=== PATIENT | female | born 1950 | race Caucasian/White ===

== ENCOUNTER → 2022-08-17 | Outpatient (CLI) | payer MEDICARE, SELFPAY ==
[2022-08-17 10:53] LABS: Erythrocyte Sedimentation Rate 8 mm/hr (0-30)
[2022-08-17 10:55] LABS: Absolute Lymphocyte Count 1.71 X10^3/uL (0.83-4.51); Absolute Neutrophil Count 4.6 X10^3/uL (2.0-7.7); Basophil# 0.02 X10^3/uL; Basophil% 0.3 % (0-1); Eosinophil# 0.12 X10^3/uL; Eosinophils% 1.7 % (0-5); Hematocrit 43.6 % (37-47); Hemoglobin 14.4 g/dL (12.0-15.0); Lymphocyte # 1.71 X10^3/ul (0.83-4.51); Lymphocyte % 24.3 % (19-41); Mean Corpuscular Volume 87.9 fL (81-99); Mean Platelet Vol. 10.3 fl (6.2-12.0); Monocyte# 0.63 X10^3/uL; Monocyte% 8.9 % (0-10); NRBC Flagged by Analyzer 0 % (0-5); Neutrophil # 4.56 X10^3/uL (2.7-7.7); Neutrophil % 64.7 % (47-70); Platelet Count 263 K/mm3 (150-450); RBC Distribution Width SD 41.8 fl (35.1-43.9); Red Blood Count 4.96 M/mm3 (4.2-5.4); White Blood Count 7.1 K/mm3 (4.4-11.0)
[2022-08-17 10:57] LABS: Prothrombin Time (Protime)PT. 13.3 SECONDS (11.7-14.9)
[2022-08-17 11:08] LABS: ALB/GLOB Ratio 1.1 RATIO (0.9-2.4); AST(SGOT) 17 U/L (15-37); Alanine Aminotransfer ALT/SGPT 25 U/L (13-56); Albumin, Serum 3.8 g/dL (3.2-5.0); Alkaline Phosphatase 70 U/L (45-117); Anion Gap 6 (5-15); BUN 18 mg/dL (7-18); BUN/Creat Ratio 20.7 RATIO (10-20); CRP < 2.90 mg/L (0.0-3.0); Calcium,Total 9.1 mg/dL (8.5-10.1); Chloride 106 mmol/L (98-107); Creatinine, Serum 0.87 mg/dL (0.55-1.02); EST Glomerular Filtration Rate 68 mL/min (>60); Est Glom Filt Rate - Afr Amer 82 mL/min (>60); Ferritin 18 ng/mL (8-252); Globulin 3.4 g/dL (2.2-4.2); Glucose 92 mg/dL (74-106); LDH 170 U/L (84-246); Potassium 3.8 mmol/L (3.5-5.1); Protein, Total 7.2 g/dL (6.4-8.2); Sodium Level 140 mmol/L (136-145)
[2022-08-17 11:27] LABS: HIV - WCH Non-Reactive (Nonreactive)
[2022-08-17 11:37] LABS: Hemoglobin A1c 5.6 % (3.8-5.6)
[2022-08-19 06:08] LABS: Angiotensin Convert Enzyme 41 U/L (14-82); Ceruloplasmin 27.4 mg/dL (19.0-39.0); Cytoplasmic Ab (C-ANCA) <1:20 titer (Neg:<1:20); HEPATITIS B SURFACE AG Negative (Negative); Hep C Antibodies <0.1 s/co ratio (0.0-0.9); Hepatitis A IgM Antibody Negative (Negative); Hepatitis B Core AB IgM Negative (Negative)
[2022-08-20 10:25] LABS: AFP, Tumor Marker 2.7 ng/mL (0.0-9.2); Anti-Smooth Muscle ABS 10 Units (0-19); Copper, Serum or Plasma 120 ug/dL (80-158); Haptoglobin 121 mg/dL (42-346); Perinuclear Ab (P-ANCA) <1:20 titer (Neg:<1:20)
[2022-08-24 17:07] LABS: Alternaria alternata <0.10 kU/L (Class 0); Anti-Centromere B Ab <0.2 AI (0.0-0.9); Anti-Chromatin 0.3 AI (0.0-0.9); Anti-Jo <0.2 AI (0.0-0.9); Anti-Scleroderma-70 AB <0.2 AI (0.0-0.9); Aspergillus fumigatus <0.10 kU/L (Class 0); Bahia Grass 0.11 kU/L (Class 0/I); Beef <0.10 kU/L (Class 0); Bermuda Grass <0.10 kU/L (Class 0); Bluegrass, Kentucky <0.10 kU/L (Class 0); Cat Hair/Dander, Standard <0.10 kU/L (Class 0); Cedar, Mountain 0.13 kU/L (Class 0/I); Cladosporium herbarum <0.10 kU/L (Class 0); Cockroach, American <0.10 kU/L (Class 0); D farinae Mite <0.10 kU/L (Class 0); D pteronyssinus <0.10 kU/L (Class 0); Dog Epithelia <0.10 kU/L (Class 0); Egg, Whole <0.10 kU/L (Class 0); Hazelnut Tree <0.10 kU/L (Class 0); Hickory, White <0.10 kU/L (Class 0); Johnson Grass <0.10 kU/L (Class 0); Maple/Box Elder <0.10 kU/L (Class 0); Milk (Cow) <0.10 kU/L (Class 0); Mucor racemosus <0.10 kU/L (Class 0); Mugwort <0.10 kU/L (Class 0); Mulberry, White <0.10 kU/L (Class 0); Nettle 0.11 kU/L (Class 0/I); Oak, White 0.11 kU/L (Class 0/I); Peanut <0.10 kU/L (Class 0); Penicillium chrysogen <0.10 kU/L (Class 0); Pigweed, Rough <0.10 kU/L (Class 0); Plantain, English <0.10 kU/L (Class 0); Pork <0.10 kU/L (Class 0); RNP Ab 0.3 AI (0.0-0.9); SJOGREN'S Anti-SS-A test < 0.2 AI (0.0-0.9); SJOGREN'S Anti-SS-B test < 0.2 AI (0.0-0.9); Sheep Sorrel(Dock) <0.10 kU/L (Class 0); Smith Ab <0.2 AI (0.0-0.9); Soybean <0.10 kU/L (Class 0); Stemphylium herbarum <0.10 kU/L (Class 0); Sweet Gum <0.10 kU/L (Class 0); Wheat <0.10 kU/L (Class 0)
[2022-08-24 21:01] LABS: Anti-Mitochondrial AB <20.0 Units (0.0-20.0); Anti-dsDNA Ab 11 IU/mL (0-9); Chocolate <0.10 kU/L (Class 0)
[2022-08-30 05:07] LABS: Alternaria tenuis <0.10 kU/L (Class 0); Ash, White 0.11 kU/L (Class 0/I); Aspergillus fumigatus <0.10 kU/L (Class 0); Bermuda Grass 0.11 kU/L (Class 0/I); Birch <0.10 kU/L (Class 0); Black Walnut 0.12 kU/L (Class 0/I); Cat Hair / Dander,Stand <0.10 kU/L (Class 0); Cedar, Mountain 0.15 kU/L (Class 0/I); Cladosporium herbarum <0.10 kU/L (Class 0); Cockroach, American 0.11 kU/L (Class 0/I); Cottonwood 0.12 kU/L (Class 0/I); D farinae Mite <0.10 kU/L (Class 0); D pteronyssinus <0.10 kU/L (Class 0); Dog Epithelia <0.10 kU/L (Class 0); Elm, American White 0.11 kU/L (Class 0/I); Immunoglobulin E 24 IU/mL (6-495); Maple/Box Elder 0.12 kU/L (Class 0/I); Mulberry, White <0.10 kU/L (Class 0); Oak, White 0.14 kU/L (Class 0/I); Pecan 0.11 kU/L (Class 0/I); Penicillium Notatum <0.10 kU/L (Class 0); Pigweed, Rough <0.10 kU/L (Class 0); Ragweed, Short/Common 0.13 kU/L (Class 0/I); Sheep Sorrel <0.10 kU/L (Class 0); Sycamore, American 0.14 kU/L (Class 0/I); Timothy Grass 0.13 kU/L (Class 0/I)
[2022-08-30 15:03] LABS: Mouse Urine <0.10 kU/L (Class 0)
== END | disposition home or self-care (01) ==
LOC: LAB 10:01
PROVIDERS: PCP Family Medicine; Referring Provider Internal Medicine Gastroenterology; Visit Provider Internal Medicine Gastroenterology
DX: K76.0 Fatty (change of) liver, not elsewhere classified (principal); K52.831 Collagenous colitis
CPT/HCPCS: 36415; 80053; 80074; 82105; 82140; 82164; 82390; 82525; 82728; 82785; 83010; 83036; 83516; 83615; 85025; 85610; 85652; 86003; 86005; 86140; 86225; 86235; 86256; 86703

== ENCOUNTER → 2022-09-06 | Outpatient (CLI) | payer MEDICARE, SELFPAY ==
--- NOTE | 2022-09-06 10:00 | US_ITS ---
STUDY: ABDOMINAL ULTRASOUND - ELASTOGRAPHY REASON FOR VISIT: Female, 72 years old. Fatty infiltration of the liver. TECHNIQUE: Liver stiffness measurements were obtained on a Apttus RS 85 ultrasound machine using a CA 1-7 probe following the SRU guidelines. 3 measurements were obtained using a 2-D-SWE method. The IQR/M was 15% suggesting a quality data set. TECHNICAL QUALITY: Adequate. COMPARISON: Comparison is made with prior study done earlier in the day. FINDINGS: Liver: Mild degree of fatty replacement of the liver. Median liver stiffness measured 6.1 kPa. US/Elastography Parenchyma/Organ IMPRESSION: Liver stiffness measures 6.1 kPa compatible with F0-F1 (Normal to mild liver fibrosis) Metavir score. Electronically Signed: Hubert Alcala MD at 9:45 EST ,
--- NOTE | 2022-09-06 10:00 | US_ITS ---
STUDY: ABDOMINAL ULTRASOUND - RIGHT UPPER QUADRANT REASON FOR VISIT: Female, 72 years old liver -FATTY TECHNIQUE: Ultrasound evaluation of the right upper quadrant was performed with real-time and static condon-scale imaging. TECHNICAL QUALITY: Adequate. COMPARISON: None. FINDINGS: Liver: The liver measures 14.2 cm. There is increased echogenicity consistent with fatty infiltration. The bile ducts are within normal limits. There is hepatic color flow. The direction of portal flow is hepatopetal. There is no demonstrated mass lesion. Gallbladder: Normal distended gallbladder. The gallbladder wall measures 2 mm. There is a negative sonographic Guo''s sign. There is no pericholecystic fluid. There are no gallstones. Questionable 8 mm x 6 mm x 5 mm gallbladder polyp. Common Bile Duct (C.B.D.): The common bile duct measures 3 mm. Pancreas: Normal size of the head, body and tail of the pancreas. There is normal echogenicity of the pancreas. There is no demonstrated pancreatic mass or cyst. Right Kidney: Normal size of the right kidney. The right kidney measures 10.2 cm x 3.8 cm x 4 cm. Normal renal cortex. The right cortex measures 1.4 cm. There is no demonstrated renal mass or cyst. There is no right hydronephrosis. US/Abdomen Limited IMPRESSION: Mild degree of fatty infiltration of the liver. Findings suggestive of an 8 mm x 6 mm x 5 mm gallbladder polyp. Electronically Signed: Hubert Alcala MD at 15:39 EST ,
== END | disposition home or self-care (01) ==
LOC: US 09:59
PROVIDERS: PCP Family Medicine; Referring Provider Internal Medicine Gastroenterology; Visit Provider Internal Medicine Gastroenterology
DX: K76.0 Fatty (change of) liver, not elsewhere classified (principal); K52.831 Collagenous colitis
CPT/HCPCS: 76705; 76981

== ENCOUNTER → 2025-06-02 | Outpatient (CLI) | payer MEDICARE, SELFPAY ==
--- OUTSIDE RECORDS SUMMARY | 2025-06-02 07:00 | XMS RPT_ITS | CCD ---
Author Organization [facility] Care Team Providers Care Programmer Operator Numerical Control Name Role Phone KIRSTEN HECTOR Unavailable Unavailable KIRSTEN HECTOR Unavailable Unavailable YUDI NOBLE (VESSEL WELDER) Unavailable Unavailable Charles Smith MD Primary Care Provider CALVIN VICKERS MD Attending Unavailable CALVIN VICKERS MD Primary Care Unavailable CALVIN VICKERS MD Admitting Unavailable Charles Smith MD Primary Care Provider Charles Smith MD Primary Care Provider Dr. Moi Uribe Attending Provider Charles Smith MD Primary Care Provider Charles Smith Primary Care Unavailable Charles Smith Referring Unavailable Moi Uribe Attending Unavailable Charles Smith Referring Unavailable Moi Uribe Attending Unavailable Charles Smith Primary Care Unavailable Charles Smith MD Primary Care Provider Charles Smith MD Primary Care Provider CHARLES SMITH Referring Unavailable CHARLES SMITH Primary Care Unavailable Chapo PERLA.VESSEL WELDER, Paula Unavailable Roxie Galloway PA-C Unavailable Charles Smith MD Primary Care Provider Charles Smith MD Primary Care Provider Chapo PERLA.EMELIA, Paula Unavailable Roxie Galloway PA-C Unavailable CHARLES SMITH Referring Unavailable RIGO BYRNE Attending Unavailable LUIS, CHARLES A Primary Care Unavailable RIGO BYRNE Attending Unavailable LUIS, CHARLES A Primary Care Unavailable LUIS, CHARLES A Referring Unavailable LUIS, CHARLES A Primary Care Unavailable LUIS, CHARLES A Referring Unavailable RIGO BYRNE Attending Unavailable LUIS, CHARLES A Referring Unavailable LUIS, CHARLES A Primary Care Unavailable LUIS, CHARLES A Referring Unavailable RIGO BYRNE Attending Unavailable LUIS, CHARLES A Primary Care Unavailable LUIS, CHARLES A Primary Care Unavailable DEVIKA FONTANEZ Attending Unavailable LUIS, CHARLES A Primary Care Unavailable LUIS, CHARLES A Primary Care Unavailable LUIS, CHARLES A Primary Care Unavailable LUIS, CHARLES A Referring Unavailable LUIS, CHARLES A Primary Care Unavailable KIRSTEN HECTOR Referring Unavailable KIRSTEN HECTOR Attending Unavailable LUIS, CHARLES A Primary Care Unavailable LUIS, CHARLES A Attending Unavailable SELF Referring Unavailable LUIS, CHARLES A Primary Care Unavailable LUIS, CHARLES A Referring Unavailable LUIS, CHARLES A Primary Care Unavailable KIRSTEN HECTOR Referring Unavailable LUIS, CHARLES A Primary Care Unavailable LUIS, CHARLES A Attending Unavailable ULIS, CHARLES A Primary Care Unavailable LUIS, CHARLES A Referring Unavailable LUIS, CHARLES A Primary Care Unavailable LUIS, CHARLES A Referring Unavailable LUIS, CHARLES A Referring Unavailable LUIS, CHARLES A Primary Care Unavailable LUIS, CHARLES A Primary Care Unavailable LUIS, CHARLES A Attending Unavailable Allergies Allergy Classification Reported Allergen(s) Allergy Type Date of Onset Reaction(s) Facility (20 sources) Sulfonamides (Antibiotic); Translations: [SULFA (SULFONAMIDE ANTIBIOTICS)] Propensity to adverse reactions to drug (disorder) 2 Swelling [facility] Other [place] [facility] (20 sources) Amoxicillin; Translations: [AMOXICILLIN] Drug Allergy 5 Other: See Comments [facility] (1 source) Amoxicillin Drug Allergy [facility] Repository (1 source) Sulfonamides (Antibiotic) Drug allergy (disorder) [facility] Repository (3 sources) Cetirizine; Translations: [CETIRIZINE] Drug Allergy 5 Diarrhea [facility] Medications Current Medications Medication Drug Class(es) Dates Sig (Normalized) Sig (Original) azithromycin 250 mg oral tablet (2 sources) Macrolide Antimicrobial Start: 03-18-2022 End: 03-23-2022 azithromycin (ZITHROMAX Z-LUZ) 250 mg tablet Indications: Lower resp. tract infection Take 2 tablets day one, then, 1 tablet daily until gone. 6 tablet 0 03/18/2022 03/23/2022 Active Comment on above: Take 2 tablets day o ne, then, 1 tablet daily until gone. benoxinate hydrochloride 4 mg/ml / fluorescein sodium 2.5 mg/ml ophthalmic solution (2 sources) Diagnostic Dye Start: 12-29-2022 End: 12-30-2022 fluorescein-benoxi gabriela 0.25-0.4 % 1 Drop (FLURESS) Start: 12-23-2021 End: 12-24-2021 fluorescein-benoxinate 0.25- 0.4 % 1 Drop (FLURESS) cefdinir 300 mg oral capsule (4 sources) Cephalosporin Antibacterial Start: 03-18-2022 End: 03-28-2022 take 1 capsule by mouth twice daily cefdinir (OMNICEF) 300 mg capsule Indications: Lower resp. tract infection Take 1 capsule by mouth twice daily for 10 days. 20 capsule 0 03/18/2022 03/28/2022 Active Comment on above: Take 1 capsule by [facility] twice daily for 10 days. cholecalciferol 0.125 mg oral tablet (20 sources) Vitamin D take 1 tablet by mouth once daily cholecalciferol (VITAMIN D3) 5,000 unit tab Take 5,000 Units by mouth once daily. Active Comment on above: Take 5,000 Units by mouth once daily. [id number] 0.3 ml EPINEPHrine 1 mg/ml auto-injector (20 sources) alpha-Adrenergic Agonist, beta-Adrenergic Agonist, Catecholamine Start: 05-26-2024 EPINEPHrine (EPIPEN) 0.3 mg/0.3 mL auto-injector Take as directed on instructions with allergic reaction. 2 Each 1 05/26/2024 Active glucosamine/chondr william A sod (OSTEO BI-FLEX ORAL) (20 sources) glucosamine/brian dr william Coelho sod (OSTEO BI-FLEX ORAL) Take by mouth once daily. Active glucosamine/brian dr william Coelho sod (OSTEO BI-FLEX ORAL) Take by mouth once daily. 0 Active glucosamine/brian dr bradley A sod (OSTEO BI-FLEX ORAL) Take by mouth. 0 Active Comment on above: Take by mouth. Take by mouth once d aily. methylPREDNISolone (8 sources) Corticosteroid Start: 06-06-2024 End: 06-12-2024 methylPREDNISolone (MEDROL, LUZ,) 4 mg Dose-Pack Indications: Localized swelling on right hand Follow dosing instructions, take with food. 21 tablet 06/06/2024 06/12/2024 Active Start: 05-10-2023 End: 05-16-2023 methylPREDNISolone (MEDROL, LUZ,) 4 mg Dose-Pack Indications: Pain of right thumb , Numbness and tingling in right hand Follow dosing instructions, take with food. 21 tablet 05/10/2023 05/16/2023 Start: 05-10-2023 End: 05-16-2023 methylPREDNISolone (MEDROL, LUZ,) 4 mg Dose-Pack Indications: Pain of right thumb , Numbness and tingling in right hand Follow dosing instructions, take with food. 21 tablet 0 05/10/2023 05/16/2023 Active Comment on above: Follow dosing instru ctions, take with food. phenylephrine hydrochloride 25 mg/ml ophthalmic solution (4 sources) alpha-1 Adrenergic Agonist Start: 03-30-2025 End: 03-30-2025 PHENYLephrine 2.5 % 1 drop (AK-DILATE, VINNIE-SYNEPHRINE) Start: 03-30-2025 End: 03-30-2025 1 drop, BOTH EYES, DIRECT ED, Starting on Sun03/30/25 at 0930, Until Sun03/30/25 at 2129, Administer for dilation PROTECT FROM LIGHT Start: 12-29-2022 End: 12-30-2022 PHENYLephrine 2.5 % 1 Drop ( AK-DILATE, VINNIE-SYNEPHRINE) Start: 12-23-2021 End: 12-24-2021 PHENYLephrine 2.5 % 1 Drop ( AK-DILATE, VINNIE-SYNEPHRINE) proparacaine hydrochloride 5 mg/ml ophthalmic solution (4 sources) Local Anesthetic Start: 03-30-2025 End: 03-30-2025 proparacaine 0.5 % 1 drop (ALCAINE) Start: 03-30-2025 End: 03-30-2025 1 drop, BOTH EYES, DIRECT ED, Starting on Sun03/30/25 at 0930, Until Sun03/30/25 at 2128, Administer for pneumo tonometry, tonopen tonometry, or pachymetry. In the event of a proparacaine shortage, administer tetracaine 0.5% ophthalmic drops 1 drop in the left eye as directed for pneumo tonometry, tonopen tonometry, or pachymetry Start: 02-05-2024 End: 02-05-2024 proparacaine 0.5 % 1 Drop (A LCAINE) Pseudoephedrine (20 sources) alpha-Adrenergic Agonist PSEUDOE PHEDRINE HCL (SUDAFED ORAL) Take by mouth once daily. Active PSEUDOEPHEDRINE HCL (SUDAFED ORAL) Take by mouth once daily. 0 Active PSEUDOEPHEDRINE HCL (SUDAFED ORAL) Take by mouth. 0 Active Comment on above: Take by mouth. Take by mouth once d aily. tropicamide 10 mg/ml ophthalmic solution (6 sources) Anticholinergic Start: 03-30-2025 End: 03-30-2025 tropicamide 1 % 1 drop (MYDRIACYL) Start: 03-30-2025 End: 03-30-2025 1 drop, BOTH EYES, DIRECT ED, Starting on Sun03/30/25 at 0930, Until Sun03/30/25 at 2128, Administer for dilation Start: 02-05-2024 End: 02-05-2024 tropicamide 1 % 1 Drop (MYDR IACYL) Start: 12-29-2022 End: 12-30-2022 tropicamide 1 % 1 Drop (MYDR IACYL) Start: 12-23-2021 End: 12-24-2021 tropicamide 1 % 1 Drop (MYDR IACYL) Completed/Discontinued Medications Medication Drug Class(es) Dates Sig (Normalized) Sig (Original) cetirizine hydrochloride 10 mg oral tablet (5 sources) Histamine-1 Receptor Antagonist Start: 04-14-2025 End: 05-27-2025 take 1 tablet by mouth once daily cetirizine (ZYRTEC) 10 mg tablet Take 1 tablet by mouth once daily. 04/14/2025 05/27/2025 Discontinued (Discontinued by Patient) enteric contrast (will be provided with radiology test) (2 sources) Start: 04-03-2022 End: 04-04-2022 enteric contrast (will be provided with radiology test) Indications: Abdominal pain, lower , Elevated LFTs For CT ABD/PEL W IVCON Routine order Administer, As Directed One Time Only, via Oral, Rectal, both Oral and Rectal, Enteric Tube, Stoma or Indwelling Catheter, Enteric Contrast as designated per enteric contrast guidelines 1 Each 0 04/03/2022 04/04/2022 Start: 03-31-2022 End: 04-01-2022 enteric contrast (will be pr ovided with radiology test) Indications: Abdominal pain, lower , Elevated LFTs , Elevated alkaline phosphatase level For CT ABD/PEL W IVCON Routine order Administer, As Directed One Time Only, via Oral, Rectal, both Oral and Rectal, Enteric Tube, Stoma or Indwelling Catheter, Enteric Contrast as designated per enteric contrast guidelines 1 Each 0 03/31/2022 04/01/2022 Comment on above: For CT ABD/PEL W IVC ON Routine order Administer, As Directed One Time Only, via Oral, Rectal, both Oral and Rectal, Enteric Tube, Stoma or Indwelling Catheter, Enteric Contrast as designated per enteric contrast guidelines iv contrast (will be provided with radiology test) (3 sources) Start: 04-25-2022 End: 04-26-2022 iv contrast (will be provided with radiology test) Indications: Lesion of right lobe of liver MRI Liver Inject, intravenously, once for 1 dose. No IV access, insert saline lock prior to the beginning of sedation, infusion, injection of imaging exam. Discontinue saline lock post exam. If Pt. has a central line or IVAD, may access for administration according to line specific nursing protocol. Once exam is complete flush line and de-access according to line specific nursing protocol in the MR contrast administration guidelines link. 1 Each 0 04/25/2022 04/26/2022 Start: 04-03-2022 End: 04-04-2022 iv contrast (will be provide d with radiology test) Indications: Abdominal pain, lower , Elevated LFTs CT ABD/PEL -Inject, intravenously, once for 1 dose.No IV access, insert saline lock prior to the beginning of sedation, infusion, injection of imaging exam. Discontinue saline lock post exam. If Pt. has a central line or IVAD, may access for administration according to line specific nursing protocol. Once exam is complete flush line and de-access according to line specific nursing protocol in the CT contrast administration guidelines link. 1 Each 0 04/03/2022 04/04/2022 Start: 03-31-2022 End: 04-01-2022 iv contrast (will be provide d with radiology test) Indications: Abdominal pain, lower , Elevated LFTs , Elevated alkaline phosphatase level CT ABD/PEL -Inject, intravenously, once for 1 dose.No IV access, insert saline lock prior to the beginning of sedation, infusion, injection of imaging exam. Discontinue saline lock post exam. If Pt. has a central line or IVAD, may access for administration according to line specific nursing protocol. Once exam is complete flush line and de-access according to line specific nursing protocol in the CT contrast administration guidelines link. 1 Each 0 03/31/2022 04/01/2022 Comment on above: CT ABD/PEL -Inject, intravenously, once for 1 dose.No IV access, insert saline lock prior to the beginning of sedation, infusion, injection of imaging exam. Discontinue saline lock post exam. If Pt. has a central line or IVAD, may access for administration according to line specific nursing protocol. Once exam is complete flush line and de-access according to line specific nursing protocol in the CT contrast administration guidelines link. MRI Liver Inject, in travenously, once for 1 dose. No IV access, insert saline lock prior to the beginning of sedation, infusion, injection of imaging exam. Discontinue saline lock post exam. If Pt. has a central line or IVAD, may access for administration according to line specific nursing protocol. Once exam is complete flush line and de-access according to line specific nursing protocol in the MR contrast administration guidelines link. melatonin 10 mg oral capsule (20 sources) Start: 12-07-19 21 End: 05-10-20 23 melatonin 10 mg cap 0 12/06/2020 05/10/2023 Discontinued omeprazole 40 mg delayed release oral capsule (19 sources) Proton Pump Inhibitor Start: 05-29-20 22 End: 05-10-20 23 take 1 capsule by mouth once daily omeprazole (PRILOSEC) 40 mg capsule Take 1 capsule by mouth once daily. 90 capsule 1 05/29/2022 05/10/2023 Discontinued Start: 05-09-2022 End: 05-29-2022 take 2 capsules by mouth once daily omeprazole (PRILOSEC) 20 mg capsule Take 2 capsules by mouth once daily. 60 capsule 0 05/09/2022 05/29/2022 Discontinued Comment on above: Take 2 capsules by m outh once daily. Take 1 capsule by mo [facility] once daily. OTC NUTRITIONAL SUPPLEMENT (20 sources) End: 05-10-2023 OTC NUTRITIONAL SUPPLEMENT Ambereen for menopause 0 05/10/2023 Discontinued OTC NUTRITIONAL SUPPLEMENT Ambereen for menopause 0 Active Comment on above: Ambereen for menopau se polyethylene glycol 3350 221566 mg / potassium chloride 2970 mg / sodium bicarbonate 6740 mg / sodium chloride 5860 mg / sodium sulfate 08958 mg powder for oral solution (2 sources) Osmotic Laxative Start: 2 End: 2 peg 3350-Electrolytes (GOLYTELY) 236-22.74-6.74 -5.86 gram suspension Take 4,000 mL by mouth one time only for 1 dose. 1 Each 0 04/25/2022 04/25/2022 Comment on above: Take 4,000 mL by nancy th one time only for 1 dose. predniSONE 20 mg oral tablet (11 sources) Start: 5 End: 5 predniSONE (DELTASONE) 20 mg tablet Take 3 tabs by mouth for 3 days, then 2 tabs by mouth for 3 days, then 1 tab by mouth for 3 days and then 1/2 a tab by mouth for 4 days. 20 tablet 12/19/2024 04/14/2025 Discontinued (Course of therapy completed) Zinc (20 sources) Start: 0 End: 3 take 1 tablet by mouth every other day Zinc 50 mg tab Take 50 mg by mouth every other day. 0 12/07/2019 05/10/2023 Discontinued Start: 12-07-2019 take 1 tablet by nancy th every other day Zinc 50 mg tab Take 50 mg by mouth every other day. 0 12/07/2019 Active Start: 12-07-2019 Zinc 50 mg tab Comment on above: Take 50 mg by mouth every other day. Problems Active Problems Problem Classification Problem Date Documented Da te Episodic/Chronic Abdominal pain (18 sources) Female genital organ symptoms; Translations: [Pelvic and perineal pain] Onset: 03-31-2022 Episodic Blindness and vision defects (16 sources) Disorder of refraction; Translations: [Unspecified disorder of refraction] Onset: 03-30-2025 Episodic Cataract (20 sources) Nuclear sclerosis; Translations: [Age-related nuclear cataract, bilateral] Onset: 12-19-2019 Chronic Fluid and electrolyte disorders (3 sources) Dehydration; Translations: [Dehydration] Onset: 03-19-2022 Episodic Inflammation; infection of eye (except that caused by tuberculosis or sexually transmitteddisease) (1 source) Punctate keratitis of right eye; 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 keratitis, right eye] Chronic Joint disorders and dislocations; trauma-related (2 sources) Tear of medial meniscus of knee; Translations: [Other tear of medial meniscus, current injury, right knee, initial encounter] Onset: 05-20-2025 05-20-2025 Episodic Malaise and fatigue (20 sources) Lack of stamina; Translations: [Other fatigue] Onset: 02-02-2020 02-02-2020 Episodic Noninfectious gastroenteritis (20 sources) Collagenous colitis; Translations: [Collagenous colitis] Onset: 05-29-2022 Chronic Nonmalignant breast conditions (2 sources) Breast finding ; Translations: [Dense breast tissue] 06-02-2024 Episodic Osteoarthritis (1 source) Osteoarthritis of right knee joint; Translations: [Unilateral primary osteoarthritis, right knee] 06-01-2025 Chronic Other and unspecified benign neoplasm (20 sources) History of polyp of colon; Translations: [Personal history of colonic polyps] 01-30-2020 Episodic Other and unspecified benign neoplasm (2 sources) Personal history of colonic polyps; Translations: [Personal history of colonic polyps] Episodic Other and unspecified benign neoplasm (1 source) Multiple benign melanocytic nevi ; Translations: [Melanocytic nevi, unspecified] 04-19-2023 Episodic Other and unspecified benign neoplasm (1 source) Skin lesion; Translations: [Hemangioma of skin and subcutaneous tissue] 04-19-2023 Episodic Other connective tissue disease (2 sources) Pain in right thumb; Translations: [Pain in right finger(s)] 05-10-2023 Episodic Other ear and sense organ disorders (1 source) Hearing loss; Translations: [Other specified hearing loss, unspecified ear] 05-10-2023 Chronic Other ear and sense organ disorders (1 source) Impacted cerumen in left ear; Translations: [Impacted cerumen, left ear] 01-15-2025 Episodic Other eye disorders (3 sources) Bilateral vitreous floaters; Translations: [Other vitreous opacities, bilateral] Chronic Other eye disorders (1 source) Other vitreous opacities, bilateral; Translations: [Vitreous floaters of both eyes] Onset: 03-30-2025 Chronic Other eye disorders (1 source) Disorder of lacrimal gland; Translations: [Dry eye syndrome of bilateral lacrimal glands] Episodic Other gastrointestinal disorders (2 sources) Alteration in bowel elimination; Translations: [Change in bowel habit] Episodic Other inflammatory condition of skin (1 source) Pruritus, unspecified; Translations: [Unspecified pruritic disorder] 04-19-2023 Episodic Other liver diseases (5 sources) Lesion of liver; Translations: [Liver disease, unspecified] Onset: 04-25-2022 Chronic Other liver diseases (20 sources) Steatosis of liver; Translations: [Fatty (change of) liver, not elsewhere classified] Onset: 05-29-2022 Chronic Other liver diseases (3 sources) Fatty (change of) liver, not elsewhere classified; Translations: [Other chronic nonalcoholic liver disease] Onset: 05-27-2025 Chronic Other liver diseases (12 sources) Alkaline phosphatase raised; Translations: [Abnormal levels of other serum enzymes] Onset: 03-31-2022 03-31-2022 Episodic Other liver diseases (2 sources) Elevated liver enzymes level; Translations: [Abnormal levels of other serum enzymes] Episodic Other lower respiratory disease (2 sources) Dyspnea on exertion; Translations: [Other forms of dyspnea] 05-26-2024 Episodic Other lower respiratory disease (2 sources) Dyspnea; Translations: [Shortness of breath] 05-26-2024 Episodic Other nervous system disorders (1 source) Skin sensation disturbance; Translations: [Unspecified disturbances of skin sensation] 04-19-2023 Episodic Other nervous system disorders (1 source) Paresthesia of hand ; Translations: [Anesthesia of skin] 05-10-2023 Episodic Other nervous system disorders (1 source) Paresthesia of upper limb; Translations: [Anesthesia of skin] 04-14-2025 Episodic Other nervous system disorders (1 source) Paresthesia of lower extremity; Translations: [Anesthesia of skin] 04-14-2025 Episodic Other nervous system disorders (2 sources) Anesthesia of skin; Translations: [Numbness and tingling of both upper extremities] Onset: 04-14-2025 Episodic Other nervous system disorders (2 sources) Paresthesia of skin; Translations: [Numbness and tingling of both upper extremities] Onset: 04-14-2025 Episodic Other skin disorders (1 source) Disorder of skin; Translations: [Disorder of the skin and subcutaneous tissue, unspecified] 04-16-2023 Episodic Other skin disorders (1 source) Lentiginosis; Translations: [Other melanin hyperpigmentation] 04-19-2023 Episodic Other skin disorders (1 source) Seborrheic keratosis; Translations: [Other seborrheic keratosis] 04-19-2023 Episodic Other skin disorders (1 source) Inflamed seborrheic keratosis; Translations: [Inflamed seborrheic keratosis] 04-19-2023 Episodic Other skin disorders (1 source) Epidermoid cyst; Translations: [Epidermal cyst] 04-19-2023 Episodic Other skin disorders (1 source) Localized swelling of right hand; Translations: [Localized swelling, mass and lump, right upper limb] 06-06-2024 Episodic Other upper respiratory infections (20 sources) Chronic sinusitis; Translations: [Chronic sinusitis, unspecified] Onset: 05-10-2023 05-10-2023 Chronic Otitis media and related conditions (2 sources) Recurrent acute serous otitis media of left middle ear; Translations: [Acute serous otitis media, recurrent, left ear] 01-15-2025 Episodic Poisoning by nonmedicinal substances (1 source) Bee sting; Translations: [Toxic effect of venom of bees, undetermined, initial encounter] 06-06-2024 Episodic Screening and history of mental health and substance abuse codes (6 sources) Patient encounter status; Translations: [Encounter for screening for depression] Onset: 05-27-2025 05-26-2024 Episodic Unclassified (20 sources) Other abnormal and inconclusive findings on diagnostic imaging of breast; Translations: [Patient encounter status] Onset: 10-04-2017 01-07-2018 Episodic Unclassified (1 source) Unspecified lump in the right breast, unspecified quadrant; Translations: [Unspecified lump in the right breast, unspecified quadrant] Onset: 10-04-2017 Unclassified (3 sources) Acute pain of right knee 12-19-2024 Unclassified (1 source) History of colonic polyps; Translations: [History of colonic polyps] Onset: 05-27-2025 Unclassified (1 source) Dense breast tissue; Translations: [Dense breast tissue] Onset: 11-13-2024 Past or Other Problems Problem Classification Problem Date Documented Da te Episodic/Chronic Administrative/social admission (20 sources) Advance directive discussed with patient; Translations: [Other specified counseling] Onset: 04-24-2022 Episodic Biliary tract disease (20 sources) Polyp of gallbladder; Translations: [Cholesterolosis of gallbladder] Onset: 03-31-2022 03-31-2022 Episodic Esophageal disorders (20 sources) Esophagitis; Translations: [Esophagitis] Onset: 05-29-2022 Episodic Nonspecific chest pain (19 sources) Chest pain; Translations: [Chest pain, unspecified] Onset: 02-02-2020 02-02-2020 Episodic Other and unspecified benign neoplasm (20 sources) Leiomyoma; Translations: [Benign neoplasm of connective and other soft tissue, unspecified] Onset: 03-25-2022 03-25-2022 Episodic Other and unspecified benign neoplasm (20 sources) Hemangioma of liver; Translations: [Hemangioma of intra-abdominal structures] Onset: 05-18-2022 05-18-2022 Episodic Other bone disease and musculoskeletal deformities (20 sources) Senile osteopenia; Translations: [Other specified disorders of bone density and structure, unspecified site] Onset: 01-14-2018 01-14-2018 Episodic Other bone disease and musculoskeletal deformities (1 source) Other specified disorders of bone density and structure, unspecified site; Translations: [Osteopenia, senile] Onset: 06-06-2023 Episodic Other ear and sense organ disorders (20 sources) Bilateral tinnitus; Translations: [Tinnitus, bilateral] Onset: 05-10-2023 05-10-2023 Episodic Other lower respiratory disease (2 sources) Other forms of dyspnea; Translations: [CHAVEZ (dyspnea on exertion)] Onset: 06-03-2024 Episodic Other lower respiratory disease (2 sources) Shortness of breath; Translations: [SOB (shortness of breath)] Onset: 06-03-2024 Episodic Other non-traumatic joint disorders (20 sources) Pain in right knee; Translations: [Pain in joint, lower leg] Onset: 12-30-2024 12-19-2024 Episodic Other skin disorders (20 sources) Localized swelling, mass and lump, left upper limb; Translations: [Localized superficial swelling, mass, or lump] Onset: 05-27-2015 01-07-2018 Episodic Other skin disorders (19 sources) Night sweats; Translations: [Generalized hyperhidrosis] Onset: 02-02-2020 02-02-2020 Episodic Residual codes; unclassified (20 sources) Family history of cancer of colon; Translations: [Family history of malignant neoplasm of digestive organs] Onset: 10-12-2011 01-07-2018 Episodic Residual codes; unclassified (20 sources) Family history of coronary arteriosclerosis; Translations: [Family history of ischemic heart disease and other diseases of the circulatory system] Onset: 05-26-2024 05-26-2024 Episodic Residual codes; unclassified (2 sources) Family history of ischemic heart disease and other diseases of the circulatory system; Translations: [Family history of coronary artery disease] Onset: 05-26-2024 Episodic Residual codes; unclassified (1 source) Family history of malignant neoplasm of digestive organs; Translations: [Family history of colon cancer] Onset: 01-07-2018 Episodic Results Test Name Value Interpretation Reference Range Facility [facility] 05-27-2025 CNOV Office Visit (FAMPWS ) -- JEFF ROBBINS ([id number]) 1950 F Date Time Provider Department 05/27/25 10:20 AM CHARLES SMITH During your visit today, we recorded the following information about you: Pulse Respiration Blood pressure Weight 64/minute 16/minute 128/82 64.2 kg Height 1.657 m Charles Smith MD 05/27/2025 11:54 AM Signed Jeff Harrisycjaycee Robbins is a 74 year old female here for a Medicare wellness visit. Medicare Health Risk Assessment General Health Very good Exercise: Minutes/Day 120 min Exercise: Days/Week 5 days Alcohol: Daily Use 4 or more times a week Alcohol: Drinks/Day 1 or 2 Alcohol: 6 or more drinks Never Feel off balance No Concerns: Teeth/Dentures No Concerns: Sexual function No Troubled by feelings None of the above Frequency: Eating healthy diet Nearly every day ADLs requiring help None of the above Safety precautions in home/vehicle No Smoke, vape, chews tobacco No Difficulty hearing No Difficulty seeing No Current Providers Specialists: I have reviewed specialist-related care of the patient in the medical record. Medical/Family history review Reviewed and updated problem list, medical/surgical/family/so cial history, medications, and allergies. Opioid use review Opioid Medications (last 90 days) No data to display Anxiety/Depression screening PHQ-9 Score: 0. TRAVIS-7 Score: 0. Recommendation: no further intervention at this time Cognitive screening Mini Cog Score: 5 Cognitive screening reviewed and No further action needed (score 3-5). Mini-Cog Patient asked to remember the following three words: Banana, [place] and Chair Visuospatial/Executive Functioning: Clock drawin/2 (Normal clock with all number in correct sequence and position, hands are correct = 2 points, inability or refusal to draw a clock = 0) Three word recall: 3/3 Total score: 5/5 (Total score = word recall score + clock draw score) Functional Observation Was the patient's Timed Up AND Go test unsteady or >= 12 seconds? No Advance Care Planning Surrogate decision maker and/or advance care plan documented Measurements BP 128/82 (BP Site: Left Arm, BP Position: Sitting, BP Cuff Size: Regular Adult) Pulse 64 Resp 16 Ht 165.7 cm (5' 5.25) Wt 64.2 kg (141 lb 8.6 oz) BMI 23.37 kg/m? Vision Screening: Follows with optometry/ophthalmology follows with annually. Assessment/Plan Medicare annual wellness visit, subsequent (Z00.00) - Counseled on healthy diet and regular exercise - Fall avoidance information provided - Personalized prevention plan provided See below Chief Complaint Patient presents with: Medicare Wellness Exam HPI Jeff Robbins is a 74 year old female who presents here today for a medicare wellness and a routine follow up. Patient with a Hx of esophagitis, fatty liver, gal bladder polyps colon polyps and had colonoscopy 2016 and due for repeat in 5 years. Patient has been doing well. Anna reports improvement in knee pain, which she describes as arthritic in nature. Initially, the pain was localized to a specific area, Medialy, but now it has dissipated. She is scheduled to see Dr. Lakhani next week and will undergo nerve studies starting Sunday. She has not had any surgeries in the last 2-3 years, with her last procedures being scopes. Anna also expresses concern about her colonoscopy schedule. She was previously uncomfortable with waiting 5 years for a colonoscopy and had a note sent to Dr. Bland regarding this. Since then, she has not heard back and her scheduled colonoscopy for next year is no longer listed. She has a history of colon polyps, cholangitis, and esophagitis. Additionally, her sister and niece have had difficult recoveries from pre-cancer surgeries. She denies recent fevers, frequent headaches, sudden changes in hearing or vision, issues with her nose or throat, lumps or swelling in her neck, wheezing, dyspnea, hemoptysis, chest pain, palpitations, leg swelling, hematochezia, hematuria, dysuria, skin lesions, rashes, sores, easy bruising or bleeding, changes in heat or cold tolerance, increased thirst, syncope, seizures, or tremors. She does report a recent episode of diarrhea lasting about a month, which resolved after discontinuing Zyrtec. She also notes feeling really tired during this period. She mentions that she is healing lots more slowly and attributes this to her age. Recent lab results show normal WBC count, no anemia, normal platelet count, normal electrolyte panel, normal liver function tests, and normal kidney function tests. Cholesterol levels are within normal limits, with triglycerides at 58, HDL at 69, and LDL at 96. Thyroid, B12, and folate levels were normal in April. Past medical history, appointments, medications, allergies reviewed. Previous Medical (more content not included)... Normal [facility] Comprehensive metabolic 2000 panelon 05-18-2025 Albumin [Mass/Vol] 4.1 g/dL Normal 3.9-4.9 [facility] Comment on above: Order Comment: Speci men Type: BLOOD SPECIMEN Ordering Facility: [facility] Address: [address] [place] [address] Performed By: #### 2 284-8, 3016-3, 75990-1, 9 #### [facility] CLIA [id number] [address] [place] [address] [place] ALP [Catalytic activity/Vol] 66 U/L Normal 34-123 [facility] Comment on above: Order Comment: Speci men Type: BLOOD SPECIMEN Ordering Facility: [facility] Address: [address] [place] [address] Performed By: #### 2 284-8, 3016-3, 41996-0, 9 #### [facility] CLIA [id number] [address] [place] [address] [place] ALT [Catalytic activity/Vol] 12 U/L Normal 7-38 [facility] Comment on above: Order Comment: Speci men Type: BLOOD SPECIMEN Ordering Facility: [facility] Address: [address] [place] [address] Performed By: #### 2 284-8, 3016-3, 70228-7, 2132-06 #### [facility] CLIA [id number] [address] [place] [address] [place] Anion gap [Moles/Vol] 11 mmol/L Normal 8-15 [facility] Comment on above: Order Comment: Speci men Type: BLOOD SPECIMEN Ordering Facility: [facility] Address: [address] [place] [address] Performed By: #### 2 284-8, 3016-3, 77071-4, 9 #### [facility] CLIA [id number] [address] [place] [address] [place] AST [Catalytic activity/Vol] 17 U/L Normal 13-35 [facility] Comment on above: Order Comment: Speci men Type: BLOOD SPECIMEN Ordering Facility: [facility] Address: [address] [place] [address] Performed By: #### 2 284-8, 3016-3, 42271-3, 2132-06 #### [facility] CLIA [id number] [address] [place] [address] [place] Bilirubin [Mass/Vol] 0.3 mg/dL Normal 0.2-1.3 [facility] Comment on above: Order Comment: Speci men Type: BLOOD SPECIMEN Ordering Facility: [facility] Address: [address] [place] [address] Performed By: #### 2 284-8, 3016-3, 15708-5, 2132-06 #### [facility] CLIA [id number] [address] [place] [address] [place] Calcium [Mass/Vol] 9.3 mg/dL Normal 8.5-10.2 [facility] Comment on above: Order Comment: Speci men Type: BLOOD SPECIMEN Ordering Facility: [facility] Address: [address] [place] [address] Performed By: #### 2 284-8, 3016-3, 25654-1, 2132-06 #### [facility] CLIA [id number] [address] [place] [address] [place] Chloride [Moles/Vol] 104 mmol/L Normal 98-107 [facility] Comment on above: Order Comment: Speci men Type: BLOOD SPECIMEN Ordering Facility: [facility] Address: [address] [place] [address] Performed By: #### 2 284-8, 3016-3, 47634-6, 2132-06 #### [facility] CLIA [id number] [address] [place] [address] [place] CO2 [Moles/Vol] 24 mmol/L Normal 22-30 [facility] Comment on above: Order Comment: Speci men Type: BLOOD SPECIMEN Ordering Facility: [facility] Address: [address] [place] [address] Performed By: #### 2 284-8, 3016-3, 76137-5, 2132-06 #### [facility] CLIA [id number] [address] [place] [address] [place] Creatinine [Mass/Vol] 0.78 mg/dL Normal 0.58-0.96 [facility] Comment on above: Order Comment: Speci men Type: BLOOD SPECIMEN Ordering Facility: [facility] Address: [address] [place] [address] Performed By: #### 2 284-8, 3016-3, 92666-1, 2132-06 #### [facility] CLIA [id number] [address] [place] [address] [place] eGFRcr SerPlBld CKD-EPI 2020 79 mL/min/1.73m??? Normal >=60 [facility] Comment on above: Order Comment: Juanpablo mar Type: BLOOD SPECIMEN Ordering Facility: [facility] Address: [address] [place] [address] Result Comment: Dori mated Glomerular Filtration Rate (eGFR) is calculated using the 2020 CKD-EPI creatinine equation. This equation utilizes serum creatinine, sex, and age as parameters. The creatinine assay has traceable calibration to isotope dilution-mass spectrometry. Refer to KDIGO guidelines for clinical interpretation. In patients with unstable renal function, e.g. those with acute kidney injury, the eGFR may not accurately reflect actual GFR. Performed By: #### 2 284-8, 3016-3, 97539-4, 2132-06 #### [facility] CLIA [id number] [address] [place] [address] [place] Glucose [Mass/Vol] 87 mg/dL Normal 74-99 [facility] Comment on above: Order Comment: Speci men Type: BLOOD SPECIMEN Ordering Facility: [facility] Address: [address] [place] [address] Result Comment: The [place] Diabetes Association (ADA) provides guidance for cutoff values for fasting glucose and random glucose. The ADA defines fasting as no caloric intake for at least 8 hours. Fasting plasma glucose results between 100 to 125 mg/dL indicate increased risk for diabetes (prediabetes). Fasting plasma glucose results greater than or equal to 126 mg/dL meet the criteria for diagnosis of diabetes. In the absence of unequivocal hyperglycemia, results should be confirmed by repeat testing. In a patient with classic symptoms of hyperglycemia or hyperglycemic crisis, random plasma glucose results greater than or equal to 200 mg/dL meet the criteria for diagnosis of diabetes. Reference: Standards of Medical Care in Diabetes 2016, [place] Diabetes Association. Diabetes Care. 2016.39(Suppl 1). Performed By: #### 2 284-8, 3016-3, 24309-9, 2132-06 #### [facility] CLIA [id number] [address] [place] [address] [place] Potassium [Moles/Vol] 4.4 mmol/L Normal 3.7-5.1 [facility] Comment on above: Order Comment: Speci men Type: BLOOD SPECIMEN Ordering Facility: [facility] Address: [address] [place] [address] Performed By: #### 2 284-8, 3016-3, 50554-5, 2132-06 #### [facility] CLIA [id number] [address] [place] [address] [place] Protein [Mass/Vol] 6.3 g/dL Normal 6.3-8.0 [facility] Comment on above: Order Comment: Juanpablo mar Type: BLOOD SPECIMEN Ordering Facility: [facility] Address: [address] [place] [address] Performed By: #### 2 284-8, 3016-3, 64004-8, 2132-06 #### [facility] CLIA [id number] [address] [place] [address] [place] Sodium [Moles/Vol] 139 mmol/L Normal 136-144 [facility] Comment on above: Order Comment: Anai men Type: BLOOD SPECIMEN Ordering Facility: [facility] Address: [address] [place] [address] Performed By: #### 2 284-8, 3016-3, 97190-8, 2132-06 #### [facility] CLIA [id number] [address] [place] [address] [place] Urea nitrogen [Mass/Vol] 18 mg/dL Normal 7-21 [facility] Comment on above: Order Comment: Speci men Type: BLOOD SPECIMEN Ordering Facility: [facility] Address: [address] [place] [address] Performed By: #### 2 284-8, 3016-3, 77008-3, 2132-06 #### [facility] CLIA [id number] [address] [place] [address] [place] LIPID PANEL, NONFASTINGon Cholesterol [Mass/Vol] 176 mg/dL Normal <200 [facility] Comment on above: Order Comment: Speci men Type: BLOOD SPECIMEN Ordering Facility: [facility] Address: [address] [place] [address] Result Comment: <200 mg/dL, Desirable 200-239 mg/dL, Borderline high >239 mg/dL, High Performed By: #### 2 284-8, 3016-3, , 2132-06 #### [facility] CLIA [id number] [address] [place] [address] [place] HDL CHOLESTEROL, NF 69 mg/dL Normal >39 [facility] Comment on above: Order Comment: Speci men Type: BLOOD SPECIMEN Ordering Facility: [facility] Address: [address] [place] [address] Result Comment: 40-5 9 mg/dL, Acceptable >59 mg/dL, High: Negative risk factor for coronary heart disease <40 mg/dL, Low: Positive risk factor for coronary heart disease Performed By: #### 2 284-8, 3016-3, 78249-9, 2132-06 #### [facility] CLIA [id number] [address] [place], [place] [address] [place] LDL CHOLESTEROL CALCULATED, NF 96 mg/dL Normal <100 [facility] Comment on above: Order Comment: Juanpablo mar Type: BLOOD SPECIMEN Ordering Facility: [facility] Address: [address] [place] [address] Result Comment: <100 mg/dL, Optimal 100-129 mg/dL, Near optimal/above optimal 130-159 mg/dL, Borderline high 160-189 mg/dL, High >189 mg/dL, Very high Secondary prevention optimal LDL Cholesterol levels are recommended to be <70 mg/dL LDL cholesterol is calculated using the Santos-NIH equation. Performed By: #### 2 284-8, 3016-3, 29236-1, 2132-06 #### [facility] CLIA [id number] [address] [place] [address] [place] LDL/HDL RATIO, NF 1.39 mg/dL Normal <2.54 [facility] Comment on above: Order Comment: Juanpablo mar Type: BLOOD SPECIMEN Ordering Facility: [facility] Address: [address] [place] [address] Result Comment: Refe rence: 1. National Cholesterol Education Program ATP III Guideline At-A-Glance Quick Desk Reference: National Heart, Lung, and Blood [employer] National Institutes of Health. 2001: NIH Publication No. 01-3305. 2. An International Atherosclerosis Society position paper: global recommendations for the management of dyslipidemia: executive summary, Atherosclerosis. 2014: 232(2):410-413. Performed By: #### 2 284-8, 3016-3, 38194-0, 2132-06 #### [facility] CLIA [id number] [address] [place] [address] [place] NON HDL CHOL, NF 107 mg/dL Normal <130 [facility] Comment on above: Order Comment: Juanpablo mar Type: BLOOD SPECIMEN Ordering Facility: [facility] Address: [address] [place] [address] Result Comment: <130 mg/dL, Optimal 130-159 mg/dL, Near optimal/above optimal 160-189 mg/dL, Borderline high 190-219 mg/dL, High >219 mg/dL, Very high Secondary prevention optimal non HDL Cholesterol levels are recommended to be <100 mg/dL Performed By: #### 2 284-8, 3016-3, 09241-7, 2132-06 #### [facility] CLIA [id number] [address] [place], [place] [address] [place] T CHOL/HDL RATIO NF 2.55 mg/dL Normal <5.10 [facility] Comment on above: Order Comment: Speci men Type: BLOOD SPECIMEN Ordering Facility: [facility] Address: [address] [place], [place] [address] Performed By: #### 2 284-8, 3016-3, 27928-5, 2132-06 #### [facility] CLIA [id number] [address] [place], [place] [address] [place] TRIGLYCERIDES, NF 58 mg/dL Normal <150 [facility] Comment on above: Order Comment: Speci men Type: BLOOD SPECIMEN Ordering Facility: [facility] Address: [address] [place], [place] [address] Result Comment: <150 mg/dL, Normal 150-199 mg/dL, Borderline high 200-499 mg/dL, High >499 mg/dL, Very high Performed By: #### 2 284-8, 3016-3, 75919-4, 2132-06 #### [facility] CLIA [id number] [address] [place], [place] [address] [place] VLDL CHOLESTEROL, NF 9 mg/dL Normal <30 [facility] Comment on above: Order Comment: Speci men Type: BLOOD SPECIMEN Ordering Facility: [facility] Address: [address] [place] [address] Performed By: #### 2 284-8, 3016-3, 25752-2, 2132-06 #### [facility] CLIA [id number] [address] [place] [address] [place] Carina 04-23-2025 [facility] -- JEFF ROBBINS ([id number]) 1950 F Date Time Provider Department 04/23/25 CHARLES SMITH During your visit today, we recorded the following information about you: Anna Wahl 04/23/2025 12:05 PM Signed Patient called requesting to refax the order for a nerve test to [facility] (Patient called [facility] they said they have not received it yet) Please advise Charles Smith MD 04/23/2025 2:13 PM Signed Original order faxed 04/14/2025. Will have re-faxed. Aram Dewey LPN 04/23/2025 2:21 PM S[address] Refaxed to [facility] as requested. Aram Dewey LPN Allergies As of Date: 04/23/2025 Noted Allergy Reaction AMOXICILLIN 07/25/2005 14 - Other: See Comments SULFA (SULFONAMIDE ANTIBIOTICS) 10/11/2011 7 - Swelling Date Reviewed: 04/14/2025 Reviewed by: Charles Smith MD - Fully Assessed Reason for Visit: Orders [681] Cmt: refax the order for a nerve test to [facility] Prescriptions as of 04/23/2025 - cetirizine (ZYRTEC) 10 mg tablet Take 1 tablet by mouth once daily. - EPINEPHrine (EPIPEN) 0.3 mg/0.3 mL auto-injector Take as directed on instructions with allergic reaction. - cholecalciferol (VITAMIN D3) 5,000 unit tab Take 5,000 Units by mouth once daily. - glucosamine/chondr bradley A sod (OSTEO BI-FLEX ORAL) Take by mouth once daily. - PSEUDOEPHEDRINE HCL (SUDAFED ORAL) Take by mouth once daily. 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] 12/19/2019 Fibroids [D21.9] 03/25/2022 Gallbladder polyp [K82.4] 03/31/2022 Advance directive discussed with patient [Z71.8*04/24/2022 Liver hemangioma [D18.03] 05/18/2022 Esophagitis [K20.90] 05/29/2022 Fatty liver [K76.0] 05/29/2022 Collagenous colitis [K52.831] 05/29/2022 Chronic sinusitis [J32.9] 05/10/2023 Tinnitus of both ears [H93.13] 05/10/2023 Encounter for screening for diabetes mellitus [*05/26/2024 Family history of coronary artery disease [Z82.*05/26/2024 Acute pain of right knee [M25.561] 12/30/2024 Encounter for lipid screening for cardiovascula*04/14/2025 Encounter Status:Closed by ARAM DEWEY on 04/23/25 [facility] MRI KNEE WO IVCON RTon 04-22 MRI KNEE WO IVCON RT * * *Final Report* * * DATE OF EXAM: Apr 22 2025 12:07PM [facility] 0213 - MRI KNEE WO IVCON RT / PROCEDURE REASON: Acute pain of right knee * * * * Physician Interpretation * * * * EXAMINATION: MRI RIGHT KNEE WITHOUT CONTRAST CLINICAL HISTORY: Persistent right knee pain and swelling despite physical therapy, fall one month ago TECHNIQUE: Routine non-contrast MRI of the knee MQ: [id number] COMPARISON: Knee x-ray 12/19/2024 RESULT: MENISCI: Medial Meniscus: Tear significant degeneration and degenerative tearing. Lateral Meniscus: Intact. LIGAMENTS: ACL: Intact PCL: Intact MCL: Intact LCL Complex: Intact CARTILAGE: Medial Femoral Condyle: Large area(s) of full thickness cartilage loss/fissuring Medial Tibial Plateau: Large area(s) of full thickness cartilage loss/fissuring Lateral Femoral Condyle: Normal Lateral Tibial Plateau: Small areas(s) of cartilage signal abnormality with smaller area(s) of low grade (less than 50% thickness) cartilage loss and or fissuring Patella: Moderate sized area(s) of low grade (less than 50% thickness) partial thickness cartilage loss and or fissuring Trochlea: Normal TENDONS: The distal quadriceps and patellar tendons are intact. The popliteus tendon is intact. BONES AND MARROW: Medial tibiofemoral subchondral edema-like lesions and osteophytes, likely due to underlying cartilage degeneration MUSCLES: Muscle bulk and signal intensity are normal. JOINT FLUID AND SYNOVIUM: Moderate joint effusion. Mild synovitis. Moderate Platt's cyst. OTHER: No other significant abnormality identified. Localizer images: Unremarkable. IMPRESSION: Degenerative chondral changes, severe in the medial compartment. Nylon Hot Wire Cutter: GUNJAN Transcribe Date/Time: Apr 23 2025 8:01A Dictated by : BECKY HOPPER MD This examination was interpreted and the report reviewed and electronically signed by: CIARRA SMALLWOOD MD on Apr 23 2025 10:42AM EST [id number] Normal [facility] Basic metabolic 2000 panelon 04-14-2025 Anion gap [Moles/Vol] 10 mmol/L 8 - 15 mmol/L [facility] Calcium [Mass/Vol] 9.5 mg/dL 8.5 - 10. 2 mg/dL [facility] Chloride [Moles/Vol] 107 mmol/L 98 - 10 7 mmol/L [facility] CO2 [Moles/Vol] 25 mmol/L 22 - 30 mmol/L [facility] Creatinine [Mass/Vol] 0.82 mg/dL 0.58 - 0.96 mg/dL [facility] GFR/1.73 sq M.predicted among non-blacks MDRD (S/P/Bld) [Vol rate/Area] 74 mL/min/{1.73_m2} - PINF [facility] Comment on above: Estimated Glomerular Filtration Rate (eGFR) is calculated using the 2020 CKD-EPI creatinine equation. This equation utilizes serum creatinine, sex, and age as parameters. The creatinine assay has traceable calibration to isotope dilution-mass spectrometry. Refer to KDIGO guidelines for clinical interpretation. In patients with unstable renal function, e.g. those with acute kidney injury, the eGFR may not accurately reflect actual GFR. Glucose [Mass/Vol] 75 mg/dL 74 - 99 mg/dL [facility] Comment on above: The [place] Diabete s Association (ADA) provides guidance for cutoff values for fasting glucose and random glucose. The ADA defines fasting as no caloric intake for at least 8 hours. Fasting plasma glucose results between 100 to 125 mg/dL indicate increased risk for diabetes (prediabetes). Fasting plasma glucose results greater than or equal to 126 mg/dL meet the criteria for diagnosis of diabetes. In the absence of unequivocal hyperglycemia, results should be confirmed by repeat testing. In a patient with classic symptoms of hyperglycemia or hyperglycemic crisis, random plasma glucose results greater than or equal to 200 mg/dL meet the criteria for diagnosis of diabetes. Reference: Standards of Medical Care in Diabetes 2016, [place] [employer]. Diabetes Care. 2016.39(Suppl 1). Interpretation and review of laboratory results Abnormal [facility] Potassium [Moles/Vol] 4.7 mmol/L 3.7 - 5.1 mmol/L [facility] Sodium [Moles/Vol] 142 mmol/L 136 - 144 mmol/L [facility] Urea nitrogen [Mass/Vol] 24 mg/dL High 7 - 21 mg/dL [facility] Anion gap [Moles/Vol] 10 mmol/L Normal 8-15 [facility] Comment on above: Order Comment: Speci men Type: BLOOD SPECIMEN Ordering Facility: [facility] Address: [address] [place] [address] Performed By: #### 2 284-8, 3016-3, 48490-1, 2132-06 #### [facility] CLIA [id number] [address] [place] [address] [place] Calcium [Mass/Vol] 9.5 mg/dL Normal 8.5-10.2 [facility] Comment on above: Order Comment: Speci men Type: BLOOD SPECIMEN Ordering Facility: [facility] Address: [address] [place] [address] Performed By: #### 2 284-8, 3016-3, 01985-8, 2132-06 #### [facility] CLIA [id number] [address] [place] [address] [place] Chloride [Moles/Vol] 107 mmol/L Normal 98-107 [facility] Comment on above: Order Comment: Speci men Type: BLOOD SPECIMEN Ordering Facility: [facility] Address: [address] [place] [address] Performed By: #### 2 284-8, 3016-3, 07253-6, 2132-06 #### [facility] CLIA [id number] [address] [place] [address] [place] CO2 [Moles/Vol] 25 mmol/L Normal 22-30 [facility] Comment on above: Order Comment: Speci men Type: BLOOD SPECIMEN Ordering Facility: [facility] Address: [address] [place] [address] Performed By: #### 2 284-8, 3016-3, 76772-3, 2132-06 #### [facility] CLIA [id number] [address] [place] [address] [place] Creatinine [Mass/Vol] 0.82 mg/dL Normal 0.58-0.96 [facility] Comment on above: Order Comment: Speci men Type: BLOOD SPECIMEN Ordering Facility: [facility] Address: [address] [place] [address] Performed By: #### 2 284-8, 3016-3, 62308-3, 2132-06 #### [facility] CLIA [id number] [address] [place], [place] [id number] [place] Creatinine and Glomerular filtration rate.predicted panel (S/P/Bld) 74 mL/min/1.73m??? Normal >=60 [facility] Comment on above: Order Comment: Speci men Type: BLOOD SPECIMEN Ordering Facility: [facility] Address: [address] [place] [address] Result Comment: Dori mated Glomerular Filtration Rate (eGFR) is calculated using the 2020 CKD-EPI creatinine equation. This equation utilizes serum creatinine, sex, and age as parameters. The creatinine assay has traceable calibration to isotope dilution-mass spectrometry. Refer to KDIGO guidelines for clinical interpretation. In patients with unstable renal function, e.g. those with acute kidney injury, the eGFR may not accurately reflect actual GFR. Performed By: #### 2 284-8, 3016-3, 92232-6, 2132-06 #### [facility] CLIA [id number] [address] [place] [address] [place] Glucose [Mass/Vol] 75 mg/dL Normal 74-99 [facility] Comment on above: Order Comment: Juanpablo mar Type: BLOOD SPECIMEN Ordering Facility: [facility] Address: [address] [place] [address] Result Comment: The [place] Diabetes Association (ADA) provides guidance for cutoff values for fasting glucose and random glucose. The ADA defines fasting as no caloric intake for at least 8 hours. Fasting plasma glucose results between 100 to 125 mg/dL indicate increased risk for diabetes (prediabetes). Fasting plasma glucose results greater than or equal to 126 mg/dL meet the criteria for diagnosis of diabetes. In the absence of unequivocal hyperglycemia, results should be confirmed by repeat testing. In a patient with classic symptoms of hyperglycemia or hyperglycemic crisis, random plasma glucose results greater than or equal to 200 mg/dL meet the criteria for diagnosis of diabetes. Reference: Standards of Medical Care in Diabetes 2016, [place] [employer]. Diabetes Care. 2016.39(Suppl 1). Performed By: #### 2 284-8, 3016-3, 54660-1, 2132-06 #### [facility] CLIA [id number] [address] [place], [place] [address] [place] Potassium [Moles/Vol] 4.7 mmol/L Normal 3.7-5.1 [facility] Comment on above: Order Comment: Juanpablo mar Type: BLOOD SPECIMEN Ordering Facility: [facility] Address: [address] [place] [address] Performed By: #### 2 284-8, 3016-3, 18652-2, 2132-06 #### [facility] CLIA [id number] [address] [place] [address] [place] Sodium [Moles/Vol] 142 mmol/L Normal 136-144 [facility] Comment on above: Order Comment: Speci men Type: BLOOD SPECIMEN Ordering Facility: [facility] Address: [address] [place] [address] Performed By: #### 2 284-8, 3016-3, 83269-3, 2131-9 #### [facility] CLIA [id number] [address] [place] [address] [place] Urea nitrogen [Mass/Vol] 24 mg/dL High 7-21 [facility] Comment on above: Order Comment: Speci men Type: BLOOD SPECIMEN Ordering Facility: [facility] Address: [address] [place] [address] Performed By: #### 2 284-8, 3016-3, 62047-2, 9 #### [facility] CLIA [id number] [address] [place] [address] [place] CBC W Auto Differential pane l (Bld)on 04-14-2025 Basophils (Bld) [#/Vol] [facility] Basophils/100 WBC (Bld) 0.2 % [facility] Differential cell count method Nom (Bld) Auto [facility] Eosinophils (Bld) [#/Vol] 0.15 10*3/uL [facility] Eosinophils/100 WBC (Bld) 1.9 % [facility] Erythrocyte distribution width (RBC) [Ratio] 13.4 % 11.5 - 15.0 % [facility] Hematocrit (Bld) [Volume fraction] 42 % 36.0 - 46.0 % [facility] Hemoglobin (Bld) [Mass/Vol] 13.7 g/dL 11.5 - 15.5 g/dL [facility] Immature granulocytes (Bld) [#/Vol] 0.03 10*3/uL [facility] Immature granulocytes/100 WBC (Bld) 0.4 % [facility] Lymphocytes (Bld) [#/Vol] 2.54 10*3/uL [facility] Lymphocytes/100 WBC (Bld) 31.6 % [facility] MCH (RBC) [Entitic mass] 29.1 pg 26.0 - 34.0 pg [facility] MCHC (RBC) [Mass/Vol] 32.6 g/dL 30.5 - 36.0 g/dL [facility] MCV (RBC) [Entitic vol] 89.4 fL 80.0 - 100.0 fL [facility] Monocytes (Bld) [#/Vol] 0.82 10*3/uL [facility]ANNER[facility] Monocytes/100 WBC (Bld) 10.2 % [facility] Neutrophils (Bld) [#/Vol] 4.49 10*3/uL [facility] Neutrophils/100 WBC (Bld) 55.7 % [facility] Nucleated RBC (Bld) [#/Vol] NINF [facility] Nucleated RBC/100 WBC (Bld) [Ratio] 0 % /100 WBC [facility] Platelet mean volume (Bld) [Entitic vol] 11.1 fL 9.0 - 12.7 fL [facility] Platelets (Bld) [#/Vol] 243 10*3/uL [facility] RBC (Bld) [#/Vol] 4.7 10*6/uL 3.90 - 5.2 0 m/uL [facility] WBC (Bld) [#/Vol] 8.05 10*3/uL [facility] Basophils (Bld) [#/Vol] 10*3/uL Normal <0.11 [facility] Comment on above: Order Comment: Speci men Type: BLOOD SPECIMEN Ordering Facility: [facility] Address: [address] [place] [address] Performed By: #### 5 7021-8 #### [facility] CLIA [id number] [address] [place] [address] [place] [facility] Basophils/100 WBC (Bld) 0.2 % Normal [facility] Comment on above: Order Comment: Speci men Type: BLOOD SPECIMEN Ordering Facility: [facility] Address: [address] [place] [address] Performed By: #### 5 7021-8 #### [facility] CLIA [id number] [address] [place] [address] [place] Differential cell count method Nom (Bld) Auto Normal [facility] Comment on above: Order Comment: Speci men Type: BLOOD SPECIMEN Ordering Facility: [facility] Address: [address] [place] [address] Performed By: #### 5 7021-8 #### [facility] CLIA [id number] [address] [place] [address] [place] Eosinophils (Bld) [#/Vol] 0.15 10*3/uL Normal <0.46 [facility] Comment on above: Order Comment: Speci men Type: BLOOD SPECIMEN Ordering Facility: [facility] Address: [address] [place] [address] Performed By: #### 5 7021-8 #### [facility] CLIA [id number] [address] [place] [address] [place] Eosinophils/100 WBC (Bld) 1.9 % Normal [facility] Comment on above: Order Comment: Speci men Type: BLOOD SPECIMEN Ordering Facility: [facility] Address: [address] [place] [address] Performed By: #### 5 7021-8 #### [facility] CLIA [id number] [address] [place] [address] [place] Erythrocyte distribution width (RBC) [Ratio] 13.4 % Normal 11.5-15.0 [facility] Comment on above: Order Comment: Speci men Type: BLOOD SPECIMEN Ordering Facility: [facility] Address: [address] [place] [address] Performed By: #### 5 7021-8 #### [facility] CLIA [id number] [address] [place] [address] [place] Hematocrit (Bld) [Volume fraction] 42.0 % Normal 36.0-46.0 [facility] Comment on above: Order Comment: Speci men Type: BLOOD SPECIMEN Ordering Facility: [facility] Address: [address] [place] [address] Performed By: #### 5 7021-8 #### [facility] CLIA [id number] [address] [place] [address] [place] Hemoglobin (Bld) [Mass/Vol] 13.7 g/dL Normal 11.5-15.5 [facility] Comment on above: Order Comment: Speci men Type: BLOOD SPECIMEN Ordering Facility: [facility] Address: [address] [place] [address] Performed By: #### 5 7021-8 #### [facility] CLIA [id number] [address] [place] [address] [place] Immature granulocytes (Bld) [#/Vol] 0.03 10*3/uL Normal <0.10 [facility] Comment on above: Order Comment: Speci men Type: BLOOD SPECIMEN Ordering Facility: [facility] Address: [address] [place] [address] Performed By: #### 5 7021-8 #### [facility] CLIA [id number] [address] [place] [address] [place] Immature granulocytes/100 WBC (Bld) 0.4 % Normal [facility] Comment on above: Order Comment: Speci men Type: BLOOD SPECIMEN Ordering Facility: [facility] Address: [address] [place] [address] Performed By: #### 5 7021-8 #### [facility] CLIA [id number] [address] [place] [address] [place] Lymphocytes (Bld) [#/Vol] 2.54 10*3/uL Normal 1.00-4.00 [facility] Comment on above: Order Comment: Speci men Type: BLOOD SPECIMEN Ordering Facility: [facility] Address: [address] [place] [address] Performed By: #### 5 7021-8 #### [facility] CLIA [id number] [address] [place] [address] [place] Lymphocytes/100 WBC (Bld) 31.6 % Normal [facility] Comment on above: Order Comment: Speci men Type: BLOOD SPECIMEN Ordering Facility: [facility] Address: [address] [place] [address] Performed By: #### 5 7021-8 #### [facility] CLIA [id number] [address] [place] [address] [place] MCH (RBC) [Entitic mass] 29.1 pg Normal 26.0-34.0 [facility] Comment on above: Order Comment: Speci men Type: BLOOD SPECIMEN Ordering Facility: [facility] Address: [address] [place] [address] Performed By: #### 5 7021-8 #### [facility] CLIA [id number] [address] [place] [address] [place] MCHC (RBC) [Mass/Vol] 32.6 g/dL Normal 30.5-36.0 [facility] Comment on above: Order Comment: Speci men Type: BLOOD SPECIMEN Ordering Facility: [facility] Address: [address] [place] [address] Performed By: #### 5 7021-8 #### [facility] CLIA [id number] [address] [place] [address] [place] MCV (RBC) [Entitic vol] 89.4 fL Normal 80.0-100.0 [facility] Comment on above: Order Comment: Speci men Type: BLOOD SPECIMEN Ordering Facility: [facility] Address: [address] [place] [address] Performed By: #### 5 7021-8 #### [facility] CLIA [id number] [address] [place] [address] [place] Monocytes (Bld) [#/Vol] 0.82 10*3/uL Normal <0.87 [facility] Comment on above: Order Comment: Speci men Type: BLOOD SPECIMEN Ordering Facility: [facility] Address: [address] [place] [address] Performed By: #### 5 7021-8 #### [facility] CLIA [id number] [address] [place] [address] [place] Monocytes/100 WBC (Bld) 10.2 % Normal [facility] Comment on above: Order Comment: Speci men Type: BLOOD SPECIMEN Ordering Facility: [facility] Address: [address] [place] [address] Performed By: #### 5 7021-8 #### [facility] CLIA [id number] [address] [place] [address] [place] Neutrophils (Bld) [#/Vol] 4.49 10*3/uL Normal 1.45-7.50 [facility] Comment on above: Order Comment: Speci men Type: BLOOD SPECIMEN Ordering Facility: [facility] Address: [address] [place] [address] Performed By: #### 5 7021-8 #### [facility] CLIA [id number] [address] [place] [address] [place] Neutrophils/100 WBC (Bld) 55.7 % Normal [facility] Comment on above: Order Comment: Speci men Type: BLOOD SPECIMEN Ordering Facility: [facility] Address: [address] [place] [address] Performed By: #### 5 7021-8 #### [facility] CLIA [id number] [address] [place] [address] [place] Nucleated RBC (Bld) [#/Vol] 10*3/uL Normal <0.01 [facility] Comment on above: Order Comment: Speci men Type: BLOOD SPECIMEN Ordering Facility: [facility] Address: [address] [place] [address] Performed By: #### 5 7021-8 #### [facility] CLIA [id number] [address] [place] [address] [place] Nucleated RBC/100 WBC (Bld) [Ratio] 0.0 /100 WBC Normal [facility] Comment on above: Order Comment: Speci men Type: BLOOD SPECIMEN Ordering Facility: [facility] Address: [address] [place] [address] Performed By: #### 5 7021-8 #### [facility] CLIA [id number] [address] [place] [address] [place] Platelet mean volume (Bld) [Entitic vol] 11.1 fL Normal 9.0-12.7 [facility] Comment on above: Order Comment: Speci men Type: BLOOD SPECIMEN Ordering Facility: [facility] Address: [address] [place] [address] Performed By: #### 5 7021-8 #### [facility] CLIA [id number] [address] [place] [address] [place] Platelets (Bld) [#/Vol] 243 10*3/uL Normal 150-400 [facility] Comment on above: Order Comment: Speci men Type: BLOOD SPECIMEN Ordering Facility: [facility] Address: [address] [place] [address] Performed By: #### 5 7021-8 #### [facility] CLIA [id number] [address] [place] [address] [place] RBC (Bld) [#/Vol] 4.70 10*6/uL Normal 3.90-5.20 [facility] Comment on above: Order Comment: Speci men Type: BLOOD SPECIMEN Ordering Facility: [facility] Address: [address] [place] [address] Performed By: #### 5 7021-8 #### [facility] CLIA [id number] [address] [place] [address] [place] WBC (Bld) [#/Vol] 8.05 10*3/uL Normal 3.70-11.00 [facility] Comment on above: Order Comment: Speci men Type: BLOOD SPECIMEN Ordering Facility: [facility] Address: [address] [place] [address] Performed By: #### 5 7021-8 #### [facility] CLIA [id number] [address] [place] [address] OF [facility] CNOVon 04-14-2025 CNOV Office Visit (FAMPWS ) -- ROLLYJEFF CASTILLO ([id number]) 1950 F Date Time Provider Department 04/14/25 8:40 AM [facility] During your visit today, we recorded the following information about you: Pulse Respiration Blood pressure Weight 66/minute 16/minute 148/84 64.8 kg Charles Smith MD 04/14/2025 10:00 PM Signed Chief Complaint Patient presents with: Follow Up HPI Jeff Robbins is a 74 year old female who presents here today for a follow up. Pt seen on 12/19/24 for acute pain of right knee with XR completed showing b/l osteoarthrosis right greater than left. Pt treated with a Prednisone taper course and referred to PT. Patient has completed 5 session of PT with no real improvement in her knee pain. Pain currently a 3/10, described as aching, swollen, radiating, sharp, shooting, and tightness. Is unable to recall if she had any improvement with use of Prednisone. Anna Robbins is a 74-year-old female presenting for evaluation of persistent right knee pain and swelling, as well as new onset of numbness and tingling in the right arm and leg. Anna reports worsening right knee pain and swelling despite undergoing physical therapy, which focused primarily on strengthening her legs. She notes that the swelling has not subsided and now involves her entire right leg and arm, which she first noticed a couple of weeks ago. She also reports numbness in her right arm and leg, which has been present for an unspecified duration but not as long as 6 months to a year. She denies any previous nerve studies on her arms or legs, only having had an x-ray. Approximately one month ago, Anna experienced a fall while working on erosion in a [place], which resulted in extreme but brief pain in her right knee. She denies falling on her shoulder during this incident. Since the fall, she has experienced intermittent pain radiating to her ankles and hips, as well as pain in the back of her hip. She is currently taking ibuprofen for pain management but expresses concern about potential side effects and inquires about alternative medications. She drinks one glass of wine daily and has an allergy to caffeine. Anna also reports tingling in her index and middle fingers bilaterally, which sometimes occurs while driving. She denies numbness in her hands at night. She inquires about the possibility of her symptoms being related to a previous diagnosis of cervical narrowing on the right side, which was diagnosed approximately 5 years ago. Past medical history, appointments, medications, allergies reviewed. Previous Medical History PAST MEDICAL HISTORY Diagnosis Date Advance directive discussed with patient 04/24/2022 Discussed 04/2022 Chronic sinusitis 05/10/2023 Collagenous colitis 05/29/2022 Encounter for lipid screening for cardiovascular disease 05/26/2024 Esophagitis 05/29/2022 Family history of colon cancer 10/12/2011 Family history of coronary artery disease 05/26/2024 Fatty liver 05/29/2022 Fibroids 03/25/2022 Gallbladder polyp 03/31/2022 Liver hemangioma 05/18/2022 Right lob Mass of left axilla 05/27/2015 Eval 2015 was benign Medicare annual wellness visit, subsequent 01/07/2018 Medicare part B: 07/08/2013 last done: 01/17/2019 Nuclear sclerosis of both eyes 12/19/2019 Osteopenia, senile 01/14/2018 Dexa: improved lumbar and right hip slightly worse in left hip. Personal history of colonic polyps Tinnitus of both ears 05/10/2023 Previous Surgical History PAST SURGICAL HISTORY Procedure Laterality Date COLONOSCOPY 05/09/2022 COLONOSCOPY FLX DX W/COLLJ SPEC WHEN PFRMD 2012 History of polyps COLONOSCOPY FLX DX W/COLLJ SPEC WHEN PFRMD 08/10/2017 Colonoscopy EGD 05/09/2022 HYSTEROSCOPY 01/02/2017 H/s DANOK for PMB OTHER 1998 Sinus surgery TONSILLECTOMY HX Family History FAMILY HISTORY Problem Relation Age of Onset Heart Mother CHF Cancer Father Colon Heart Father Coronary Artery Disease Father 60's Diabetes Sister Asthma Sister Macular Degen Sister other (covid) Sister from this Colon Polyps Sister possible cancer at age 70 (05/2024) Osteoporosis Sister Cancer Brother 62 Colon Diabetes Brother Macular Degen Maternal Grandmother Patient Allergies ALLERGIES Allergen Reactions Amoxicillin Other: See Comments Sulfa (Sulfonamide * Swelling Current Medications Current Outpatient Medications on File Prior to Visit Medication Sig predniSONE (DELTASONE) 20 mg tablet Take 3 tabs by mouth for 3 days, then 2 tabs by mouth for 3 days, then 1 tab by mouth for 3 days and then 1/2 a tab by mouth for 4 days. (Patient not taking: Reported on 01/15/2025) EPINEPHrine (EPIPEN) 0.3 mg/0.3 mL auto-injector Take as directed on instructions with allergic reaction. cholecalciferol (VITAMIN D3) 5,000 unit tab Take 5,000 (more content not included)... Normal [facility] FOLATE, SERUMon 04-14-2025 Folate [Mass/Vol] 6.4 ng/mL 4.7 - PINF ng/mL [facility] Folate SerPl-mCncon 04-14-20 25 Folate [Mass/Vol] 6.4 ng/mL Normal >4.7 [facility] Comment on above: Order Comment: Speci men Type: BLOOD SPECIMEN Ordering Facility: [facility] Address: [address] [place] [address] Performed By: #### 2 284-8, 3016-3, 98559-1, 2132-9 #### [facility] CLIA [id number] [address] [place] [address] [place] No Panel Informationon 04-14 Interpretation and review of laboratory results Normal [facility] THYROID STIMULATING HORMONEo n 04-14-2025 TSH Qn 1.26 m[IU]/L [facility] TSH SerPl-aCncon 04-14-2025 TSH Qn 1.260 m[IU]/L Normal 0.270-4.200 [facility] Comment on above: Order Comment: Juanpablo mar Type: BLOOD SPECIMEN Ordering Facility: [facility] Address: [address] [place] [address] Performed By: #### 2 284-8, 3016-3, 37999-0, 2131-9 #### [facility] CLIA [id number] [address] [place] [address] [place] VITAMIN B12on 04-14-2025 Cobalamin (Vitamin B12) [Mass/Vol] 400 pg/mL 232 - 1245 pg/mL [facility] Vit B12 SerPl-mCncon 025 Cobalamin (Vitamin B12) [Mass/Vol] 400 pg/mL Normal 232-1245 [facility] Comment on above: Order Comment: Juanpablo mar Type: BLOOD SPECIMEN Ordering Facility: [facility] Address: [address] [place] [address] Performed By: #### 2 284-8, 3016-3, 75767-0, 9 #### [facility] CLIA [id number] [address] [place] [address] [place] CNTHERAPYon 02-09-2025 CNTHERAPY OT/PT/Speech Visit ( PTWS) -- JEFF ROBBINS ([id number]) 1950 F Date Time Provider Department 02/09/25 10:45 AM [facility] Date Time Provider [facility] 02/09/2025 10:45 AM [id number], RIGOAshley Baker Reason for Visit: PT Progress Note [1596] PT Discharge [752] Primary Visit Diagnosis:Acute pain of right knee [M25.561] Allergies As of Date: 02/09/2025 Noted Allergy Reaction AMOXICILLIN 07/25/2005 14 - Other: See Comments SULFA (SULFONAMIDE ANTIBIOTICS) 10/11/2011 7 - Swelling Date Reviewed: 01/15/2025 Reviewed by: Breana Ventura LPN - Fully Assessed Prescriptions as of 02/09/2025 - predniSONE (DELTASONE) 20 mg tablet Take 3 tabs by mouth for 3 days, then 2 tabs by mouth for 3 days, then 1 tab by mouth for 3 days and then 1/2 a tab by mouth for 4 days. - EPINEPHrine (EPIPEN) 0.3 mg/0.3 mL auto-injector Take as directed on instructions with allergic reaction. - cholecalciferol (VITAMIN D3) 5,000 unit tab Take 5,000 Units by mouth once daily. - glucosamine/chondr bradley A sod (OSTEO BI-FLEX ORAL) Take by mouth once daily. - PSEUDOEPHEDRINE HCL (SUDAFED ORAL) Take by mouth once daily. Normal [facility] CNTHERAPYon 01-26-2025 CNTHERAPY OT/PT/Speech Visit ( PTWS) -- JEFF ROBBINS ([id number]) 1950 F Date Time Provider Department 01/26/25 10:15 AM BESSY CASTANO PTWS Date Time Provider Department [place] 01/26/2025 10:15 AM [id number] CASTANO Reason for Visit: Physical Therapy [503] Primary Visit Diagnosis:Acute pain of right knee [M25.561] Allergies As of Date: 01/26/2025 Noted Allergy Reaction AMOXICILLIN 07/25/2005 14 - Other: See Comments SULFA (SULFONAMIDE ANTIBIOTICS) 10/11/2011 7 - Swelling Date Reviewed: 01/15/2025 Reviewed by: Breana Ventura LPN - Fully Assessed Prescriptions as of 01/26/2025 - predniSONE (DELTASONE) 20 mg tablet Take 3 tabs by mouth for 3 days, then 2 tabs by mouth for 3 days, then 1 tab by mouth for 3 days and then 1/2 a tab by mouth for 4 days. - EPINEPHrine (EPIPEN) 0.3 mg/0.3 mL auto-injector Take as directed on instructions with allergic reaction. - cholecalciferol (VITAMIN D3) 5,000 unit tab Take 5,000 Units by mouth once daily. - glucosamine/chondr bradley A sod (OSTEO BI-FLEX ORAL) Take by mouth once daily. - PSEUDOEPHEDRINE HCL (SUDAFED ORAL) Take by mouth once daily. Technical Services Specialist: Addendum Therapy (PT/OT/Speech/Resp) ID: [id number] 01/26/2025 10:51 AM Author: BESSY CASTAON Signed by BESSY CASTANO CLOTH SPREADER on 01/26/2025 at 10:51 AM * * * This document replaces document [id number] * * * Document text: Program_ID:[id number] Access Code: [email or web address] URL: [email or web address]/ Date: 01-26-2025 Prepared By: Rigo Byrne Program Notes Exercises - Sidelying Hip Abduction - 2 x daily - 7 x weekly - 2-3 sets - 8-10 reps - Active Straight Leg Raise with Quad Set - 2 x daily - 7 x weekly - 2-3 sets - 10 reps - Standing Hamstring Stretch with Step - 2 x daily - 7 x weekly - sets - 3-4 reps - Supine Heel Slide with Strap - 2 x daily - 7 x weekly - 2 sets - 10-15 reps - Long Sitting 4 Way Patellar Huggins - 1-2 x daily - 7 x weekly - 2 sets - 10 reps - Standing Knee Flexion AROM with Chair Support - 2 x daily - 7 x weekly - 3 sets - 10 reps - Seated Long Arc Quad - 1 x daily - 7 x weekly - 2-3 sets - 10 reps - Standing Hip Abduction with Counter Support - 1 x daily - 7 x weekly - 2-3 sets - 10 reps - Standing Hip Extension with Counter Support - 1 x daily - 7 x weekly - 2-3 sets - 10 reps - Sit to Stand Without Arm Support - 1 x daily - 7 x weekly - 2-3 sets - 10 reps Normal [facility] THERAPY NTon 01-26-2025 THERAPY NT HNO ID: [id number] Author: BESSY CASTANO PTA Service: ? Author Type: Produce Wrapper Type: Therapy (PT/OT/Speech/Resp) Filed: 01/26/2025 10:51 Note Text: Program_ID:[id number] Access Code: [email or web address] URL: [email or web address]/ Date: 01-26-2025 Prepared By: Rigo Byrne Program Notes Exercises - Sidelying Hip Abduction - 2 x daily - 7 x weekly - 2-3 sets - 8-10 reps - Active Straight Leg Raise with Quad Set - 2 x daily - 7 x weekly - 2-3 sets - 10 reps - Standing Hamstring Stretch with Step - 2 x daily - 7 x weekly - sets - 3-4 reps - Supine Heel Slide with Strap - 2 x daily - 7 x weekly - 2 sets - 10-15 reps - Long Sitting 4 Way Patellar Huggins - 1-2 x daily - 7 x weekly - 2 sets - 10 reps - Standing Knee Flexion AROM with Chair Support - 2 x daily - 7 x weekly - 3 sets - 10 reps - Seated Long Arc Quad - 1 x daily - 7 x weekly - 2-3 sets - 10 reps - Standing Hip Abduction with Counter Support - 1 x daily - 7 x weekly - 2-3 sets - 10 reps - Standing Hip Extension with Counter Support - 1 x daily - 7 x weekly - 2-3 sets - 10 reps - Sit to Stand Without Arm Support - 1 x daily - 7 x weekly - 2-3 sets - 10 reps Normal [facility] CNTHERAPYon 01-19-2025 CNTHERAPY OT/PT/Speech Visit ( PTWS) -- ROLLYJEFF HARRISYCE ([id number]) 1950 F Date Time Provider Department 01/19/25 10:45 AM RIGO BYRNE PTWS Date Time Provider Department Center 01/19/2025 10:45 AM [id number], COLIN PTWS Andrés Baker Reason for Visit: Physical Therapy [503] Primary Visit Diagnosis:Acute pain of right knee [M25.561] Allergies As of Date: 01/19/2025 Noted Allergy Reaction AMOXICILLIN 07/25/2005 14 - Other: See Comments SULFA (SULFONAMIDE ANTIBIOTICS) 10/11/2011 7 - Swelling Date Reviewed: 01/15/2025 Reviewed by: Breana Ventura LPN - Fully Assessed Prescriptions as of 01/19/2025 - predniSONE (DELTASONE) 20 mg tablet Take 3 tabs by mouth for 3 days, then 2 tabs by mouth for 3 days, then 1 tab by mouth for 3 days and then 1/2 a tab by mouth for 4 days. - EPINEPHrine (EPIPEN) 0.3 mg/0.3 mL auto-injector Take as directed on instructions with allergic reaction. - cholecalciferol (VITAMIN D3) 5,000 unit tab Take 5,000 Units by mouth once daily. - glucosamine/chondr bradley A sod (OSTEO BI-FLEX ORAL) Take by mouth once daily. - PSEUDOEPHEDRINE HCL (SUDAFED ORAL) Take by mouth once daily. Technical Services Specialist: Addendum Therapy (PT/OT/Speech/Resp) ID: [id number] 01/19/2025 11:21 AM Author: RIGO BYRNE Signed by RIGO BYRNE PT on 01/19/2025 at 11:21 AM * * * This document replaces document [id number] * * * Document text: Program_ID:[id number] Access Code: [email or web address] URL: [email or web address]/ Date: 01-19-2025 Prepared By: Rigo Byrne Program Notes Exercises - Sidelying Hip Abduction - 2 x daily - 7 x weekly - 2-3 sets - 8-10 reps - Active Straight Leg Raise with Quad Set - 2 x daily - 7 x weekly - 2-3 sets - 10 reps - Standing Hamstring Stretch with Step - 2 x daily - 7 x weekly - sets - 3-4 reps - Supine Heel Slide with Strap - 2 x daily - 7 x weekly - 2 sets - 10-15 reps - Long Sitting 4 Way Patellar Huggins - 1-2 x daily - 7 x weekly - 2 sets - 10 reps - Standing Knee Flexion AROM with Chair Support - 2 x daily - 7 x weekly - 3 sets - 10 reps Normal [facility] THERAPY NTon 01-19-2025 THERAPY NT HNO ID: [id number] Author: RIGO BYRNE, PT Service: ? Author Type: Physical Therapist Type: Therapy (PT/OT/Speech/Resp)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 05/18/2022: Liver hemangioma Comment: Right lob 05/27/2015: Mass of left axilla Comment: Eval 2015 was benign 01/07/2018: Medicare annual wellness visit, subsequent Comment: Medicare part B: 07/08/2013 last done: 01/17/2019 12/19/2019: Nuclear sclerosis of both eyes 01/14/2018: Osteopenia, senile Comment: Dexa: improved lumbar and right hip slightly worse in left hip. No date: Personal history of colonic polyps 05/10/2023: Tinnitus of both ears PAST SURGICAL HISTORY 05/09/2022: COLONOSCOPY 2012: COLONOSCOPY FLX DX W/COLLJ SPEC WHEN PFRMD Comment: History of polyps 08/10/2017: COLONOSCOPY FLX DX W/COLLJ SPEC WHEN PFRMD Comment: Colonoscopy 05/09/2022: EGD 01/02/2017: HYSTEROSCOPY Comment: H/s DANDC for PMB 1998: OTHER Comment: Sinus surgery No date: TONSILLECTOMY HX ALLERGIES Amoxicillin and Sulfa (Sulfonamide Antibiotics) MEDICATIONS methylPREDNISolone (MEDROL, LUZ,) 4 mg Dose-Pack Follow dosing instructions, take with food. EPINEPHrine (EPIPEN) 0.3 mg/0.3 mL auto-injector Take as directed on instructions with allergic reaction. cholecalciferol (VITAMIN D3) 5,000 unit tab Take 5,000 Units by mouth once daily. glucosamine/chondr bradley A sod (OSTEO BI-FLEX ORAL) Take by mouth once daily. PSEUDOEPHEDRINE HCL (SUDAFED ORAL) Take by mouth once daily. FAMILY HISTORY Problem Relation Age of Onset Heart Mother CHF Cancer Father Colon Heart Father Coronary Artery Disease Father 60's Diabetes Sister Asthma Sister Macular Degen Sister other (covid) Sister from this Colon Polyps Sister possible cancer at age 70 (05/2024) Osteoporosis Sister Cancer Brother 62 Colon Diabetes Brother Macular Degen Maternal Grandmother Social History Tobacco Use Smoking status: Never Smokeless tobacco: Never Vaping Use Vaping status: Never Used Substance Use Topics Alcohol use: Yes Comment: One beer at night, helps clear sinuses Drug use: No Objective Physical Exam Vitals and nursing note reviewed. Constitutional: General: She is not in acute distress. Appearance: Normal appearance. She is not ill-appearing. Cardiovascular: Rate and Rhythm: Normal rate. Pulmonary: Effort: Pulmonary effort is normal. Musculoskeletal: General: Swelling present. No tenderness, deformity or signs of injury. Arms: Comments: Right hand and distal forearm with soft tissue swelling and erythema Skin: General: Skin is warm and dry. Findings: Erythema present. No rash. Neurological: Mental Status: She is alert. ASSESSMENT/PLAN: 1. Localized swelling on right hand - ICD9: 782.2, ICD10: R22.31 (primary diagnosis) - METHYLPREDNISOLONE 4 MG TABLETS IN A DOSE PACK - cool compresses 2-3 times daily. 2. Bee sting, undetermined intent, initial encounter - ICD9: 989.5, E980.9, ICD10: T63.444A - Follow-up with your PCP in 3-5 days if symptoms have not improved or sooner if symptoms worsen - Discussed red flags and need for immediate medical evaluation if any occur. - Discussed supportive care treatment with fluids, rest and analgesia. - Discussed expected course of illness WILFREDO Christie Kathy, APRN.CNP 06/06/2024 8:19 AM Signed ASSESSMENT/PLAN: 1. Localized swelling on right hand - ICD9: 782.2, ICD10: R22.31 (primary diagnosis) - METHYLPREDNISOLONE 4 MG TABLETS IN A DOSE PACK - cool compresses 2-3 times daily. 2. Bee sting, undetermined intent, in (more content not included)... Normal [facility] EXERCISE STRESS ECG (WITHOUT IMAGING)on 06-04-2024 Stress Pipeline Inspector Report: Exercise Stress ECG (without Imaging) [facility] Date of service: 06/04/2024 12:52:22 PM Supervising physician: Harjinder Silva DO PATIENT: Name: MRS. Ashley ROBBINS Age: 73 years Gender: F The supervising physician was in the department and immediately available. Final Stress ECG Report: Exercise Stress ECG (without Imaging) [facility] Date of service: 06/04/2024 12:52:22 PM Ordering physician: CHARLES SMITH personal security specialist: Annie Arteaga Children Counselor: Traci Hudson Interpreting physician: Charles Abbott MD Patient name: MRS. Ashley ROBBINS Age: 73 years Gender: F Indication: Dyspnea on exertion Stress ECG Conclusion: Conclusion: Normal Stress ECG Summary: The patient's resting heart rate was 69 bpm and blood pressure was 130/78 mmHg. The patient exercised according to the Paras protocol. The estimated end-exercise MET level achieved using the FRIEND equation was 8.3, which is in the top 10th percentile for age and sex. The estimated end-exercise MET level achieved using the previous ACSM equation was 10.2. The test was terminated due to end of protocol and the total exercise time was 9 minutes and 0 seconds. Other symptoms during the test included SOB. The maximum heart rate was 151 bpm, which is 105% of the predicted heart rate for age. Peak blood pressure was 176/86 mmHg. The double product achieved was [address]. Medications: Last Used NONE Resting ECG: Normal Sinus Rhythm Symptoms at rest: Chest Discomfort Exercise Protocol: Paras Stress Exercise Table: +-----+ +------- -+ +---+---+---+- ---+----+ Stage Speed (MPH) Grade(%) Time (min) HR SYS SYED RPE METS +-----+ +------- -+ +---+---+---+- ---+----+ 1 1.7 10.0 3.0 118 146 84 12.0 4.2 +-----+ +------- -+ +---+---+---+- ---+----+ 2 2.5 12.0 6.0 127 170 80 13.0 6.1 +-----+ +------- -+ +---+---+---+- ---+----+ +-----+ +------- --+ +---+---+---+ ----+----+ Speed (MPH) Grade (%) Time (min) HR SYS SYED RPE METS +-----+ +------- --+ +---+---+---+ ----+----+ Final 3.4 14.0 9.00 151 176 86 14.0 8.3 +-----+ +------- --+ +---+---+---+ ----+----+ Recovery Table: +------+ +---+--- +---+ Stage Time (min) HR SYS SYED +------+ +---+--- +---+ 1 1.0 139 180 86 +------+ +---+--- +---+ 2 2.0 111 174 80 +------+ +---+--- +---+ 3 3.0 103 158 82 +------+ +---+--- +---+ 4 5.0 93 132 80 +------+ +---+--- +---+ Stress Observations: Resting HR: 69 bpm Peak HR: 151 bpm (105% MPHR) Resting BP: 130 / 78 mmHg Peak BP: 176 / 86 mmHg Total Exercise Time: 9 minutes 0 seconds METS achieved: 10.10 Chronotropic response index (CRI): 1.09 Heart rate recovery (HRR): 12 bpm Rate Pressure Product (RPP): 34279 Richardson Treadmill Score: 9.0 Stress Exercise Observations: Reason for test termination: end of protocol, Symptoms during test: Other symptoms during the test included SOB, Heart rate response: Normal CRI (>0.8 Not on B Phyllis) and Normal HRR (>12 or >[address]/EC), Blood pressure response: Normal BP response, ST segment and T wave changes: No ST changes, Richardson Treadmill Score: Normal Richardson Treadmill Score (>=5) and Arrhythmias: PACs Comments: Patient had one isolated PAC during exercise. IMPORTANT NOTE REGARDING ESTIMATED MET VALUES: Effective 07/25/2020, the reference equation for determining estimated MET values for [facility] stress tests changed. Comparison of test results before and after that date may show a change in estimated MET values for peak/max exercise despite a test duration that is similar in length. The validity of the new FRIEND equation for exercise METS is endorsed by the [place] [employer]. Karissa P, Bill LA, Gely R, Scooter J, Derik J. New Generalized Equation for Predicting Maximal Oxygen Uptake (from the Fitness Registry and the Importance of Exercise National Database). The [place] Journal of Cardiology. 2017;120(4):688-692). Final See Link below for Image [facility] EXERCISE STRESS ECG (WITHOUT IMAGING) Stress Pipeline Inspector Report: Exercise Stress ECG (without Imaging) [facility] Date of service: 06/04/2024 12:52:22 PM Supervising physician: Harjinder Silva DO PATIENT: Name: MRS. Ashley ROBBINS Age: 73 years Gender: F The supervising physician was in the department and immediately available. Final Stress ECG Report: Exercise Stress ECG (without Imaging) [facility] Date of service: 06/04/2024 12:52:22 PM Ordering physician: CHARLES SMITH personal security specialist: Annie Arteaga Children Counselor: Traci Hudson Interpreting physician: Charles Abbott MD Patient name: MRS. Ashley ROBBINS Age: 73 years Gender: F Indication: Dyspnea on exertion Stress ECG Conclusion: Conclusion: Normal Stress ECG Summary: The patient's resting heart rate was 69 bpm and blood pressure was 130/78 mmHg. The patient exercised according to the Paras protocol. The estimated end-exercise MET level achieved using the FRIEND equation was 8.3, which is in the top 10th percentile for age and sex. The estimated end-exercise MET level achieved using the previous ACSM equation was 10.2. The test was terminated due to end of protocol and the total exercise time was 9 minutes and 0 seconds. Other symptoms during the test included SOB. The maximum heart rate was 151 bpm, which is 105% of the predicted heart rate for age. Peak blood pressure was 176/86 mmHg. The double product achieved was 61491. Medications: Last Used NONE Resting ECG: Normal Sinus Rhythm Symptoms at rest: Chest Discomfort Exercise Protocol: Paras Stress Exercise Table: +-----+ +------- -+ +---+---+---+- ---+----+ Stage Speed (MPH) Grade(%) Time (min) HR SYS SYED RPE METS +-----+ +------- -+ +---+---+---+- ---+----+ 1 1.7 10.0 3.0 118 146 84 12.0 4.2 +-----+ +------- -+ +---+---+---+- ---+----+ 2 2.5 12.0 6.0 127 170 80 13.0 6.1 +-----+ +------- -+ +---+---+---+- ---+----+ +-----+ +------- --+ +---+---+---+ ----+----+ Speed (MPH) Grade (%) Time (min) HR SYS SYED RPE METS +-----+ +------- --+ +---+---+---+ ----+----+ Final 3.4 14.0 9.00 151 176 86 14.0 8.3 +-----+ +------- --+ +---+---+---+ ----+----+ Recovery Table: +------+ +---+--- +---+ Stage Time (min) HR SYS SYED +------+ +---+--- +---+ 1 1.0 139 180 86 +------+ +---+--- +---+ 2 2.0 111 174 80 +------+ +---+--- +---+ 3 3.0 103 158 82 +------+ +---+--- +---+ 4 5.0 93 132 80 +------+ +---+--- +---+ Stress Observations: Resting HR: 69 bpm Peak HR: 151 bpm (105% MPHR) Resting BP: 130 / 78 mmHg Peak BP: 176 / 86 mmHg Total Exercise Time: 9 minutes 0 seconds METS achieved: 10.10 Chronotropic response index (CRI): 1.09 Heart rate recovery (HRR): 12 bpm Rate Pressure Product (RPP): 30954 Richardson Treadmill Score: 9.0 Stress Exercise Observations: Reason for test termination: end of protocol, Symptoms during test: Other symptoms during the test included SOB, Heart rate response: Normal CRI (>0.8 Not on B Phyllis) and Normal HRR (>12 or >[address]/EC), Blood pressure response: Normal BP response, ST segment and T wave changes: No ST changes, Richardson Treadmill Score: Normal Richardson Treadmill Score (>=5) and Arrhythmias: PACs Comments: Patient had one isolated PAC during exercise. IMPORTANT NOTE REGARDING ESTIMATED MET VALUES: Effective 07/25/2020, the reference equation for determining estimated MET values for [facility] stress tests changed. Comparison of test results before and after that date may show a change in estimated MET values for peak/max exercise despite a test duration that is similar in length. The validity of the new FRIEND equation for exercise METS is endorsed by the [place] [employer]. Karissa P, Bill LA, Gely R, Scooter J, Derik Graff. New Generalized Equation for Predicting Maximal Oxygen Uptake (from the Fitness Registry and the Importance of Exercise National Database). The [place] Journal of Cardiology. 2017;120(4):688-692). Final CC [employer] 3D Medical Image : [id number] See Link below for Image Normal [facility] 06-03-2024 [facility] Telephone ([facility]) -- Ashley ROBBINS ([id number]) 1950 F Date Time Provider Department 06/03/24 TRACI HUDSON [facility] During your visit today, we recorded the following information about you: Traci Hudson RN 06/03/2024 2:32 PM Signed Left message regarding reminder for stress test tomorrow and given instructions. Allergies As of Date: 06/03/2024 Noted Allergy Reaction AMOXICILLIN 07/25/2005 14 - Other: See Comments SULFA (SULFONAMIDE ANTIBIOTICS) 10/11/2011 7 - Swelling Date Reviewed: 06/02/2024 Reviewed by: Kirsten Hector MD - Fully Assessed Reason for Visit: Reminder Call [[id number]] Prescriptions as of 06/03/2024 - EPINEPHrine (EPIPEN) 0.3 mg/0.3 mL auto-injector Take as directed on instructions with allergic reaction. - cholecalciferol (VITAMIN D3) 5,000 unit tab Take 5,000 Units by mouth once daily. - glucosamine/chondr bradley A sod (OSTEO BI-FLEX ORAL) Take by mouth once daily. - PSEUDOEPHEDRINE HCL (SUDAFED ORAL) Take by mouth once daily. Meds Comments as of 12/19/2019: 12/19/19 The medications are managed by this patient by: PATIENT IVA Fletcher Problem List As Of Date 06/03/2024 Noted Resolved Family history of colon cancer [Z80.0] 10/12/2011 Mass of left axilla [R22.32] 05/27/2015 Encounter for gynecological examination [Z01.41*01/07/2018 Medicare annual wellness visit, subsequent [Z00*01/07/2018 Osteopenia, senile [M85.80] 01/14/2018 Personal history of colonic polyps [Z86.010] Nuclear sclerosis of both eyes [H25.13] 12/19/2019 Fibroids [D21.9] 03/25/2022 Gallbladder polyp [K82.4] 03/31/2022 Advance directive discussed with patient [Z71.8*04/24/2022 Liver hemangioma [D18.03] 05/18/2022 Esophagitis [K20.90] 05/29/2022 Fatty liver [K76.0] 05/29/2022 Collagenous colitis [K52.831] 05/29/2022 Chronic sinusitis [J32.9] 05/10/2023 Tinnitus of both ears [H93.13] 05/10/2023 Encounter for screening for diabetes mellitus [*05/26/2024 Encounter for lipid screening for cardiovascula*05/26/2024 Family history of coronary artery disease [Z82.*05/26/2024 Encounter Status:Closed by TRACI HUDSON on 06/03/24 [facility] ECHOon 06-03-2024 Echocardiography Echocardiography Rep ort: Transthoracic Echo [facility] Date of service: 06/03/2024 8:51:09 AM CHIEF Ordering physician: CHARLES SMITH Indication: Shortness of Breath Technologist: Elen Jacobs [facility] Interpreting physician: Charles Abbott MD PATIENT: Name: MRS. Ashley ROBBINS : 1950 Age: 73 years Gender: F Primary rhythm: sinus. Height: 167.64 cm BSA: 1.73 m Weight: 63.96 kg BMI: 22.8 kg/m Heart rate 73 bpm Blood pressure 133/77 mmHg Color Doppler was utilized to interrogate the cardiac valves assessed and spectral Doppler was utilized to determine the flow velocities and pressure gradients reported in this exam. Myocardial strain analysis was performed in this exam to aid in the assessment of cardiac function. MEASUREMENTS: Value Indexed Normal Max aortic dimension 2.9 cm Ao < 3.8 Left atrial volume 32 ml (biplane A-L) 18 ml/m Shikha <= 34 LV ID (diastole) 3.5 cm (2D) 2.04 cm/m LV ID (systole) 2.2 cm (2D) 1.26 cm/m IVS, leaflet tips 0.9 cm (2D) Posterior wall thickness 1.0 cm (2D) Left ventricular mass 93 g (2D) 54 g/m Global peak long strain -20.2 % LV stroke volume 37 ml (2D biplane) LV end diastolic volume 54 ml (2D biplane) 31.1 ml/m 29<=EDVi<62 LV end systolic volume 17 ml (2D biplane) 9.6 ml/m Ejection Fraction 69 % (2D biplane) EF > 54 FINDINGS: LEFT VENTRICLE The left ventricle is normal in size. Left ventricular systolic function is normal. Global LV myocardial strain is normal. Grade I left ventricular diastolic dysfunction. Mitral annular lateral E/e': 10.9. Mitral annular septal E/e': 12.7. Wall Motion: All scored segments are normal. RIGHT VENTRICLE The right ventricle is normal in size. Right ventricular systolic function is normal. RV systolic tissue Doppler velocity is 13.0 cm/s. Tricuspid annular displacement is 2.3 cm. Estimated right ventricular systolic pressure is 23 mmHg consistent with normal pulmonary artery pressures. Estimated right atrial pressure is 3 mmHg (although IVC not seen). LEFT ATRIUM The left atrial cavity is normal in size. Pulmonary Veins: The pulmonary venous pattern showed normal systolic flow. RIGHT ATRIUM The right atrial cavity is normal in size. Inferior Vena Cava: The inferior vena cava appears normal measuring 1.6 cm. MITRAL VALVE The mitral valve leaflets are structurally normal. There is no mitral valve regurgitation. The pressure half time is 66 msec. The peak mitral E/A ratio is 0.72. The average mitral E/e' ratio is 11.8. The mitral flow deceleration time is 227 msec. TRICUSPID VALVE The tricuspid valve leaflets are structurally normal. There is trace (trace - 1+) tricuspid valve regurgitation. AORTIC VALVE The aortic valve cusps are structurally normal. There is no aortic valve regurgitation. Tricuspid aortic valve. The peak gradient is 11 mmHg (peak velocity = 166.7 cm/s). PULMONIC VALVE The pulmonic valve cusps are structurally normal. There is trace pulmonic valve regurgitation. AORTA The visualized aorta is normal in size. Measurements - Mid ascending aorta 2.9 cm. PERICARDIUM There is no pericardial effusion. There is an epicardial fat pad. CONCLUSIONS: - Exam indication: Shortness of Breath - The left ventricle is normal in size. Left ventricular systolic function is normal. EF = 69 5% (2D biplane) Grade I left ventricular diastolic dysfunction. - The right ventricle is normal in size. Right ventricular systolic function is normal. - There are no significant valvular abnormalities. - Exam was compared with the prior echocardiographic exam performed on 02/03/2019, no significant change. * * * Final * * * [employer] 3D Medical Image : [id number] Normal [facility] CNOVon 06-02-2024 CNOV Office Visit (OBGYWM ) -- LINNABARY,N ANNA ([id number]) 1950 F Date Time Provider Department 06/02/24 4:00 PM KIRSTEN HECTOR OBGYWM During your visit today, we recorded the following information about you: Blood pressure Weight Height 118/76 64.4 kg 1.676 m Kirsten Hector MD 06/02/2024 4:44 PM Signed Ashley Robbins is a 73 year old female who presents for problem visit for some breast pain more on right. HPI: Some pain on right side in breast that happens randomly and is enough to wake her up but if repositions can go back to sleep. No nipple discharge, no trauma. No vaginal bleeding or concerns. 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: Sexual Activity: Not Currently; No partner data on record Contraception: No contraception data on record PAST MEDICAL HISTORY 04/24/2022: Advance directive discussed with patient Comment: Discussed 04/202205/10/2023: Chronic sinusitis 05/29/2022: Collagenous colitis 05/26/2024: Encounter for lipid screening for cardiovascular disease 05/29/2022: Esophagitis 10/12/2011: Family history of colon cancer 05/26/2024: Family history of coronary artery disease 05/29/2022: Fatty liver 03/25/2022: Fibroids 03/31/2022: Gallbladder polyp 05/18/2022: Liver hemangioma Comment: Right lob 05/27/2015: Mass of left axilla Comment: Eval 2014 was benign 01/07/2018: Medicare annual wellness visit, subsequent Comment: Medicare part B: 07/08/2013 last done: 01/17/2019 12/19/2019: Nuclear sclerosis of both eyes 01/14/2018: Osteopenia, senile Comment: Dexa: improved lumbar and right hip slightly worse in left hip. No date: Personal history of colonic polyps 05/10/2023: Tinnitus of both ears PAST SURGICAL HISTORY 05/09/2022: COLONOSCOPY 2012: COLONOSCOPY FLX DX W/COLLJ SPEC WHEN PFRMD Comment: History of polyps 08/10/2017: COLONOSCOPY FLX DX W/COLLJ SPEC WHEN PFRMD Comment: Colonoscopy 05/09/2022: EGD 01/02/2017: HYSTEROSCOPY Comment: H/s [facility] for PMB 1998: OTHER Comment: Sinus surgery No date: TONSILLECTOMY HX FAMILY HISTORY Problem Relation Age of Onset Heart Mother CHF Cancer Father Colon Heart Father Coronary Artery Disease Father 60's Diabetes Sister Asthma Sister Macular Degen Sister other (covid) Sister from this Colon Polyps Sister possible cancer at age 70 (05/2024) Osteoporosis Sister Cancer Brother 62 Colon Diabetes Brother Macular Degen Maternal Grandmother Social History Tobacco Use Smoking status: Never Smokeless tobacco: Never Vaping Use Vaping status: Never Used Substance Use Topics Alcohol use: Yes Comment: One beer at night, helps clear sinuses Drug use: No Current Outpatient Medications Medication Sig EPINEPHrine (EPIPEN) 0.3 mg/0.3 mL auto-injector Take as directed on instructions with allergic reaction. cholecalciferol (VITAMIN D3) 5,000 unit tab Take 5,000 Units by mouth once daily. glucosamine/chondr bradley A sod (OSTEO BI-FLEX ORAL) Take by mouth once daily. PSEUDOEPHEDRINE HCL (SUDAFED ORAL) Take by mouth once daily. No current facility-administered medications for this visit. Allergies As of Date: 06/02/2024 Allergen Noted Reaction AMOXICILLIN 07/25/2005 Other: See Comments SULFA (SULFONAMIDE ANTIBIOTICS) 10/11/2011 Swelling Fully Assessed 06/02/2024 REVIEW OF SYSTEMS Abdomen: occas constipation, no other issues Bladder: No dysuria, gross hematuria, urinary frequency, urinary urgency, or incontinence. Allergies and current medication updated:Yes EXAM: BP 118/76 Ht 5' 6 (1.68m) Wt 142 lb (64.4kg) BMI 22.93 kg/(m2). GENERAL: pleasant, female in no apparent distress BREAST: soft, non-tender, symmetric, no dominant mass, normal nipple-areolar complex, no lymphadenopathy, and no nipple discharge CHEST: Normal inspiratory effort ABDOMEN: soft, non-tender, and no masses PELVIC: external genitalia normal, normal Bartholin's glands, urethra, Playas's glands, no vulvar lesions, no cervical lesions, physiologic discharge present, normal appearing perineal body and perianal region, cystocele 1st degree, rectocele 1st degree BIMANUAL: uterus normal size, shape and consistency, no adnexal masses, and non-tender NEURO: alert and oriented x3,exam grossly non-focal EXTREMITIES: normal ASSESSMENT AND PLAN: cysts on breasts reassured, cont. self exams and routine imaging, otc nsaids prn pap not inducated Kirsten Hector MD Referring Provider: KIRSTEN HECTOR [[id number]] Allergies As of Date: 06/02/2024 Noted Allergy Reaction AMOXICILLIN 07/25/2005 14 - Other: See Comments SULFA (SULFONAMIDE ANTIBIOTICS) 10/11/2011 7 - Swelling Date Reviewed: 06/02/2024 Reviewed by: Kirsten Hector (more content not included)... Normal [facility] CBC W Auto Differential pane l (Bld)on 05-26-2024 Basophils (Bld) [#/Vol] [facility] Basophils/100 WBC (Bld) 0.2 % [facility] Differential cell count method Nom (Bld) Auto [facility] Eosinophils (Bld) [#/Vol] 0.18 10*3/uL [facility] Eosinophils/100 WBC (Bld) 2.0 % [facility] Erythrocyte distribution width (RBC) [Ratio] 13.3 % 11.5 - 15.0 % [facility] Hematocrit (Bld) [Volume fraction] 42.4 % 36.0 - 46.0 % [facility] Hemoglobin (Bld) [Mass/Vol] 13.4 g/dL 11.5 - 15.5 g/dL [facility] Immature granulocytes (Bld) [#/Vol] [facility] Immature granulocytes/100 WBC (Bld) 0.2 % [facility] Lymphocytes (Bld) [#/Vol] 2.19 10*3/uL [facility] Lymphocytes/100 WBC (Bld) 24.2 % [facility] MCH (RBC) [Entitic mass] 28.9 pg 26.0 - 34.0 pg [facility] MCHC (RBC) [Mass/Vol] 31.6 g/dL 30.5 - 36.0 g/dL [facility] MCV (RBC) [Entitic vol] 91.4 fL 80.0 - 100.0 fL [facility] Monocytes (Bld) [#/Vol] 0.80 10*3/uL [facility] Monocytes/100 WBC (Bld) 8.8 % [facility] Neutrophils (Bld) [#/Vol] 5.85 10*3/uL [facility] Neutrophils/100 WBC (Bld) 64.6 % [facility] Nucleated RBC (Bld) [#/Vol] NINF [facility] Nucleated RBC/100 WBC (Bld) [Ratio] 0.0 % /100 WBC [facility] Platelet mean volume (Bld) [Entitic vol] 11.3 fL 9.0 - 12.7 fL [facility] Platelets (Bld) [#/Vol] 230 10*3/uL [facility] RBC (Bld) [#/Vol] 4.64 10*6/uL 3.90 - 5.2 0 m/uL [facility] WBC (Bld) [#/Vol] 9.06 10*3/uL [facility] XR Finger - right AP and Lat eral and obliqueon 05-15-2023 IMPRESSION: Degenera tive changes 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 Hot Wire Cutter: GUNJAN Transcribe Date/Time: May 15 2023 6:19A Dictated by : SALMA ERVIN MD This examination was interpreted and the report reviewed and electronically signed by: SALMA ERVIN MD on May 15 2023 6:20AM [facility] DIVISION OF RADIOLOGY * * *Final Report* * * DATE OF EXAM: May 10 2023 11:19AM WOX [id number] - XR DIGIT 3V FRONTAL/LAT/OBL RT / PROCEDURE REASON: Pain of right thumb * * * * Physician Interpretation * * * * PROCEDURE: Right common INDICATION: Pain of right thumb .3 weeks ago 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 No erosions or focal soft tissue swelling. No fracture or dislocation. 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 No erosions or focal soft tissue swelling. No fracture or dislocation. 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 Transcribe Date/Time: May 15 2023 6:19A Dictated by : SALMA ERVIN MD This examination was interpreted and the report reviewed and electronically signed by: SALMA ERVIN MD on May 15 2023 6:20AM EST [facility] XR Finger - right AP and Lat eral and obliqueOrdered By: [facility] Provider on 05-15-2023 [facility] Comprehensive metabolic 2000 panelon 05-11-2023 Albumin [Mass/Vol] 4.4 g/dL 3.9 - 4.9 g/dL [facility] ALP [Catalytic activity/Vol] 68 U/L 34 - 123 U/L [facility] ALT [Catalytic activity/Vol] 14 U/L 7 - 38 U/L [facility] Anion gap [Moles/Vol] 10 mmol/L 9 - 18 mmol/L [facility] AST [Catalytic activity/Vol] 16 U/L 13 - 35 U/L [facility] Bilirubin [Mass/Vol] 0.3 mg/dL 0.2 - 1 .3 mg/dL [facility] Calcium [Mass/Vol] 10.0 mg/dL 8.5 - 10. 2 mg/dL [facility] Chloride [Moles/Vol] 105 mmol/L 97 - 10 5 mmol/L [facility] CO2 [Moles/Vol] 26 mmol/L 22 - 30 mmol/L [facility] Creatinine [Mass/Vol] 0.87 mg/dL 0.58 - 0.96 mg/dL [facility] Estimated Glomerular Filtration Rate 70 mL/min/1.73m >=60 mL/min/1.73m [facility] Glucose [Mass/Vol] 98 mg/dL 74 - 99 mg/dL [facility] Potassium [Moles/Vol] 5.1 mmol/L 3.7 - 5.1 mmol/L [facility] Protein [Mass/Vol] 6.7 g/dL 6.3 - 8.0 g/dL [facility] Sodium [Moles/Vol] 141 mmol/L 136 - 144 mmol/L [facility] Urea nitrogen [Mass/Vol] 23 mg/dL High 7 - 21 mg/dL [facility] LIPID PANEL, NONFASTINGon Cholesterol [Mass/Vol] 188 mg/dL <200 mg/dL [facility] HDL Cholesterol, Nonfasting 73 mg/dL >39 mg/dL [facility] LDL Cholesterol, Nonfasting 100 mg/dL High <100 mg/dL [facility] LDL/HDL Ratio, Nonfasting 1.37 mg/dL <2.54 mg/dL [facility] Non HDL Cholesterol, Nonfasting 115 mg/dL <130 mg/dL [facility] Total Chol/HDL Ratio, Nonfasting 2.58 mg/dL <5.10 mg/dL [facility] Triglycerides, Nonfasting 76 mg/dL <150 mg/dL [facility] VLDL Cholesterol, Nonfasting 15 mg/dL <30 mg/dL [facility] XR Finger - right AP and Lat eral and obliqueon 05-10-2023 Radiology Study observation (narrative) [facility] Gastroenterology Visit Repor ton 11-10-2022 Gastroenterology Visit Report [facility]enter[facility] [address] [place] [address] OFFICE VISIT Date of Service: 11/10/22 MR#: [id number] Acct: [id number] Name: JEFF ROBBINS Rep #: [id number] : 1950 Provider: Moi Uribe DO Age/Sex: 72/F Location: [facility] Status: Signed Intake Intake Visit Reasons: 3 MO FU [facility] Medical History (Updated 08/17/22 @ 10:[address] Moi Uribe DO) Esophagitis HPI HPI Details: JEFF ROBBINS, is a 72 F who presents to the office today for Follow up. Anna established with this clinic 08.17.22 with referral from PCP. Collagenous colitis diagnosed by during colonoscopy. Symptom onset two years prior when she had issues with diarrhea with abdominal pain for three months; spontaneously resolved and returned in October of this years. Diarrhea frequency varies when episodes occur. LFT .2021 AST H65/ ALT H211/ Alk phos H238. US RUQ 6.23.22 with increased hepatic echogenicity. LFT 7.[address] abd/pel 04.20.22 noting hepatic steatosis with 5mm indeterminate right hepatic lesion; myomatous uterus. EGD and Colonoscopy 05.09.22 with [facility]. EGD pathology of jejunum, stomach, distal and mid esophagus without changes. Colonoscopy with one tubular adenoma polyp removed from sigmoid colon; random biopsy revealed collagenous colitis. Omeprazole started which she feels caused burning and bloodshot eyes and increased spots in her eyes, this was stopped and symptoms improved. 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 She stopped her omeprazole. MRI liver 05.18.22 for lesion of right hepatic lobe with T2 hyperintense lesion in right dome likely a hemangioma; repeat in 3-6 months if history of malignancy. Biochemical workup HIV, CMP, CRP, ferritin, LDH, a1c, coagulation, CBC, ESR, AMA, hepatitis, JAS, AFP, ANCA, ASM ab, ceruloplasmin, copper, haptoglobin, ammonia. Double strand DNA H11 RAST: corn equivocal/low 0.10 Allergen: mountain cedar, sycamore tree, white elm, white oak tree, [place] grass, ragweed, nettle all equivocal/low results. US RUQ and elastography 09.06.22 hepatic measurement 14.2cm with fatty infiltration stiffness measures 6.1kPa F1. Suspected gallbladder polyp [id number]. Plan LV 08.17.22: Collagenous colitis ??? overall doing well. Prefers to not be on medication as it minimally affects her life. Fatty liver ??? biochemical workup and imaging Colonic polyp Hx ??? colonoscopy No loose stools at this time. She has been having some mild constipation but feels that with an increase of oral fluids this has stabilized. ROS Const Constitutional: No fatigue, malaise, night sweats, weight change, sleep problems, abnormal sleep pattern or change in appetite ENT ENT: No difficulty swallowing, hoarseness or sore throat Cardio Cardiology: No chest pain at rest Gastro GI: No abdominal pain, belching, bloating, change in bowel habits, change in stool character, coffee ground emesis, constipation, cramping, diarrhea, heartburn, difficulty swallowing, feeling full early, excessive flatus, incontinent of stools, Vomiting blood/hematemesis, Blood in stool, loose stools, Black,tarry stools, nausea/dyspepsia, pain with swallowing, vomiting or other Musc Musculoskeletal: No joint pain Skin Skin: No yellowing of the eye or itchy eyes Neuro Neurology: No behavioral changes Psych Psychiatric: No abnormal sleep pattern, No anxiety, No behavioral changes, No change in appetite and No depression Endo Endocrine: No fatigue or weight change Aller/Imm Allergy/Immunologic: No itchy eyes Fadi/Lymp Hematologic/Lymphatic: No easy bleeding or easy bruising Exam Const General: cooperative and comfortable Nutritional Appearance: average body habitus and well nourished [facility] Head: normal to inspection Ears: hearing grossly normal bilaterally Nose: external nose normal Face and sinus: normal facial exam Mouth: oral mucosae normal Throat: posterior oropharynx normal Eyes General: appearance normal, both eyes and all related structures Neck Neck: normal visual inspection Chest Chest palpation inspection: normal inspection of the chest and normal palpation of entire chest wall Resp Effort Inspection: normal respiratory effort Auscultation: Bilateral: Clear to Auscultation Cardio Palpation: normal PMI Rate: regular rate Rhythm: regular rhythm GI Inspection: normal to inspection Auscultation: normal bowel sounds Percussion: normal to percussion Palpation: no hepatosplenomegaly Skin General: no rashes or lesions noted Neuro General: patient alert Extrem General: normal to inspection Psych Affect: normal affect Assessment and Plan Assessment and Plan (1) Collagenous colitis: Status: Chronic Plan: Problems regar (more content not included)... Normal [facility] ALVAREZ SCREENING [facility] 11-10 [facility] Absolute lymphocyte counton 08-17-2022 Lymphocytes Auto (Unsp spec) [#/Vol] 1.71 10*3/uL 0.83-4.51 [facility] Work Phone: Alternaria alternata IgE ser umon 08-17-2022 A. alternata IgE Qn (S) <0.10 kU/L Class 0 [facility] Work Phone: Atypical perinuclear antineu trophil cytoplasmic antibodies measurementon 08-17-2022 Neutrophil cytoplasmic Ab.perinuclear.atypica l IF (S) [Titer] <1:20 titer Neg:<1:20 [facility] Work Phone: [phone] Comment on above: The atypical pANCA p attern has been observed in asignificant percentage of patients with ulcerative colitis,primary sclerosing cholangitis and autoimmune hepatitis. Basophil percentageon 2021 Ammonia (P) [Moles/Vol] 13.0 umol/L 11-32 [facility] Work Phone: Basophil percentage < 0.2 AI 0.0-0.9 [facility] Work Phone: Basophils/100 WBC (Bld) 0.3 % 0-1 [facility] Work Phone: Bilirubin [Mass/Vol] 0.40 mg/dL 0.20-1.00 [facility] Work Phone: [phone] Comment on above: For patients on eltr ombopag therapy, use of Dimension [place] TBIL is not recommended. Chloride [Moles/Vol] 106 mmol/L 98-107 [facility] Work Phone: Eosinophils/100 WBC (Bld) 1.7 % 0-5 [facility] Work Phone: Glucose [Mass/Vol] 92 mg/dL 74-106 [facility] Work Phone: Neutrophils (Bld) [#/Vol] 4.6 10*3/uL 2.0-7.7 [facility] Work Phone: Neutrophils/100 WBC (Bld) 64.7 % 47-70 [facility] Work Phone: Potassium [Moles/Vol] 3.8 mmol/L 3.5-5.1 [facility] Work Phone: Protein [Mass/Vol] 7.2 g/dL 6.4-8.2 [facility] Work Phone: Sodium [Moles/Vol] 140 mmol/L 136-145 [facility] Work Phone: WBC (Bld) [#/Vol] 7.1 10*3/uL 4.4-11.0 [facility] Work Phone: Blood erythrocytes count (nu mber/volume)on 08-17-2022 RBC (Bld) [#/Vol] 4.96 10*6/uL 4.2-5.4 [facility] Work Phone: Blood hemoglobin measurement (mass/volume)on 08-17-2022 Hemoglobin (Bld) [Mass/Vol] 14.4 g/dL 12.0-15.0 [facility] Work Phone: Blood lymphocytes/100 leukoc yteson 08-17-2022 Lymphocytes/100 WBC (Bld) 24.3 % 19-41 [facility] Work Phone: [phone] Blood monocytes/100 leukocyt eson 08-17-2022 Monocytes/100 WBC (Bld) 8.9 % 0-10 [facility] Work Phone: Blood platelet mean volumeon 08-17-2022 Platelet mean volume (Bld) [Entitic vol] 10.3 fL 6.2-12.0 [facility] Work Phone: Chocolate RASTon 08-17-2022 Chocolate IgE Qn (S) <0.10 kU/L Class 0 [facility] Work Phone: Comment on above: Performed at: [address] [id number] Director: Miah Reyes PhD, Phone: [phone] at: [facility] [address] [id number] Director: Flo Veloz MD, Phone: [phone] Determination of erythrocyte mean corpuscular volume (MCV)on 08-17-2022 MCV (RBC) [Entitic vol] 87.9 fL 81-99 [facility] Work Phone: Erythrocyte sedimentation ra lora 08-17-2022 ESR (Bld) [Velocity] 8 mm/h 0-30 [facility] Work Phone: HIV 1 and HIV-2 antibody ass ay with HIV-1 p24 antigen detectionon 08-17-2022 HIV 1+2 Ab+HIV1 p24 Ag IA Ql Non-Reactive Nonreactive [facility] Work Phone: [phone] Hematocrit Auto (Bld) [Volum e fraction]on 08-17-2022 Hematocrit (Bld) [Volume fraction] 43.6 % 37-47 [facility] Work Phone: INR in Blood by Coagulation assayon 08-17-2022 INR Coag (Bld) [Relative time] 1.0 {INR} [facility] Work Phone: Laboratory - Chemistry and C hemistry - challengeon 08-17-2022 ALP [Catalytic activity/Vol] 70 U/L 45-117 [facility] Work Phone: ALT [Catalytic activity/Vol] 25 U/L 13-56 [facility] Work Phone: CO2 [Moles/Vol] 28.0 mmol/L 21.0-32.0 [facility] Work Phone: Globulin (S) [Mass/Vol] 3.4 g/dL 2.2-4.2 [facility] Work Phone: Urea nitrogen/Creatinine [Mass ratio] 20.7 mg/mg 10-20 [facility] Work Phone: Laboratory - Coagulationon 1 10-17-2021 PT Coag (PPP) [Time] 13.3 s 11.7-14.9 [facility] Work Phone: Laboratory - Hematology and Cell countson 08-17-2022 Erythrocyte distribution width (RBC) [Entitic vol] 41.8 fL 35.1-43.9 [facility] Work Phone: Erythrocyte distribution width (RBC) [Ratio] 13.0 % 11.6-14.6 [facility] Work Phone: Immature granulocytes/100 WBC (Bld) 0.100 % 0.0-0.9 [facility] Work Phone: [phone] Comment on above: IG% - Immature Granu locytes (promyelocytes, myelocytes and metamyelocytes) > 1% indicates that a LEFT SHIFT is Present. MCH (RBC) [Entitic mass] 29.0 pg 27.0-32.0 [facility] Work Phone: Nucleated RBC/100 WBC (Bld) [Ratio] 0 % 0-5 [facility] Work Phone: MCHC Auto (RBC) [Mass/Vol]on 08-17-2022 MCHC (RBC) [Mass/Vol] 33.0 g/dL 32-36 [facility] Work Phone: No Panel Informationon 08-17 Aspergillus fumigatus Allergen <0.10 kU/L Class 0 [facility] Work Phone: Cat Hair Allergen <0.10 kU/L Class 0 [facility] Work Phone: Centromere B Antibody <0.2 AI 0.0-0.9 [facility] Work Phone: Ceruloplasmin 27.4 mg/dL 19.0-39.0 [facility] Work Phone: Common Ragweed (Short) Allergen 0.13 kU/L Class 0/I [facility] Work Phone: Armenian Plantain Allergen (RAST) <0.10 kU/L Class 0 [facility] Work Phone: Estimated GFR (MDRD) Amer 82 mL/min >60 [facility] Work Phone: Comment on above: GFR Calc Estimated GFR (MDRD) Non-Af Amer 68 mL/min >60 [facility] Work Phone: Comment on above: Non- GFR Calc Haptoglobin 121 mg/dL 42-346 [facility] Work Phone: Comment on above: Performed at: [facility] [address] [id number] Director: Miah Reyes PhD, Phone: [phone] at: [address] [id number] Director: Flo Veloz MD, Phone: [phone] Hepatitis A IgM Antibody Negative Negative [facility] Work Phone: Hepatitis B Core IgM Antibody Negative Negative [facility] Work Phone: Hepatitis C Antibody (EIA) <0.1 s/co ratio 0.0-0.9 [facility] Work Phone: Hepatitis C Antibody Comment Comment . [facility] Work Phone: Comment on above: NegativeNot infected with HCV, unless recent infection issuspected or other evidence exists to indicate HCVinfection. Immunoglobulin E 24 IU/mL 6-495 [facility] Work Phone: Maple ([place]) Allergen IgE Ab 0.12 kU/L Class 0/I [facility] Work Phone: Mouse Urine Allergen IgE Antibody <0.10 kU/L Class 0 [facility] Work Phone: Comment on above: Performed at: [address] [id number] Director: Flo Veloz MD, Phone: [phone] RAST Comment Comment . [facility] Work Phone: Comment on above: Levels of Specific I gE Class Description of Class ----- < 0.10 0 Negative 0.10 - 0.31 0/I Equivocal/Low 0.32 - 0.55 I Low 0.56 - 1.40 II Moderate 1.41 - 3.90 III High 3.91 - 19.00 IV Very High 19.01 - 100.00 V Very High >100.00 Very High PLANT ASSIGNER Antibody 0.3 AI 0.0-0.9 [facility] Work Phone: Seafood Group Allergens (RAST) Negative . [facility] Work Phone: Comment on above: Allergens in this mi x are: Blue mussel Fish [place] Shrimp Tuna [place] Tree Allergen 0.14 kU/L Class 0/I [facility] Work Phone: Platelets bldon 08-17-2022 Platelets (Bld) [#/Vol] 263 10*3/uL 150-450 [facility] Work Phone: Rough pigweed specific IgE a ntibody assayon 08-17-2022 Rough Pigweed IgE Qn (S) <0.10 kU/L Class 0 [facility] Work Phone: Serum Taiwanese sycamore IgE antibody assay (units/volume)on 08-17-2022 Taiwanese Toxey IgE Qn (S) 0.14 kU/L Class 0/I [facility] Work Phone: Serum Aspergillus fumigatus IgE antibody assay (units/volume)on 08-17-2022 A. fumigatus IgE Qn (S) <0.10 kU/L Class 0 [facility] Work Phone: Serum Bermuda grass IgE anti body assay (units/volume)on 08-17-2022 Bermuda grass IgE Qn (S) <0.10 kU/L Class 0 [facility] Work Phone: Bermuda grass IgE Qn (S) 0.11 kU/L Class 0/I [facility] Work Phone: Serum Cladosporium herbarum IgE antibody assay (units/volume)on 08-17-2022 C. herbarum IgE Qn (S) <0.10 kU/L Class 0 [facility] Work Phone: Serum DNA double strand anti body assay (units/volume)on 08-17-2022 DNA double strand Ab Qn (S) 11 [IU]/mL 0-9 [facility] Work Phone: Comment on above: Negative <5 Equivoca l 5 - 9 Positive >9 Serum Dermatophagoides farin ae specific IgE antibody assay (units/volume)on 08-17-2022 Taiwanese house dust mite IgE Qn (S) <0.10 kU/L Class 0 [facility] Work Phone: Serum house dust mi te IgE antibody assay (units/volume)on 08-17-2022 house dust mite IgE Qn (S) <0.10 kU/L Class 0 [facility] Work Phone: Serum Kimberly-1 antibody assay (u nits/volume)on 08-17-2022 Kimberly-1 extractable nuclear Ab Qn (S) <0.2 AI 0.0-0.9 [facility] Work Phone: Serum Luigi grass IgE anti body assay (units/volume)on 08-17-2022 Luigi grass IgE Qn (S) <0.10 kU/L Class 0 [facility] Work Phone: Serum Kentucky blue grass Ig E antibody assay (units/volume)on 08-17-2022 Kentucky blue grass IgE Qn (S) <0.10 kU/L Class 0 [facility] Work Phone: Serum Mucor racemosus IgE an tibody assay (units/volume)on 08-17-2022 Mucor racemosus IgE Qn (S) <0.10 kU/L Class 0 [facility] Work Phone: Serum Penicillium notatum Ig E antibody assay (units/volume)on 08-17-2022 P. notatum IgE Qn (S) <0.10 kU/L Class 0 [facility] Work Phone: Serum Periplaneta americana IgE antibody assay (units/volume)on 08-17-2022 Taiwanese Cockroach IgE Qn (S) 0.11 kU/L Class 0/I [facility] Work Phone: Serum Greek thistle specif ic IgE antibody assayon 08-17-2022 Saltwort IgE Qn (S) 0.10 kU/L Class 0/I [facility] Work Phone: Serum Scl-70 extractable nuc lear antibody assay (units/volume)on 08-17-2022 SCL-70 extractable nuclear Ab Qn (S) <0.2 AI 0.0-0.9 [facility] Work Phone: Serum Estes extractable nucl ear antibody detectionon 08-17-2022 Estes extractable nuclear Ab Ql (S) <0.2 AI 0.0-0.9 [facility] Work Phone: [phone] Serum bahia grass IgE antibo dy assay (units/volume)on 08-17-2022 Bahia grass IgE Qn (S) 0.11 kU/L Class 0/I [facility] Work Phone: [phone] Serum beef IgE antibody assa y (units/volume)on 08-17-2022 Beef IgE Qn (S) <0.10 kU/L Class 0 [facility] Work Phone: [phone] Serum birch specific IgE ant ibody assayon 08-17-2022 Silver Birch IgE Qn (S) <0.10 kU/L Class 0 [facility] Work Phone: [phone] Serum black walnut IgE antib dior assay (units/volume)on 08-17-2022 Black Lafitte IgE Qn (S) 0.12 kU/L Class 0/I [facility] Work Phone: [phone] Serum cat dander IgE antibod y assay (units/volume)on 08-17-2022 Cat dander IgE Qn (S) <0.10 kU/L Class 0 [facility] Work Phone: [phone] Serum classic neutrophil cyt oplasmic antibody assay (units/volume)on 08-17-2022 Neutrophil cytoplasmic Ab.classic Qn (S) <1:20 titer Neg:<1:20 [facility] Work Phone: [phone] Serum corn IgE antibody assa y (units/volume)on 08-17-2022 [place] IgE Qn (S) 0.10 kU/L Class 0/I [facility] Work Phone: [phone] Serum cottonwood IgE antibod y assay (units/volume)on 08-17-2022 Excello IgE Qn (S) 0.12 kU/L Class 0/I [facility] Work Phone: [phone] Serum cow milk IgE antibody assay (units/volume)on 08-17-2022 Cow milk IgE Qn (S) <0.10 kU/L Class 0 [facility] Work Phone: Serum dog epithelium IgE ant ibody assay (units/volume)on 08-17-2022 Dog epithelium IgE Qn (S) <0.10 kU/L Class 0 [facility] Work Phone: Serum hazelnut pollen IgE an tibody assay (units/volume)on 08-17-2022 Hazelnut Pollen IgE Qn (S) <0.10 kU/L Class 0 [facility] Work Phone: Serum mitochondria antibody detectionon 08-17-2022 Mitochondria Ab Ql (S) <20.0 Units 0.0-20.0 [facility] Work Phone: Comment on above: Negative 0.0 - 20.0 Equivocal 20.1 - 24.9 Positive >24.9Mitochondrial (M2) Antibodies are found in 90-96% ofpatients with primary biliary cirrhosis. Serum mountain cedar specifi c IgE antibody assayon 08-17-2022 Mountain Juniper IgE Qn (S) 0.15 kU/L Class 0/I [facility] Work Phone: Serum mugwort IgE antibody a ssay (units/volume)on 08-17-2022 Mugwort IgE Qn (S) <0.10 kU/L Class 0 [facility] Work Phone: Serum nettle IgE antibody as say (units/volume)on 08-17-2022 Nettle IgE Qn (S) 0.11 kU/L Class 0/I [facility] Work Phone: Serum or plasma C reactive p rotein measurement (mass/volume)on 08-17-2022 CRP [Mass/Vol] mg/L 0.0-3.0 [facility] Work Phone: Comment on above: C-Reactive Protein ( CRP) provides useful information for thediagnosis, therapy and monitoring of inflammatory processesand associated diseases. For the evaluation of Relative Riskfor Cardiovascular Disease, a High Sensitivity CRP (HSCRP)should be ordered. Serum or plasma actin IgG an tibody assay (units/volume)on 08-17-2022 Actin IgG Qn 10 Units 0-19 [facility] Work Phone: Comment on above: Negative 0 - 19 Weak positive 20 - 30 Moderate to strong positive >30 Actin Antibodies are found in 52-85% of patients with autoimmune hepatitis or chronic active hepatitis and in 22% of patients with primary biliary cirrhosis. Serum or plasma albumin yonatan urement (mass/volume)on 08-17-2022 Albumin [Mass/Vol] 3.8 g/dL 3.2-5.0 [facility] Work Phone: Serum or plasma albumin/glob ulin mass ratioon 08-17-2022 Albumin/Globulin [Mass ratio] 1.1 {ratio} 0.9-2.4 [facility] Work Phone: Serum or plasma [id number] protein tumor marker measurement (units/volume)on 08-17-2022 AFP.tumor marker Qn 2.7 ng/mL 0.0-9.2 [facility] Work Phone: Comment on above: [employer] El ectrochemiluminescence Immunoassay(ECLIA)Values obtained with different assay methods or kits cannotbe used interchangeably. Results cannot be interpreted asabsolute evidence of the presence or absence of malignantdisease.This test is not interpretable in females. Serum or plasma angiotensin converting enzyme measurement (enzymatic activity/volume)on 08-17-2022 Angiotensin converting enzyme [Catalytic activity/Vol] 41 U/L 14-82 [facility] Work Phone: Serum or plasma calcium yonatan urement (mass/volume)on 08-17-2022 Calcium [Mass/Vol] 9.1 mg/dL 8.5-10.1 [facility] Work Phone: Serum or plasma creatinine m easurement (mass/volume)on 08-17-2022 Creatinine [Mass/Vol] 0.87 mg/dL 0.55-1.02 [facility] Work Phone: Comment on above: The validity of the calculated GFR & GFRAA in patients over 70 years has not been determined. Clinical correlation is essential. Serum or plasma ferritin zak surement (mass/volume)on 08-17-2022 Ferritin [Mass/Vol] 18 ng/mL 8-252 [facility] Work Phone: Serum or plasma hepatitis B virus surface antigen detection by immunoassayon 08-17-2022 HBV surface Ag IA Ql Negative Negative [facility] Work Phone: Serum or plasma urea nitroge n measurement (mass/volume)on 08-17-2022 Urea nitrogen [Mass/Vol] 18 mg/dL 7-18 [facility] Work Phone: Serum peanut IgE antibody as say (units/volume)on 08-17-2022 Peanut IgE Qn (S) <0.10 kU/L Class 0 [facility] Work Phone: Serum pecan or hickory nut I gE antibody assay (units/volume)on 08-17-2022 Pecan or Concord Nut IgE Qn (S) 0.11 kU/L Class 0/I [facility] Work Phone: Serum perinuclear neutrophil cytoplasmic antibody titer by immunofluorescenceon 08-17-2022 Neutrophil cytoplasmic Ab.perinuclear IF (S) [Titer] <1:20 titer Neg:<1:20 [facility] Work Phone: Comment on above: The presence of posi tive fluorescence exhibiting P-ANCA orC-ANCA patterns alone is not specific for the diagnosis ofWegener's Granulomatosis (WG) or microscopic polyangiitis.Decisions about treatment should not be based solely onANCA IFA results. The International ANCA [employer] Consensusrecommends follow up testing of positive sera with both SC-3 and MPO-ANCA enzyme immunoassays. As many as 5% serumsamples are positive only by EIA. Ref. AM J Clin Gsryph3997;111:507-513. Serum pork IgE antibody assa y (units/volume)on 08-17-2022 Pork IgE Qn (S) <0.10 kU/L Class 0 [facility] Work Phone: Serum sheep sorrel IgE antib dior assay (units/volume)on 08-17-2022 Sheep Markesan IgE Qn (S) <0.10 kU/L Class 0 [facility] Work Phone: Serum soybean IgE antibody a ssay (units/volume)on 08-17-2022 Soybean IgE Qn (S) <0.10 kU/L Class 0 [facility] Work Phone: Serum sweet gum IgE radioall ergosorbent test (RAST) class determinationon 08-17-2022 Sweet gum IgE RAST class (S) <0.10 kU/L Class 0 [facility] Work Phone: Serum richa IgE antibody a ssay (units/volume)on 08-17-2022 Richa IgE Qn (S) 0.13 kU/L Class 0/I [facility] Work Phone: Serum wheat IgE antibody ass ay (units/volume)on 08-17-2022 Wheat IgE Qn (S) <0.10 kU/L Class 0 [facility] Work Phone: Serum white laura IgE antibody assay (units/volume)on 08-17-2022 White Laura IgE Qn (S) 0.11 kU/L Class 0/I [facility] Work Phone: Serum white elm IgE antibody assay (units/volume)on 08-17-2022 White Elm IgE Qn (S) 0.10 kU/L Class 0/I [facility] Work Phone: White Elm IgE Qn (S) 0.11 kU/L Class 0/I [facility] Work Phone: [phone] Serum white hickory IgE anti body assay (units/volume)on 08-17-2022 White Concord IgE Qn (S) <0.10 kU/L Class 0 [facility] Work Phone: [phone] Serum white mulberry IgE ant ibody assay (units/volume)on 08-17-2022 White mulberry IgE Qn (S) <0.10 kU/L Class 0 [facility] Work Phone: Serum whole egg IgE antibody assay (units/volume)on 08-17-2022 Whole Egg IgE Qn (S) <0.10 kU/L Class 0 [facility] Work Phone: Stemphylium herbarum IgE ser umon 08-17-2022 Stemphylium botryosum IgE Qn (S) <0.10 kU/L Class 0 [facility] Work Phone: Thin prep Papanicolaou smear with manual screeningon 08-17-2022 Thin prep Papanicolaou smear with manual screening 17 U/L 15-37 [facility] Work Phone: [phone] Thin prep Papanicolaou smear with manual screening 6 5-15 [facility] Work Phone: Thin prep Papanicolaou smear with manual screening 170 U/L 84-246 [facility] Work Phone: Thin prep Papanicolaou smear with manual screening 120 ug/dL 80-158 [facility] Work Phone: Comment on above: Detection Limit = 5 Whole blood hemoglobin A1c/t otal hemoglobin ratio (mass fraction)on 08-17-2022 HbA1c (d) [Mass fraction] 5.6 % 3.8-5.6 [facility] Comment on above: Normal < 5.7 % Predi abetic 5.7 - 6.4 % Diabetic >or= 6.5 % Please note range changes. MRI LIVER WO/W IVCONon 05-18 [facility] COLONOSCOPY DIAGNOSTICon [facility] EGD DIAGNOSTICon 05-09-2022 [facility] CREATININE BLDon 04-20-2022 Creatinine [Mass/Vol] 0.82 mg/dL 0.58 - 0.96 mg/dL [facility] Estimated Glomerular Filtration Rate 76 mL/min/1.73m >=60 mL/min/1.73m [facility] US ABD RT UPPER QUADRANTon 0 03-30-2022 [facility] EMERGENCY REPORTon 2 EMERGENCY REPORT [facility] EMERGENCY ROOM REPORT NAME ACCOUNT SEX AGE ADMIT DISCHARGE PT MED. RECORD# NUMBER DATE DATE TYPE ROLLY [id number] F 71 03/19/22 2 JEFF CASTILLO [id number] ROOM: 301MO DATE OF : 1950 DICTATING PHYSICIAN: Jensen Nolasco HISTORY OF PRESENT ILLNESS: The patient came in and states she has not felt well since Sunday. Sunday, she started having symptoms of the flu she states. She had a headache, body aches, fevers and chills, and then the symptoms kept increasing with sweatiness. She went to the urgent care, and she had a fever of 103 and just continues to complain of pain, nausea, vomiting, weakness and tiredness and cannot tolerate it. She called her doctor, and they told her to come to the Emergency Department. PAST MEDICAL HISTORY: Unremarkable other than she had vaginal bleeding which required surgery she states. SOCIAL HISTORY: She does not smoke. She does drink a glass of wine a day. REVIEW OF SYSTEMS: Ten systems were reviewed and were negative except as mentioned above. PHYSICAL EXAMINATION: VITAL SIGNS: She had a fever of 102 here. Pulse is 88, respirations 18, blood pressure 120/72, and pulse oximetry 97% on room air. HEENT: Head is normocephalic, atraumatic. Eyes: Pupils are equal, round and reactive to light. Extraocular muscles are intact. Nares are patent. Throat has adequate oral moisture. Uvula is midline. NECK: Neck is supple without petechiae or rash. HEART: Heart rate is regular without murmur. S1 is equal to S2. No S3 or S4 appreciated. LUNGS: Lungs are clear to auscultation bilaterally. No rales, rhonchi or retractions. ABDOMEN: Abdomen is soft, nontender and nondistended. SKIN: Skin is warm and dry. DIAGNOSTIC DATA: The patient had an EKG that showed a rate of 93, normal axis, and no obvious ST elevation or depression. I did do a PCR COVID test. We have 2 COVID tests, one yesterday which was negative and we did do a PCR. Her white count is normal. Hemoglobin and hematocrit are 14 and 42. Platelet count is 172,000. Sodium is 133, bicarbonate 27, BUN 22, and creatinine 1.75. Her liver enzymes were slightly elevated. AST is 205, alkaline phosphatase 385, total bilirubin 1.6, and ALT 382. Lactate was normal. Troponin was normal at 5.7. Influenza A and B are negative. Urinalysis is nitrite negative, leukocyte esterase 100, and 1-5 WBCs. Her chest x-ray showed no signs of infiltrate. EMERGENCY DEPARTMENT COURSE AND TREATMENT: I did give her Rocephin. Page 1 of 2 JEFF ROBBINS Emergency Room Report JEFF MILLER : 1950 Her COVID test is still pending. I still suspect she has a viral syndrome. She was given fluids here for dehydration. DIAGNOSES: 1. Headache, body aches, fevers and chills - suspect viral syndrome. 2. Dehydration. 3. Elevated liver enzymes. 4. Renal insufficiency. PLAN/DISPOSITION: She will be admitted to the hospital under the care of Dr. Vickers. Dictated By: Jensen Nolasco DO 03/19/22 19:57 JOB #: [id number] Transcribed By: wen 03/20/22 06:58 Electronically signed by: BINH Nolasco DO 03/21/22 09:53 Page 2 of 2 JEFF ROBBINS Emergency Room Report ANNA Normal [facility] CBC + DIFFon 03-20-2022 Baso # 0.00 x10EE3/UL Normal 0.00 - 0.10 [facility] Comment on above: Performed By: #### 2 [id number] #### [place] [address] Basophils/100 WBC (Bld) 0.1 % Normal 0.0 - 2.0 [facility] Comment on above: Performed By: #### 2 77638 #### [facility],[address] [place] [address] CBC + DIFF Normal [facility] Comment on above: Result Comment: CBC- COMPLETE BLOOD COUNT Performed By: #### 2 91294 #### [facility],[address] [place] [address] EO # 0.00 x10EE3/UL Normal 0.00 - 0.50 [facility] Comment on above: Performed By: #### 2 32127 #### [facility],[address] [place] [address] Eosinophils/100 WBC (Bld) 0.3 % Normal 0.0 - 7.0 [facility] Comment on above: Performed By: #### 2 74167 #### [facility],[address] [place] [address] Erythrocyte distribution width (RBC) [Ratio] 14.6 % Normal 12.0 - 15.6 [facility] Comment on above: Performed By: #### 2 50558 #### [facility],[address] [place] [address] Hematocrit (Bld) [Volume fraction] 34.4 % Normal 34.0 - 46.0 [facility] Comment on above: Performed By: #### 2 39164 #### [facility],[address] [place] [address] Hemoglobin (Bld) [Mass/Vol] 11.4 g/dL Low 12.0 - 16.0 [facility] Comment on above: Performed By: #### 2 87309 #### [facility],[address] [place] [address] Lymph # 0.90 x10EE3/UL Normal 0.80 - 2.80 [facility] Comment on above: Performed By: #### 2 86216 #### [facility],[address] [place], [place] [id number] Lymphocytes/100 WBC (Bld) 13.6 % Low 20.0 - 45.0 [facility] Comment on above: Performed By: #### 2 92422 #### [facility],[address] [place] [address] 599[address] MANUAL DIFF N/A Normal [facility] Comment on above: Performed By: #### 2 07751 #### [facility],[address] [place] [address] 12136 MCH (RBC) [Entitic mass] 29 pg Normal 27 - 33 [facility] Comment on above: Performed By: #### 2 80096 #### [facility],[address] [place] [address] MCHC 33 X10 3 Normal 32 - 36 [facility] Comment on above: Performed By: #### 2 53933 #### [facility],[address] [place], [place] [id number] MCV (RBC) [Entitic vol] 87 fL Normal 80 - 99 [facility] Comment on above: Performed By: #### 2 28398 #### [facility],[address] [place] [address] Garden # 0.50 x10EE3/UL Normal 0.20 - 1.00 [facility] Comment on above: Performed By: #### 2 21086 #### [facility],[address] [place] [address] MONOS % 8.1 % Normal 0.0 - 10.0 [facility] Comment on above: Performed By: #### 2 58390 #### [facility],[address] [place] [address] Morphology Iván (Bld) [Interp] N/A Normal [facility] Comment on above: Result Comment: {CD] Performed By: #### 2 26017 #### [facility],[address] [place] [address] Neut # 5.00 x10EE3/UL Normal 1.50 - 7.10 [facility] Comment on above: Performed By: #### 2 47724 #### [facility],[address] [place] [address] Neutrophils/100 WBC (Bld) 77.9 % High 46.0 - 76.0 [facility] Comment on above: Performed By: #### 2 57262 #### [facility],[address] [place] [address] PLATELET 161 x10EE3/UL Normal 150 - 450 [facility] Comment on above: Performed By: #### 2 39780 #### [facility],[address] [place] [address] 697[address] Platelet mean volume (Bld) [Entitic vol] 9.1 fL Normal 6.6 - 10.5 [facility] Comment on above: Result Comment: AUTO MATED DIFFERENTIAL Performed By: #### 2 64607 #### [facility],[address] [place] [address] 34900 RBC 3.94 x 10EE6/UL Low 4.10 - 5.30 [facility] Comment on above: Performed By: #### 2 68152 #### [facility],[address] [place] [address] WBC 6.4 x 10EE3/UL Normal 4.5 - 10.8 [facility] Comment on above: Performed By: #### 2 03597 #### [facility],[address] [place] [address] 87273 CMP with eGFRon 03-20-2022 AGE 71 years Normal [facility] Comment on above: Performed By: #### 2 69669 #### [facility],[address] [place] [address]74 Albumin [Mass/Vol] 2.3 g/dL Low 3.4 - 5.0 [facility] Comment on above: Performed By: #### 2 18622 #### [facility],[address] [place] [address] 78580 Albumin/Globulin [Mass ratio] 0.7 {ratio} Low 0.9 - 1.6 [facility] Comment on above: Performed By: #### 2 41273 #### [facility],[address] [place] [address] 33696 ALK PHOS 318 U/L High 46 - 116 [facility] Comment on above: Performed By: #### 2 45630 #### [facility],[address] [place] [address] 91582 ALT [Catalytic activity/Vol] 308 U/L High 14 - 59 [facility] Comment on above: Performed By: #### 2 64826 #### [facility],[address] [place] [address] 45058 Anion gap [Moles/Vol] 13 mmol/L Normal 10 - 20 [facility] Comment on above: Performed By: #### 2 94024 #### [facility],[address] [place] [address] 85512 AST [Catalytic activity/Vol] 185 U/L High 13 - 39 [facility] Comment on above: Performed By: #### 2 40258 #### [facility],[address] [place] [address] 29841 B/C RATIO 15 ratio Normal 0 - 30 [facility] Comment on above: Performed By: #### 2 59472 #### [facility],[address] [place] [address] 44881 Bilirubin [Mass/Vol] 1.2 mg/dL High 0.2 - 1.0 [facility] Comment on above: Performed By: #### 2 73970 #### [facility],[address] [place] [address] 98790 Calcium [Mass/Vol] 8.0 mg/dL Low 8.5 - 10.1 [facility] Comment on above: Performed By: #### 2 34944 #### [facility],[address] [place] [address] 74102 Chloride [Moles/Vol] 103 mmol/L Normal 98 - 107 [facility] Comment on above: Performed By: #### 2 93695 #### [facility],[address] [place] [address] 49267 CMP with eGFR Normal [facility] Comment on above: Result Comment: COMP REHENSIVE METABOLIC PANEL Performed By: #### 2 75776 #### [facility],[address] [place] [address] 98119 CO2 [Moles/Vol] 21.0 mmol/L Normal 21.0 - 32.0 [facility] Comment on above: Performed By: #### 2 71313 #### [facility],[address] [place] [address] 07480 Creatinine [Mass/Vol] 1.63 mg/dL High 0.55 - 1.02 [facility] Comment on above: Performed By: #### 2 15162 #### [facility],[address] [place], [place] [address] eGFR 31 ML/MINUTE Low 60 - 999 [facility] Comment on above: Performed By: #### 2 49078 #### [facility],[address] [place] [address] eGFR(AA) 37 ML/MINUTE Low 60 - 999 [facility] Comment on above: Result Comment: ACCO RDING TO THE NATIONAL KIDNEY DISEASE EDUCATION PROGRAM(NKDE), A NORMAL eGFR IS A VALUE GREATER THAN OR EQUAL TO 60 ML/MIN/1.73 SQ METERS. CHRONIC KIDNEY DISEASE: <60mL/MIN/1.73 SQ METERS KIDNEY FAILURE: <15mL/MIN/1.73 SQ METERS THIS TEST SHOULD ONLY BE USED FOR PATIENTS 18 YEARS OF AGE AND OLDER. Performed By: #### 2 38130 #### [place] [id number] Globulin (S) [Mass/Vol] 3.1 g/dL Normal 1.5 - 3.8 [facility] Comment on above: Performed By: #### 2 18937 #### [facility],[address] [place], [place] [address] Glucose [Mass/Vol] 109 mg/dL High 74 - 106 [facility] Comment on above: Performed By: #### 2 87393 #### [place] [id number] Potassium [Moles/Vol] 3.8 mmol/L Normal 3.5 - 5.1 [facility] Comment on above: Performed By: #### 2 67985 #### [place] [id number] Protein [Mass/Vol] 5.4 g/dL Low 6.4 - 8.2 [facility] Comment on above: Performed By: #### 2 02229 #### [facility],[address] [place], [place] [address] Sodium [Moles/Vol] 133 mmol/L Low 136 - 145 [facility] Comment on above: Performed By: #### 2 05495 #### [facility],[address] [place], [place] [id number] Urea nitrogen [Mass/Vol] 24 mg/dL High 7 - 18 [facility] Comment on above: Performed By: #### 2 12741 #### [facility],[address] [place], [place] [address] NM CARDI[facility] NM CARDIAC STRESS (SPECT) W/[place] [address] Patient: JEFF ROBBINS Phone#: : 1950 Age: 71 Gender: F Pt. Type: ER Account: [id number] Location: [facility] Ordering: DR. CALVIN VICKERS Exam Date: 03/20/2022/7:49 Family Phys: CHARLES SMITH Charge Code: [id number] Physician: Nicholas Order #: [id number] DLP Dose#: PROCEDURE: CARDIAC STRESS SPECT WITH LEXISCAN HISTORY: Patient is 71-year-old female with chest pain COMPARISON: None. INDICATIONS: Chest pain TECHNIQUE: Resting and post Lexiscan stress SPECT images acquired in the horizontal long, vertical long and short axis views. Protocol: Lexiscan Duration: 0.4mg over 10 seconds Peak Heart Rate: 115 bpm, which is 78% of maximum predicted heart rate. Workload: not applicable REST DOSE: 11.7 mCi Sestamibi. STRESS DOSE: 32.0 mCi Sestamibi. INTERPRETATION: Resting Images: Nuclear stress test showed homogeneous radiotracer uptake of the left ventricle Post Lexiscan stress Images: Post Lexiscan images showed homogeneous radiotracer uptake of the left ventricle. Gated SPECT/wall motion: Gated SPECT showed calculated ejection fraction of 80%. There are no regional wall motion abnormality seen. TID ratio is 1.01 CONCLUSION: 1. Nuclear stress test showed no conclusive evidence of reversible ischemia or infarct. 2. Calculated ejection fraction is 80% with normal wall motion. 3. TID ratio is normal. Dictated by: RIYA ALICIA MD on 03/20/2022 at 10:05 Continued Report - Page 2 of 2 Patient: JEFF ROBBINS Phone#: : 1950 Age: 71 Gender: F Pt. Type: ER Account: [id number] Location: 010 Ordering: DR. CALVIN VICKERS Exam Date: 03/20/2022/7:49 Family Phys: CHARLES SMITH Charge Code: 775988 Physician: Nicholas Order #: [id number] DLP Dose#: Approved by: RIYA ALICIA MD on 03/20/2022 at 10:54 Normal [facility] NM EXERCISE STRESS TEST (W/C ARDIAC STUDYon 03-20-2022 NM EXERCISE STRESS TEST (W/CARDIAC STUDY [address] [address] Patient: JEFF ROBBINS Phone#: : 1950 Age: 71 Gender: F Pt. Type: ER Account: [id number] Location: 010 Ordering: DR. CALVIN VICKERS Exam Date: 03/20/2022/7:50 Family Phys: Charge Code: [id number] Physician: Nicholas Order #: [id number] DLP Dose#: PROCEDURE: ELECTROCARDIOGRAM STRESS TEST HISTORY: Patient is 71-year-old female with pleuritic chest pain COMPARISON: None. INDICATIONS: Chest pain TECHNIQUE: Electrocardiogram stress test was performed using the protocol listed below. STRESS RESULTS: Protocol: Lexiscan Duration: 0.4mg over 10 seconds Reason for termination: INFUSION COMPLETE Resting Heart Rate: 66 bpm. Resting Blood Pressure: 127/68 mmHg Peak Heart Rate: 115 which is 78% of maximum predicted heart rate Blood pressure with Lexiscan With Lexiscan infusion blood pressure decreased to119/51 Workload: 1.70 METs. Symptoms with stress: Patient complained of chest pressure with regadenoson which improved during recovery. EKG Data EKG at Baseline: EKG at baseline showed sinus rhythm at 67 BPM. Normal EKG. EKG with Stress: EKG with stress showed sinus tachycardia at 114 BPM. There is is 0.5 to [address] depression in leads V4, V5, V6, II, III, avf CONCLUSION: 1. Patient complain of chest pressure with stress which improved during recovery 2. Patient had appropriate heart rate and blood pressure response to stress. 3. Stress EKG is negative for inducible ischemia 4. Nuclear images will be read and reported separately [place] [address] Patient: JEFF ROBBINS Phone#: : 1950 Age: 71 Gender: F Pt. Type: ER Account: [id number] Location: [facility] Ordering: DR. CALVIN VICKERS Exam Date: 03/20/2022/7:50 Family Phys: Charge Code: [id number] Physician: Nicholas Order #: [id number] DLP Dose#: Dictated by: RIYA ALICIA MD on 03/20/2022 at 9:15 Approved by: RIYA ALICIA MD on 03/20/2022 at 9:20 Normal [facility] TROPONIN I, HIGH SENSITIVITY on 03-20-2022 HS TROPONIN 5.6 pg/mL Normal 0.0 - 51.4 [facility] Comment on above: Performed By: #### 2 00238 #### [facility],[address] [place] [address] CBC + DIFFon 03-19-2022 Baso # 0.00 x10EE3/UL Normal 0.00 - 0.10 [facility] Comment on above: Performed By: #### 2 64334 #### [facility],[address] [place] [address]58 Basophils/100 WBC (Bld) 0.1 % Normal 0.0 - 2.0 [facility] Comment on above: Performed By: #### 2 54400 #### [facility],[address] [place] [address] CBC + DIFF Normal [facility] Comment on above: Result Comment: CBC- COMPLETE BLOOD COUNT Performed By: #### 2 06627 #### [facility],[address] [place] [address] EO # 0.00 x10EE3/UL Normal 0.00 - 0.50 [facility] Comment on above: Performed By: #### 2 58072 #### [place] [address] Eosinophils/100 WBC (Bld) 0.1 % Normal 0.0 - 7.0 [facility] Comment on above: Performed By: #### 2 28406 #### [facility],[address] [place] [address] Erythrocyte distribution width (RBC) [Ratio] 14.5 % Normal 12.0 - 15.6 [facility] Comment on above: Performed By: #### 2 33662 #### [facility],[address] [place] [address] Hematocrit (Bld) [Volume fraction] 42.4 % Normal 34.0 - 46.0 [facility] Comment on above: Performed By: #### 2 71157 #### [facility],[address] [place] [address] Hemoglobin (Bld) [Mass/Vol] 14.1 g/dL Normal 12.0 - 16.0 [facility] Comment on above: Performed By: #### 2 11984 #### [facility],[address] [place] [address] Lymph # 0.50 x10EE3/UL Low 0.80 - 2.80 [facility] Comment on above: Performed By: #### 2 96322 #### [place] [id number] Lymphocytes/100 WBC (Bld) 7.9 % Low 20.0 - 45.0 [facility] Comment on above: Performed By: #### 2 64952 #### [facility],[address] [place] [address] MANUAL DIFF N/A Normal [facility] Comment on above: Performed By: #### 2 05110 #### [facility],[address] [place] [address] MCH (RBC) [Entitic mass] 29 pg Normal 27 - 33 [facility] Comment on above: Performed By: #### 2 36884 #### [place] [address] MCHC 33 X10 3 Normal 32 - 36 [facility] Comment on above: Performed By: #### 2 62182 #### [place] [id number] MCV (RBC) [Entitic vol] 87 fL Normal 80 - 99 [facility] Comment on above: Performed By: #### 2 01048 #### [facility],[address] [place], [place] [address] Garden # 0.50 x10EE3/UL Normal 0.20 - 1.00 [facility] Comment on above: Performed By: #### 2 64681 #### [place] [id number] MONOS % 7.5 % Normal 0.0 - 10.0 [facility] Comment on above: Performed By: #### 2 81450 #### [facility],[address] [place], [place] [address] Morphology Iván (Bld) [Interp] N/A Normal [facility] Comment on above: Result Comment: {CD] Performed By: #### 2 11607 #### [facility],[address] [place] [address]23 Neut # 5.70 x10EE3/UL Normal 1.50 - 7.10 [facility] Comment on above: Performed By: #### 2 32045 #### [address] [address] Neutrophils/100 WBC (Bld) 84.4 % High 46.0 - 76.0 [facility] Comment on above: Performed By: #### 2 75849 #### [address] [address] PLATELET 172 x10EE3/UL Normal 150 - 450 [facility] Comment on above: Performed By: #### 2 15905 #### [address] [address] Platelet mean volume (Bld) [Entitic vol] 9.1 fL Normal 6.6 - 10.5 [facility] Comment on above: Result Comment: AUTO MATED DIFFERENTIAL Performed By: #### 2 81876 #### [address] [address] RBC 4.85 x 10EE6/UL Normal 4.10 - 5.30 [facility] Comment on above: Performed By: #### 2 69404 #### [address] [address] WBC 6.8 x 10EE3/UL Normal 4.5 - 10.8 [facility] Comment on above: Performed By: #### 2 67413 #### [address] [address] CHEST 2 VIEWSon 03-19-2022 CHEST 2 VIEWS [place] [address] Patient: LINNABARYJEFF Phone#: : 1950 Age: 71 Gender: F Pt. Type: ER Account: [id number] Location: 052 Ordering: JENSEN BRITT Exam Date: 03/19/2022/14:06 Family Phys: Charge Code: [id number] Physician: Nicholas Order #: [id number] DLP Dose#: PROCEDURE: X-RAY CHEST 2 VIEWS COMPARISON: None. INDICATIONS: Dyspnea. FINDINGS: LUNGS: Normal. No significant pulmonary parenchymal abnormalities. VASCULATURE: Normal. Unremarkable pulmonary vasculature. CARDIAC: Normal. No cardiac silhouette abnormality or cardiomegaly. MEDIASTINUM: The aorta is ectatic. PLEURA: Normal. No effusion or pleural thickening. BONES: Normal. No fracture or visible bony lesion. OTHER: Negative. CONCLUSION: No acute disease. Dictated by: Maty Mathews MD on 03/19/2022 at 19:22 Approved by: Maty Mathews MD on 03/19/2022 at 19:24 Normal [facility] CMP with eGFRon 03-19-2022 AGE 71 years Normal [facility] Comment on above: Performed By: #### 2 31079 #### [facility],[address] [place] [address] Albumin [Mass/Vol] 3.0 g/dL Low 3.4 - 5.0 [facility] Comment on above: Performed By: #### 2 51204 #### [facility],[address] [place] [address] Albumin/Globulin [Mass ratio] 0.8 {ratio} Low 0.9 - 1.6 [facility] Comment on above: Performed By: #### 2 94362 #### [facility],[address] [place] [address] ALK PHOS 385 U/L High 46 - 116 [facility] Comment on above: Performed By: #### 2 93137 #### [facility],[address] [place] [address] 65173 ALT [Catalytic activity/Vol] 382 U/L High 14 - 59 [facility] Comment on above: Performed By: #### 2 42760 #### [facility],[address] [place] [address]67 Anion gap [Moles/Vol] 12 mmol/L Normal 10 - 20 [facility] Comment on above: Performed By: #### 2 65508 #### [facility],[address] [place] [address]223 AST [Catalytic activity/Vol] 205 U/L High 13 - 39 [facility] Comment on above: Performed By: #### 2 88049 #### [facility],[address] [place] [address] B/C RATIO 13 ratio Normal 0 - 30 [facility] Comment on above: Performed By: #### 2 54266 #### [facility],[address] [place] [address] Bilirubin [Mass/Vol] 1.6 mg/dL High 0.2 - 1.0 [facility] Comment on above: Performed By: #### 2 06107 #### [facility],[address] [place] [address]85 Calcium [Mass/Vol] 9.0 mg/dL Normal 8.5 - 10.1 [facility] Comment on above: Performed By: #### 2 08032 #### [facility],[address] [place] [address]29 Chloride [Moles/Vol] 97 mmol/L Low 98 - 107 [facility] Comment on above: Performed By: #### 2 81402 #### [facility],[address] [place] [address] CMP with eGFR Normal [facility] Comment on above: Result Comment: COMP REHENSIVE METABOLIC PANEL Performed By: #### 2 28206 #### [facility],[address] [place] [address]382 CO2 [Moles/Vol] 27.4 mmol/L Normal 21.0 - 32.0 [facility] Comment on above: Performed By: #### 2 96221 #### [facility],[address] [place] [address]282 Creatinine [Mass/Vol] 1.75 mg/dL High 0.55 - 1.02 [facility] Comment on above: Performed By: #### 2 05927 #### [facility],[address] [place] [address] eGFR 28 ML/MINUTE Low 60 - 999 [facility] Comment on above: Performed By: #### 2 76270 #### [facility],[address] [place] [address] 11056 eGFR(AA) 35 ML/MINUTE Low 60 - 999 [facility] Comment on above: Result Comment: ACCO RDING TO THE NATIONAL KIDNEY DISEASE EDUCATION PROGRAM(NKDE), A NORMAL eGFR IS A VALUE GREATER THAN OR EQUAL TO 60 ML/MIN/1.73 SQ METERS. CHRONIC KIDNEY DISEASE: <60mL/MIN/1.73 SQ METERS KIDNEY FAILURE: <15mL/MIN/1.73 SQ METERS THIS TEST SHOULD ONLY BE USED FOR PATIENTS 18 YEARS OF AGE AND OLDER. Performed By: #### 2 12095 #### [facility],[address] [place] [address]383 Globulin (S) [Mass/Vol] 3.9 g/dL High 1.5 - 3.8 [facility] Comment on above: Performed By: #### 2 74419 #### [facility],[address] [place] [address] Glucose [Mass/Vol] 114 mg/dL High 74 - 106 [facility] Comment on above: Performed By: #### 2 94575 #### [facility],[address] [place] [address] Potassium [Moles/Vol] 3.5 mmol/L Normal 3.5 - 5.1 [facility] Comment on above: Performed By: #### 2 02005 #### [facility],[address] [place] [address]649 Protein [Mass/Vol] 6.9 g/dL Normal 6.4 - 8.2 [facility] Comment on above: Performed By: #### 2 97147 #### [facility],[address] [place] [address]609 Sodium [Moles/Vol] 133 mmol/L Low 136 - 145 [facility] Comment on above: Performed By: #### 2 89594 #### [facility],[address] [place] [address]15 Urea nitrogen [Mass/Vol] 22 mg/dL High 7 - 18 [facility] Comment on above: Performed By: #### 2 75312 #### [facility],[address] [place], [place] [id number] CORONAVIRUS PCR - [facility] 03-19-2022 SARS-CoV-2 (COVID-19) RNA SUZY+probe Ql (Unsp spec) Negative Normal NORMAL: NEGATIVE [facility] Comment on above: Performed By: #### 2 19629 #### [facility],[address] [place], [place] [address] SEND TO IC? YES Normal [facility] Comment on above: Result Comment: RESU LTS FAXED TO INFECTION CONTROL. SARS-CoV-2 THIS TEST IS BEING USED UNDER THE FDA EUA PROCEDURE. THIS ASSAY HAS BEEN VALIDATED IN THE [facility] FOR USE WITH NASOPHARYNGEAL SPECIMENS IN [facility] INTERPRETIVE DATA LABORATORY TEST RESULTS SHOULD ALWAYS BE CONSIDERED IN THE CONTEXT OF CLINICAL OBSERVATIONS AND EPIDEMIOLOGICAL DATA IN MAKING FINAL DIAGNOSIS AND PATIENT MANAGEMENT DECISIONS. PATIENT MANAGEMENT SHOULD FOLLOW CURRENT CDC GUIDELINES. A POSITIVE TEST RESULT FOR COVID-19 INDICATES THAT RNA FROM SARS-CoV-2 WAS DETECTED, AND THE PATIENT IS INFECTED WITH THE VIRUS AND PRESUMED TO BE CONTAGIOUS. A NEGATIVE TEST RESULT FOR THIS TEST MEANS THAT SARS-CoV-2 RNA WAS NOT PRESENT IN THE SPECIMEN ABOVE THE LIMIT OF DETECTION. HOWEVER, A NEGATVIE RESULT DOES NOT RULE OUT COVID-19 AND SHOULD NOT BE USED THE SOLE BASIS FOR TREATMENT OR PATIENT MANAGEMENT DECISIONS. A NEGATIVE RESULT DOES NOT EXCLUDE THE POSSIBILITY OF COVID-19. WHEN DIAGNOSTIC TESTING IS NEGATIVE, THE POSSIBLILTY OF A FALSE NEGATIVE RESULT SHOULD BE CONSIDERED IN THE CONTEXT OF A PATIENT'S RECENT EXPOSURES AND THE PRESENCE OF CLINICAL SIGNS AND SYMPTOMS CONSISTENT WITH COVID-19. THE POSSIBILITY OF A FALSE NEGATIVE RESULT SHOULD ESPECIALLY BE CONSIDERED IF THE PATIENT'S RECENT EXPOSURES OR CLINICAL PRESENTATION INDICATE THAT COVID-19 IS LIKELY, AND DIAGNOSTIC TESTS FOR OTHER CAUSES OF ILLNESS (e.g., OTHER RESPIRATORY ILLNESS) ARE NEGATIVE. IF COVID-19 IS STILL SUSPECTED BASED ON EXPOSURE HISTORY TOGETHER WITH OTHER CLINICAL FINDINGS, RE-TESTED SHOULD BE CONSIDERED BY HEALTHCARE PROVIDERS IN CONSULTATION WITH PUBLIC HEALTH AUTHORITIES. Performed By: #### 2 14321 #### [facility],[address] [place] [address] CULTURE BLOODon 03-19-2022 Microscopic examination of blood, culture CULTURE BLOOD CULTURE BLOOD SET: 1 of 2 24HOUR REPORT NEGATIVE 48HOUR REPORT NEGATIVE 72HOUR REPORT NEGATIVE M I C R O B I O L O G Y R E P O R T FINAL ------- Antimicrobial Susceptibility and Organism Identification Report -------- Specimen Number : [id number] Requested : 03/19/22 Specimen Source : BLOOD Collected : 03/19/22 12:05 [facility] : EMERGENCY ROOM Received : 03/19/22 12:05 Requesting Physician : BRITT -- Patient/Specimen Tests and Comments Specimen Comments -------- -------- FINAL REPORT: NO GROWTH AT 5 DAYS -- Tech : Source : BLOOD ID # : [id number] FINAL Report Date : / / : Collected : 03/19/22 12:05 03/24/22.1509.KLS. 03/24/22.1510.KLS.COMPLETE 1 of 2 NEGATIVE NEGATIVE NEGATIVE Normal [facility] Comment on above: Performed By: #### 2 53455 #### [facility],[address] [place] [address] Microscopic examination of blood, culture CULTURE BLOOD CULTURE BLOOD SET: 2 of 2 24HOUR REPORT NEGATIVE 48HOUR REPORT NEGATIVE 72HOUR REPORT NEGATIVE M I C R O B I O L O G Y R E P O R T FINAL ------- Antimicrobial Susceptibility and Organism Identification Report -------- Specimen Number : [id number] Requested : 03/19/22 Specimen Source : BLOOD Collected : 03/19/22 12:00 [facility] : EMERGENCY ROOM Received : 03/19/22 12:00 Requesting Physician : BRITT -- Patient/Specimen Tests and Comments Specimen Comments -------- -------- FINAL REPORT: NO GROWTH AT 5 DAYS -- Tech : Source : BLOOD ID # : [id number] FINAL Report Date : / / : Collected : 03/19/22 12:00 03/24/22.1509.EFFIES. 03/24/22.1509.KIN.COMPLETE 2 of 2 NEGATIVE NEGATIVE NEGATIVE Normal [facility] Comment on above: Performed By: #### 2 79843 #### [facility],[address] [place] [address] INFLUENZA VIRUS RAPID A/Bon 03-19-2022 INFLUENZA VIRUS RAPID A/B INFLUENZA A NEGATIVE INFLUENZA B NEGATIVE INTERNAL NEG QC PASS INTERNAL POS QC PASS EXTERNAL QC DONE? YES SEND TO ? YES A NEGATIVE TEST RESULT DOES NOT EXCLUDE INFECTION WITH INFLUENZA A OR B. THEREFORE, THE RESULTS OBTAINED FROM THIS FLU TEST SHOULD BE USED IN CONJUCTION WITH CLINICAL FINDINGS TO MAKE AN ACCURATE DIAGNOSIS. A POSITIVE RESULT DOES NOT RULE OUT CO-INFECTIONS WITH OTHER PATHOGENS OR IDENTIFY ANY SPECIFIC INFLUENZA A VIRUS SUBTYPE.CO-INFECTION WITH INFLUENZA A AND B IS RARE. IT IS RECOMMENDED THAT DUAL POSITIVE RESULTS BE CONFIRMED BY VIRAL CULTURE OR AN FDA-CLEARED INFLUENZA A AND B MOLECULAR ASSAY. INDIVIDUALS WHO HAVE RECEIVED NASALLY ADMINISTERED INFLUENZA A VACCINE MAY TEST POSITIVE IN COMMERCIALLY AVAILABLE INFLUENZA RAPID DIAGNOSTIC TESTS FOR UP TO THREE DAYS. Normal [facility] Comment on above: Performed By: #### 2 19272 #### [place] [address] LACTATEon 03-19-2022 Lactate [Moles/Vol] 1.0 mmol/L Normal 0.4 - 2.0 [facility] Comment on above: Performed By: #### 2 93674 #### [place] [address] TROPONIN I, HIGH SENSITIVITY on 03-19-2022 HS TROPONIN 6.8 pg/mL Normal 0.0 - 51.4 [facility] Comment on above: Performed By: #### 2 59327 #### [facility],[address] [place] [address] HS TROPONIN 5.7 pg/mL Normal 0.0 - 51.4 [facility] Comment on above: Performed By: #### 2 78050 #### [place] [address] URINALYSISon 03-19-2022 Amorphous 1+ Normal [facility] Comment on above: Performed By: #### 2 74465 #### [place] [address] Bacteria TRACE Normal [facility] Comment on above: Performed By: #### 2 37499 #### [facility],[address] [place] [address]174 Bilirubin Ql (U) 1 Abnormal NORMAL: NEGATIVE [facility] Comment on above: Performed By: #### 2 97064 #### [facility],[address] [place] [address] 79745 Casts SEE BELOW Normal [facility] Comment on above: Performed By: #### 2 76804 #### [facility],[address] [place] [address] 83358 Clarity (U) sl.cloudy Normal NORMAL: CLEAR [facility] Comment on above: Performed By: #### 2 96465 #### [facility],[address] [place] [address] 30779 Coarse Gran 1-5 Normal NORMAL: NONE [facility] Comment on above: Performed By: #### 2 44602 #### [facility],[address] [place] [address] 09006 Color (U) GAIL Normal NORMAL: YELLOW [facility] Comment on above: Performed By: #### 2 05944 #### [facility],[address] [place] [address] 08324 Crystals LM Nom (Urine sed) NONE Normal [facility] Comment on above: Performed By: #### 2 82867 #### [facility],[address] [place] [address] 76496 Epi Cells OCC Normal [facility] Comment on above: Performed By: #### 2 98798 #### [facility],[address] [place] [address] 40314 Glucose Ql (U) NORM Normal NORMAL: NORMAL [facility] Comment on above: Performed By: #### 2 41384 #### [facility],[address] [place] [address] 98460 Hemoglobin Ql (U) 150 Abnormal NORMAL: NEGATIVE [facility] Comment on above: Performed By: #### 2 98805 #### [facility],[address] [place] [address] 66877 Ketone 5 Abnormal NORMAL: NEGATIVE [facility] Comment on above: Performed By: #### 2 35857 #### [facility],[address] [place] [address] 64990 Leukocytes 100 Abnormal NORMAL: NEGATIVE [facility] Comment on above: Performed By: #### 2 22614 #### [facility],[address] [place] [address] 76686 Mucous TRACE Normal [facility] Comment on above: Performed By: #### 2 80481 #### [facility],[address] [place] [address] 27054 Nitrite Ql (U) Negative Normal NORMAL: NEGATIVE [facility] Comment on above: Performed By: #### 2 83296 #### [facility],[address] [place] [address] pH (U) 6 [pH] Normal NORMAL: 5.0-8.0 [facility] Comment on above: Performed By: #### 2 31767 #### [facility],[address] [place] [address] 64089 Protein Ql (U) 100 Abnormal NORMAL: NEGATIVE [facility] Comment on above: Performed By: #### 2 47502 #### [facility],[address] [place] [address] 75130 Rbc 0-5 Normal 0-3/hpf [facility] Comment on above: Performed By: #### 2 26852 #### [facility],[address] [place] [address] 84638 Sp [place] 1.010 Normal NORMAL: 1.010-1.030 [facility] Comment on above: Performed By: #### 2 39038 #### [facility],[address] [place], [place] [address] Specimen Type Void Normal [facility] Comment on above: Performed By: #### 2 60285 #### [facility],[address] [place] [address] 71546 Urinalysis dipstick W Reflex Microscopic panel (U) SEE BELOW Normal [facility] Comment on above: Result Comment: MICR OSCOPIC Performed By: #### 2 81588 #### [facility],[address] [place] [address] 03247 Urobilinog 8 Abnormal NORMAL: NORMAL [facility] [facility] Comment on above: Performed By: [id number] #### [facility],[address] [place] [id number] Wbc 1-5 Normal 0-5/hpf [facility] Comment on above: Performed By: #### [id number] #### [facility],[address] [place] [address] Yeast NONE Normal [facility] Comment on above: Performed By: #### [id number] #### [facility],[address] [place], [place] [id number] BD DXA - AXIAL SKELETONon BD DXA - AXIAL SKELETON Final Report DATE OF EXAM: Jul 22 2020 10:39AM LDX 0804 - BD DXA - AXIAL SKELETON / PROCEDURE REASON: multiple diagnoses Physician Interpretation EXAM TITLE: BONE MINERAL DENSITOMETRY DATE:07/22/2020. COMPARISON: None. CLINICAL INDICATION/HISTORY: Postmenopausal. TECHNIQUE: DXA [employer] [facility] 4 examination is performed on the lumbar spine and hip. FINDINGS: 1. L1-L4 BMD, excluding L1 and L2, is 1.823 g/cm2 which is 152% of peak bone mass compared to young normals which is +5.2 standard deviations relative to the mean of young normals (T-score). According to the World Health Organization criteria, this would be classified as normal. Bone mineral density likely spuriously elevated on the basis of endplate sclerosis. 2. Left hip BMD is 0.944 g/cm2 which is 94% of peak bone mass compared to young normals which is -0.5 standard deviations relative to the mean of young normals (T-score). According to the World Health Organization criteria, this would be classified as normal. 3. Left femoral neck BMD is 0.799 g/cm2 which is 77% of peak bone mass compared to young normals which is -1.7 standard deviations relative to the mean of young normals (T-score). According to the World Health Organization criteria, this would be classified as osteopenia. IMPRESSION: Osteopenia left femoral neck. FRAX 10 YEAR PROBABILITY OF FRACTURE: Major Osteoporotic 10.7 % Hip 2.0 % Based on Femur Neck BMD FRAX is a trademark of the [employer] Disease, a WHO Collaborating [place]. This applies to men over 50 and to post menopausal women over 50 years of age. The 10 year probability of fracture may be lower than reported above if the patient has received treatment for osteopenia/osteoporosis. It is also less accurate the more severe the osteoporosis. Major Osteoporotic Fracture: clinical spine, forearm, hip or shoulder. RELATIVE FRACTURE RISK TABLE NOTE: This table applies to post-menopausal females. T-score Fracture risk 0 average risk for normal 40 year old -1 2 times the normal -2 4 times the normal -3 8 times the normal etc. GENERAL RECOMMENDATIONS FOR PREVENTION OF BONE LOSS: 1. 1200 mg - 1500 mg calcium per day if no history of renal calculi for adults 50 years and over. 2. 800 - 1000 International Units of vitamin D3 per day if no history of renal calculi for adults 50 years and over. 3. Weight bearing exercise 4. Advise against smoking. If currently smoking, recommend cessation. 5. Avoid excessive use of caffeine, soft drinks, and alcoholic beverages. The National Osteoporosis Foundation recommends that treatment be considered for patients with T-scores of -2 or lower (-1 or lower if patient at high risk for accelerated bone loss). Nylon Hot Wire Cutter: GUNJAN Transcribe Date/Time: 2020 7:59A Dictated by : CHARLES GARCIA MD This examination was interpreted and the report reviewed and electronically signed by: CHARLES GARCIA MD on 2020 8:03AM EST Normal [facility] Vital Signs Date Time Vital Sign Value Performing Clinician Christal rachel 06-01-2025 10:040400 Body height 165.1 cm Raleigh Lakhani MD Work Phone: [facility] 06-01-2025 10:04-0400 Body mass index (BMI) [Ratio] 23.46 kg/m2 Raleigh Lakhani MD Work Phone: [facility] 06-01-2025 10:04-0400 Body weight 63.96 kg Raleigh Lakhani MD Work Phone: [facility] 06-01-2025 10:04-0400 Respiratory rate 18 /min Raleigh Lakhani MD Work Phone: [facility] 05-27-2025 10:40-0400 Body height 165.7 cm Charles Smith MD Work Phone: [facility] 05-27-2025 10:40-0400 Body mass index (BMI) [Ratio] 23.37 kg/m2 Charles Smith MD Work Phone: [facility] 05-27-2025 10:40-0400 Body weight 64.2 kg Charles Smith MD Work Phone: [facility] 05-27-2025 10:40-0400 Diastolic blood pressure 82 mm[Hg] Charles Smith MD Work Phone: [facility] 05-27-2025 10:40-0400 Heart rate 64 /min Charles Smith MD Work Phone: [facility] 05-27-2025 10:40-0400 Respiratory rate 16 /min Charles Smith MD Work Phone: [facility] 05-27-2025 10:40-0400 Systolic blood pressure 128 mm[Hg] Charles Smith MD Work Phone: [facility] 04-14-2025 08:39-0400 Body mass index (BMI) [Ratio] 23.05 kg/m2 Charles Smith MD Work Phone: [facility] 04-14-2025 08:39-0400 Body weight 64.77 kg Charles Smith MD Work Phone: [facility] 04-14-2025 08:39-0400 Diastolic blood pressure 84 mm[Hg] Charles Smith MD Work Phone: [facility] 04-14-2025 08:39-0400 Heart rate 66 /min Charles Smith MD Work Phone: [facility] 04-14-2025 08:39-0400 Respiratory rate 16 /min Charles Smith MD Work Phone: [facility] 04-14-2025 08:39-0400 Systolic blood pressure 148 mm[Hg] Charles Smith MD Work Phone: [facility] 01-15-2025 15:55-0400 Body mass index (BMI) [Ratio] 22.77 kg/m2 Raquel Clutter PA-C Work Phone: [facility] 01-15-2025 15:55-0400 Body temperature 97.59 [degF] Raquel Clutter PA-C Work Phone: [facility] 01-15-2025 15:55-0400 Body weight 64 kg Raquel Clutter PA-C Work Phone: [facility] 01-15-2025 15:55-0400 Diastolic blood pressure 87 mm[Hg] Raquel Clutter PA-C Work Phone: [facility] 01-15-2025 15:55-0400 Heart rate 65 /min Raquel Clutter PA-C Work Phone: [facility] 01-15-2025 15:55-0400 Respiratory rate 18 /min Raquel Clutter PA-C Work Phone: [facility] 01-15-2025 15:55-0400 SaO2% (BldA) [Mass fraction] 100 % Raquel Clutter PA-C Work Phone: [facility] 01-15-2025 15:55-0400 Systolic blood pressure 124 mm[Hg] Raquel Clutter PA-C Work Phone: [facility] 12-19-2024 11:37-0400 Body mass index (BMI) [Ratio] 22.76 kg/m2 Charles Smith MD Work Phone: [facility] 12-19-2024 11:37-0400 Body weight 63.96 kg Charles Smith MD Work Phone: [facility] 12-19-2024 11:37-0400 Diastolic blood pressure 80 mm[Hg] Charles Smith MD Work Phone: [facility] 12-19-2024 11:37-0400 Heart rate 76 /min Charles Smith MD Work Phone: [facility] 12-19-2024 11:37-0400 Respiratory rate 16 /min Charles Smith MD Work Phone: [facility] 12-19-2024 11:37-0400 Systolic blood pressure 124 mm[Hg] Charles Smith MD Work Phone: [facility] 06-06-2024 08:08-0400 Body mass index (BMI) [Ratio] 23.02 kg/m2 Denise Praisler-Wood OCCUPATIONAL THER.VESSEL WELDER Work Phone: [facility] 06-06-2024 08:08-0400 Body temperature 97.7 [degF] Denise Praisler-Wood OCCUPATIONAL THER.VESSEL WELDER Work Phone: [facility] 06-06-2024 08:08-0400 Body weight 64.7 kg Denise Praisler-Wood OCCUPATIONAL THER.VESSEL WELDER Work Phone: [facility] 06-06-2024 08:08-0400 Diastolic blood pressure 71 mm[Hg] Denise Praisler-Wood OCCUPATIONAL THER.VESSEL WELDER Work Phone: [facility] 06-06-2024 08:08-0400 Heart rate 94 /min Denise Praisler-Wood OCCUPATIONAL THER.VESSEL WELDER Work Phone: [facility] 06-06-2024 08:08-0400 Respiratory rate 18 /min Denise Praisler-Wood OCCUPATIONAL THER.VESSEL WELDER Work Phone: [facility] 06-06-2024 08:08-0400 SaO2% (BldA) [Mass fraction] 100 % Denise Praisler-Wood OCCUPATIONAL THER.VESSEL WELDER Work Phone: [facility] 06-06-2024 08:08-0400 Systolic blood pressure 138 mm[Hg] Denise Segovia APRN.CNP Work Phone: [facility] 06-02-2024 16:15-0400 Body height 167.6 cm Kirsten Hector MD Work Phone: [facility] 06-02-2024 16:15-0400 Body mass index (BMI) [Ratio] 22.92 kg/m2 Kirsten Hector MD Work Phone: [facility] 06-02-2024 16:15-0400 Body weight 64.41 kg Kirsten Hector MD Work Phone: [facility] 06-02-2024 16:15-0400 Diastolic blood pressure 76 mm[Hg] Kirsten Hector MD Work Phone: [facility] 06-02-2024 16:15-0400 Systolic blood pressure 118 mm[Hg] Kirsten Hector MD Work Phone: [facility] 05-26-2024 14:51-0400 Diastolic blood pressure 78 mm[Hg] Charles Smith MD Work Phone: [facility] 05-26-2024 14:51-0400 Systolic blood pressure 122 mm[Hg] Charles Smith MD Work Phone: [facility] 05-26-2024 14:04-0400 Body height 167.6 cm Charles Smith MD Work Phone: [facility] 05-26-2024 14:04-0400 Body mass index (BMI) [Ratio] 22.76 kg/m2 Charles Smith MD Work Phone: [facility] 05-26-2024 14:04-0400 Body weight 63.96 kg Charles Smith MD Work Phone: [facility] 05-26-2024 14:04-0400 Heart rate 70 /min Charles Smith MD Work Phone: [facility] 05-26-2024 14:04-0400 Respiratory rate 16 /min Charles Smith MD Work Phone: [facility] 05-30-2023 11:28-0400 Body height 167.6 cm Kirsten Hector MD Work Phone: [facility] 05-30-2023 11:28-0400 Body weight 64.86 kg Kirsten Hector MD Work Phone: [facility] 05-30-2023 11:28-0400 Diastolic blood pressure 86 mm[Hg] Kirsten Hector MD Work Phone: [facility] 05-30-2023 11:28-0400 Systolic blood pressure 132 mm[Hg] Kirsten Hector MD Work Phone: [facility] 05-10-2023 10:32-0400 Diastolic blood pressure 72 mm[Hg] Charles Smith MD Work Phone: [facility] 05-10-2023 10:32-0400 Systolic blood pressure 112 mm[Hg] Charles Smith MD Work Phone: [facility] 05-10-2023 09:49-0400 Body height 167.6 cm Charles Smith MD Work Phone: [facility] 05-10-2023 09:49-0400 Body weight 63.5 kg Charles Smith MD Work Phone: [facility] 05-10-2023 09:49-0400 Heart rate 76 /min Charles Smith MD Work Phone: [facility] 05-10-2023 09:49-0400 Respiratory rate 16 /min Charles Smith MD Work Phone: [facility] 04-16-2023 14:35-0400 Body weight 64.86 kg Paula Cowan APRN.VESSEL WELDER Work Phone: [facility] 04-16-2023 14:35-0400 Diastolic blood pressure 84 mm[Hg] Paula Cowan APRN.VESSEL WELDER Work Phone: [facility] 04-16-2023 14:35-0400 Heart rate 78 /min Paula Cowan APRN.VESSEL WELDER Work Phone: [facility] 04-16-2023 14:35-0400 Respiratory rate 14 /min Paula Cowan OCCUPATIONAL THER.VESSEL WELDER Work Phone: [facility] 04-16-2023 14:35-0400 Systolic blood pressure 132 mm[Hg] Paula Cowan APRN.VESSEL WELDER Work Phone: [facility] 05-29-2022 12:05-0400 Diastolic blood pressure 86 mm[Hg] Charles Smith MD Work Phone: [facility] 05-29-2022 12:05-0400 Systolic blood pressure 128 mm[Hg] Charles Smith MD Work Phone: [facility] 05-29-2022 11:26-0400 Body weight 63.96 kg Charles Smith MD Work Phone: [facility] 05-29-2022 11:26-0400 Heart rate 80 /min Charles Smith MD Work Phone: [facility] 05-29-2022 11:26-0400 Respiratory rate 14 /min Charles Smith MD Work Phone: [facility] 05-09-2022 18:10-0400 Diastolic blood pressure 70 mm[Hg] Abby Toth MD Work Phone: [facility] 05-09-2022 18:10-0400 Heart rate 65 /min Abby Toth MD Work Phone: [facility] 05-09-2022 18:10-0400 Respiratory rate 16 /min Abby Toth MD Work Phone: [facility] 05-09-2022 18:10-0400 SaO2% (BldA) [Mass fraction] 100 % Abby Toth MD Work Phone: [facility] 05-09-2022 18:10-0400 Systolic blood pressure 135 mm[Hg] Abby Toth MD Work Phone: [facility] 05-09-2022 15:42-0400 Body temperature 98.29 [degF] Abby Toth MD Work Phone: [facility] 04-25-2022 08:11-0400 Body height 165.1 cm Diane Weedsport PA-C Work Phone: [facility] 04-25-2022 08:11-0400 Body temperature 97.5 [degF] Diane Weedsport PA-C Work Phone: [facility] 04-25-2022 08:11-0400 Body weight 62.6 kg Diane Weedsport PA-C Work Phone: [facility] 04-25-2022 08:11-0400 Diastolic blood pressure 78 mm[Hg] Diane Weedsport PA-C Work Phone: [facility] 04-25-2022 08:11-0400 Heart rate 112 /min Diane Shun PA-C Work Phone: [facility] 04-25-2022 08:11-0400 SaO2% (BldA) [Mass fraction] 98 % Diane Shun PA-C Work Phone: [facility] 04-25-2022 08:11-0400 Systolic blood pressure 110 mm[Hg] Diane Shun PA-C Work Phone: [facility] 04-24-2022 10:05-0400 Body height 166.4 cm Charles Smith MD Work Phone: [facility] 04-24-2022 10:05-0400 Body weight 62.6 kg Charles Smith MD Work Phone: [facility] 04-24-2022 10:05-0400 Diastolic blood pressure 80 mm[Hg] Charles Smith MD Work Phone: [facility] 04-24-2022 10:05-0400 Heart rate 76 /min Charles Smith MD Work Phone: [facility] 04-24-2022 10:05-0400 Respiratory rate 14 /min Charles Smith MD Work Phone: [facility] 04-24-2022 10:05-0400 Systolic blood pressure 130 mm[Hg] Charles Smith MD Work Phone: [facility] 01-26-2022 10:20-0400 Body weight 63.96 kg Kirsten Hector MD Work Phone: [facility] 01-26-2022 10:20-0400 Diastolic blood pressure 72 mm[Hg] Kirsten Hector MD Work Phone: [facility] 01-26-2022 10:20-0400 Systolic blood pressure 108 mm[Hg] Kirsten Hector MD Work Phone: [facility] Encounters Encounter Date Encounter Type Care Provider Facility Start: 06-01-2025 End: 06-01-2025 Patient encounter procedure Raleigh Lakhani MD Work Phone: [facility] Comment on above: Primary osteoarthrit is of right knee (Primary Dx) Start: 05-27-2025 End: 05-27-2025 Patient encounter procedure Charles Smith MD Work Phone: [facility] Comment on above: Medicare [facility], subsequent (Primary Dx); Esophagitis; Fatty liver; Gallbladder polyp; Osteopenia, senile; Encounter for screening examination for other mental health and behavioral disorders; Screening for depression; History of colonic polyps; Family history of colon cancer; Collagenous colitis; Encounter for screening for diabetes mellitus; Encounter for lipid screening for cardiovascular disease Start: 05-27-2025 End: 05-27-2025 ambulatory CHARLES SMITH Facility:[facility] Start: 05-18-2025 End: 05-18-2025 ambulatory CHARLES SMITH Facility:[facility] Start: 04-23-2025 End: 04-23-2025 Telephone encounter Charles Smith MD Work Phone: [facility] Comment on above: Orders (refax the or bruno for a nerve test to [facility] /) Start: 04-22-2025 ambulatory CHARLES SMITH Facili ty:[facility] Start: 04-22-2025 End: 04-22-2025 Subsequent hospital visit by physician M[facility] (I-Stat/1.5t) Work Phone: Radiology Comment on above: Acute pain of right knee [M25.561] Start: 04-15-2025 End: 04-15-2025 Follow-up encounter Roxie Galloway PA-C Work Phone: [facility] Comment on above: Results Start: 04-14-2025 End: 04-14-2025 ambulatory CHARLES SMITH Facility:[facility] Start: 04-14-2025 End: 04-14-2025 Patient encounter procedure Charles Smith MD Work Phone: [facility] Comment on above: Acute pain of right knee (Primary Dx); Numbness and tingling of both upper extremities; Numbness and tingling of right lower extremity; Fatty liver; Encounter for screening for diabetes mellitus; Encounter for lipid screening for cardiovascular disease Start: 04-14-2025 End: 04-14-2025 ambulatory CHARLES SMITH Facility:[facility] Start: 03-30-2025 End: 03-30-2025 Patient encounter procedure Devika Fontanez OD Work Phone: Ophthalmology Comment on above: Combined 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 (Primary Dx); Myopia, bilateral; Regular astigmatism of both eyes; Presbyopia; Vitreous floaters of both eyes Start: 03-30-2025 End: 03-30-2025 ambulatory CHRALES SMITH Facility:[facility] Start: 02-09-2025 End: 02-09-2025 ambulatory Rigo Byrne PT Work Phone: [facility] Comment on above: Acute pain of right knee (Primary Dx) Start: 01-26-2025 End: 01-26-2025 ambulatory Bessy Castano CLOTH SPREADER Work Phone: [facility] Comment on above: Acute pain of right knee (Primary Dx) Start: 01-19-2025 End: 01-19-2025 ambulatory Rigo Byrne PT Work Phone: [facility] Comment on above: Acute pain of right knee (Primary Dx) Start: 01-15-2025 End: 01-15-2025 ambulatory CHARLES SMITH Facility:[facility] Start: 01-15-2025 End: 01-15-2025 Office outpatient visit 25 minutes Raquel Jorge PA-C Work Phone: [facility] Comment on above: Recurrent acute sero us otitis media of left ear (Primary Dx); Impacted cerumen of left ear Start: 01-12-2025 End: 01-12-2025 ambulatory Rigo Byrne PT Work Phone: [facility] Comment on above: Acute pain of right knee (Primary Dx) Start: 12-30-2024 End: 12-30-2024 ambulatory Rigo Byrne PT Work Phone: [facility] Comment on above: Acute pain of right knee (Primary Dx) Start: 12-24-2024 End: 12-25-2024 Follow-up encounter Roxie Galloway PA-C Work Phone: [facility] Start: 12-19-2024 End: 12-19-2024 Subsequent hospital visit by physician Xr [facility] Work Phone: Radiology Comment on above: Acute pain of right knee [M25.561] Start: 12-19-2024 End: 12-19-2024 ambulatory CHARLES SMITH Facility:[facility] Start: 12-19-2024 End: 12-19-2024 Patient encounter procedure Charles Smith MD Work Phone: [facility] Comment on above: Acute pain of right knee (Primary Dx) Start: 11-17-2024 End: 01-17-2025 Follow-up encounter Loren Templeton APRN.VESSEL WELDER Work Phone: OB/Gynecology Start: 11-13-2024 End: 11-13-2024 ambulatory CHARLES SMITH Facility:[facility] Start: 11-13-2024 End: 11-13-2024 Subsequent hospital visit by physician Screen Mammo [facility] Comment on above: Encounter for screen ing mammogram for malignant neoplasm of breast [Z12.31] Start: 06-09-2024 End: 06-10-2024 Telephone encounter Charles Smith MD Work Phone: [facility] Comment on above: Results Start: 06-06-2024 End: 06-06-2024 ambulatory CHARLES SMITH Facility:[facility] Start: 06-06-2024 End: 06-06-2024 Patient encounter procedure Denise Segovia APRN.CNP Work Phone: [facility] Comment on above: Localized swelling o n right hand (Primary Dx); Bee sting, undetermined intent, initial encounter Start: 06-04-2024 ambulatory CHARLES LUIS Facili ty:[facility] Start: 06-04-2024 End: 06-04-2024 Subsequent hospital visit by physician Stress Lab 2 [facility] Work Phone: Cardiology Lab Comment on above: CAHVEZ (dyspnea on exer tion) [R06.09] Start: 06-03-2024 End: 06-03-2024 Telephone encounter Traci Hudson RN Cardiology Lab Comment on above: Reminder Call Start: 06-03-2024 End: 06-03-2024 ambulatory CHARLES SMITH Facility:[facility] Start: 06-02-2024 End: 06-02-2024 ambulatory CHARLES LUIS Facility:[facility] Start: 06-02-2024 End: 06-02-2024 Patient encounter procedure Kirsten Hector MD Work Phone: OB/Gynecology Comment on above: Encounter for screen ing mammogram for malignant neoplasm of breast (Primary Dx); Dense breast tissue Start: 05-27-2024 End: 05-27-2024 Telephone encounter Roxie Galloway PA-C Work Phone: [facility] Comment on above: Results Start: 05-26-2024 End: 05-26-2024 Patient encounter procedure Devika Fontanez OD Work Phone: Ophthalmology Comment on above: Combined 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 (Primary Dx); Myopia, bilateral; Regular astigmatism of both eyes; Presbyopia Medicare annual well ness visit, subsequent (Primary Dx); Esophagitis; Liver hemangioma; Fatty liver; Osteopenia, senile; Advance directive discussed with patient; Screening for depression; Encounter for screening examination for other mental health and behavioral disorders; CHAVEZ (dyspnea on exertion); SOB (shortness of breath); Fatigue, unspecified type; Encounter for screening for diabetes mellitus; Encounter for lipid screening for cardiovascular disease; Family history of coronary artery disease Start: 05-08-2024 ambulatory Paula Ames MA [facility] Start: 05-08-2024 Patient encounter procedure Paula Ames MA [facility] Comment on above: Population Health [facility] Out[facility] (P[facility] Bas[facility]) Start: 03-27-2024 End: 03-27-2024 Patient encounter procedure Henry T Pierre OD Work Phone: Ophthalmology Comment on above: Combined 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 (Primary Dx); Myopia, bilateral; Regular astigmatism of both eyes; Presbyopia Start: 02-05-2024 End: 02-05-2024 Patient encounter procedure Henry Jay OD Work Phone: Ophthalmology Comment on above: Combined 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 (Primary Dx); Vitreous floaters of both eyes Start: 11-12-2023 Documentation procedure Mammog gorge Coordinator [facility] Start: 11-12-2023 Letter encounter Mammography Coordinator [facility] Department Start: 09-11-2023 ambulatory Charles Smith Facility :[facility] Start: 06-06-2023 Telephone encounter Charles Smith MD Work Phone: [facility] Comment on above: Results Start: 05-30-2023 End: 05-30-2023 Patient encounter procedure Kirsten Hector MD Work Phone: OB/Gynecology Comment on above: Encounter for gyneco logical examination (general) (routine) without abnormal findings (Primary Dx); Encounter for screening mammogram for breast cancer Start: 05-30-2023 End: 05-30-2023 Patient encounter status Kirsten Hector MD Work Phone: [facility] Start: 05-15-2023 Telephone encounter Charles Smith MD Work Phone: [facility] Comment on above: Results Start: 05-11-2023 Telephone encounter Charles Smith MD Work Phone: [facility] Comment on above: Results Start: 05-10-2023 ambulatory Charles tobar MD Work Phone: [facility] Start: 05-10-2023 End: 05-10-2023 Patient encounter procedure Charels Smith MD Work Phone: [facility] Comment on above: Referral to Dr. Daniel Ojeda Other specified hear ing loss, unspecified ear (Primary Dx) Medicare annual [facility], subsequent (Primary Dx); Esophagitis; Osteopenia, senile; Fatty liver; Chronic sinusitis, unspecified location; Tinnitus of both ears; Pain of right thumb; Numbness and tingling in right hand; Encounter for lipid screening for cardiovascular disease; Advance directive discussed with patient Start: 05-10-2023 End: 05-10-2023 Subsequent hospital visit by physician Marilin [facility] [place] Work Phone: Radiology Comment on above: Pain of right thumb [M79.644] Start: 04-19-2023 End: 04-19-2023 Patient encounter procedure Sally Dominguez PA-C Work Phone: Dermatology [facility] Comment on above: Multiple benign mariela nocytic nevi (Primary Dx); Lentigines; Angioma of skin; Seborrheic keratoses; Skin exam, screening for cancer; Inflamed seborrheic keratosis; Disturbance of skin sensation; Pruritus; EIC (epidermal inclusion cyst) Start: 04-16-2023 End: 04-16-2023 Patient encounter procedure Paula Cowan APRN.CNP Work Phone: [facility] [place] Comment on above: Skin abnormalities ( Primary Dx) Start: 12-29-2022 End: 12-29-2022 Patient encounter procedure Abby Medley MD Work Phone: [place] [facility] Comment on above: Nuclear sclerosis of both eyes (Primary Dx); Refractive error Start: 11-12-2022 Documentation procedure Mammog gorge Coordinator [facility] Start: 11-12-2022 Letter encounter Mammography Coordinator [facility] Department Start: 11-12-2022 Telephone encounter Charles Smith MD Work Phone: [facility] Comment on above: Results Start: 11-10-2022 End: 11-10-2022 Subsequent hospital visit by physician Screen Mammo [facility] Comment on above: Encounter for screen ing mammogram for breast cancer [Z12.31] Start: 11-10-2022 End: 11-10-2022 ambulatory Charles Smith Facility:[facility] Start: 09-06-2022 End: 09-06-[address] Moi Uribe Work Phone: [facility] Work Phone: Start: 09-06-2022 End: 09-06-[address] Moi Urbie Work Phone: [facility] Start: 08-17-2022 Chart abstracting Charles oneal MD Work Phone: [facility] Start: 08-17-2022 End: 08-17-[address] Moi Uribe Work Phone: [facility] Work Phone: Start: 08-17-2022 End: 08-17-[address] Moi Uribe Work Phone: [facility] Start: 08-17-2022 End: 08-17-[address] Moi Uribe Work Phone: [facility] Start: 08-04-2022 End: 08-04-2022 Patient encounter procedure Devika Fontanez OD Work Phone: Ophthalmology Comment on above: Punctate keratitis o f right eye (Primary Dx); Dry eye syndrome of bilateral lacrimal glands; Vitreous floaters of both eyes; Regular astigmatism of both eyes; Presbyopia; Combined forms of age-related cataract of both eyes Start: 06-26-2022 Telephone encounter Abby Toth MD Work Phone: General Surgery Comment on above: Procedure Follow Up (EGD and colonoscopy follow up) Start: 05-29-2022 End: 05-29-2022 Patient encounter procedure Charles Smith MD Work Phone: [facility] [place] Comment on above: Fatty liver (Primary Dx); Esophagitis; Collagenous colitis Start: 05-18-2022 Telephone encounter Charles Smith MD Work Phone: [facility] [place] Comment on above: Results Start: 05-18-2022 End: 05-18-2022 Subsequent hospital visit by physician Mri [facility] (I-Stat/1.5t) Work Phone: Radiology Comment on above: Lesion of right lobe of liver [K76.9] Start: 05-09-2022 End: 05-09-2022 Subsequent hospital visit by physician Abby Toth MD Work Phone: Ambulatory Surgery Comment on above: Lower abdominal pain [R10.30] Start: 04-25-2022 Telephone encounter Charles Smith MD Work Phone: [facility] [place] Comment on above: Results; Scheduling Start: 04-25-2022 End: 04-25-2022 Patient encounter procedure Diane Hoffmann PA-C Work Phone: General Surgery Comment on above: Change in bowel habi ts (Primary Dx); Lower abdominal pain; Family history of colon cancer; Elevated liver enzymes Start: 04-24-2022 End: 04-24-2022 Patient encounter procedure Charles Smith MD Work Phone: [facility] [place] Comment on above: Medicare annual well ness visit, subsequent (Primary Dx); Elevated LFTs; Osteopenia, senile; Advance directive discussed with patient; Encounter for screening for diabetes mellitus; Encounter for lipid screening for cardiovascular disease Start: 04-20-2022 End: 04-20-2022 Subsequent hospital visit by physician Ct Prep [facility] Cat Scan Comment on above: Abdominal pain, lowe r [R10.30] Start: 04-05-2022 ambulatory Charles tobar MD Work Phone: [facility] [place] Comment on above: CAT Scan Start: 03-31-2022 Telephone encounter Charles Smith MD Work Phone: [facility] [place] Comment on above: Results Start: 03-30-2022 End: 03-30-2022 Subsequent hospital visit by physician [facility] Work Phone: Radiology Comment on above: Elevated LFTs [R79.8 9] Start: 03-27-2022 End: 03-27-2022 Subsequent hospital visit by physician [facility] Work Phone: Radiology Start: 03-24-2022 Telephone encounter Tj whatley APRN.VESSEL WELDER Work Phone: [facility] Comment on above: Patient Update Start: 03-19-2022 End: 03-20-2022 ambulatory Elen Cristobal RN NURSE CARROTER Comment on above: Medication Problem Start: 03-19-2022 Telephone encounter Tj whatley OCCUPATIONAL THER.VESSEL WELDER Work Phone: [facility] Comment on above: Patient Question Start: 01-30-2022 ambulatory Charles tobar MD Work Phone: [facility] [place] Comment on above: wasp sting Start: 01-26-2022 End: 01-26-2022 Patient encounter procedure Kirsten Hector MD Work Phone: OB/Gynecology Comment on above: Pelvic pressure in f emale (Primary Dx) Pelvic pain in femal e (Primary Dx) Start: 12-23-2021 End: 12-23-2021 Patient encounter procedure Abby Medley MD Work Phone: [place] [facility] Comment on above: Nuclear sclerosis of both eyes (Primary Dx); Refractive error Start: 01-17-2019 Patient encounter procedure Abby Medley MD Work Phone: [facility] Work Phone: Start: 01-07-2018 Patient encounter status Abby Medley MD Work Phone: [facility] Work Phone: Start: 10-04-2017 Ambulatory YUDI (EMELIA) [facility] Start: 04-03-2017 End: 04-04-2017 Ambulatory KIRSTEN HECOTR [facility] Procedures Date Procedure Procedure Detail Performing Clinician Start: 05-27-2025 Adult depression screening assessment Charles Smith MD Work Phone: Start: 06-04-2024 Cv strs tst xers&/or rx cont ecg trcg only Charles Smith MD Work Phone: Start: 05-26-2024 Adult depression screening assessment Charles Smith MD Work Phone: Start: 05-26-2024 Lipid 1996 panel - Serum or Plasma Qing Galloway PA-C Work Phone: Start: 05-10-2023 Radex fingr minimum 2 views Charles oneal MD Work Phone: Start: 05-10-2023 Lipid 1996 panel - Serum or Plasma [facility] Start: 11-10-2022 ALVAREZ SCREENING W DON Bulk Order Provider Start: 11-10-2022 Mammography Charles Smith MD Work Phone: Start: 09-06-[address] Moi perez Work Phone: Start: 09-06-[address] Moi Chopra nd Work Phone: Start: 08-17-2022 Hemoglobin A1c/Hemoglobin.total in Blood [facility] Provider Start: 05-18-2022 Mri abdomen w/o & w/contrast material Charles Smith MD Work Phone: Start: 05-09-2022 Esophagogastroduodenoscopy transoral diagnostic Abby Toth MD Work Phone: Start: 05-09-2022 Colonoscopy flx dx w/collj spec when pfrmd Diane Hoffmann PA-C Work Phone: Start: 05-09-2022 Colonoscopy Abby Toth MD Work Phone: Start: 04-23-2022 Adult depression screening assessment Charles Smith MD Work Phone: Start: 04-20-2022 Ct abdomen & pelvis w/contrast material Raquel Alston MD Work Phone: Start: 03-30-2022 Us abdominal real time w/image limited Charles Smith MD Work Phone: Start: 03-27-2022 Us abdominal real time w/image limited Charles Smith MD Work Phone: Start: 03-19-2022 Urinalysis [facility] Comment on above: Result Comment: URINALYSIS Performed By: #### 2 [id number] #### [facility],[address] [place] [address] Start: 11-02-2020 Mammography Abby Medley MD Work Phone: Start: 01-17-2019 Adult depression screening assessment Abby Medley MD Work Phone: Start: 08-10-2017 Colonoscopy Abby Medley MD Work Phone: Plan of Treatment Date Care Activity Detail Author Start: 05-28-2029 Urine microalbumin profile [facility] Start: 05-26-2029 Lipid panel Lipid Screening [facility] Start: 05-18-2028 Diabetes Screening Diabetes Screening [facility] Start: 05-10-2028 Lipid 1996 panel - Serum or Plasma Lipid Screening [facility] Start: 05-10-2028 Lipid panel Lipid Screening [facility] Start: 05-10-2028 LIPID SCREEN LIPID SCREEN [facility] Start: 04-14-2028 Diabetes Screening Diabetes Screening [facility] Start: 05-26-2027 Diabetes Screening Diabetes Screening [facility] Start: 05-09-2027 Colonoscopy COLONOSCOPY [facility] Start: 05-09-2027 COLORECTAL CANCER SCREENING COLORECTAL CANCER SCREENING [facility] Start: 05-09-2027 Screening for malignant neoplasm of colon [facility] Start: 04-24-2027 LIPID SCREEN LIPID SCREEN [facility] Start: 05-27-2026 Anxiety Screening Anxiety Screening [facility] Start: 05-27-2026 Depression Screening Depression Screening [facility] Start: 05-27-2026 RSV Vaccine (1 - 1-dose 75+ series) RSV Vaccine (1 - 1-dose 75+ series) [facility] Comment on above: Postponed from 2023 (Insurance Cov erage) Start: 05-26-2026 End: 05-26-2026 Patient encounter procedure 05/26/2026 10:00 AM EDT Office Visit [facility] [place] [address] [facility] [place] [address] Charles Smith MD [address] [place] [address] [facility] [place] Comment on above: Medicare Wellness Start: 05-10-2026 DIABETES SCREEN DIABETES SCREEN [facility] Start: 05-10-2026 Diabetes Screening Diabetes Screening [facility] Start: 05-07-2026 End: 08-06-2026 CBC W Auto Differential panel - Blood COMPLETE BLOOD COUNT AND DIFFERENTIAL Lab Routine Fatty liver Expected: 05/07/2026, Expires: 08/06/2026 [facility] Comment on above: Expected: 05/07/2026, Expires: Start: 05-07-2026 End: 08-06-2026 Comprehensive metabolic 2000 panel - Serum or Plasma COMPREHENSIVE METABOLIC PANEL Lab Routine Fatty liver Expected: 05/07/2026, Expires: 08/06/2026 [facility] Comment on above: Expected: 05/07/2026, Expires: Start: 05-07-2026 End: 08-06-2026 Hemoglobin A1c in Blood HEMOGLOBIN A1C Lab Routine Encounter for screening for diabetes mellitus Expected: 05/07/2026, Expires: 08/06/2026 [facility] Comment on above: Expected: 05/07/2026, Expires: Start: 05-07-2026 End: 08-06-2026 LIPID PANEL, NONFASTING LIPID PANEL, NONFASTING Lab Routine Fatty liver Encounter for lipid screening for cardiovascular disease Expected: 05/07/2026, Expires: 08/06/2026 [facility] Comment on above: Expected: 05/07/2026, Expires: Start: 03-30-2026 End: 03-30-2026 Patient encounter procedure 03/30/2026 1:30 PM EDT Office Visit [facility] [address] [place] [address] Devika Fontanez, OD [address] [place] [address] Diagnostics[facility] [address] [address] 1 yr-complete eye exam Ophthalmology Comment on above: 1 yr-complete eye exam Start: 08-24-2025 End: 08-24-2025 Patient encounter procedure 08/24/2025 8:20 AM EST Appointment Radiology [address] [place] [id number] Osteopenia, senile [M85.80] Radiology Comment on above: Osteopenia, senile [M85.80] Start: 08-17-2025 DIABETES SCREEN DIABETES SCREEN [facility] Start: 06-09-2025 End: 06-09-2025 Patient encounter procedure 06/09/2025 11:30 AM EDT Office Visit General Surgery [address] [place] [address] Uzma Saavedra APRN.VESSEL WELDER [address] [place] [address] History of colonic polyps [Z86.0100]; Family history of colon cancer [Z80.0]; Collagenous colitis [K52.831] General Surgery Comment on above: History of colonic polyps [Z86.0100]; Fa nicole history of colon cancer [Z80.0]; Collagenous colitis [K52.831] Start: 06-01-2025 End: 06-01-2025 Patient encounter procedure 06/01/2025 10:00 AM EDT Office Visit [facility] Clemencia [address] [place] [address] Raleigh Lakhani MD [address] [address] Tear of medial meniscus of right knee [facility] Comment on above: Tear of medial meniscus of right knee Start: 05-27-2025 End: 05-27-2025 Patient encounter procedure [facility] [place] Comment on above: Medicare wellness Start: 05-26-2025 Anxiety Screening Anxiety Screening [facility] Start: 05-26-2025 Depression Screening Depression Screening [facility] Start: 05-26-2025 RSV Vaccine (1 - 1-dose 60+ series) RSV Vaccine (1 - 1-dose 60+ series) [facility] Comment on above: Postponed from 2008 (Insurance Cov erage) Start: 05-26-2025 RSV Vaccine (1 - 1-dose 75+ series) RSV Vaccine (1 - 1-dose 75+ series) [facility] Comment on above: Postponed from 2023 (Insurance Cov erage) Start: 05-26-2025 End: 05-26-2025 Patient encounter procedure 05/26/2025 10:20 AM EDT Office Visit Family [facility]ie [place] [address] [place] [address] Charles Smith MD [address] [place] [address] Medicare wellness [facility] [place] Comment on above: Medicare wellness Start: 05-18-2025 End: 08-17-2025 Comprehensive metabolic 2000 panel - Serum or Plasma COMPREHENSIVE METABOLIC PANEL Lab Routine Fatty liver Encounter for screening for diabetes mellitus Expected: 05/18/2025, Expires: 08/17/2025 [facility] Comment on above: Expected: 05/18/2025, Expires: Start: 05-18-2025 End: 08-17-2025 LIPID PANEL, NONFASTING LIPID PANEL, NONFASTING Lab Routine Fatty liver Encounter for lipid screening for cardiovascular disease Expected: 05/18/2025, Expires: 08/17/2025 [facility] Comment on above: Expected: 05/18/2025, Expires: Start: 04-24-2025 DIABETES SCREEN DIABETES SCREEN [facility] Start: 04-22-2025 End: 04-22-2025 Patient encounter procedure 04/22/2025 11:00 AM EDT Appointment Radiology [address] [place] [address] Dx: Acute pain of right knee [M25.561] Radiology Comment on above: Dx: Acute pain of right knee [M25.561] Start: 03-30-2025 End: 03-30-2025 Patient encounter procedure 03/30/2025 9:00 AM EDT Office Visit [facility] [address] [place] [address] Devika Fontanez, OD [address] [place] [address] Annual eye exam Ophthalmology Comment on above: Annual eye exam Start: 02-24-2025 End: 02-24-2025 Patient encounter procedure 02/24/2025 11:00 AM EDT Office Visit [facility] [address] [place] [address] Charles Smith MD [address] [facility] [place] [address] 8 week follow up on right knee pain [facility] Comment on above: 8 week follow up on right knee pain Start: 02-16-2025 End: 02-16-2025 ambulatory 02/16/2025 10:45 AM EDT OT/PT/Speech Visit [facility] [address] [place] [address] Rigo Byrne, PT [address] [facility] [place] [address] M25.561 (ICD-10-CM) - Acute pain of right knee [facility] Comment on above: M25.561 (ICD-10-CM) - Acute pain of righ t knee Start: 02-09-2025 End: 02-09-2025 ambulatory 02/09/2025 10:45 AM EDT OT/PT/Speech Visit [facility] [address] [place] [address] [place] [address] Rigo Byrne, PT [address] [facility] [place] [address] M25.561 (ICD-10-CM) - Acute pain of right knee [place] [facility] Comment on above: M25.561 (ICD-10-CM) - Acute pain of righ t knee Start: 02-02-2025 LIPID SCREEN LIPID SCREEN [facility] Start: 01-26-2025 End: 01-26-2025 ambulatory 01/26/2025 10:15 AM EDT OT/PT/Speech Visit [facility] [address] [place] [place] [address] Jeremiahariana Bessy, CLOTH SPREADER [address] [place] [place] [address] M25.561 (ICD-10-CM) - Acute pain of right knee [facility] Comment on above: M25.561 (ICD-10-CM) - Acute pain of righ t knee Start: 01-19-2025 End: 01-19-2025 ambulatory 01/19/2025 10:45 AM EDT OT/PT/Speech Visit [facility] [address] [place] [place] [address] Rigo Byrne, PT [address] [facility] [place] [address] M25.561 (ICD-10-CM) - Acute pain of right knee [place] Comment on above: M25.561 (ICD-10-CM) - Acute pain of righ t knee Start: 01-12-2025 End: 01-12-2025 ambulatory 01/12/2025 10:45 AM EDT OT/PT/Speech Visit [facility] [address] [place] [place] [address] Rigo Byrne, PT [address] [place] [address] M25.561 (ICD-10-CM) - Acute pain of right knee [place] [facility] Comment on above: M25.561 (ICD-10-CM) - Acute pain of righ t knee Start: 12-30-2024 End: 12-30-2024 ambulatory 12/30/2024 8:30 AM EDT OT/PT/Speech Visit [facility] [address] [place], [place] [address] Rigo Byrne, PT [address] [place], [place] [id number] Acute pain of right knee [M25.561] [facility] Comment on above: Acute pain of right knee [M25.561] Start: 11-13-2024 End: 11-13-2024 Patient encounter procedure 11/13/2024 9:30 AM EST Appointment Mammogram [address] [place], [place] [id number] Mammogram Mammogram Comment on above: Mammogram Start: 10-08-2024 Advance Directive Discussion Advance Directive Discussion [facility] Start: 10-08-2024 Medicare Advantage Annual Wellness Visit Medicare Advantage Annual Wellness Visit [facility] Start: 06-04-2024 End: 06-04-2024 Patient encounter procedure Cardiology Lab Comment on above: CHAVEZ (dyspnea on exertion) [R06.09]; SOB (shortness of breath) [R06.02]; Family history of coronary artery disease [Z82.49] STRESS TEST Start: 06-04-2024 Subsequent hospital visit by physician 06/04/2024 12:00 PM EDT Hospital Encounter Cardiology Lab [address] [place] [address] CHAVEZ (dyspnea on exertion) [R06.09] Cardiology Lab Comment on above: CHAVEZ (dyspnea on exertion) [R06.09] Start: 06-03-2024 End: 06-03-2024 Patient encounter procedure 06/03/2024 8:50 AM EDT Office Visit Cardiology [address] [place], [place] [id number] CHAVEZ (dyspnea on exertion) [R06.09]; SOB (shortness of breath) [R06.02]; Family history of coronary artery disease [Z82.49] Cardiology Comment on above: CHAVEZ (dyspnea on exertion) [R06.09]; SOB (shortness of breath) [R06.02]; Family history of coronary artery disease [Z82.49] Start: 06-02-2024 End: 06-02-2024 Patient encounter procedure 06/02/2024 4:00 PM EDT Office Visit OB/Gynecology [address] [place] [place] [address] Kirsten Hector MD [address] [place] [place] [address] ANNUAL OB/Gynecology Comment on above: ANNUAL Start: 05-26-2024 End: 08-25-2024 Comprehensive metabolic 2000 panel - Serum or Plasma [facility] Comment on above: Expected: 05/26/2024, Expires: Start: 05-26-2024 End: 08-25-2024 LIPID PANEL, NONFASTING [facility] Comment on above: Expected: 05/26/2024, Expires: Start: 05-26-2024 End: 05-26-2024 Patient encounter procedure 05/26/2024 2:00 PM EDT Office Visit [facility] [place] [address] [place] [address] Charles Smith MD [address] [place] [address] medicare wellness (HM due: mammogram) [facility] [place] Comment on above: medicare wellness (HM due: mammogram) Start: 05-26-2024 End: 08-25-2024 Thyrotropin [Units/volume] in Serum or Plasma [facility] Comment on above: Expected: 05/26/2024, Expires: Start: 05-26-2024 End: 08-25-2024 Thyroxine (T4) free [Mass/volume] in Serum or Plasma [facility] Comment on above: Expected: 05/26/2024, Expires: Start: 05-21-2024 End: 05-21-2024 Patient encounter procedure 05/21/2024 10:00 AM EDT Office Visit Family [facility] [place] [address] [place] [address] Charles Smith MD [address] [place] [address] medicare wellness (HM due: mammogram) [facility] [place] Comment on above: medicare wellness (HM due: mammogram) Start: 05-10-2024 COVID-19 VACCINE (3 - Pfizer series) COVID-19 VACCINE (3 - Pfizer series) [facility] Comment on above: Postponed from 02/22/2021 (Declined at t his time) Start: 04-18-2024 DIABETES SCREEN DIABETES SCREEN [facility] Start: 03-27-2024 End: 03-27-2024 Patient encounter procedure 03/27/2024 9:00 AM EDT Office Visit [facility] [address] [place] [address] Henry Jay, OD [address] [place] [address] refraction to check cataract development Ophthalmology Comment on above: refraction to check cataract development Start: 11-10-2023 Mammography [facility] Start: 10-08-2023 Advance Directive Discussion Advance Directive Discussion [facility] Start: 10-08-2023 Behavioral Health Screening Behavioral Health Screening [facility] Start: 10-08-2023 Depression Assessment Depression Assessment [facility] Start: 06-08-2023 Covid-19 Vaccine () Covid-19 Vaccine () [facility] Start: 04-23-2023 Adult depression screening assessment DEPRESSION SCREENING [facility] Start: 10-08-2022 ADVANCE DIRECTIVE DISCUSSION ADVANCE DIRECTIVE DISCUSSION [facility] Start: 10-08-2022 DEPRESSION ASSESSMENT DEPRESSION ASSESSMENT [facility] Start: 08-17-2022 Acute hepatitis 2000 panel - Serum [facility] Work Phone: Start: 08-17-2022 Kjnhi-1-amexudohrfw.tumor marker [Units/volume] in Serum or Plasma [facility] Work Phone: Start: 08-17-2022 Angiotensin converting enzyme [Enzymatic activity/volume] in Serum or Plasma [facility] Work Phone: Start: 08-17-2022 Ceruloplasmin [Mass/volume] in Serum or Plasma [facility] Work Phone: Start: 08-17-2022 Copper [Moles/volume] in Serum or Plasma [facility] Work Phone: Start: 08-17-2022 General foods mix RAST test [facility] Work Phone: Start: 08-17-2022 Haptoglobin [Mass/volume] in Serum or Plasma [facility] Work Phone: Start: 08-17-2022 Mitochondria Ab [Presence] in Serum [facility] Work Phone: Start: 08-17-2022 Smooth muscle Ab [Presence] in Serum [facility] Work Phone: Start: 08-17-2022 [facility] Work Phone: Start: 08-10-2022 Colonoscopy COLONOSCOPY [facility] Start: 08-10-2022 COLORECTAL CANCER SCREENING COLORECTAL CANCER SCREENING [facility] Start: 04-24-2022 End: 06-24-2022 Comprehensive metabolic 2000 panel - Serum or Plasma [facility] Work Phone: Comment on above: Expected: 04/24/2022, Expires: 2 Start: 04-24-2022 End: 06-24-2022 LIPID PANEL, NONFASTING [facility] Work Phone: Comment on above: Expected: 04/24/2022, Expires: 2 Start: 03-31-2022 End: 05-31-2022 CREATININE BLD CREATININE BLD Lab Routine Abdominal pain, lower Elevated LFTs Elevated alkaline phosphatase level Expected: 03/31/2022, Expires: 05/31/2022 [facility] Work Phone: Comment on above: Expected: 03/31/2022, Expires: 2 Start: 11-02-2021 Mammography MAMMOGRAM [facility] Start: 10-08-2021 ADVANCE DIRECTIVE DISCUSSION ADVANCE DIRECTIVE DISCUSSION [facility] Start: 10-08-2021 DEPRESSION ASSESSMENT DEPRESSION ASSESSMENT [facility] Start: 05-30-2021 COVID-19 VACCINE (3 - Booster for Pfizer series) COVID-19 VACCINE (3 - Booster for Pfizer series) [facility] Start: 02-22-2021 COVID-19 VACCINE (3 - Booster for Pfizer series) COVID-19 VACCINE (3 - Booster for Pfizer series) [facility] Start: 02-22-2021 COVID-19 VACCINE (3 - Pfizer series) COVID-19 VACCINE (3 - Pfizer series) [facility] Start: 01-18-2020 Adult depression screening assessment DEPRESSION SCREENING [facility] Start: 11-04-2014 FECAL OCCULT BLOOD FECAL OCCULT BLOOD [facility] Start: 11-04-2014 Screening for malignant neoplasm of colon Fecal Occult Blood [facility] Start: 2008 RSV Vaccine (1 - 1-dose 60+ series) RSV Vaccine (1 - 1-dose 60+ series) [facility] Start: 1993 COLOGUARD (FIT-DNA) COLOGUARD (FIT-DNA) [facility] Start: [address] COLONOGRAPHY [facility] Start: 1993 Screening for malignant neoplasm of colon [facility] Start: 1993 SIGMOIDOSCOPY SIGMOIDOSCOPY [facility] Start: 1966 Anxiety Screening Anxiety Screening [facility] Start: 1966 Depression Screening Depression Screening [facility] Start: 1966 HEPATITIS C SCREENING [facility] Aldolase [Enzymatic activity/volume] in [facility] Work Phone: [id number]. tumor marker [Units/volume] in [facility] Work Phone: Alternaria alternata IgE Ab [Units/volume] in [facility] Work Phone: Taiwanese Cockroach I gE Ab [Units/volume] in [facility] Work Phone: Taiwanese house dust mite IgE Ab [Units/volume] in [facility] Work Phone: Angiotensin converti ng enzyme [Enzymatic activity/volume] in [facility] Work Phone: Antibody to lupus La protein measurement [facility] Work Phone: Antibody to SS-A measurement [facility] Work Phone: Aspergillus fumigatu s [facility] Work Phone: Bahia grass IgE Ab [Units/volume] in [facility] Work Phone: End: 06-26-2026 BD DXA TRABECULAR BONE SCORE (TBS) BD DXA TRABECULAR BONE SCORE (TBS) Radiology Routine Osteopenia, senile 1 Occurrences starting 05/27/2025 until 06/26/2026 [facility] Comment on above: 1 Occurrences starting 05/27/2025 until 06/26/2026 Beef IgE Ab [Units/volume] in [facility] Work Phone: Bermuda grass IgE Ab [Units/volume] in [facility] Work Phone: Box elder [facility] Work Phone: Cat dander IgE Ab [Units/volume] in [facility] Work Phone: Cat dander [facility] Work Phone: Centromere protein B Ab [Units/volume] in [facility] Work Phone: Ceruloplasmin [Mass/volume] in [facility] Work Phone: Chocolate IgE Ab [Units/volume] in [facility] Work Phone: Chromatin Ab [Units/volume] in [facility] Work Phone: Cladosporium herbaru m IgE Ab [Units/volume] in [facility] Work Phone: Common Ragweed IgE A b [Units/volume] in [facility] Work Phone: Copper [Moles/volume ] in [facility] Work Phone: [place] IgE Ab [Units/volume] in [facility] Work Phone: Excello [facility] Work Phone: Cow milk IgE Ab [Units/volume] in [facility] Work Phone: Creatine kinase [Enzymatic activity/volume] in [facility] Work Phone: Ct abdomen & pelvis w/contrast material CT ABD/PEL W IVCON Radiology Routine Abdominal pain, lower Elevated LFTs Elevated alkaline phosphatase level Left lower quadrant abdominal pain 04/20/2022 10:41 AM EDT [facility] Work Phone: End: 07-02-2025 DBT Breast - bilateral screening ALVAREZ SCREENING W DON Radiology Routine Encounter for screening mammogram for malignant neoplasm of breast Dense breast tissue 1 Occurrences starting 06/02/2024 until 07/02/2025 [facility] Work Phone: Comment on above: 1 Occurrences starting 06/02/2024 until 07/02/2025 DBT Breast - bilater al screening ALVAREZ SCREENING W DON Radiology Routine Encounter for screening mammogram for malignant neoplasm of breast Dense breast tissue 11/13/2024 9:28 AM EST [facility] Work Phone: DNA double strand Ab [Units/volume] in [facility] Work Phone: Dog epithelium IgE A b [Units/volume] in [facility] Work Phone: End: 06-26-2026 DXA Skeletal system.axial Views for bone density DXA-AXIAL SKELETON Radiology Routine Osteopenia, senile 1 Occurrences starting 05/27/2025 until 06/26/2026 [facility] Work Phone: Comment on above: 1 Occurrences starting 05/27/2025 until 06/26/2026 End: 06-08-2024 DXA-AXIAL SKELETON DXA-AXIAL SKELETON Radiology Routine Osteopenia, senile 1 Occurrences starting 05/10/2023 until 06/08/2024 [facility] Work Phone: Comment on above: 1 Occurrences starting 05/10/2023 until 06/08/2024 End: 05-26-2025 Echocardiography ECHO Cardiology Routine CHAVEZ (dyspnea on exertion) SOB (shortness of breath) Family history of coronary artery disease 1 Occurrences starting 05/26/2024 until 05/26/2025 [facility] Work Phone: Comment on above: 1 Occurrences starting 05/26/2024 until 05/26/2025 End: 05-02-2023 EGD DIAGNOSTIC EGD DIAGNOSTIC Endoscopy Routine Lower abdominal pain Family history of colon cancer Change in bowel habits Elevated liver enzymes 1 Occurrences starting 05/02/2022 until 05/02/2023 [facility] Work Phone: Comment on above: 1 Occurrences starting 05/02/2022 until 05/02/2023 house dust mite IgE Ab [Units/volume] in [facility] Work Phone: End: 05-26-2025 EXERCISE STRESS ECG (WITHOUT IMAGING) EXERCISE STRESS ECG (WITHOUT IMAGING) Cardiology Routine CHAVEZ (dyspnea on exertion) SOB (shortness of breath) Family history of coronary artery disease 1 Occurrences starting 05/26/2024 until 05/26/2025 [facility] Comment on above: 1 Occurrences starting 05/26/2024 until 05/26/2025 Fish [facility] Work Phone: Haptoglobin [Mass/vo lume] in [facility] Work Phone: Hazelnut Pollen IgE Ab [Units/volume] in [facility] Work Phone: End: 05-10-2024 HEARING TEST/AUDIOGRAM HEARING TEST/AUDIOGRAM Audiology Routine Other specified hearing loss, unspecified ear 1 Occurrences starting 05/10/2023 until 05/10/2024 [facility] Work Phone: Comment on above: 1 Occurrences starting 05/10/2023 until 05/10/2024 Hepatitis A virus Ig M Ab [Presence] in [facility] Work Phone: Hepatitis B core ant ibody measurement, IgM type [facility] Work Phone: Hepatitis B surface antigen measurement [facility] Work Phone: Hepatitis C antibody measurement [facility] Work Phone: Immunoglobulin E measurement [facility] Work Phone: Kimberly-1 extractable nuc lear Ab [Units/volume] in [facility] Work Phone: Luigi grass IgE Ab [Units/volume] in [facility] Work Phone: Victor M blue grass IgE Ab [Units/volume] in [facility] Work Phone: End: 06-28-2024 ALVAREZ SCREENING W DON ALVAREZ SCREENING W DON Radiology Routine Encounter for gynecological examination (general) (routine) without abnormal findings Encounter for screening mammogram for breast cancer 1 Occurrences starting 05/30/2023 until 06/28/2024 [facility] Work Phone: Comment on above: 1 Occurrences starting 05/30/2023 until 06/28/2024 Mitochondria Ab [Presence] in [facility] Work Phone: Mountain Juniper IgE Ab [Units/volume] in [facility] Work Phone: Mouse urine proteins [facility] Work Phone: End: 05-14-2026 MR Knee - right WO contrast MRI KNEE WO IVCON RIGHT Radiology Routine Acute pain of right knee 1 Occurrences starting 04/14/2025 until 05/14/2026 [facility] Work Phone: Comment on above: 1 Occurrences starting 04/14/2025 until 05/14/2026 MR Knee - right WO contrast MRI KNEE WO IVCON RIGHT Radiology Routine Acute pain of right knee 04/22/2025 12:16 PM EDT [facility] Work Phone: End: 05-25-2023 Mri abdomen w/o & w/contrast material MRI LIVER WO/W IVCON Radiology Routine Lesion of right lobe of liver 1 Occurrences starting 04/25/2022 until 05/25/2023 [facility] Work Phone: Comment on above: 1 Occurrences starting 04/25/2022 until 05/25/2023 Mucor racemosus IgE Ab [Units/volume] in [facility] Work Phone: Mugwort IgE Ab [Units/volume] in [facility] Work Phone: Alhambra [facility] Work Phone: Nettle IgE Ab [Units/volume] in [facility] Work Phone: Neutrophil cytoplasm ic Ab.classic [Units/volume] in [facility] Work Phone: P-ANCA measurement [facility] Work Phone: Peanut IgE Ab [Units/volume] in [facility] Work Phone: Pecan or Concord Nut IgE Ab [Units/volume] in [facility] Work Phone: PELVIC US WHI PELVIC US WHI An c Imaging Routine Pelvic pressure in female Ordered: 01/26/2022 [facility] Work Phone: Comment on above: Ordered: 01/26/2022 Penicillium notatum IgE Ab [Units/volume] in [facility] Work Phone: Plantain (Armenian) [facility] Work Phone: Pork IgE Ab [Units/volume] in [facility] Work Phone: Rough Pigweed IgE Ab [Units/volume] in [facility] Work Phone: SCL-70 extractable nuclear Ab [Units/volume] in Serum by [facility] Work Phone: Sheep Markesan IgE Ab [Units/volume] in [facility] Work Phone: Silver Birch IgE Ab [Units/volume] in [facility] Work Phone: Estes extractable nu clear Ab [Presence] in [facility] Work Phone: Smooth muscle Ab [Presence] in [facility] Work Phone: Soybean IgE Ab [Units/volume] in [facility] Work Phone: Stemphylium botryosu m IgE Ab [Units/volume] in [facility] Work Phone: SURGICAL PATHOLOGY [facility] Work Phone: Comment on above: Release Upon Ordering for 1 Occurrences starting 05/09/2022, 1 completed Sweet gum [facility] Work Phone: Richa IgE Ab [Units/volume] in [facility] Work Phone: Tree pollen [facility] Work Phone: Ultrasound elastography [facility] Work Phone: Urate [Mass/volume] in [facility] Work Phone: US Abdomen limited [facility] Work Phone: Lafitte [facility] Work Phone: Wheat IgE Ab [Units/volume] in [facility] Work Phone: White Laura IgE Ab [Units/volume] in [facility] Work Phone: White Elm IgE Ab [Units/volume] in [facility] Work Phone: White Concord IgE Ab [Units/volume] in [facility] Work Phone: White mulberry IgE A b [Units/volume] in [facility] Work Phone: Shiprock IgE Ab [Units/volume] in [facility] Work Phone: Whole Egg IgE Ab [Units/volume] in [facility] Work Phone: End: 06-08-2024 XR DIGIT GENERAL 3V FRONTAL/LAT/OBL RIGHT XR DIGIT GENERAL 3V FRONTAL/LAT/OBL RIGHT Radiology Routine Pain of right thumb 1 Occurrences starting 05/10/2023 until 06/08/2024 [facility] Work Phone: Comment on above: 1 Occurrences starting 05/10/2023 until 06/08/2024 XR DIGIT GENERAL 3V FRONTAL/LAT/OBL RIGHT XR DIGIT GENERAL 3V FRONTAL/LAT/OBL RIGHT Radiology Routine Pain of right thumb 05/10/2023 11:19 AM EDT [facility] Work Phone: End: 01-18-2026 XR Knee - bilateral 4 Views XR KNEE GENERAL 4V AP BOTH/PA BOTH/LAT/MERC BILATERAL Radiology Routine Acute pain of right knee 1 Occurrences starting 12/19/2024 until 01/18/2026 [facility] Work Phone: Comment on above: 1 Occurrences starting 12/19/2024 until 01/18/2026 XR Knee - bilateral 4 Views XR KNEE GENERAL 4V AP BOTH/PA BOTH/LAT/MERC BILATERAL Radiology Routine Acute pain of right knee 12/19/2024 12:42 PM EDT [facility] Immunizations Immunization Date Immunization Notes Care Provider [facility] 12-28-2020 COVID-19 vaccine, ag e 12+ yr (PFIZER-BIONTECH - PURPLE TOP) Abby Medley MD Work Phone: [facility] 12-01-2020 COVID-19 vaccine, ag e 12+ yr (PFIZER-BIONTECH - PURPLE TOP) Abby Medley MD Work Phone: [facility] 12-29-2019 zoster vaccine recombinant Abby Medley MD Work Phone: [facility] 10-29-2019 zoster vaccine recombinant Abby Medley MD Work Phone: [facility] 05-28-2019 tetanus toxoid, redu erick diphtheria toxoid, and acellular pertussis vaccine, adsorbed Abby Medley MD Work Phone: [facility] Work Phone: 08-10-2015 pneumococcal conjuga te vaccine, 13 valent Abby Medley MD Work Phone: [facility] Work Phone: 12-26-2013 tetanus toxoid, redu erick diphtheria toxoid, and acellular pertussis vaccine, adsorbed Abby Medley MD Work Phone: [facility] 11-10-2013 pneumococcal polysaccharide vaccine, 23 valent Abby Medley MD Work Phone: [facility] 01-13-2010 tetanus toxoid, redu erick diphtheria toxoid, and acellular pertussis vaccine, adsorbed Abby Medley MD Work Phone: [facility] 10-15-2008 zoster vaccine, live Abby Medley MD Work Phone: [facility] 02-03-2004 hepatitis A vaccine, adult dosage Abby Medley MD Work Phone: [facility] 02-05-2000 tetanus and diphther ia toxoids, adsorbed, preservative free, for adult use (2 Lf of tetanus toxoid and 2 Lf of diphtheria toxoid) Abby Medley MD Work Phone: [facility] Payers Date Payer Category Payer Medicare (Managed Care) POLLO SMYTH PPO [id number] 2022 Self-pay 2022 Medicare [id number] 2019 Unknown POLLO Alvarado AND BLUE [facility] POLLO SCHULTZ ACCESS [id number] 2019-Present [phone] [address] [place] [address] PPO [id number] 2019 Unknown [id number] 1948 Unknown [id number] Unknown [id number] Unknown [id number] Social History Date Type Detail Facility Start: 09-18-2016 End: 05-29-2022 Tobacco smoking status NHIS Never smoked tobacco [facility] Start: 12-23-2021 End: 06-01-2025 Alcohol intake Current drinker of alcohol (finding) [facility] Start: 1950 Sex Assigned At Female [facility] Start: 12-13-2021 End: 05-29-2022 Exposure to SARS-CoV-2 (event) Not sure [facility] Start: 04-23-2022 History SDOH Alcohol Frequency 5 [facility] Start: 04-23-2022 History SDOH Alcohol Std Drinks 1 [facility] Start: 04-23-2022 History SDOH Social Connections Phone 4 [facility] Start: 04-23-2022 History SDOH Social Connections Get Together 2 [facility] Start: 04-23-2022 History SDOH Social Connections Buddhist 3 [facility] Start: 04-23-2022 History SDOH Physica l Activity MPS 13 [facility] Start: 09-18-2016 End: 05-29-2022 Tobacco use and exposure Smokeless tobacco non-user [facility] Start: 04-23-2022 End: 04-16-2023 History of Social function [place] [facility] Start: 04-23-2022 End: 04-16-2023 Social connection and isolation panel [facility] Do you belong to any clubs or organizations such as congregation groups, unions, fraternal or athletic groups, or school groups? Yes [facility] Are you now , , , , never or living with a partner? [facility] How often to you hav e a drink containing alcohol? 4 or more times a week [facility] How many standard dr inks containing alcohol do you have on a typical day? 1 or 2 [facility] How often do you hav e 6 or more drinks on 1 occasion? Never [facility] Start: 09-08-2012 How hard is it for y ou to pay for the very basics like food, housing, medical care, and heating Not hard at all [facility] Do you feel stress - tense, restless, nervous, or anxious, or unable to sleep at night because your mind is troubled all the time - these days [OSQ] Only a little [facility] (I/We) worried karsten byrne (my/our) food would run out before (I/we) got money to buy more. Never true [facility] In the past 12 month s, was there a time when you were not able to pay the mortgage or rent on time? No [facility] Start: 12-23-2020 Gender identity Identifies as female gender (finding) [facility] Start: 12-23-2020 Sexual orientation Heterosexual (patrick riley) [facility] Do you feel stress - tense, restless, nervous, or anxious, or unable to sleep at night because your mind is troubled all the time - these days [OSQ] Not at all [facility] Functional Status Date Assessment Result Facility 05-13-2015 Are you deaf, or do you have serious difficulty hearing No 05/13/2015 12:00 PM Marina Melendez Ma No [facility] 05-13-2015 Are you blind, or do you have serious difficulty seeing, even when wearing glasses No 05/13/2015 12:00 PM Marina Melendez Ma No [facility] 05-13-2015 Do you have serious difficulty walking or climbing stairs No 05/13/2015 12:00 PM Marina Melendez Ma No [facility] 05-13-2015 Do you have difficul ty dressing or bathing No 05/13/2015 12:00 PM Marina Melendez Ma No [facility] 05-13-2015 Because of a physica l, mental, or emotional condition, do you have difficulty doing errands alone such as visiting a physician's office or shopping No 05/13/2015 12:00 PM EDT Marina Murillo Ma No [facility] Mental Status Date Assessment Result Facility 05-13-2015 Because of a physica l, mental, or emotional condition, do you have serious difficulty concentrating, remembering, or making decisions No 05/13/2015 12:00 PM EDT Marina Murillo Ma No [facility] Clinical Notes 12-23-2021 to 06-01-2025 Raleigh Lakhani MD - 06/01/2025 10:26 AM EDTPatient Charles Dimas MD - 05/27/2025 10:20 AM EDTTelephone Encounter - Aram Dewey LPN - 04/23/2025 2:20 PM EDT Note Date & Type Note Facility 06-01-2025 History of Present illness Narrative HISTORY OF PRESENT ILLNESS: Patient is here as a consultation from Dr. Smith. Patient reports that she has had intermittent right knee pain for several months. She reports that she stepped into a hole twisting her right knee back in August. Patient reports that the pain has improved over the last few weeks. Patient reports minimal pain along the medial aspect of her knee. She also reports of some pain along along the right lower lumbar region as well. No bowel or bladder complaints. No groin pain. No fever chills night sweats weight loss or other constitutional symptoms. She takes Tylenol for pain management purposes. REVIEW OF SYSTEMS: See chart PHYSICAL EXAM: Physical examination reveals patient is alert and in no acute distress. She has varus malalignment skin is intact. Some pain palpation medial joint line. She lacks 3 to 4 degrees full extension has about 120 degrees flexion. Full range of motion both hips as well as ankles. Stable ligamentously. Good pulses good sensation distally. Standing 45 degree weight bearing, merchant and lateral radiographs of the right knee (s) were reviewed today. The radiographs show Varus malalignment and severe joint space narrowing along the medial and patellofemoral joint lines with osteophytic spurring, and sclerosis. The patellae are located in the trochlea but also show signs of sclerosis, and joint space narrowing. No signs of fracture, avulsion or dislocation. No overt signs of bony tumor. IMPRESSION: Problem List/Diagnoses: Primary osteoarthritis of right knee (primary encounter diagnosis) TREATMENT AND PAIN MANAGEMENT PLAN: Patient does have evidence of severe osteoarthritic changes along the medial compartment of her right knee. At this point in time she was offered corticosteroid injection therapy however the patient reports that she has very minimal pain at this time. She does seem to have evidence of spinal stenosis. She is scheduled for nerve conduction by Dr. Smith for tomorrow. She is taking Tylenol for pain management purposes. She understands the risk benefits elected proceed. If her pain returns or worsens she is to give me a call otherwise I will see her back in as-needed basis. All of her questions were answered here today. Raleigh Lakhani MD documented in this encounter [facility] 05-27-2025 Instructions Charles Smith MD - 05/27/2025 11:03 AM EDT Please bring in copies of your power of finance attorney for health care and living will. Consider getting the RSV vaccine from a local pharmacy. Please get labs done on or after 05/07/2026 prior to your next visit. We discussed your knee pain and arthritis: - You mentioned that your knee pain has improved overall, though you still experience some discomfort. The pain now feels more like arthritis and is similar to what you described during your first visit. - You are scheduled to see Dr. Andersen next week for further evaluation, including nerve studies. He may recommend monitoring the knee if it is not significantly limiting your mobility, as not all meniscal tears require surgery. If surgery is needed, your body will likely indicate this with worsening symptoms. - You are planning a bike ride in [facility]. With your current knee condition, you should be able to participate, especially since the bikes are battery-powered. Avoid routes with significant hills to minimize stress on your knee. We discussed your colonoscopy and history of colon polyps: - Your previous colonoscopy schedule was removed from the system due to your age (over 75). However, given your history of colon polyps, cholangitis, and esophagitis, I recommend continuing colon cancer screening. - I will place a referral for you to see Dr. Steele to discuss scheduling a colonoscopy. We discussed your recent diarrhea: - You experienced diarrhea for about a month, which resolved after discontinuing Zyrtec. This side effect is uncommon but can occur. Please avoid taking Zyrtec in the future. We reviewed your lab results: - Your blood count, kidney function, liver function, and electrolytes are all normal. - Your cholesterol levels are excellent: - Triglycerides: 58 (goal: below 150) - HDL (good cholesterol): 69 (goal: 50 or higher) - LDL (bad cholesterol): 96 (goal: below 130) - Your thyroid, B12, and folate levels from April were normal. - Your fatty liver risk score is 1.47, which is not concerning for your age. I will continue to monitor this annually. We discussed bone health: - You are due for a bone density scan to assess your bone strength. I recommend completing this test every two years. I will place the order for this scan. We discussed the RSV vaccine: - I recommend the RSV (respiratory syncytial virus) vaccine due to your age (over 75). This virus can cause severe respiratory issues in older adults. The vaccine is safe and covered by Medicare but must be administered at a pharmacy. Please consider getting this vaccine. We discussed advance directives: - I recommend bringing in copies of your living will and durable power of finance attorney for healthcare. This ensures that your wishes are documented in our system in case of an emergency. This is optional and entirely your decision. Follow-up: - Schedule a follow-up appointment with me in one year unless new concerns arise. - Complete labs 1-2 weeks before your next visit so we can review the results during your appointment. - [employer] will assist with scheduling your follow-up. documented in this encounter [facility] 05-27-2025 History of Present illness Narrative Images from the original note were not included. Jeff Robbins is a 74 year old female here for a Medicare wellness visit. Medicare Health Risk Assessment General Health Very good Exercise: Minutes/Day 120 min Exercise: Days/Week 5 days Alcohol: Daily Use 4 or more times a week Alcohol: Drinks/Day 1 or 2 Alcohol: 6 or more drinks Never Feel off balance No Concerns: Teeth/Dentures No Concerns: Sexual function No Troubled by feelings None of the above Frequency: Eating healthy diet Nearly every day ADLs requiring help None of the above Safety precautions in home/vehicle No Smoke, vape, chews tobacco No Difficulty hearing No Difficulty seeing No Current Providers Specialists: I have reviewed specialist-related care of the patient in the medical record. Medical/Family history review Reviewed and updated problem list, medical/surgical/family/social history, medications, and allergies. Opioid use review Opioid Medications (last 90 days) No data to display Anxiety/Depression screening PHQ-9 Score: 0. TRAVIS-7 Score: 0. Recommendation: no further intervention at this time Cognitive screening Mini Cog Score: 5 Cognitive screening reviewed and No further action needed (score 3-5). Mini-Cog Patient asked to remember the following three words: Banana, [place] and Chair Visuospatial/Executive Functioning: Clock drawin/2 (Normal clock with all number in correct sequence and position, hands are correct = 2 points, inability or refusal to draw a clock = 0) Three word recall: 3/3 Total score: 5/5 (Total score = word recall score + clock draw score) Functional Observation Was the patient's Timed Up & Go test unsteady or >= 12 seconds? No Advance Care Planning Surrogate decision maker and/or advance care plan documented Measurements BP 128/82 (BP Site: Left Arm, BP Position: Sitting, BP Cuff Size: Regular Adult) Pulse 64 Resp 16 Ht 165.7 cm (5' 5.25) Wt 64.2 kg (141 lb 8.6 oz) BMI 23.37 kg/m Vision Screening: Follows with optometry/ophthalmology follows with annually. Assessment/Plan Medicare annual wellness visit, subsequent (Z00.00) - Counseled on healthy diet and regular exercise - Fall avoidance information provided - Personalized prevention plan provided See below Chief Complaint Patient presents with: Medicare Wellness Exam HPI Jeff Robbins is a 74 year old female who presents here today for a medicare wellness and a routine follow up. Patient with a Hx of esophagitis, fatty liver, gal bladder polyps colon polyps and had colonoscopy 2016 and due for repeat in 5 years. Patient has been doing well. Anna reports improvement in knee pain, which she describes as arthritic in nature. Initially, the pain was localized to a specific area, Medialy, but now it has dissipated. She is scheduled to see Dr. Lakhani next week and will undergo nerve studies starting Sunday. She has not had any surgeries in the last 2-3 years, with her last procedures being scopes. Anna also expresses concern about her colonoscopy schedule. She was previously uncomfortable with waiting 5 years for a colonoscopy and had a note sent to Dr. Bland regarding this. Since then, she has not heard back and her scheduled colonoscopy for next year is no longer listed. She has a history of colon polyps, cholangitis, and esophagitis. Additionally, her sister and niece have had difficult recoveries from pre-cancer surgeries. She denies recent fevers, frequent headaches, sudden changes in hearing or vision, issues with her nose or throat, lumps or swelling in her neck, wheezing, dyspnea, hemoptysis, chest pain, palpitations, leg swelling, hematochezia, hematuria, dysuria, skin lesions, rashes, sores, easy bruising or bleeding, changes in heat or cold tolerance, increased thirst, syncope, seizures, or tremors. She does report a recent episode of diarrhea lasting about a month, which resolved after discontinuing Zyrtec. She also notes feeling really tired during this period. She mentions that she is healing lots more slowly and attributes this to her age. Recent lab results show normal WBC count, no anemia, normal platelet count, normal electrolyte panel, normal liver function tests, and normal kidney function tests. Cholesterol levels are within normal limits, with triglycerides at 58, HDL at 69, and LDL at 96. Thyroid, B12, and folate levels were normal in April. Past medical history, appointments, medications, allergies reviewed. Previous Medical History PAST MEDICAL HISTORY Diagnosis Date Advance directive discussed with patient 04/24/2022 Discussed 04/2022 Chronic sinusitis 05/10/2023 Collagenous colitis 05/29/2022 Encounter for lipid screening for cardiovascular disease 05/26/2024 Esophagitis 05/29/2022 Family history of colon cancer 10/12/2011 Family history of coronary artery disease 05/26/2024 Fatty liver 05/29/2022 Fibroids 03/25/2022 Gallbladder polyp 03/31/2022 History of colonic polyps Liver hemangioma 05/18/2022 Right lob Mass of left axilla 05/27/2015 Eval 2015 was benign Medicare annual wellness visit, subsequent 01/07/2018 Medicare part B: 07/08/2013 last done: 01/17/2019 Nuclear sclerosis of both eyes 12/19/2019 Osteopenia, senile 01/14/2018 Dexa: improved lumbar and right hip slightly worse in left hip. Personal history of colonic polyps Tear of medial meniscus of right knee, current 05/20/2025 Tinnitus of both ears 05/10/2023 Previous Surgical History PAST SURGICAL HISTORY Procedure Laterality Date COLONOSCOPY 05/09/2022 COLONOSCOPY FLX DX W/COLLJ SPEC WHEN PFRMD 2012 History of polyps COLONOSCOPY FLX DX W/COLLJ SPEC WHEN PFRMD 08/10/2017 Colonoscopy EGD 05/09/2022 HYSTEROSCOPY 01/02/2017 H/s D&C for PMB OTHER 1998 Sinus surgery TONSILLECTOMY HX Family History FAMILY HISTORY Problem Relation Age of Onset Heart Mother CHF Cancer Father Colon Heart Father Coronary Artery Disease Father 60's Diabetes Sister Asthma Sister Macular Degen Sister other (covid) Sister from this Colon Polyps Sister possible cancer at age 70 (05/2024) Osteoporosis Sister Cancer Brother 62 Colon Diabetes Brother Macular Degen Maternal Grandmother Colon Cancer Niece Patient Allergies ALLERGIES Allergen Reactions Amoxicillin Other: See Comments Sulfa (Sulfonamide * Swelling Zyrtec [Cetirizine] Diarrhea Current Medications Current Outpatient Medications on File Prior to Visit Medication Sig cetirizine (ZYRTEC) 10 mg tablet Take 1 tablet by mouth once daily. EPINEPHrine (EPIPEN) 0.3 mg/0.3 mL auto-injector Take as directed on instructions with allergic reaction. cholecalciferol (VITAMIN D3) 5,000 unit tab Take 5,000 Units by mouth once daily. glucosamine/chondr bradley A sod (OSTEO BI-FLEX ORAL) Take by mouth once daily. PSEUDOEPHEDRINE HCL (SUDAFED ORAL) Take by mouth once daily. No current facility-administered medications on file prior to visit. Social History SOCIAL HISTORY[1] Review of Symptoms REVIEW OF SYSTEMS GENERAL: No weight loss, malaise or fevers HEENT: Negative for frequent or significant headaches, No changes in hearing or vision, no nose bleeds or other nasal problems NECK: Negative for lumps, goiter, pain and significant neck swelling RESPIRATORY: Negative for cough, hemoptysis, wheezing, COPD, dyspnea or shortness of breath CARDIOVASCULAR: Negative for chest pain, leg swelling, hypertension, CHF or palpitations GI: No nausea, vomiting, or diarrhea, No heartburn or reflux symptoms, and no blood : No history of dysuria, frequency or blood MUSCULOSKELETAL: see HPI SKIN: Negative for lesions, rash, and itching PSYCH: Negative for sleep disturbance, mood disorder and recent psychosocial stressors HEMATOLOGY/LYMPHOLOGY: Negative for prolonged bleeding, bruising easily or swollen nodes ENDOCRINE: Negative for cold or heat intolerance, polyuria, polydipsia and goiter NEURO: No history of headaches, syncope, paralysis, seizures or tremors SEE HPI EXAM: BP 128/82 (BP Site: Left Arm, BP Position: Sitting, BP Cuff Size: Regular Adult) Pulse 64 Resp 16 Ht 165.7 cm (5' 5.25) Wt 64.2 kg (141 lb 8.6 oz) BMI 23.37 kg/m Last 5 Encounter Wt Readings: Date: Wt: 05/27/2025 64.2 kg (141 lb 8.6 oz) 04/14/2025 64.8 kg (142 lb 12.8 oz) 01/15/2025 64 kg (141 lb 1.5 oz) 12/19/2024 64 kg (141 lb) 06/06/2024 64.7 kg (142 lb 10.2 oz) General Appearance: Well appearing, alert, in no acute distress, well-hydrated, well nourished.. Skin: Skin color, texture, turgor normal, no suspicious rashes or lesions. Head: Normocephalic, no masses, lesions, tenderness or abnormalities. Eyes: Anicteric sclera. Pupils are equally round and reactive to light. Extraocular movements are intact. . Ears: External ears, TM's normal, canals clear. Nose/Sinuses: Nares normal, septum midline, mucosa normal, no drainage or sinus tenderness. Oropharynx: Lips, mucosa, and tongue normal, teeth and gums normal, oropharynx normal. Neck: Supple, no adenopathy; thyroid symmetric, normal size, no bruits. Lungs: Lungs clear to auscultation. No wheezing, rhonchi, rales.. Heart: RRR without murmur, gallop, or rubs. No ectopy. Abdomen: Normal abdominal exam, Abdomen soft, non-tender. Bowel sounds normal. No masses, organomegaly. Extremities: No deformities, edema, skin discoloration, Good capillary refill. . Musculoskeletal: Muscular strength intact, No joint swelling, deformity, or tenderness. Peripheral Pulses: Normal. Neurologic: Gait normal. Reflexes normal and symmetric. Sensation grossly intact.. Health Maintenance List Advance Directive Discussion due on 10/08/2024 Medicare Advantage Annual Wellness Visit due on 10/08/2024 Depression Screening due on 05/26/2025 Anxiety Screening due on 05/26/2025 RSV Vaccine(1 - 1-dose 75+ series) due on 05/27/2026 Diabetes Screening due on 05/18/2028 DTaP,Tdap,Td Vaccine(4 - Td or Tdap) due on 05/28/2029 Bone Density Screening Completed Shingrix Vaccine Completed Pneumococcal Vaccine: 50+ Completed Mammogram Screening Discontinued Influenza Vaccine Discontinued Colorectal Cancer Screening Discontinued Hepatitis C Screening Discontinued Data reviewed Latest Ref Rng 05/26/2024 04/14/2025 05/18/2025 WBC 3.70 - 11.00 k/uL 9.06 8.05 RBC 3.90 - 5.20 m/uL 4.64 4.70 Hemoglobin 11.5 - 15.5 g/dL 13.4 13.7 Hematocrit 36.0 - 46.0 % 42.4 42.0 MCV 80.0 - 100.0 fL 91.4 89.4 MCH 26.0 - 34.0 pg 28.9 29.1 MCHC 30.5 - 36.0 g/dL 31.6 32.6 RDW-CV 11.5 - 15.0 % 13.3 13.4 Platelet Count 150 - 400 k/uL 230 243 MPV 9.0 - 12.7 fL 11.3 11.1 Neut% % 64.6 55.7 Abs Neut (ANC) 1.45 - 7.50 k/uL 5.85 4.49 Lymph% % 24.2 31.6 Abs Lymph 1.00 - 4.00 k/uL 2.19 2.54 Garden% % 8.8 10.2 Abs Garden <0.87 k/uL 0.80 0.82 Eosin% % 2.0 1.9 Abs Eosin <0.46 k/uL 0.18 0.15 Baso% % 0.2 0.2 Abs Baso <0.11 k/uL <0.03 <0.03 Immature Gran % % 0.2 0.4 IMMATURE GRANS (ABS) <0.10 k/uL <0.03 0.03 NRBC /100 WBC 0.0 0.0 Absolute nRBC <0.01 k/uL <0.01 <0.01 DTYPE Auto Auto Protein, Total 6.3 - 8.0 g/dL 6.9 6.3 Albumin 3.9 - 4.9 g/dL 4.3 4.1 Calcium 8.5 - 10.2 mg/dL 9.8 9.5 9.3 Bilirubin, Total 0.2 - 1.3 mg/dL 0.3 0.3 Alkaline Phosphatase 34 - 123 U/L 70 66 AST 13 - 35 U/L 17 17 ALT 7 - 38 U/L 13 12 Glucose 74 - 99 mg/dL 92 75 87 BUN 7 - 21 mg/dL 22 (H) 24 (H) 18 Creatinine 0.58 - 0.96 mg/dL 0.85 0.82 0.78 Sodium 136 - 144 mmol/L 140 142 139 Potassium 3.7 - 5.1 mmol/L 4.2 4.7 4.4 Chloride 98 - 107 mmol/L 104 107 104 CO2 22 - 30 mmol/L 24 25 24 Anion Gap 8 - 15 mmol/L 12 10 11 eGFR >=60 mL/min/1.73m 72 74 79 Total Cholesterol, Nonfasting <200 mg/dL 191 176 Triglycerides, Nonfasting <150 mg/dL 79 58 HDL Cholesterol, Nonfasting >39 mg/dL 69 69 LDL Cholesterol Calculated, Nonfasting <100 mg/dL 106 (H) 96 Non HDL Cholesterol, Nonfasting <130 mg/dL 122 107 VLDL Cholesterol, Nonfasting <30 mg/dL 16 9 Total Chol/HDL Ratio, Nonfasting <5.10 mg/dL 2.77 2.55 LDL/HDL Ratio, Nonfasting <2.54 mg/dL 1.54 1.39 TSH 0.270 - 4.200 mIU/L 1.860 1.260 Vitamin B12 232 - 1,245 pg/mL 400 Folate >4.7 ng/mL 6.4 FIB-4 Calculation: 1.47 at 04/14/2025 9:40 AM Calculated from: SGOT/AST: 17 U/L at 05/26/2024 3:30 PM SGPT/ALT: 13 U/L at 05/26/2024 3:30 PM Platelets: 243 k/uL at 04/14/2025 9:40 AM Age: 74 years Assessment and Plan 1. Medicare annual wellness visit, subsequent (Z00.00) Completed annual wellness visit; no acute concerns identified. - Reviewed and discussed lab results; all within normal limits. - Discussed importance of advance directives, including living will and durable power of finance attorney; patient expressed hesitancy to provide documentation. 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 - Follow-up in 1 year; labs to be completed 1-2 weeks prior to next visit. 2. Esophagitis (K20.90) 3. Collagenous colitis (K52.831) History of esophagitis and collagenous colitis; currently stable. - Discussed recent episode of diarrhea, which resolved after discontinuing Zyrtec. - Educated on potential side effects of antihistamines, including drowsiness and rare GI symptoms. - consult to general surgery. 4. Fatty liver (K76.0) Reviewed recent labs; no evidence of hepatic inflammation or fibrosis; fibrosis score 1.47, not concerning for age. - Continue annual monitoring of liver function and fibrosis risk. 5. Gallbladder polyp (K82.4) History of gallbladder polyp; no current issues. - Continue routine monitoring as indicated. 6. Osteopenia, senile (M85.80) History of osteopenia; due for repeat bone density scan. - Ordered repeat bone density scan. - Discussed importance of regular monitoring every 2 years. 7. History of colonic polyps (Z86.0100) 8. Family history of colon cancer (Z80.0) History of colonic polyps and family history of colon cancer; previous colonoscopy interval removed from health maintenance due to age over 75. - Discussed importance of continued colon cancer screening despite age. - Referral to Dr. Steele for colonoscopy. 9. Encounter for screening for diabetes mellitus (Z13.1) 10. Encounter for lipid screening for cardiovascular disease (Z13.220) Recent labs reviewed; glucose and lipid panel within normal limits. - Continue routine screening as per guidelines. 11. Encounter for screening examination for other mental health and behavioral disorders (Z13.39) 12. Screening for depression (Z13.31) F/u in a year or sooner if needed. Check CBC, CMP, Lipid, A1c Charles Smith MD I spent a total of 40 minutes on the date of the service which included preparing to see the patient, [id number] patient care, completing clinical documentation, performing a medically appropriate examination, counseling and educating the patient/family/caregiver and ordering medications, tests, or procedures. Recording using JDF software for draft documentation of the visit was discussed with the patient/authorized insurance follow up representative; all questions welcomed and answered. Patient/authorized insurance follow up representative agreed to proceed [1] Social History Tobacco Use Smoking status: Never Smokeless tobacco: Never Vaping Use Vaping status: Never Used Substance Use Topics Alcohol use: Yes Comment: One beer at night, helps clear sinuses Drug use: No documented in this encounter [facility] 05-27-2025 Note HNO ID: [id number] Author: CHARLES SMITH MD Service: ? Author Type: Physician Type: Progress Notes Filed: 05/27/2025 11:54 Note Text: Jeff Robbins is a 74 year old female here for a Medicare wellness visit. Medicare Health Risk Assessment General Health Very good Exercise: Minutes/Day 120 min Exercise: Days/Week 5 days Alcohol: Daily Use 4 or more times a week Alcohol: Drinks/Day 1 or 2 Alcohol: 6 or more drinks Never Feel off balance No Concerns: Teeth/Dentures No Concerns: Sexual function No Troubled by feelings None of the above Frequency: Eating healthy diet Nearly every day ADLs requiring help None of the above Safety precautions in home/vehicle No Smoke, vape, chews tobacco No Difficulty hearing No Difficulty seeing No Current Providers Specialists: I have reviewed specialist-related care of the patient in the medical record. Medical/Family history review Reviewed and updated problem list, medical/surgical/family/social history, medications, and allergies. Opioid use review Opioid Medications (last 90 days) No data to display Anxiety/Depression screening PHQ-9 Score: 0. TRAVIS-7 Score: 0. Recommendation: no further intervention at this time Cognitive screening Mini Cog Score: 5 Cognitive screening reviewed and No further action needed (score 3-5). Mini-Cog Patient asked to remember the following three words: Banana, [place] and Chair Visuospatial/Executive Functioning: Clock drawin/2 (Normal clock with all number in correct sequence and position, hands are correct = 2 points, inability or refusal to draw a clock = 0) Three word recall: 3/3 Total score: 5/5 (Total score = word recall score + clock draw score) Functional Observation Was the patient's Timed Up AND Go test unsteady or >= 12 seconds? No Advance Care Planning Surrogate decision maker and/or advance care plan documented Measurements BP 128/82 (BP Site: Left Arm, BP Position: Sitting, BP Cuff Size: Regular Adult) Pulse 64 Resp 16 Ht 165.7 cm (5' 5.25) Wt 64.2 kg (141 lb 8.6 oz) BMI 23.37 kg/m? Vision Screening: Follows with optometry/ophthalmology follows with annually. Assessment/Plan Medicare annual wellness visit, subsequent (Z00.00) - Counseled on healthy diet and regular exercise - Fall avoidance information provided - Personalized prevention plan provided See below Chief Complaint Patient presents with: Medicare Wellness Exam HPI Jeff Robbins is a 74 year old female who presents here today for a medicare wellness and a routine follow up. Patient with a Hx of esophagitis, fatty liver, gal bladder polyps colon polyps and had colonoscopy 2016 and due for repeat in 5 years. Patient has been doing well. Anna reports improvement in knee pain, which she describes as arthritic in nature. Initially, the pain was localized to a specific area, Medialy, but now it has dissipated. She is scheduled to see Dr. Lakhani next week and will undergo nerve studies starting Sunday. She has not had any surgeries in the last 2-3 years, with her last procedures being scopes. Anna also expresses concern about her colonoscopy schedule. She was previously uncomfortable with waiting 5 years for a colonoscopy and had a note sent to Dr. Bland regarding this. Since then, she has not heard back and her scheduled colonoscopy for next year is no longer listed. She has a history of colon polyps, cholangitis, and esophagitis. Additionally, her sister and niece have had difficult recoveries from pre-cancer surgeries. She denies recent fevers, frequent headaches, sudden changes in hearing or vision, issues with her nose or throat, lumps or swelling in her neck, wheezing, dyspnea, hemoptysis, chest pain, palpitations, leg swelling, hematochezia, hematuria, dysuria, skin lesions, rashes, sores, easy bruising or bleeding, changes in heat or cold tolerance, increased thirst, syncope, seizures, or tremors. She does report a recent episode of diarrhea lasting about a month, which resolved after discontinuing Zyrtec. She also notes feeling really tired during this period. She mentions that she is healing lots more slowly and attributes this to her age. Recent lab results show normal WBC count, no anemia, normal platelet count, normal electrolyte panel, normal liver function tests, and normal kidney function tests. Cholesterol levels are within normal limits, with triglycerides at 58, HDL at 69, and LDL at 96. Thyroid, B12, and folate levels were normal in April. Past medical history, appointments, medications, allergies reviewed. Previous Medical History PAST MEDICAL HISTORY Diagnosis Date Advance directive discussed with patient 04/24/2022 Discussed 04/2022 Chronic sinusitis 05/10/2023 Collagenous colitis 05/29/2022 Encounter for lipid screening for cardiovascular disease 05/26/2024 Esophagitis 05/29/2022 Family history of co (more content not included)... [facility] 04-23-2025 Telephone encounter Note Refaxed to [facility] as requested. Aram Dewey LPN [facility] 04-23-2025 Miscellaneous Notes Refaxed to [facility] as requested. Aram Dewey LPN Original order faxed 04/14/2025. Will have re-faxed. Patient called requesting to refax the order for a nerve test to [facility] (Patient called [facility] they said they have not received it yet) Please advise documented in this encounter [facility] 04-23-2025 Telephone encounter Note Original order faxed 04/14/2025. Will have re-faxed. [facility] 04-23-2025 Telephone encounter Note Patient called requesting to refax the order for a nerve test to [facility] (Patient called [facility] they said they have not received it yet) Please advise [facility] Work Phone: 04-22-2025 History of Present illness Narrative Radiology Service Progress Note PATIENT NAME: Jeff Robbins DATE OF SERVICE: April 22, 2025 TIME: 11:47 AM PATIENT IDENTITY VERIFICATION COMPLETED USING TWO (2) IDENTIFIERS: Name and Date of confirmed by patient verbally. FALL SCREENING: Has the patient had 2 falls in the last year or 1 fall with injury or currently using an Ambulatory Assistive Device (Walker, Cane, Wheelchair, Crutches, etc.)? No PATIENT GENDER DATA: Assigned female at . status: : No status: NO. PATIENT RELEVANT IMPLANT DATA REVIEWED: Yes PATIENT PRESENTS WITH AN IMPLANTABLE OR ATTACHED FASHION DIRECTOR: No RADIOLOGY DEPARTMENT: MR; Exam(s) Completed: Lower MSK: Knee, right . Aromatherapy Administered: No PERIPHERAL IV DATA: Not applicable SIGNED BY: RT Jeison(R) April 22, 2025 11:47 AM documented in this encounter [facility] 04-22-2025 Note HNO ID: [id number] Author: LOUISA GLASS RT(R) Service: ? Author Type: Technologist Type: Progress Notes Filed: 04/22/2025 11:47 Note Text: Radiology Service Progress Note PATIENT NAME: Jeff Robbins DATE OF SERVICE: April 22, 2025 TIME: 11:47 AM PATIENT IDENTITY VERIFICATION COMPLETED USING TWO (2) IDENTIFIERS: Name and Date of confirmed by patient verbally. FALL SCREENING: Has the patient had 2 falls in the last year or 1 fall with injury or currently using an Ambulatory Assistive Device (Walker, Cane, Wheelchair, Crutches, etc.)? No PATIENT GENDER DATA: Assigned female at . status: : No status: NO. PATIENT RELEVANT IMPLANT DATA REVIEWED: Yes PATIENT PRESENTS WITH AN IMPLANTABLE OR ATTACHED FASHION DIRECTOR: No RADIOLOGY DEPARTMENT: MR; Exam(s) Completed: Lower MSK: Knee, right . Aromatherapy Administered: No PERIPHERAL IV DATA: Not applicable SIGNED BY: RT Jeison(R) April 22, 2025 11:47 AM [facility] 04-15-2025 Telephone encounter Note Pt called and notified of results below from Provider. Pt verbalized understanding. Anita Mcdaniels MA [facility] 04-15-2025 Miscellaneous Notes Pt called and notified of results below from Provider. Pt verbalized understanding. Anita Mcdaniels MA Let patient know that her labs are all okay. BUN mildly elevated can be sign of dehydration. Roxie Galloway PA-C documented in this encounter [facility] 04-15-2025 Telephone encounter Note Let patient know that her labs are all okay. BUN mildly elevated can be sign of dehydration. Roxie Galloway PA-C [facility] Work Phone: 04-14-2025 Instructions Charles Smith MD - 04/14/2025 9:32 AM EDT We discussed your knee pain and swelling: - Physical therapy did not improve your knee pain or swelling. Your knee remains swollen, but I did not observe swelling in your lower leg or other areas. - I ordered an MRI of your knee to evaluate for potential meniscal tears or ligament issues that may not have been visible on your prior x-ray. The MRI will also help determine if your symptoms are due to arthritis or another cause. The front desk assistant will assist in scheduling the MRI, which is required before we can proceed with prior authorization. - Continue taking Tylenol for pain management. You may take: - Extra Strength Tylenol (500 mg): 2 tablets every 6 hours, up to a maximum of 4,000 mg per day. - Tylenol Arthritis (650 mg): 2 tablets three times daily, as directed on the bottle. - Tylenol is safer than ibuprofen for long-term use, as it does not increase the risk of stomach ulcers or kidney impairment. However, avoid exceeding the maximum daily dose, especially since you drink one glass of wine daily. This level of alcohol intake is generally safe with Tylenol. - Avoid taking ibuprofen regularly, as it may increase the risk of stomach ulcers and kidney issues with long-term use. We discussed numbness and tingling in your right arm and leg: - I ordered nerve studies for your upper extremities and right leg to determine the cause of your symptoms. These studies will help identify whether the numbness is due to a neck issue, carpal tunnel syndrome, or another condition. The orders have been sent to [facility], and they will contact you to schedule the test. - Blood work has been ordered to check for potential deficiencies or abnormalities that could contribute to your symptoms, including B12, folate, and thyroid function. You may complete these labs today if you have time, as fasting is not required. We discussed your recent fall: - You reported falling about a month ago, which caused brief, intense knee pain but no lasting increase in pain. The MRI will help determine if the fall caused any structural damage, such as a meniscal tear or bone bruise. We discussed your upcoming physical: - I placed an order for blood work for your physical exam next month. You may complete this lab work any time after May 18, closer to your appointment on May 27. Next steps: - Complete the blood work for B12, folate, and thyroid function at your convenience. - Schedule and complete the MRI of your knee. The front desk assistant will assist with scheduling, and prior authorization will be initiated once the MRI is scheduled. - [facility] will contact you to schedule the nerve studies for your arm and leg. - Continue taking Tylenol as directed for pain management and avoid regular use of ibuprofen. - Follow up with me after the MRI and nerve studies to review the results and discuss further treatment options. documented in this encounter [facility] 04-14-2025 History of Present illness Narrative Chief Complaint Patient presents with: Follow Up HPI Jeff Anna Robbins is a 74 year old female who presents here today for a follow up. Pt seen on 12/19/24 for acute pain of right knee with XR completed showing b/l osteoarthrosis right greater than left. Pt treated with a Prednisone taper course and referred to PT. Patient has completed 5 session of PT with no real improvement in her knee pain. Pain currently a 3/10, described as aching, swollen, radiating, sharp, shooting, and tightness. Is unable to recall if she had any improvement with use of Prednisone. Anna Robbins is a 74-year-old female presenting for evaluation of persistent right knee pain and swelling, as well as new onset of numbness and tingling in the right arm and leg. Anna reports worsening right knee pain and swelling despite undergoing physical therapy, which focused primarily on strengthening her legs. She notes that the swelling has not subsided and now involves her entire right leg and arm, which she first noticed a couple of weeks ago. She also reports numbness in her right arm and leg, which has been present for an unspecified duration but not as long as 6 months to a year. She denies any previous nerve studies on her arms or legs, only having had an x-ray. Approximately one month ago, Anna experienced a fall while working on erosion in a [place], which resulted in extreme but brief pain in her right knee. She denies falling on her shoulder during this incident. Since the fall, she has experienced intermittent pain radiating to her ankles and hips, as well as pain in the back of her hip. She is currently taking ibuprofen for pain management but expresses concern about potential side effects and inquires about alternative medications. She drinks one glass of wine daily and has an allergy to caffeine. Anna also reports tingling in her index and middle fingers bilaterally, which sometimes occurs while driving. She denies numbness in her hands at night. She inquires about the possibility of her symptoms being related to a previous diagnosis of cervical narrowing on the right side, which was diagnosed approximately 5 years ago. Past medical history, appointments, medications, allergies reviewed. Previous Medical History PAST MEDICAL HISTORY Diagnosis Date Advance directive discussed with patient 04/24/2022 Discussed 04/2022 Chronic sinusitis 05/10/2023 Collagenous colitis 05/29/2022 Encounter for lipid screening for cardiovascular disease 05/26/2024 Esophagitis 05/29/2022 Family history of colon cancer 10/12/2011 Family history of coronary artery disease 05/26/2024 Fatty liver 05/29/2022 Fibroids 03/25/2022 Gallbladder polyp 03/31/2022 Liver hemangioma 05/18/2022 Right lob Mass of left axilla 05/27/2015 Eval 2015 was benign Medicare annual wellness visit, subsequent 01/07/2018 Medicare part B: 07/08/2013 last done: 01/17/2019 Nuclear sclerosis of both eyes 12/19/2019 Osteopenia, senile 01/14/2018 Dexa: improved lumbar and right hip slightly worse in left hip. Personal history of colonic polyps Tinnitus of both ears 05/10/2023 Previous Surgical History PAST SURGICAL HISTORY Procedure Laterality Date COLONOSCOPY 05/09/2022 COLONOSCOPY FLX DX W/COLLJ SPEC WHEN PFRMD 2012 History of polyps COLONOSCOPY FLX DX W/COLLJ SPEC WHEN PFRMD 08/10/2017 Colonoscopy EGD 05/09/2022 HYSTEROSCOPY 01/02/2017 H/s D&C for PMB OTHER 1999 Sinus surgery TONSILLECTOMY HX Family History FAMILY HISTORY Problem Relation Age of Onset Heart Mother CHF Cancer Father Colon Heart Father Coronary Artery Disease Father 60's Diabetes Sister Asthma Sister Macular Degen Sister other (covid) Sister from this Colon Polyps Sister possible cancer at age 70 (05/2024) Osteoporosis Sister Cancer Brother 62 Colon Diabetes Brother Macular Degen Maternal Grandmother Patient Allergies ALLERGIES Allergen Reactions Amoxicillin Other: See Comments Sulfa (Sulfonamide * Swelling Current Medications Current Outpatient Medications on File Prior to Visit Medication Sig predniSONE (DELTASONE) 20 mg tablet Take 3 tabs by mouth for 3 days, then 2 tabs by mouth for 3 days, then 1 tab by mouth for 3 days and then 1/2 a tab by mouth for 4 days. (Patient not taking: Reported on 01/15/2025) EPINEPHrine (EPIPEN) 0.3 mg/0.3 mL auto-injector Take as directed on instructions with allergic reaction. cholecalciferol (VITAMIN D3) 5,000 unit tab Take 5,000 Units by mouth once daily. glucosamine/chondr bradley A sod (OSTEO BI-FLEX ORAL) Take by mouth once daily. PSEUDOEPHEDRINE HCL (SUDAFED ORAL) Take by mouth once daily. No current facility-administered medications on file prior to visit. Social History Social History Tobacco Use Smoking status: Never Smokeless tobacco: Never Vaping Use Vaping status: Never Used Substance Use Topics Alcohol use: Yes Comment: One beer at night, helps clear sinuses Drug use: No Review of Symptoms REVIEW OF SYSTEMS SEE HPI EXAM: BP 148/84 (BP Site: Right Arm, BP Position: Sitting, BP Cuff Size: Regular Adult) Pulse 66 Resp 16 Wt 64.8 kg (142 lb 12.8 oz) BMI 23.05 kg/m General Appearance: Well appearing, alert, in no acute distress, well-hydrated, well nourished.. Extremities: No deformities, skin discoloration, Good capillary refill. There is no notable swelling in her right upper extremity or right lower extremity except for in the knee joint area itself. Measurement of the right and left upper arms were off by 0.5 cm and similarly in the legs. Musculoskeletal: Neck: ROM ok and strength normal against resistance. Axial compression test neg. Upper extremity strength testing normal and symmetrical. Injection Molder strength good. Right knee exam: some knee swelling but no effusion. MCL, LCL, ACL and PCL tight with good end point. Gaby testing was negative. No reproducible joint pain. Peripheral Pulses: Normal. Neurologic: Gait normal. Sensation to light touch in the upper and lower extremities were normal and symmetrical. Tinel's test neg on both sides. Phalen's test positive in the 2nd and 3rd fingers branden. Health Maintenance List Advance Directive Discussion due on 10/08/2024 Medicare Advantage Annual Wellness Visit due on 10/08/2024 RSV Vaccine(1 - 1-dose 75+ series) due on 05/26/2025 Depression Screening due on 05/26/2025 Anxiety Screening due on 05/26/2025 Diabetes Screening due on 04/14/2028 DTaP,Tdap,Td Vaccine(4 - Td or Tdap) due on 05/28/2029 Bone Density Screening Completed Shingrix Vaccine Completed Pneumococcal Vaccine: 50+ Completed Mammogram Screening Discontinued Influenza Vaccine Discontinued Colorectal Cancer Screening Discontinued Hepatitis C Screening Discontinued Covid-19 Vaccine Discontinued Data reviewed Results XR KNEE GENERAL 4V AP BOTH/PA BOTH/LAT/MERC BILATERAL (Acc#[id number]) (Order [id number]) Patient Info Patient Name Sex Jeff Ugalde ([id number]) Female 1950 12/24/2024 10:06 AM - Radiology, [place] In Impression IMPRESSION: Bilateral osteoarthrosis, right greater than left Nylon Hot Wire Cutter: GUNJAN Transcribe Date/Time: Dec 24 2024 10:02A Dictated by : SALMA ERVIN MD This examination was interpreted and the report reviewed and electronically signed by: SALMA ERVIN MD on Dec 24 2024 10:04AM EST Results-Findings * * *Final Report* * * DATE OF EXAM: Dec 19 2024 12:42PM WOX [id number] - XR KNEE 4V AP/PA/LAT/MERCH BRANDEN / PROCEDURE REASON: Acute pain of right knee * * * * Physician Interpretation * * * * PROCEDURE: Bilateral knees INDICATION: Acute pain of right knee .stepped in a hole in Nov. Pain medial side of right knee only TECHNIQUE: XR KNEE 4V AP/PA/LAT/MERCH BRANDEN COMPARISON: None FINDINGS: Right: Advanced medial and mild patellofemoral joint compartment osteoarthritis. No fracture or dislocation. No joint effusion. Left: Mild to moderate medial joint compartment narrowing. No fracture or dislocation. No joint effusion. Assessment and Plan 1. Acute pain of right knee (M25.561) Persistent pain and swelling in the right knee despite physical therapy. X-ray showed signs of arthritis. - Ordered MRI of the right knee to evaluate for potential meniscal tear or ligamentous injury. - Scheduled MRI through the front desk assistant to initiate prior authorization. - Educated patient on the use of Tylenol for pain management, discussing its safety profile compared to NSAIDs like ibuprofen, especially given the patient's daily alcohol consumption. 2. Numbness and tingling of both upper extremities (R20.0) Numbness and tingling of right lower extremity (R20.0) Recent onset of numbness and tingling in both upper extremities and right lower extremity. Differential diagnoses include cervical radiculopathy, carpal tunnel syndrome, lumbar radiculopathy, or peripheral neuropathy. - Ordered nerve conduction studies for upper extremities and right leg to be performed at [facility]. - Ordered blood tests for B12, folate, BMP, CBC and thyroid function to rule out deficiencies. - Discussed potential causes and treatment options, including physical therapy if nerve studies indicate radiculopathy. 3. Fatty liver (K76.0) - check CMP 4. Encounter for screening for diabetes mellitus (Z13.1) - check A1c 5. Encounter for lipid screening for cardiovascular disease (Z13.220) - check Lipid Conservative management with PHYSICAL THERAPY for last 8-10 weeks produced no improvement. Therefore need further eval with MRI to assess for internal derangement. Charles Smith MD I spent a total of 35 minutes on the date of the service which included preparing to see the patient, [id number] patient care, completing clinical documentation, performing a medically appropriate examination, counseling and educating the patient/family/caregiver and ordering medications, tests, or procedures. Recording using JDF software for draft documentation of the visit was discussed with the patient/authorized insurance follow up representative; all questions welcomed and answered. Patient/authorized insurance follow up representative agreed to proceed documented in this encounter [facility] 04-14-2025 Note HNO ID: [id number] Author: CHARLES SMITH MD Service: ? Author Type: Physician Type: Progress Notes Filed: 04/14/2025 22:00 Note Text: Chief Complaint Patient presents with: Follow Up HPI Jeff Anna Robbins is a 74 year old female who presents here today for a follow up. Pt seen on 12/19/24 for acute pain of right knee with XR completed showing b/l osteoarthrosis right greater than left. Pt treated with a Prednisone taper course and referred to PT. Patient has completed 5 session of PT with no real improvement in her knee pain. Pain currently a 3/10, described as aching, swollen, radiating, sharp, shooting, and tightness. Is unable to recall if she had any improvement with use of Prednisone. Anna Robbins is a 74-year-old female presenting for evaluation of persistent right knee pain and swelling, as well as new onset of numbness and tingling in the right arm and leg. Anna reports worsening right knee pain and swelling despite undergoing physical therapy, which focused primarily on strengthening her legs. She notes that the swelling has not subsided and now involves her entire right leg and arm, which she first noticed a couple of weeks ago. She also reports numbness in her right arm and leg, which has been present for an unspecified duration but not as long as 6 months to a year. She denies any previous nerve studies on her arms or legs, only having had an x-ray. Approximately one month ago, Anna experienced a fall while working on erosion in a [place], which resulted in extreme but brief pain in her right knee. She denies falling on her shoulder during this incident. Since the fall, she has experienced intermittent pain radiating to her ankles and hips, as well as pain in the back of her hip. She is currently taking ibuprofen for pain management but expresses concern about potential side effects and inquires about alternative medications. She drinks one glass of wine daily and has an allergy to caffeine. Anna also reports tingling in her index and middle fingers bilaterally, which sometimes occurs while driving. She denies numbness in her hands at night. She inquires about the possibility of her symptoms being related to a previous diagnosis of cervical narrowing on the right side, which was diagnosed approximately 5 years ago. Past medical history, appointments, medications, allergies reviewed. Previous Medical History PAST MEDICAL HISTORY Diagnosis Date Advance directive discussed with patient 04/24/2022 Discussed 04/2022 Chronic sinusitis 05/10/2023 Collagenous colitis 05/29/2022 Encounter for lipid screening for cardiovascular disease 05/26/2024 Esophagitis 05/29/2022 Family history of colon cancer 10/12/2011 Family history of coronary artery disease 05/26/2024 Fatty liver 05/29/2022 Fibroids 03/25/2022 Gallbladder polyp 03/31/2022 Liver hemangioma 05/18/2022 Right lob Mass of left axilla 05/27/2015 Eval 2015 was benign Medicare annual wellness visit, subsequent 01/07/2018 Medicare part B: 07/08/2013 last done: 01/17/2019 Nuclear sclerosis of both eyes 12/19/2019 Osteopenia, senile 01/14/2018 Dexa: improved lumbar and right hip slightly worse in left hip. Personal history of colonic polyps Tinnitus of both ears 05/10/2023 Previous Surgical History PAST SURGICAL HISTORY Procedure Laterality Date COLONOSCOPY 05/09/2022 COLONOSCOPY FLX DX W/COLLJ SPEC WHEN PFRMD 2012 History of polyps COLONOSCOPY FLX DX W/COLLJ SPEC WHEN PFRMD 08/10/2017 Colonoscopy EGD 05/09/2022 HYSTEROSCOPY 01/02/2017 H/s DANDC for PMB OTHER 1998 Sinus surgery TONSILLECTOMY HX Family History FAMILY HISTORY Problem Relation Age of Onset Heart Mother CHF Cancer Father Colon Heart Father Coronary Artery Disease Father 60's Diabetes Sister Asthma Sister Macular Degen Sister other (covid) Sister from this Colon Polyps Sister possible cancer at age 70 (05/2024) Osteoporosis Sister Cancer Brother 62 Colon Diabetes Brother Macular Degen Maternal Grandmother Patient Allergies ALLERGIES Allergen Reactions Amoxicillin Other: See Comments Sulfa (Sulfonamide * Swelling Current Medications Current Outpatient Medications on File Prior to Visit Medication Sig predniSONE (DELTASONE) 20 mg tablet Take 3 tabs by mouth for 3 days, then 2 tabs by mouth for 3 days, then 1 tab by mouth for 3 days and then 1/2 a tab by mouth for 4 days. (Patient not taking: Reported on 01/15/2025) EPINEPHrine (EPIPEN) 0.3 mg/0.3 mL auto-injector Take as directed on instructions with allergic reaction. cholecalciferol (VITAMIN D3) 5,000 unit tab Take 5,000 Units by mouth once daily. glucosamine/chondr bradley A sod (OSTEO BI-FLEX ORAL) Take by mouth once daily. PSEUDOEPHEDRINE HCL (SUDAFED ORAL) Take by mouth once daily. No current facility-administered medications on file prior to visit. Social History Social History Tobac (more content not included)... [facility] 03-30-2025 Note HNO ID: [id number] Author: DEVIKA FONTANEZ OD Service: ? Author Type: SCHOLASTIC APTITUDE TEST GRADER Type: Progress Notes Filed: 03/30/2025 09:39 Note Text: 1. Combined forms of age-related cataract of both eyes (Primary) Mild visual significance Monitor 2. Myopia, bilateral 3. Regular astigmatism of both eyes 4. Presbyopia Continue with current glasses 5. Vitreous floaters of both eyes Mild Warned patient about signs/symptoms of retinal pathology and to call immediately with any sudden increase in flashes/floaters or curtain/veil over vision Follow-up in 1 year for complete eye exam Devika Fontanez, OD March 30, 2025 9:39 AM [facility] 03-30-2025 History of Present illness Narrative 1. Combined forms of age-related cataract of both eyes (Primary) Mild visual significance Monitor 2. Myopia, bilateral 3. Regular astigmatism of both eyes 4. Presbyopia Continue with current glasses 5. Vitreous floaters of both eyes Mild Warned patient about signs/symptoms of retinal pathology and to call immediately with any sudden increase in flashes/floaters or curtain/veil over vision Follow-up in 1 year for complete eye exam Devika Fontanez, MARCOS March 30, 2025 9:39 AM documented in this encounter [facility] 02-09-2025 Note HNO ID: [id number] Author: RIGO BYRNE PT Service: ? Author Type: Physical Therapist Type: Progress Notes Filed: 02/09/2025 11:25 Note Text: Episode Visit Count: 5 Therapist That Will Accept/Oversee The Plan Of Care: Rigo Byrne PT. Start of Care Date: 12/30/24 Onset Date: 08/08/24 Plan of Care Certification Date: 02/09/25 Next Certification Due Date: 02/13/25 Patient Identified by Name and Date of : Yes REHABILITATION AND SPORTS THERAPY PHYSICAL THERAPY PROGRESS REPORT AND DISCONTINUANCE OF CARE PLAN OF CARE UPDATE: Assessment: Jeff Robbins is discontinued from Physical Therapy services due to goal achievement.. Patient was seen for 5 visits from Start of Care Date: 12/30/24 to 02/09/2025 and treatment included: Therapeutic exercise and Self-usp management. Updated 02/09/25 Goals for Episode of Care: established 12/30/24 [place] in home exercise program.(Goal Met) Increase active ROM of R Knee to equal to Left Side to allow pt to to improve performance of ADLs. (Goal Met) Patient will demonstrate increase in R Hip/Knee strength to 5/5 on MMT AND Bilat on HHD testing in order to improve function for home management tasks, leisure / recreation skills, light functional tasks, and prior functional tasks. (Goal Met) Patient will increase flexibility of B HS AND Quads to WNL to decrease pain. Patient will endorse performance of pain-free functional activity of squatting, standing, walking and stairs. (Goal Met) Sleep through night without pain/symptoms. (Goal Met) Patient Goals: Alleviate Pain. (Goal Met) SUBJECTIVE: Patient reports she has any of her HEP due to being on vacation the last 1.5 weeks. Reports PT helps her understand her pathology and issue; states the exercises do help and them helping give her an incentive to keep up with them. States she is moderately to significantly better with R Knee pain and function. Working outside has been better for her and she can tolerate more.. Pain: Pain Pain Level: 0 Pain Location: Knee - Right Post Treatment Pain Post Treatment Pain Level: No Change Post Treatment Pain Location: Knee - Right PROMIS Scales 02/09/2025 12/30/2024 Higher is Better Phys Func - T Score 55 (within normal limits) 49 (within normal limits) Phys Func - Percentile 69 46 Self-Eff Symptom - T Score 51 (Average) 44 (Average) Self-Eff Symptom - Percentile 54 27 Proxy-reported T-scores: mean of general population = 50. 5 points is clinically meaningfully difference Percentiles provide an indication of how the patient's score ranks in relation to the general population. Higher percentile rankings indicate better function/quality of life. 50th percentile is the average of the general population and indicates half of respondents had a worse score. OBJECTIVE MEASURES WITH LEVEL OF FUNCTION: LE AROM R Knee Extension: 1 Degrees R Knee Flexion: 135 Degrees L Knee Extension: 1 Degrees L Knee Flexion: 135 Degrees LE Flexibility R Hamstring Flexibility: WNL L Hamstring Flexibility: WNL R Quadriceps Flexibility: WNL L Quadriceps Flexibility: WNL LE Strength R LE Strength: Grossly 5/5 L LE Strength: Grossly 5/5 R Hip Flexion (L2): (20 SLR without lag.) Dynamometer Strength Right Quadriceps Strength (lbs): 24.8 Left Quadriceps Strength (lbs): 23.6 Quad Strength Limb Symmetry Index (%): 105.08 Right Hamstring Strength (lbs): 21.6 Left Hamstring Strength (lbs): 20.9 Hamstring Strength Limb Symmetry Index(%): 103.35 Gait Gait Observation: Unremarkable Stairs: Reciprocal, WNL. Functional Performance Test Results 30 Second Chair Stand Test: 18 reps 5 Times Sit to Stand Test : 7.15 sec TREATMENT: Therapeutic Exercise: 1: Re-assessment and objectives collected. 2: Pt. condition and goals assessed. HEP was reviewed and the patient was instructed to continue with HEP to tolerance. 3: Discussed patient can complete HEP 3-4x a week, however she should not stop the exercises, cresencio. since they help her feel better and OA is a lifelong condition. Patient reports understanding. 4: Educated on modification of activities as able, and modification of ADLs/IADLs. Skilled Intervention: Patient was educated in proper exercise technique and purpose for exercises. Reviewed and educated patient on additions/changes for home exercise program as above (*). Skilled judgment was used in selection of appropriate interventions. Provided written instruction for home exercise program to facilitate proper performance and compliance. Patient education as noted. Billing Therapeutic Exercise Treatment Minutes: 25 Skilled Treatment Time Minutes (timed and untimed codes): 25 Total Session Time (minutes): 25 Session Start Time : 1047 Session Stop Time : 1112 Rigo Byrne PT [facility] 02-09-2025 History of Present illness Narrative Images from the original note were not included. Episode Visit Count: 5 Therapist That Will Accept/Oversee The Plan Of Care: Rigo Byrne PT. Start of Care Date: 12/30/24 Onset Date: 08/08/24 Plan of Care Certification Date: 02/09/25 Next Certification Due Date: 02/13/25 Patient Identified by Name and Date of : Yes REHABILITATION AND SPORTS THERAPY PHYSICAL THERAPY PROGRESS REPORT & DISCONTINUANCE OF CARE PLAN OF CARE UPDATE: Assessment: Jeff Robbins is discontinued from Physical Therapy services due to goal achievement.. Patient was seen for 5 visits from Start of Care Date: 12/30/24 to 02/09/2025 and treatment included: Therapeutic exercise and Self-usp management. Updated 02/09/25 Goals for Episode of Care: established 12/30/24 [place] in home exercise program.(Goal Met) Increase active ROM of R Knee to equal to Left Side to allow pt to to improve performance of ADLs. (Goal Met) Patient will demonstrate increase in R Hip/Knee strength to 5/5 on MMT & Bilat on HHD testing in order to improve function for home management tasks, leisure / recreation skills, light functional tasks, and prior functional tasks. (Goal Met) Patient will increase flexibility of B HS & Quads to WNL to decrease pain. Patient will endorse performance of pain-free functional activity of squatting, standing, walking and stairs. (Goal Met) Sleep through night without pain/symptoms. (Goal Met) Patient Goals: Alleviate Pain. (Goal Met) SUBJECTIVE: Patient reports she has any of her HEP due to being on vacation the last 1.5 weeks. Reports PT helps her understand her pathology and issue; states the exercises do help and them helping give her an incentive to keep up with them. States she is moderately to significantly better with R Knee pain and function. Working outside has been better for her and she can tolerate more.. Pain: Pain Pain Level: 0 Pain Location: Knee - Right Post Treatment Pain Post Treatment Pain Level: No Change Post Treatment Pain Location: Knee - Right PROMIS Scales 02/09/2025 12/30/2024 Higher is Better Phys Func - T Score 55 (within normal limits) 49 (within normal limits) Phys Func - Percentile 69 46 Self-Eff Symptom - T Score 51 (Average) 44 (Average) Self-Eff Symptom - Percentile 54 27 Proxy-reported T-scores: mean of general population = 50. 5 points is clinically meaningfully difference Percentiles provide an indication of how the patient's score ranks in relation to the general population. Higher percentile rankings indicate better function/quality of life. 50th percentile is the average of the general population and indicates half of respondents had a worse score. OBJECTIVE MEASURES WITH LEVEL OF FUNCTION: LE AROM R Knee Extension: 1 Degrees R Knee Flexion: 135 Degrees L Knee Extension: 1 Degrees L Knee Flexion: 135 Degrees LE Flexibility R Hamstring Flexibility: WNL L Hamstring Flexibility: WNL R Quadriceps Flexibility: WNL L Quadriceps Flexibility: WNL LE Strength R LE Strength: Grossly 5/5 L LE Strength: Grossly 5/5 R Hip Flexion (L2): (20 SLR without lag.) Dynamometer Strength Right Quadriceps Strength (lbs): 24.8 Left Quadriceps Strength (lbs): 23.6 Quad Strength Limb Symmetry Index (%): 105.08 Right Hamstring Strength (lbs): 21.6 Left Hamstring Strength (lbs): 20.9 Hamstring Strength Limb Symmetry Index(%): 103.35 Gait Gait Observation: Unremarkable Stairs: Reciprocal, WNL. Functional Performance Test Results 30 Second Chair Stand Test: 18 reps 5 Times Sit to Stand Test : 7.15 sec TREATMENT: Therapeutic Exercise: 1: Re-assessment and objectives collected. 2: Pt. condition and goals assessed. HEP was reviewed and the patient was instructed to continue with HEP to tolerance. 3: Discussed patient can complete HEP 3-4x a week, however she should not stop the exercises, cresencio. since they help her feel better and OA is a lifelong condition. Patient reports understanding. 4: Educated on modification of activities as able, and modification of ADLs/IADLs. Skilled Intervention: Patient was educated in proper exercise technique and purpose for exercises. Reviewed and educated patient on additions/changes for home exercise program as above (*). Skilled judgment was used in selection of appropriate interventions. Provided written instruction for home exercise program to facilitate proper performance and compliance. Patient education as noted. Billing Therapeutic Exercise Treatment Minutes: 25 Skilled Treatment Time Minutes (timed and untimed codes): 25 Total Session Time (minutes): 25 Session Start Time : 1047 Session Stop Time : 1112 Rigo Byrne PT documented in this encounter [facility] 01-26-2025 History of Present illness Narrative Program_ID:[id number] Access Code: [email or web address] URL: [email or web address] Date: 01-26-2025 Prepared By: Rigo Byrne Program Notes Exercises - Sidelying Hip Abduction - 2 x daily - 7 x weekly - 2-3 sets - 8-10 reps - Active Straight Leg Raise with Quad Set - 2 x daily - 7 x weekly - 2-3 sets - 10 reps - Standing Hamstring Stretch with Step - 2 x daily - 7 x weekly - sets - 3-4 reps - Supine Heel Slide with Strap - 2 x daily - 7 x weekly - 2 sets - 10-15 reps - Long Sitting 4 Way Patellar Huggins - 1-2 x daily - 7 x weekly - 2 sets - 10 reps - Standing Knee Flexion AROM with Chair Support - 2 x daily - 7 x weekly - 3 sets - 10 reps - Seated Long Arc Quad - 1 x daily - 7 x weekly - 2-3 sets - 10 reps - Standing Hip Abduction with Counter Support - 1 x daily - 7 x weekly - 2-3 sets - 10 reps - Standing Hip Extension with Counter Support - 1 x daily - 7 x weekly - 2-3 sets - 10 reps - Sit to Stand Without Arm Support - 1 x daily - 7 x weekly - 2-3 sets - 10 reps Episode Visit Count: 4 Therapist That Will Accept/Oversee The Plan Of Care: Rigo Byrne PT. Start of Care Date: 12/30/24 Onset Date: 08/08/24 Plan of Care Certification Date: 12/30/24 Next Certification Due Date: 02/06/25 Patient Identified by Name and Date of : Yes REHABILITATION AND SPORTS THERAPY PHYSICAL THERAPY TREATMENT NOTE ASSESSMENT: Jeff Robbins tolerated the session with fatigue and expected muscle soreness. She demonstrated improvements in rationale for each exercise. The patient will continue to benefit from ongoing skilled physical therapy to progress toward set goals. PLAN FOR NEXT VISIT: Asses how exercises went while on vacation. SUBJECTIVE: Pt reports that her R knee hurts, but it is feeling better. Hurts more with movement, stairs included. Pt is leaving for a 2 week vaction. Pain: Pain Pain Level: 2 Pain Location: Knee - Right Description: Sharp Frequency: With movement OBJECTIVE MEASURES WITH LEVEL OF FUNCTION: Swelling in R knee. TREATMENT: Therapeutic Exercise: 1: Stationary Upright Bike: 4.5 Min, level 4., seat # 8 (1:1 throughout. Discussed current HEP.) 2: 6in R FWD BRADLEY: 3x10. 3: *Standing hip abduction 2x10 RLE 4: *Standing hip extension 2x10 RLE 5: * LAQ 3x10 RLE 6: *STS 2x10 without use of hands 7: Standing HS curls 3x10 RLE 8: 6in R Lat BRADLEY: 3x10. 9: Step dpwns on 4 inch step 2x10 RLE Skilled Intervention: Patient was educated in proper exercise technique and purpose for exercises. Reviewed and educated patient on additions/changes for home exercise program as above (*). Skilled judgment was used in selection of appropriate interventions. Provided written instruction for home exercise program to facilitate proper performance and compliance. Correct performance of therapeutic exercises was facilitated with verbal and visual cuing. Billing Therapeutic Exercise Treatment Minutes: 39 Skilled Treatment Time Minutes (timed and untimed codes): 39 Total Session Time (minutes): 39 Session Start Time : 1015 Session Stop Time : 1054 GEMMA Hilliard PT, DPT. documented in this encounter [facility] 01-26-2025 Note HNO ID: [id number] Author: RIGO BYRNE PT Service: ? Author Type: Physical Therapist Type: Progress Notes Filed: 01/26/2025 11:13 Note Text: Episode Visit Count: 4 Therapist That Will Accept/Oversee The Plan Of Care: Rigo Byrne PT. Start of Care Date: 12/30/24 Onset Date: 08/08/24 Plan of Care Certification Date: 12/30/24 Next Certification Due Date: 02/06/25 Patient Identified by Name and Date of : Yes REHABILITATION AND SPORTS THERAPY PHYSICAL THERAPY TREATMENT NOTE ASSESSMENT: Jeff Robbins tolerated the session with fatigue and expected muscle soreness. She demonstrated improvements in rationale for each exercise. The patient will continue to benefit from ongoing skilled physical therapy to progress toward set goals. PLAN FOR NEXT VISIT: Asses how exercises went while on vacation. SUBJECTIVE: Pt reports that her R knee hurts, but it is feeling better. Hurts more with movement, stairs included. Pt is leaving for a 2 week vaction. Pain: Pain Pain Level: 2 Pain Location: Knee - Right Description: Sharp Frequency: With movement OBJECTIVE MEASURES WITH LEVEL OF FUNCTION: Swelling in R knee. TREATMENT: Therapeutic Exercise: 1: Stationary Upright Bike: 4.5 Min, level 4., seat # 8 (1:1 throughout. Discussed current HEP.) 2: 6in R FWD BRADLEY: 3x10. 3: *Standing hip abduction 2x10 RLE 4: *Standing hip extension 2x10 RLE 5: * LAQ 3x10 RLE 6: *STS 2x10 without use of hands 7: Standing HS curls 3x10 RLE 8: 6in R Lat BRADLEY: 3x10. 9: Step dpwns on 4 inch step 2x10 RLE Skilled Intervention: Patient was educated in proper exercise technique and purpose for exercises. Reviewed and educated patient on additions/changes for home exercise program as above (*). Skilled judgment was used in selection of appropriate interventions. Provided written instruction for home exercise program to facilitate proper performance and compliance. Correct performance of therapeutic exercises was facilitated with verbal and visual cuing. Billing Therapeutic Exercise Treatment Minutes: 39 Skilled Treatment Time Minutes (timed and untimed codes): 39 Total Session Time (minutes): 39 Session Start Time : 1015 Session Stop Time : 1054 Bessy Castano, GEMMA Byrne, PT, DPT. [facility] 01-19-2025 History of Present illness Narrative Program_ID:[id number] Access Code: [email or web address] URL: [email or web address] Date: 01-19-2025 Prepared By: Rigo Byrne Program Notes Exercises - Sidelying Hip Abduction - 2 x daily - 7 x weekly - 2-3 sets - 8-10 reps - Active Straight Leg Raise with Quad Set - 2 x daily - 7 x weekly - 2-3 sets - 10 reps - Standing Hamstring Stretch with Step - 2 x daily - 7 x weekly - sets - 3-4 reps - Supine Heel Slide with Strap - 2 x daily - 7 x weekly - 2 sets - 10-15 reps - Long Sitting 4 Way Patellar Huggins - 1-2 x daily - 7 x weekly - 2 sets - 10 reps - Standing Knee Flexion AROM with Chair Support - 2 x daily - 7 x weekly - 3 sets - 10 reps Episode Visit Count: 3 Therapist That Will Accept/Oversee The Plan Of Care: Rigo Byrne PT. Start of Care Date: 12/30/24 Onset Date: 08/08/24 Plan of Care Certification Date: 12/30/24 Next Certification Due Date: 02/06/25 REHABILITATION AND SPORTS THERAPY PHYSICAL THERAPY TREATMENT NOTE ASSESSMENT: Jeff Robbins tolerated the session with expected muscle soreness. She demonstrated improvements in R SLR without quad lag or fatigue. The patient will continue to benefit from ongoing skilled physical therapy to progress toward set goals. PLAN FOR NEXT VISIT: Progress OC Knee Stability Exercises. SUBJECTIVE: Reports everything else with the R Knee is better. Doing better than she was when she began PT. Slight bothersome right under the knee cap and medial knee. States not there all the time, however it is the only thing bothering me right now. Pain: Pain Pain Level: 1 Pain Location: Knee - Right Description: Dull Post Treatment Pain Post Treatment Pain Level: No Change Post Treatment Pain Location: Knee - Right Post Treatment Pain Description: Sore OBJECTIVE MEASURES WITH LEVEL OF FUNCTION: LE AROM R Knee Flexion: 135 Degrees TREATMENT: Therapeutic Exercise: 1: Stationary Upright Bike: 4.5 Min, level 4. (Discussed purpose of exercise.) 2: R Tibiofemoral Distraction: 2x3 Min. 3: R SLR: 3x12, 2#. 4: R SLR Hovers over object: 2x10 each way. 5: 6in R FWD BRADLEY: 2x10. 6: 6in R Lat BRADLEY: 2x10. 7: R Prostretch: 4x30. 8: *R HS Curl in Standinx10. 9: R ABD in Standinx10. 10: Discussed staitionary bike vs. treadmill at home as it relates to knee health and mobility. Skilled Intervention: Patient was educated in proper exercise technique and purpose for exercises. Reviewed and educated patient on additions/changes for home exercise program as above (*). Skilled judgment was used in selection of appropriate interventions. Provided written instruction for home exercise program to facilitate proper performance and compliance. Correct performance of therapeutic exercises was facilitated with verbal and tactile cuing. Billing Therapeutic Exercise Treatment Minutes: 42 Skilled Treatment Time Minutes (timed and untimed codes): 42 Total Session Time (minutes): 42 Session Start Time : 1044 Session Stop Time : 1126 Rigo Byrne PT documented in this encounter [facility] 01-19-2025 Note HNO ID: [id number] Author: RIGO BYRNE PT Service: ? Author Type: Physical Therapist Type: Progress Notes Filed: 01/19/2025 11:29 Note Text: Episode Visit Count: 3 Therapist That Will Accept/Oversee The Plan Of Care: Rigo Byrne PT. Start of Care Date: 12/30/24 Onset Date: 08/08/24 Plan of Care Certification Date: 12/30/24 Next Certification Due Date: 02/06/25 REHABILITATION AND SPORTS THERAPY PHYSICAL THERAPY TREATMENT NOTE ASSESSMENT: Jeff Robbins tolerated the session with expected muscle soreness. She demonstrated improvements in R SLR without quad lag or fatigue. The patient will continue to benefit from ongoing skilled physical therapy to progress toward set goals. PLAN FOR NEXT VISIT: Progress OC Knee Stability Exercises. SUBJECTIVE: Reports everything else with the R Knee is better. Doing better than she was when she began PT. Slight bothersome right under the knee cap and medial knee. States not there all the time, however it is the only thing bothering me right now. Pain: Pain Pain Level: 1 Pain Location: Knee - Right Description: Dull Post Treatment Pain Post Treatment Pain Level: No Change Post Treatment Pain Location: Knee - Right Post Treatment Pain Description: Sore OBJECTIVE MEASURES WITH LEVEL OF FUNCTION: LE AROM R Knee Flexion: 135 Degrees TREATMENT: Therapeutic Exercise: 1: Stationary Upright Bike: 4.5 Min, level 4. (Discussed purpose of exercise.) 2: R Tibiofemoral Distraction: 2x3 Min. 3: R SLR: 3x12, 2#. 4: R SLR Hovers over object: 2x10 each way. 5: 6in R FWD BRADLEY: 2x10. 6: 6in R Lat BRADLEY: 2x10. 7: R Prostretch: 4x30. 8: *R HS Curl in Standinx10. 9: R ABD in Standinx10. 10: Discussed staitionary bike vs. treadmill at home as it relates to knee health and mobility. Skilled Intervention: Patient was educated in proper exercise technique and purpose for exercises. Reviewed and educated patient on additions/changes for home exercise program as above (*). Skilled judgment was used in selection of appropriate interventions. Provided written instruction for home exercise program to facilitate proper performance and compliance. Correct performance of therapeutic exercises was facilitated with verbal and tactile cuing. Billing Therapeutic Exercise Treatment Minutes: 42 Skilled Treatment Time Minutes (timed and untimed codes): 42 Total Session Time (minutes): 42 Session Start Time : 1044 Session Stop Time : 1126 Rigo Byrne, PT [facility] 01-15-2025 Note HNO ID: [id number] Author: RAQUEL JORGE PA-C Service: ? Author Type: Physician Children Counselor Type: Progress Notes Filed: 01/15/2025 16:59 Note Text: This note was created using NoteWriter. Subjective Jeff Robbins is a 74 year old female. Patient is a 74-year-old female who complains of bilateral ear fullness and decreased hearing acuity that she states has been present for approximately the past 3 weeks. Patient reports no congestion, sinus pressure or other illness symptoms. Patient does not believe that she has a history of cerumen impaction and recalls no previous episodes of ear irrigation. Ear Problem Associated symptoms include hearing loss. Review of Systems HENT: Positive for ear pain and hearing loss. All other systems reviewed and are negative. Objective BP 124/87 Pulse 65 Temp 36.4 ?C (97.6 ?F) Resp 18 Wt 64 kg (141 lb 1.5 oz) SpO2 100% BMI 22.77 kg/m? Physical Exam Vitals and nursing note reviewed. Constitutional: Appearance: Normal appearance. She is normal weight. HENT: Head: Normocephalic and atraumatic. Right Ear: Tympanic membrane, ear canal and external ear normal. Left Ear: Tympanic membrane, ear canal and external ear normal. Ears: Comments: There is a partial cerumen impaction to the inferior aspect the left external canal. The superior half of the left tympanic membrane is clearly visualized with good color and no evidence of erythema. There appears to be slightly hardened, dry cerumen occluding the inferior half of the left tympanic membrane. Left external canal is otherwise clear with no edema and the patient experienced no tenderness with speculum insertion and otic exam. There was a slight degree of cerumen accumulation noted to the right external canal and the right tympanic membrane is noted to be clear with excellent color and light reflex. Nose: Nose normal. Mouth/Throat: Mouth: Mucous membranes are moist. Pharynx: Oropharynx is clear. Eyes: Extraocular Movements: Extraocular movements intact. Conjunctiva/sclera: Conjunctivae normal. Pupils: Pupils are equal, round, and reactive to light. Cardiovascular: Rate and Rhythm: Normal rate and regular rhythm. Pulses: Normal pulses. Pulmonary: Effort: Pulmonary effort is normal. Breath sounds: Normal breath sounds. Musculoskeletal: Cervical back: Normal range of motion and neck supple. Skin: General: Skin is warm and dry. Capillary Refill: Capillary refill takes less than 2 seconds. Neurological: General: No focal deficit present. Mental Status: She is alert and oriented to person, place, and time. Psychiatric: Mood and Affect: Mood normal. Behavior: Behavior normal. Thought Content: Thought content normal. Judgment: Judgment normal. Assessment and Plan Physical exam findings as noted above. Left external canal was irrigated by the RN with complete removal of the accumulated cerumen. Repeat otic exam shows the left tympanic membrane to be dull and bulging with absent light reflex. There is no degree of erythema noted to the left external canal. Patient was advised that she is likely experiencing acute serous otitis media, however the patient reports that due to her previous sinus complications she is unable to take decongestants or steroids. A referral was placed with [facility] and the patient will be scheduled for an appointment for further evaluation and management. CLINICAL IMPRESSION: Partial Cerumen Impaction Left Ear; Acute Serous Otitis Media Left Ear ASSESSMENT/PLAN: 1. Recurrent acute serous otitis media of left ear - ICD9: 381.01, ICD10: H65.05 (primary diagnosis) - CONSULT TO ENT 2. Impacted cerumen of left ear - ICD9: 380.4, ICD10: H61.22 MDM Risk of Complications, Morbidity, and/or Mortality Presenting problems: low Diagnostic procedures: low Management options: devin Jorge PA-C . [facility] 01-15-2025 History of Present illness Narrative This note was created using [employer]. Subjective Jeff Robbins is a 74 year old female. Patient is a 74-year-old female who complains of bilateral ear fullness and decreased hearing acuity that she states has been present for approximately the past 3 weeks. Patient reports no congestion, sinus pressure or other illness symptoms. Patient does not believe that she has a history of cerumen impaction and recalls no previous episodes of ear irrigation. Ear Problem Associated symptoms include hearing loss. Review of Systems HENT: Positive for ear pain and hearing loss. All other systems reviewed and are negative. Objective BP 124/87 Pulse 65 Temp 36.4 C (97.6 F) Resp 18 Wt 64 kg (141 lb 1.5 oz) SpO2 100% BMI 22.77 kg/m Physical Exam Vitals and nursing note reviewed. Constitutional: Appearance: Normal appearance. She is normal weight. HENT: Head: Normocephalic and atraumatic. Right Ear: Tympanic membrane, ear canal and external ear normal. Left Ear: Tympanic membrane, ear canal and external ear normal. Ears: Comments: There is a partial cerumen impaction to the inferior aspect the left external canal. The superior half of the left tympanic membrane is clearly visualized with good color and no evidence of erythema. There appears to be slightly hardened, dry cerumen occluding the inferior half of the left tympanic membrane. Left external canal is otherwise clear with no edema and the patient experienced no tenderness with speculum insertion and otic exam. There was a slight degree of cerumen accumulation noted to the right external canal and the right tympanic membrane is noted to be clear with excellent color and light reflex. Nose: Nose normal. Mouth/Throat: Mouth: Mucous membranes are moist. Pharynx: Oropharynx is clear. Eyes: Extraocular Movements: Extraocular movements intact. Conjunctiva/sclera: Conjunctivae normal. Pupils: Pupils are equal, round, and reactive to light. Cardiovascular: Rate and Rhythm: Normal rate and regular rhythm. Pulses: Normal pulses. Pulmonary: Effort: Pulmonary effort is normal. Breath sounds: Normal breath sounds. Musculoskeletal: Cervical back: Normal range of motion and neck supple. Skin: General: Skin is warm and dry. Capillary Refill: Capillary refill takes less than 2 seconds. Neurological: General: No focal deficit present. Mental Status: She is alert and oriented to person, place, and time. Psychiatric: Mood and Affect: Mood normal. Behavior: Behavior normal. Thought Content: Thought content normal. Judgment: Judgment normal. Assessment and Plan Physical exam findings as noted above. Left external canal was irrigated by the RN with complete removal of the accumulated cerumen. Repeat otic exam shows the left tympanic membrane to be dull and bulging with absent light reflex. There is no degree of erythema noted to the left external canal. Patient was advised that she is likely experiencing acute serous otitis media, however the patient reports that due to her previous sinus complications she is unable to take decongestants or steroids. A referral was placed with [facility] and the patient will be scheduled for an appointment for further evaluation and management. CLINICAL IMPRESSION: Partial Cerumen Impaction Left Ear; Acute Serous Otitis Media Left Ear ASSESSMENT/PLAN: 1. Recurrent acute serous otitis media of left ear - ICD9: 381.01, ICD10: H65.05 (primary diagnosis) - CONSULT TO ENT 2. Impacted cerumen of left ear - ICD9: 380.4, ICD10: H61.22 MDM Risk of Complications, Morbidity, and/or Mortality Presenting problems: low Diagnostic procedures: low Management options: low Raquel Jorge PA-C . documented in this encounter [facility] 01-12-2025 Note HNO ID: [id number] Author: RIGO BYRNE PT Service: ? Author Type: Physical Therapist Type: Progress Notes Filed: 01/12/2025 11:30 Note Text: Episode Visit Count: 2 Therapist That Will Accept/Oversee The Plan Of Care: Rigo Byrne PT. Start of Care Date: 12/30/24 Onset Date: 08/08/24 Plan of Care Certification Date: 12/30/24 Next Certification Due Date: 02/06/25 Patient Identified by Name and Date of : Yes REHABILITATION AND SPORTS THERAPY PHYSICAL THERAPY TREATMENT NOTE ASSESSMENT: Jeff Robbins tolerated the session with expected muscle soreness. She demonstrated fatigue during S/L R Hip ABD increased reps. The patient will continue to benefit from ongoing skilled physical therapy to progress toward set goals. PLAN FOR NEXT VISIT: Stationary Bike PIERSON; FWD AND Lateral Kraig; manual flexibility. Progress HEP. SUBJECTIVE: States R Knee is a little better. States she can feel the right knee today, 1/10 NPRS today. When she started the exercises, she had some irritation behind the R Knee with cumulative completion, never during. States was out of town recently and hasn't done the exercises since last sunday. Notes while being out of town, she had no issue with prolonged walking, which is new. Pain: Pain Pain Level: 1 Pain Location: Knee - Right Description: Dull Post Treatment Pain Post Treatment Pain Level: No Change Post Treatment Pain Location: Knee - Right OBJECTIVE MEASURES WITH LEVEL OF FUNCTION: Good form demonstrated throughout session and completion of ther-ex. Vitals RPE / Modified CAMRYN Scale: 5-Strong (heavy) (SLR with weight added) TREATMENT: Therapeutic Exercise: 1: Supine R Heel Slide with strap: 3x10. 2: Passive R HS FLexibility: 5x30. 3: R Quad Stretch Prone: 3x30. 4: R Tibiofemoral Distraction: 2x3 Min. 5: R SLR: 1x15, 2x10 2#. (Weight for SLR on HEP.) 6: S/L R Hip ABD: 3x15 (Discussed increased reps for HEP, no weight yet.) Skilled Intervention: Patient was educated in proper exercise technique and purpose for exercises. Reviewed and educated patient on additions/changes for home exercise program as above (*). Skilled judgment was used in selection of appropriate interventions. Correct performance of therapeutic exercises was facilitated with verbal and tactile cuing. Billing Therapeutic Exercise Treatment Minutes: 39 Skilled Treatment Time Minutes (timed and untimed codes): 39 Total Session Time (minutes): 39 Session Start Time : 1044 Session Stop Time : 1122 Rigo Byrne, DAMON [facility] 01-12-2025 History of Present illness Narrative Episode Visit Count: 2 Therapist That Will Accept/Oversee The Plan Of Care: Rigo Byrne PT. Start of Care Date: 12/30/24 Onset Date: 08/08/24 Plan of Care Certification Date: 12/30/24 Next Certification Due Date: 02/06/25 Patient Identified by Name and Date of : Yes REHABILITATION AND SPORTS THERAPY PHYSICAL THERAPY TREATMENT NOTE ASSESSMENT: Jeff Robbins tolerated the session with expected muscle soreness. She demonstrated fatigue during S/L R Hip ABD increased reps. The patient will continue to benefit from ongoing skilled physical therapy to progress toward set goals. PLAN FOR NEXT VISIT: Stationary Bike PIERSON; FWD & Lateral Kraig; manual flexibility. Progress HEP. SUBJECTIVE: States R Knee is a little better. States she can feel the right knee today, 1/10 NPRS today. When she started the exercises, she had some irritation behind the R Knee with cumulative completion, never during. was out of town recently and hasn't done the exercises since last sunday. Notes while being out of town, she had no issue with prolonged walking, which is new. Pain: Pain Pain Level: 1 Pain Location: Knee - Right Description: Dull Post Treatment Pain Post Treatment Pain Level: No Change Post Treatment Pain Location: Knee - Right OBJECTIVE MEASURES WITH LEVEL OF FUNCTION: Good form demonstrated throughout session and completion of ther-ex. Vitals RPE / Modified CAMRYN Scale: 5-Strong (heavy) (SLR with weight added) TREATMENT: Therapeutic Exercise: 1: Supine R Heel Slide with strap: 3x10. 2: Passive R HS FLexibility: 5x30. 3: R Quad Stretch Prone: 3x30. 4: R Tibiofemoral Distraction: 2x3 Min. 5: R SLR: 1x15, 2x10 2#. (Weight for SLR on HEP.) 6: S/L R Hip ABD: 3x15 (Discussed increased reps for HEP, no weight yet.) Skilled Intervention: Patient was educated in proper exercise technique and purpose for exercises. Reviewed and educated patient on additions/changes for home exercise program as above (*). Skilled judgment was used in selection of appropriate interventions. Correct performance of therapeutic exercises was facilitated with verbal and tactile cuing. Billing Therapeutic Exercise Treatment Minutes: 39 Skilled Treatment Time Minutes (timed and untimed codes): 39 Total Session Time (minutes): 39 Session Start Time : 1044 Session Stop Time : 1123 Rigo Byrne PT documented in this encounter [facility] 12-30-2024 History of Present illness Narrative Program_ID:[id number] Access Code: [email or web address] URL: [email or web address] Date: 12-30-2024 Prepared By: Rigo Byrne Program Notes Exercises - Sidelying Hip Abduction - 2 x daily - 7 x weekly - 2-3 sets - 8-10 reps - Active Straight Leg Raise with Quad Set - 2 x daily - 7 x weekly - 2-3 sets - 10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 Social History Tobacco Use Smoking status: Never Smokeless tobacco: Never Vaping Use Vaping status: Never Used Substance Use Topics Alcohol use: Yes Comment: One beer at night, helps clear sinuses Drug use: No Review of Symptoms REVIEW OF SYSTEMS See HPI EXAM: BP 124/80 Pulse 76 Resp 16 Wt 64 kg (141 lb) BMI 22.76 kg/m General Appearance: Well appearing, alert, in no acute distress, well-hydrated, well nourished.. Musculoskeletal: Right knee looks enlarged but no notable joint effusion. There is some mild tenderness under the patella on the medial side. There is tenderness to palpation of the medial joint space near the patella and posteriorly. ACL, PCL, MCL and LCL were all tight with good end points. Gaby testing and Thessaly testing were negative. Health Maintenance List Advance Directive Discussion due on 10/08/2024 RSV Vaccine(1 - 1-dose 75+ series) due on 05/26/2025 Depression Screening due on 05/26/2025 Anxiety Screening due on 05/26/2025 Diabetes Screening due on 05/26/2027 DTaP,Tdap,Td Vaccine(4 - Td or Tdap) due on 05/28/2029 Bone Density Screening Completed Shingrix Vaccine Completed Pneumococcal Vaccine: 50+ Completed Mammogram Screening Discontinued Influenza Vaccine Discontinued Colorectal Cancer Screening Discontinued Hepatitis C Screening Discontinued Covid-19 Vaccine Discontinued Data reviewed A/P ASSESSMENT/PLAN: 1. Acute pain of right knee - ICD9: 719.46, ICD10: M25.561 - place on steroid taper. - XR KNEE GENERAL 4V AP BOTH/PA BOTH/LAT/MERC BILATERAL - CONSULT TO PHYSICAL THERAPY - advised on icing. Requested Prescriptions Signed Prescriptions Disp Refills predniSONE (DELTASONE) 20 mg tablet 20 tablet 0 Sig: Take 3 tabs by mouth for 3 days, then 2 tabs by mouth for 3 days, then 1 tab by mouth for 3 days and then 1/2 a tab by mouth for 4 days. F/u in 8 weeks I spent a total of 30 minutes on the date of the service which included preparing to see the patient, [id number] patient care, completing clinical documentation, performing a medically appropriate examination, counseling and educating the patient/family/caregiver and ordering medications, tests, or procedures. Charles Smith MD documented in this encounter [facility] 11-13-2024 History of Present illness Narrative Radiology Service Progress Note PATIENT NAME: Jeff Robbins DATE OF SERVICE: November 13, 2024 TIME: 9:30 AM PATIENT IDENTITY VERIFICATION COMPLETED USING TWO (2) IDENTIFIERS: Name and Date of confirmed by patient verbally. FALL SCREENING: Has the patient had 2 falls in the last year or 1 fall with injury or currently using an Ambulatory Assistive Device (Walker, Cane, Wheelchair, Crutches, etc.)? No PATIENT GENDER DATA: Assigned female at . status: : No status: NO. PATIENT RELEVANT IMPLANT DATA REVIEWED: Not Applicable PATIENT PRESENTS WITH AN IMPLANTABLE OR ATTACHED FASHION DIRECTOR: No RADIOLOGY DEPARTMENT: Mammography PERIPHERAL IV DATA: Not applicable SIGNED BY: Sandrine Wan November 13, 2024 9:30 AM documented in this encounter [facility] 11-13-2024 Note HNO ID: [id number] Author: JUSTIN SHINE Mammo Tech Service: ? Author Type: Intelligence Intern Type: Progress Notes Filed: 11/13/2024 09:30 Note Text: Radiology Service Progress Note PATIENT NAME: Jeff Robbins DATE OF SERVICE: November 13, 2024 TIME: 9:30 AM PATIENT IDENTITY VERIFICATION COMPLETED USING TWO (2) IDENTIFIERS: Name and Date of confirmed by patient verbally. FALL SCREENING: Has the patient had 2 falls in the last year or 1 fall with injury or currently using an Ambulatory Assistive Device (Walker, Cane, Wheelchair, Crutches, etc.)? No PATIENT GENDER DATA: Assigned female at . status: : No status: NO. PATIENT RELEVANT IMPLANT DATA REVIEWED: Not Applicable PATIENT PRESENTS WITH AN IMPLANTABLE OR ATTACHED FASHION DIRECTOR: No RADIOLOGY DEPARTMENT: Mammography PERIPHERAL IV DATA: Not applicable SIGNED BY: Sandrine Wan November 13, 2024 9:30 AM [facility] 06-10-2024 Telephone encounter Note Pt notified of same. Aram Dewey LPN [facility] 06-10-2024 Miscellaneous Notes Pt notified of same. Aram Dewey LPN Let p know the US of her heart and her stress test were normal. documented in this encounter [facility] 06-09-2024 Telephone encounter Note Let p know the US of her heart and her stress test were normal. [facility] 06-06-2024 Instructions Denise Segovia APRN.EMELIA - 06/06/2024 8:19 AM EDT ASSESSMENT/PLAN: 1. Localized swelling on right hand - ICD9: 782.2, ICD10: R22.31 (primary diagnosis) - METHYLPREDNISOLONE 4 MG TABLETS IN A DOSE PACK - cool compresses 2-3 times daily. 2. Bee sting, undetermined intent, initial encounter - ICD9: 989.5, E980.9, ICD10: T63.444A - Follow-up with your PCP in 3-5 days if symptoms have not improved or sooner if symptoms worsen - Discussed red flags and need for immediate medical evaluation if any occur. - Discussed supportive care treatment with fluids, rest and analgesia. - Discussed expected course of illness Denise Segovia APRN.[facility] PATIENT INFO BEE AND INSECT STING OVERVIEW Being stung by a bee, wasp, hornet, or yellowjacket can be both painful and scary. Some people have serious or even life-threatening reactions to stings, requiring quick treatment. INSECT TYPES The insects that cause the most serious sting reactions include the following: Honeybees and bumblebees Yellowjackets,yellow hornets, white faced hornets, and paper wasps Fire ants, harvester ants, bulldog ants, and juan jumper ants. INSECT STING REACTION After being stung, you should remove the stinger from your skin as soon as possible to prevent any more venom from being released into the skin. However, all the venom is released from the stinger within the first few seconds, so this is only helpful if done quickly. You do not need to use any special technique (eg, flicking or scraping) to get the stinger out. Most people who are stung by an insect will develop a local reaction (an area of swelling and redness). Some people will also develop a severe allergic reaction, called anaphylaxis. Local reaction - Immediately after being stung, most people have: Sharp or burning pain Skin swelling and redness The swelling and pain usually improve within a few hours. Approximately 10 percent of people develop severe redness and swelling after a sting; this is called a large local reaction. The area may become large (4 inches or 10 cm) over 1 to 2 days, then slowly resolve over 5 to 10 days. Having a large local reaction does not mean that you will have a severe allergic reaction (anaphylaxis) if you are stung again. Only about 5 to 10 percent of people who have a large local reaction will have anaphylaxis if stung in the future. If you have a large local reaction, talk to your doctor or nurse to determine what steps, if any, you need to take if you are stung again. Local reaction treatment - To reduce pain and swelling after an insect sting, you can try the following: Apply a cold compress (a cold, damp washcloth or damp cloth wrapped around an ice pack) to the area. If you develop itching, you can take a nonprescription antihistamine, such as cetirizine (Zyrtec ). A pain reliever, such as ibuprofen (sold as Advil, Motrin, and store brands), may help reduce pain. If nonprescription treatments do not help or your pain or swelling gets worse, call your doctor or nurse. Severe allergic reaction - Insect stings are a common cause of severe allergic reactions, called anaphylaxis. You can have an anaphylactic reaction the first time you are stung. Symptoms of an anaphylactic reaction usually develop quickly, and include: Skin symptoms, such as hives, redness, or swelling of skin away from the area that was stung (for example, the face or lips may swell after being stung on the hand) Belly cramps, nausea, vomiting, or diarrhea Hoarse voice, shortness of breath, and difficulty breathing Lightheadedness, dizziness, passing out Severe allergic reaction treatment - Severe allergic reactions are a medical emergency that can lead to if not treated quickly. If you develop any symptoms of anaphylaxis, you need to get emergency care as soon as possible. When possible, ask someone else to call for emergency care (call 911 in the [place]). Do not drive yourself to the hospital and do not ask someone else to drive you. Calling 911 is safer than driving for two reasons: You can get treatment from the paramedics as soon as the ambulance arrives. If you drive to the hospital, you cannot get treatment until you arrive in the emergency department. Since dangerous complications may occur (eg, you stop breathing) on the way to the hospital, paramedics are trained to treat you. The first and most important treatment for a severe allergic reaction is a shot of epinephrine. Epinephrine is available by prescription in prefilled syringes, called epinephrine autoinjectors. AM I ALLERGIC TO STINGS? If you had a severe reaction (anaphylaxis) after being stung, you should make an appointment to see an claim specialist. At this visit, the space and missile defense operations will: Try to determine if you are allergic to stings Help you decide if you need allergy shots (called immunotherapy) to reduce your risk of anaphylaxis in the future Teach you how and when to use an epinephrine autoinjector Allergy testing - Testing can be done to determine if you are allergic to insect stings. Blood and skin tests are available, and both are needed in some cases. If allergy testing shows that you are allergic to insect stings, there is a good chance that you will have a serious allergic reaction (anaphylaxis) if you are stung again. Allergy shots can greatly reduce the risk of anaphylaxis. Allergy shots (immunotherapy) - Allergy shots, also called venom immunotherapy, can reduce your chance of having a serious or life-threatening reaction to a sting. When you are stung by an insect, the stinger injects venom into your skin, which causes the allergic reaction. Allergy shots usually contain purified venom. The first few allergy shots contain very small amounts of venom, and the amount is gradually increased until you can tolerate the amount of venom in two or more stings without having allergic symptoms. Allergy shots are often recommended if you had: A serious allergic reaction (anaphylaxis) after being stung, AND Allergy testing shows that you are allergic to bee, wasp, yellowjacket, or hornet venom Allergy shots are usually given in an space and missile defense operations's office one to three times per week for a few months, and then once per month for at least three years. Some people continue to get allergy shots for three to five years while other people get them for longer. Most experts recommend that you continue getting allergy shots indefinitely if: You had a life-threatening reaction to a past sting You have a reaction to the allergy shot since this is a sign that you are very sensitive to the venom You are so fearful of having a severe allergic reaction that you cannot enjoy normal outdoor activities As a result of immunotherapy, your risk of having a serious allergic reaction after a sting becomes much lower. You should still carry an epinephrine autoinjector. Epinephrine - Epinephrine, sometimes called adrenaline, is a medicine that can treat the symptoms of a serious allergic reaction. Epinephrine is available in pre-filled syringes so that you can give yourself a shot, if needed. If you had anaphylaxis after an insect sting in the past, you should always carry at least one epinephrine autoinjector (even in the winter). However, one or even two injections of epinephrine may not be enough to stop a life-threatening reaction. This is why it is important to talk to an space and missile defense operations about allergy shots if you have had a serious allergic reaction after a sting. You should also seek emergency medical care after using an epinephrine autoinjector, because the symptoms of allergic reactions sometimes come back after initially improving. AVOIDING STINGS Bees and wasps that are away from their nest are not aggressive and only sting when threatened (after being hit, stepped on, or swatted). Wearing brightly colored clothing or perfume does not increase the risk of being stung. Wearing white or light-colored clothing may reduce the chance of being attacked if you are near a nest. When eating outside, keep food and drinks covered and wipe up food and drink spills quickly. Watch for yellowjackets inside drink containers. Do not walk outside without shoes. If you find a wasp nest near your home, do not try to get rid of the nest yourself. Instead, call a pest control professional. If you have a sting allergy, avoid activities that may disturb a nest, such as mowing the lawn or pruning a hedge. If a stinging insect is near, slowly back away and do not flail your arms. If you are being swarmed or stung, cover your mouth and nose with your hand and run inside a building or an enclosed vehicle. documented in this encounter [facility] 06-06-2024 Note HNO ID: [id number] Author: DENISE SEGOVIA APRN.EMELIA Service: ? Author Type: Nurse Practitioner Type: Progress Notes Filed: 06/06/2024 08:21 Note Text: Subjective HPI Jeff Robbins is a 73 year old female who presents with wasp sting on right hand that occurred yesterday. Today her right hand and forearm is swollen. She took benadryl. States area is itching. She has not had a fever. Review of Systems Constitutional: Negative for chills and fever. Respiratory: Negative for cough and shortness of breath. Cardiovascular: Negative. Musculoskeletal: Negative. Skin: Negative for itching and rash. BP 138/71 Pulse 94 Temp 36.5 ?C (97.7 ?F) Resp 18 Wt 64.7 kg (142 lb 10.2 oz) SpO2 100% BMI 23.02 kg/m? PAST MEDICAL HISTORY 04/24/2022: Advance directive discussed with patient Comment: Discussed 04/202205/10/2023: Chronic sinusitis 05/29/2022: Collagenous colitis 05/26/2024: Encounter for lipid screening for cardiovascular disease 05/29/2022: Esophagitis 10/12/2011: Family history of colon cancer 05/26/2024: Family history of coronary artery disease 05/29/2022: Fatty liver 03/25/2022: Fibroids 03/31/2022: Gallbladder polyp 05/18/2022: Liver hemangioma Comment: Right lob 05/27/2015: Mass of left axilla Comment: Eval 2014 was benign 01/07/2018: Medicare annual wellness visit, subsequent Comment: Medicare part B: 07/08/2013 last done: 01/17/2019 12/19/2019: Nuclear sclerosis of both eyes 01/14/2018: Osteopenia, senile Comment: Dexa: improved lumbar and right hip slightly worse in left hip. No date: Personal history of colonic polyps 05/10/2023: Tinnitus of both ears PAST SURGICAL HISTORY 05/09/2022: COLONOSCOPY 2012: COLONOSCOPY FLX DX W/COLLJ SPEC WHEN PFRMD Comment: History of polyps 08/10/2017: COLONOSCOPY FLX DX W/COLLJ SPEC WHEN PFRMD Comment: Colonoscopy 05/09/2022: EGD 01/02/2017: HYSTEROSCOPY Comment: H/s DANDC for PMB 1999: OTHER Comment: Sinus surgery No date: TONSILLECTOMY HX ALLERGIES Amoxicillin and Sulfa (Sulfonamide Antibiotics) MEDICATIONS methylPREDNISolone (MEDROL, LUZ,) 4 mg Dose-Pack Follow dosing instructions, take with food. EPINEPHrine (EPIPEN) 0.3 mg/0.3 mL auto-injector Take as directed on instructions with allergic reaction. cholecalciferol (VITAMIN D3) 5,000 unit tab Take 5,000 Units by mouth once daily. glucosamine/chondr bradley A sod (OSTEO BI-FLEX ORAL) Take by mouth once daily. PSEUDOEPHEDRINE HCL (SUDAFED ORAL) Take by mouth once daily. FAMILY HISTORY Problem Relation Age of Onset Heart Mother CHF Cancer Father Colon Heart Father Coronary Artery Disease Father 60's Diabetes Sister Asthma Sister Macular Degen Sister other (covid) Sister from this Colon Polyps Sister possible cancer at age 70 (05/2024) Osteoporosis Sister Cancer Brother 62 Colon Diabetes Brother Macular Degen Maternal Grandmother Social History Tobacco Use Smoking status: Never Smokeless tobacco: Never Vaping Use Vaping status: Never Used Substance Use Topics Alcohol use: Yes Comment: One beer at night, helps clear sinuses Drug use: No Objective Physical Exam Vitals and nursing note reviewed. Constitutional: General: She is not in acute distress. Appearance: Normal appearance. She is not ill-appearing. Cardiovascular: Rate and Rhythm: Normal rate. Pulmonary: Effort: Pulmonary effort is normal. Musculoskeletal: General: Swelling present. No tenderness, deformity or signs of injury. Arms: Comments: Right hand and distal forearm with soft tissue swelling and erythema Skin: General: Skin is warm and dry. Findings: Erythema present. No rash. Neurological: Mental Status: She is alert. ASSESSMENT/PLAN: 1. Localized swelling on right hand - ICD9: 782.2, ICD10: R22.31 (primary diagnosis) - METHYLPREDNISOLONE 4 MG TABLETS IN A DOSE PACK - cool compresses 2-3 times daily. 2. Bee sting, undetermined intent, initial encounter - ICD9: 989.5, E980.9, ICD10: T63.444A - Follow-up with your PCP in 3-5 days if symptoms have not improved or sooner if symptoms worsen - Discussed red flags and need for immediate medical evaluation if any occur. - Discussed supportive care treatment with fluids, rest and analgesia. - Discussed expected course of illness Denise Segovia APRN.EMELIA [facility] 06-06-2024 History of Present illness Narrative Images from the original note were not included. Subjective HPI Jeff Robbins is a 73 year old female who presents with wasp sting on right hand that occurred yesterday. Today her right hand and forearm is swollen. She took benadryl. States area is itching. She has not had a fever. Review of Systems Constitutional: Negative for chills and fever. Respiratory: Negative for cough and shortness of breath. Cardiovascular: Negative. Musculoskeletal: Negative. Skin: Negative for itching and rash. BP 138/71 Pulse 94 Temp 36.5 C (97.7 F) Resp 18 Wt 64.7 kg (142 lb 10.2 oz) SpO2 100% BMI 23.02 kg/m PAST MEDICAL HISTORY 04/24/2022: Advance directive discussed with patient Comment: Discussed 04/202205/10/2023: Chronic sinusitis 05/29/2022: Collagenous colitis 05/26/2024: Encounter for lipid screening for cardiovascular disease 05/29/2022: Esophagitis 10/12/2011: Family history of colon cancer 05/26/2024: Family history of coronary artery disease 05/29/2022: Fatty liver 03/25/2022: Fibroids 03/31/2022: Gallbladder polyp 05/18/2022: Liver hemangioma Comment: Right lob 05/27/2015: Mass of left axilla Comment: Eval 2014 was benign 01/07/2018: Medicare annual wellness visit, subsequent Comment: Medicare part B: 07/08/2013 last done: 01/17/2019 12/19/2019: Nuclear sclerosis of both eyes 01/14/2018: Osteopenia, senile Comment: Dexa: improved lumbar and right hip slightly worse in left hip. No date: Personal history of colonic polyps 05/10/2023: Tinnitus of both ears PAST SURGICAL HISTORY 05/09/2022: COLONOSCOPY 2012: COLONOSCOPY FLX DX W/COLLJ SPEC WHEN PFRMD Comment: History of polyps 08/10/2017: COLONOSCOPY FLX DX W/COLLJ SPEC WHEN PFRMD Comment: Colonoscopy 05/09/2022: EGD 01/02/2017: HYSTEROSCOPY Comment: H/s D&C for PMB 1998: OTHER Comment: Sinus surgery No date: TONSILLECTOMY HX ALLERGIES Amoxicillin and Sulfa (Sulfonamide Antibiotics) MEDICATIONS methylPREDNISolone (MEDROL, LUZ,) 4 mg Dose-Pack Follow dosing instructions, take with food. EPINEPHrine (EPIPEN) 0.3 mg/0.3 mL auto-injector Take as directed on instructions with allergic reaction. cholecalciferol (VITAMIN D3) 5,000 unit tab Take 5,000 Units by mouth once daily. glucosamine/chondr bradley A sod (OSTEO BI-FLEX ORAL) Take by mouth once daily. PSEUDOEPHEDRINE HCL (SUDAFED ORAL) Take by mouth once daily. FAMILY HISTORY Problem Relation Age of Onset Heart Mother CHF Cancer Father Colon Heart Father Coronary Artery Disease Father 60's Diabetes Sister Asthma Sister Macular Degen Sister other (covid) Sister from this Colon Polyps Sister possible cancer at age 70 (05/2024) Osteoporosis Sister Cancer Brother 62 Colon Diabetes Brother Macular Degen Maternal Grandmother Social History Tobacco Use Smoking status: Never Smokeless tobacco: Never Vaping Use Vaping status: Never Used Substance Use Topics Alcohol use: Yes Comment: One beer at night, helps clear sinuses Drug use: No Objective Physical Exam Vitals and nursing note reviewed. Constitutional: General: She is not in acute distress. Appearance: Normal appearance. She is not ill-appearing. Cardiovascular: Rate and Rhythm: Normal rate. Pulmonary: Effort: Pulmonary effort is normal. Musculoskeletal: General: Swelling present. No tenderness, deformity or signs of injury. Arms: Comments: Right hand and distal forearm with soft tissue swelling and erythema Skin: General: Skin is warm and dry. Findings: Erythema present. No rash. Neurological: Mental Status: She is alert. ASSESSMENT/PLAN: 1. Localized swelling on right hand - ICD9: 782.2, ICD10: R22.31 (primary diagnosis) - METHYLPREDNISOLONE 4 MG TABLETS IN A DOSE PACK - cool compresses 2-3 times daily. 2. Bee sting, undetermined intent, initial encounter - ICD9: 989.5, E980.9, ICD10: T63.444A - Follow-up with your PCP in 3-5 days if symptoms have not improved or sooner if symptoms worsen - Discussed red flags and need for immediate medical evaluation if any occur. - Discussed supportive care treatment with fluids, rest and analgesia. - Discussed expected course of illness Denise Segovia APRN.VESSEL WELDER documented in this encounter [facility] 06-03-2024 Telephone encounter Note Left message regarding reminder for stress test tomorrow and given instructions. [facility] 06-03-2024 Miscellaneous Notes Left message regarding reminder for stress test tomorrow and given instructions. documented in this encounter [facility] 06-02-2024 Note HNO ID: [id number] Author: KIRSTEN HECTOR MD Service: ? Author Type: Physician Type: Progress Notes Filed: 06/02/2024 16:44 Note Text: Ashley Robbins is a 73 year old female who presents for problem visit for some breast pain more on right. HPI: Some pain on right side in breast that happens randomly and is enough to wake her up but if repositions can go back to sleep. No nipple discharge, no trauma. No vaginal bleeding or concerns. 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: Sexual Activity: Not Currently; No partner data on record Contraception: No contraception data on record PAST MEDICAL HISTORY 04/24/2022: Advance directive discussed with patient Comment: Discussed 04/202205/10/2023: Chronic sinusitis 05/29/2022: Collagenous colitis 05/26/2024: Encounter for lipid screening for cardiovascular disease 05/29/2022: Esophagitis 10/12/2011: Family history of colon cancer 05/26/2024: Family history of coronary artery disease 05/29/2022: Fatty liver 03/25/2022: Fibroids 03/31/2022: Gallbladder polyp 05/18/2022: Liver hemangioma Comment: Right lob 05/27/2015: Mass of left axilla Comment: Eval 2015 was benign 01/07/2018: Medicare annual wellness visit, subsequent Comment: Medicare part B: 07/08/2013 last done: 01/17/2019 12/19/2019: Nuclear sclerosis of both eyes 01/14/2018: Osteopenia, senile Comment: Dexa: improved lumbar and right hip slightly worse in left hip. No date: Personal history of colonic polyps 05/10/2023: Tinnitus of both ears PAST SURGICAL HISTORY 05/09/2022: COLONOSCOPY 2012: COLONOSCOPY FLX DX W/COLLJ SPEC WHEN PFRMD Comment: History of polyps 08/10/2017: COLONOSCOPY FLX DX W/COLLJ SPEC WHEN PFRMD Comment: Colonoscopy 05/09/2022: EGD 01/02/2017: HYSTEROSCOPY Comment: H/s DANDC for PMB 1998: OTHER Comment: Sinus surgery No date: TONSILLECTOMY HX FAMILY HISTORY Problem Relation Age of Onset Heart Mother CHF Cancer Father Colon Heart Father Coronary Artery Disease Father 60's Diabetes Sister Asthma Sister Macular Degen Sister other (covid) Sister from this Colon Polyps Sister possible cancer at age 70 (05/2024) Osteoporosis Sister Cancer Brother 62 Colon Diabetes Brother Macular Degen Maternal Grandmother Social History Tobacco Use Smoking status: Never Smokeless tobacco: Never Vaping Use Vaping status: Never Used Substance Use Topics Alcohol use: Yes Comment: One beer at night, helps clear sinuses Drug use: No Current Outpatient Medications Medication Sig EPINEPHrine (EPIPEN) 0.3 mg/0.3 mL auto-injector Take as directed on instructions with allergic reaction. cholecalciferol (VITAMIN D3) 5,000 unit tab Take 5,000 Units by mouth once daily. glucosamine/chondr bradley A sod (OSTEO BI-FLEX ORAL) Take by mouth once daily. PSEUDOEPHEDRINE HCL (SUDAFED ORAL) Take by mouth once daily. No current facility-administered medications for this visit. Allergies As of Date: 06/02/2024 Allergen Noted Reaction AMOXICILLIN 07/25/2005 Other: See Comments SULFA (SULFONAMIDE ANTIBIOTICS) 10/11/2011 Swelling Fully Assessed 06/02/2024 REVIEW OF SYSTEMS Abdomen: occas constipation, no other issues Bladder: No dysuria, gross hematuria, urinary frequency, urinary urgency, or incontinence. Allergies and current medication updated:Yes EXAM: BP 118/76 Ht 5' 6 (1.68m) Wt 142 lb (64.4kg) BMI 22.93 kg/(m2). GENERAL: pleasant, female in no apparent distress BREAST: soft, non-tender, symmetric, no dominant mass, normal nipple-areolar complex, no lymphadenopathy, and no nipple discharge CHEST: Normal inspiratory effort ABDOMEN: soft, non-tender, and no masses PELVIC: external genitalia normal, normal Bartholin's glands, urethra, Playas's glands, no vulvar lesions, no cervical lesions, physiologic discharge present, normal appearing perineal body and perianal region, cystocele 1st degree, rectocele 1st degree BIMANUAL: uterus normal size, shape and consistency, no adnexal masses, and non-tender NEURO: alert and oriented x3,exam grossly non-focal EXTREMITIES: normal ASSESSMENT AND PLAN: cysts on breasts reassured, cont. self exams and routine imaging, otc nsaids prn pap not inducated Kirsten Hector MD [facility] 06-02-2024 History of Present illness Narrative Ashley Robbins is a 73 year old female who presents for problem visit for some breast pain more on right. HPI: Some pain on right side in breast that happens randomly and is enough to wake her up but if repositions can go back to sleep. No nipple discharge, no trauma. No vaginal bleeding or concerns. 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: Sexual Activity: Not Currently; No partner data on record Contraception: No contraception data on record PAST MEDICAL HISTORY 04/24/2022: Advance directive discussed with patient Comment: Discussed 04/202205/10/2023: Chronic sinusitis 05/29/2022: Collagenous colitis 05/26/2024: Encounter for lipid screening for cardiovascular disease 05/29/2022: Esophagitis 10/12/2011: Family history of colon cancer 05/26/2024: Family history of coronary artery disease 05/29/2022: Fatty liver 03/25/2022: Fibroids 03/31/2022: Gallbladder polyp 05/18/2022: Liver hemangioma Comment: Right lob 05/27/2015: Mass of left axilla Comment: Eval 2015 was benign 01/07/2018: Medicare annual wellness visit, subsequent Comment: Medicare part B: 07/08/2013 last done: 01/17/2019 12/19/2019: Nuclear sclerosis of both eyes 01/14/2018: Osteopenia, senile Comment: Dexa: improved lumbar and right hip slightly worse in left hip. No date: Personal history of colonic polyps 05/10/2023: Tinnitus of both ears PAST SURGICAL HISTORY 05/09/2022: COLONOSCOPY 2012: COLONOSCOPY FLX DX W/COLLJ SPEC WHEN PFRMD Comment: History of polyps 08/10/2017: COLONOSCOPY FLX DX W/COLLJ SPEC WHEN PFRMD Comment: Colonoscopy 05/09/2022: EGD 01/02/2017: HYSTEROSCOPY Comment: H/s D&C for PMB 1998: OTHER Comment: Sinus surgery No date: TONSILLECTOMY HX FAMILY HISTORY Problem Relation Age of Onset Heart Mother CHF Cancer Father Colon Heart Father Coronary Artery Disease Father 60's Diabetes Sister Asthma Sister Macular Degen Sister other (covid) Sister from this Colon Polyps Sister possible cancer at age 70 (05/2024) Osteoporosis Sister Cancer Brother 62 Colon Diabetes Brother Macular Degen Maternal Grandmother Social History Tobacco Use Smoking status: Never Smokeless tobacco: Never Vaping Use Vaping status: Never Used Substance Use Topics Alcohol use: Yes Comment: One beer at night, helps clear sinuses Drug use: No Current Outpatient Medications Medication Sig EPINEPHrine (EPIPEN) 0.3 mg/0.3 mL auto-injector Take as directed on instructions with allergic reaction. cholecalciferol (VITAMIN D3) 5,000 unit tab Take 5,000 Units by mouth once daily. glucosamine/chondr bradley A sod (OSTEO BI-FLEX ORAL) Take by mouth once daily. PSEUDOEPHEDRINE HCL (SUDAFED ORAL) Take by mouth once daily. No current facility-administered medications for this visit. Allergies As of Date: 06/02/2024 Allergen Noted Reaction AMOXICILLIN 07/25/2005 Other: See Comments SULFA (SULFONAMIDE ANTIBIOTICS) 10/11/2011 Swelling Fully Assessed 06/02/2024 REVIEW OF SYSTEMS Abdomen: occas constipation, no other issues Bladder: No dysuria, gross hematuria, urinary frequency, urinary urgency, or incontinence. Allergies and current medication updated:Yes EXAM: BP 118/76 Ht 5' 6 (1.68m) Wt 142 lb (64.4kg) BMI 22.93 kg/(m^2). GENERAL: pleasant, female in no apparent distress BREAST: soft, non-tender, symmetric, no dominant mass, normal nipple-areolar complex, no lymphadenopathy, and no nipple discharge CHEST: Normal inspiratory effort ABDOMEN: soft, non-tender, and no masses PELVIC: external genitalia normal, normal Bartholin's glands, urethra, Playas's glands, no vulvar lesions, no cervical lesions, physiologic discharge present, normal appearing perineal body and perianal region, cystocele 1st degree, rectocele 1st degree BIMANUAL: uterus normal size, shape and consistency, no adnexal masses, and non-tender NEURO: alert and oriented x3,exam grossly non-focal EXTREMITIES: normal ASSESSMENT AND PLAN: cysts on breasts reassured, cont. self exams and routine imaging, otc nsaids prn pap not inducated Kirsten Hector MD documented in this encounter [facility] 05-27-2024 Telephone encounter Note Pt notified of same. Aram Dewey LPN [facility] 05-27-2024 Miscellaneous Notes Pt notified of same. Aram Dewey LPN Let patient know that labs are all normal. Roxie Galloway PA-C documented in this encounter [facility] 05-27-2024 Telephone encounter Note Let patient know that labs are all normal. Roxie Galloway PA-C [facility] Work Phone: 05-26-2024 Instructions Charles Smith MD - 05/26/2024 2:10 PM EDT If you are considering getting the RSV vaccine you will need to get it at a local pharmacy. Please bring in copies of your power of finance attorney for health care and living will. Please bring in copies of your power of finance attorney for health care and living will. Screening schedule The following prevention plan is recommended: Depression Screening Never done Anxiety Screening Never done RSV Vaccine(1 - 1-dose 60+ series) Never done Covid-19 Vaccine( season) due on 06/08/2023 Advance Directive Discussion due on 10/08/2023 WHAT YOU CAN DO TO PREVENT FALLS Many falls can be prevented. By making some changes, you can lower your chances of falling. Four things YOU can do to prevent falls for you* and your caregiver 1. Begin a regular exercise program Exercise is one of the most important ways to lower your chances of falling. It makes you stronger and helps you feel better. Exercises that improve balance and coordination (like Murphy Chi) are the most helpful. Lack of exercise leads to weakness and increases your chances of falling. Ask your doctor or health care provider about the best type of exercise program for you. 2. Have your health care provider review your medicines Have your doctor or pharmacist review all the medicines you take, even sinq-ovn-vuxcjhu medicines. As you get older, the way medicines work in your body can change. Some medicines, or combinations of medicines, can make you sleepy or dizzy and can cause you to fall. 3. Have your vision checked Have your eyes checked by an eye doctor at least once a year. You may be wearing the wrong glasses or have a condition like glaucoma or cataracts that limits your vision. Poor vision can increase your chances of falling. 4. Make your home safer About half of all falls happen at home. To make your home safer: Remove things you can trip over (like papers, books, clothes, and shoes) from stairs and places where you walk. Remove small throw rugs or use double-sided tape to keep the rugs from slipping. Keep items you use often in cabinets you can reach easily without using a step stool. Have grab bars put in next to your toilet and in the tub or shower. Use non-slip mats in the bathtub and on shower floors. Improve the lighting in your home. As you get older, you need brighter lights to see well. Hang light-weight curtains or shades to reduce glare. Have handrails and lights put in on all staircases. Wear shoes both inside and outside the house. Avoid going barefoot or wearing slippers. For more information, contact: Centers for Disease Control and Prevention www.cdc.gov/injury * This information may not apply if you have certain medical conditions. documented in this encounter [facility] 05-26-2024 History of Present illness Narrative Images from the original note were not included. Ashley Robbins is a 73 year old female here for a Medicare wellness visit. Medicare Health Risk Assessment General Health Very good Exercise: Minutes/Day 120 min Exercise: Days/Week 5 days Alcohol: Daily Use 4 or more times a week Alcohol: Drinks/Day 1 or 2 Alcohol: 6 or more drinks Never Feel off balance No Concerns: Teeth/Dentures No Concerns: Sexual function No Troubled by feelings None of the above Frequency: Eating healthy diet Nearly every day ADLs requiring help None of the above Safety precautions in home/vehicle No Smoke, vape, chews tobacco No Difficulty hearing No Difficulty seeing No Current Providers Specialists: I have reviewed specialist-related care of the patient in the medical record. Current care team: Patient Care Team: Charles Smith MD as PCP - General (Family Medicine) Dr. Hector: [employer] Medical/Family history review Reviewed and updated problem list, medical/surgical/family/social history, medications, and allergies. Opioid use review Opioid Medications (last 90 days) No data to display Anxiety/Depression screening PHQ-9 Score: 0 . TRAVIS-7 Score: 0 . Recommendation: no further intervention at this time Cognitive screening Score:5 Cognitive screening reviewed and No further action needed (score 3-5). Functional Observation Was the patient's Timed Up & Go test unsteady or ? 12 seconds? No Advance Care Planning Patient did not wish or was not able to name a surrogate decision maker or provide an advance care plan Measurements BP 148/84 (BP Site: Left Arm, BP Position: Sitting, BP Cuff Size: Regular Adult) Pulse 70 Resp 16 Ht 167.6 cm (5' 6) Wt 64 kg (141 lb) BMI 22.76 kg/m Vision Screening: Follows with optometry/ophthalmology Assessment/Plan Medicare annual wellness visit, subsequent (Z00.00) - Counseled on healthy diet and regular exercise - Fall avoidance information provided - Personalized prevention plan provided See Below Chief Complaint Patient presents with: Medicare Wellness Exam HPI Ashley Robbins is a 73 year old female who presents here today for Chronic Medical Conditions. and Medicare Annual Visit. Patient with a Hx of esophagitis, fatty liver, gal bladder polyps colon polyps and had colonoscopy 2016 and due for repeat in 5 years. Patient has been doing well. Concerned that her next colonoscopy is not for another three years vs next year when it would be 3 yrs from her previous one. Her dad and brother have Hx of colon cancer and now her sister is needing part of her colon removed. Past medical history, appointments, medications, allergies reviewed. Previous Medical History PAST MEDICAL HISTORY 04/24/2022: Advance directive discussed with patient Comment: Discussed 04/202205/10/2023: Chronic sinusitis 05/29/2022: Collagenous colitis 05/29/2022: Esophagitis 10/12/2011: Family history of colon cancer 05/29/2022: Fatty liver 03/25/2022: Fibroids 03/31/2022: Gallbladder polyp 04/25/2022: Lesion of right lobe of liver Comment: CT 04/2022: suspected hemangioma 05/18/2022: Liver hemangioma Comment: Right lob 05/27/2015: Mass of left axilla Comment: Eval 2014 was benign 01/07/2018: Medicare annual wellness visit, subsequent Comment: Medicare part B: 07/08/2013 last done: 01/17/2019 12/19/2019: Nuclear sclerosis of both eyes 01/14/2018: Osteopenia, senile Comment: Dexa: improved lumbar and right hip slightly worse in left hip. No date: Personal history of colonic polyps 05/10/2023: Tinnitus of both ears Previous Surgical History PAST SURGICAL HISTORY 05/09/2022: COLONOSCOPY 2012: COLONOSCOPY FLX DX W/COLLJ SPEC WHEN PFRMD Comment: History of polyps 08/10/2017: COLONOSCOPY FLX DX W/COLLJ SPEC WHEN PFRMD Comment: Colonoscopy 05/09/2022: EGD 01/02/2017: HYSTEROSCOPY Comment: H/s D&C for PMB 1998: OTHER Comment: Sinus surgery No date: TONSILLECTOMY HX Family History FAMILY HISTORY Problem Relation Age of Onset Heart Mother CHF Cancer Father Colon Heart Father Coronary Artery Disease Father 60's Diabetes Sister Asthma Sister Macular Degen Sister Osteoporosis Sister Cancer Brother 62 Colon Diabetes Brother Macular Degen Maternal Grandmother Patient Allergies ALLERGIES Allergen Reactions Amoxicillin Other: See Comments Sulfa (Sulfonamide * Swelling Current Medications Current Outpatient Medications on File Prior to Visit Medication Sig cholecalciferol (VITAMIN D3) 5,000 unit tab Take 5,000 Units by mouth once daily. glucosamine/chondr bradley A sod (OSTEO BI-FLEX ORAL) Take by mouth once daily. PSEUDOEPHEDRINE HCL (SUDAFED ORAL) Take by mouth once daily. No current facility-administered medications on file prior to visit. Social History Social History Tobacco Use Smoking status: Never Smokeless tobacco: Never Vaping Use Vaping status: Never Used Substance Use Topics Alcohol use: Yes Comment: One beer at night, helps clear sinuses Drug use: No Review of Symptoms REVIEW OF SYSTEMS GENERAL: No weight loss, malaise or fevers HEENT: Negative for frequent or significant headaches, No changes in hearing or vision, no nose bleeds or other nasal problems NECK: Negative for lumps, goiter, pain and significant neck swelling RESPIRATORY: Negative for cough, hemoptysis, wheezing. Has been noting some dyspnea with exertion with some shortness of breath. CARDIOVASCULAR: Negative for chest pain or pressure with the CHAVEZ, leg swelling, hypertension, CHF or palpitations GI: No nausea, vomiting, or diarrhea, No frequent heartburn or reflux symptoms, and no blood : No history of dysuria, frequency or blood MUSCULOSKELETAL: Negative for joint pain or swelling, back pain or muscle pain SKIN: Negative for lesions, rash, and itching PSYCH: Negative for sleep disturbance, mood disorder and recent psychosocial stressors HEMATOLOGY/LYMPHOLOGY: Negative for prolonged bleeding, bruising easily or swollen nodes ENDOCRINE: Negative for cold or heat intolerance, polyuria, polydipsia and goiter. Has felt tired at times. NEURO: No history of headaches, syncope, paralysis, seizures or tremors EXAM: BP 148/84 (BP Site: Left Arm, BP Position: Sitting, BP Cuff Size: Regular Adult) Pulse 70 Resp 16 Ht 167.6 cm (5' 6) Wt 64 kg (141 lb) BMI 22.76 kg/m BP 122/78 Pulse 70 Resp 16 Ht 167.6 cm (5' 6) Wt 64 kg (141 lb) BMI 22.76 kg/m Last 5 Encounter Wt Readings: Date: Wt: 05/26/2024 64 kg (141 lb) 05/30/2023 64.9 kg (143 lb) 05/10/2023 63.5 kg (140 lb) 04/16/2023 64.9 kg (143 lb) 05/29/2022 64 kg (141 lb) General Appearance: Well appearing, alert, in no acute distress, well-hydrated, well nourished.. Skin: Skin color, texture, turgor normal, no suspicious rashes or lesions. Head: Normocephalic, no masses, lesions, tenderness or abnormalities. Eyes: Anicteric sclera. Pupils are equally round and reactive to light. Extraocular movements are intact. . Ears: External ears, TM's normal, canals clear. Nose/Sinuses: Nares normal, septum midline, mucosa normal, no drainage or sinus tenderness. Oropharynx: Lips, mucosa, and tongue normal, teeth and gums normal, oropharynx normal. Neck: Supple, no adenopathy; thyroid symmetric, normal size, no bruits. Lungs: Lungs clear to auscultation. No wheezing, rhonchi, rales.. Heart: RRR without murmur, gallop, or rubs. No ectopy. Abdomen: Normal abdominal exam, Abdomen soft, non-tender. Bowel sounds normal. No masses, organomegaly. Extremities: No deformities, edema, skin discoloration, clubbing or cyanosis. Good capillary refill. . Musculoskeletal: Muscular strength intact, No joint swelling, deformity, or tenderness. Peripheral Pulses: Normal. Neurologic: Gait normal. Reflexes normal and symmetric. Sensation to light touch and crainal nerves 2-12 intact.. Health Maintenance List Depression Screening Never done Anxiety Screening Never done RSV Vaccine(1 - 1-dose 60+ series) Never done Covid-19 Vaccine(3 - 2022- season) due on 06/08/2023 Advance Directive Discussion due on 10/08/2023 Diabetes Screening due on 05/10/2026 Colorectal Cancer Screening due on 05/09/2027 Lipid Screening due on 05/10/2028 DTaP,Tdap,Td Vaccine(4 - Td or Tdap) due on 05/28/2029 Bone Density Screening Completed Shingrix Vaccine Completed Pneumococcal Vaccine: 65+ Completed Mammogram Screening Discontinued Influenza Vaccine Discontinued Hepatitis C Screening Discontinued Data reviewed A/P ASSESSMENT/PLAN: 1. Medicare annual wellness visit, subsequent - ICD9: V70.0, ICD10: Z00.00 (primary diagnosis) - Counseled on healthy diet and regular exercise - Follow up for annual exam in one year - advised on RSV 2. Esophagitis - ICD9: 530.10, ICD10: K20.90 - stable and no longer having symptoms. 3. Liver hemangioma - ICD9: 228.04, ICD10: D18.03 - no RUG pain. 4. Fatty liver - ICD9: 571.8, ICD10: K76.0 - check Lipids and LFT's 5. Osteopenia, senile - ICD9: 733.90, ICD10: M85.80 - Reviewed the need for Calcium and Vitamin D supplements and weight bearing exercise as tolerated 6. Advance directive discussed with patient - ICD9: V65.49, ICD10: Z71.89 - needs to bring in copies. 7. Screening for depression - ICD9: V79.0, ICD10: Z13.31 - done 8. Encounter for screening examination for other mental health and behavioral disorders - ICD9: V79.8, ICD10: Z13.39 - done 9. CHAVEZ (dyspnea on exertion) - ICD9: 786.09, ICD10: R06.09 Check - ECHO - PERFLUTREN LIPID MICROSPHERES 1.1 MG/ML INJECTION IN NS 10 ML - SODIUM CHLORIDE 0.9 % (FLUSH) INJECTION SYRINGE - EXERCISE STRESS ECG (WITHOUT IMAGING) 10. SOB (shortness of breath) - ICD9: 786.05, ICD10: R06.02 Check - ECHO - PERFLUTREN LIPID MICROSPHERES 1.1 MG/ML INJECTION IN NS 10 ML - SODIUM CHLORIDE 0.9 % (FLUSH) INJECTION SYRINGE - EXERCISE STRESS ECG (WITHOUT IMAGING) 11. Fatigue, unspecified type - ICD9: 780.79, ICD10: R53.83 - check CBC, TSH, Free T4. 12. Encounter for screening for diabetes mellitus - ICD9: V77.1, ICD10: Z13.1 - check CMP 13. Encounter for lipid screening for cardiovascular disease - ICD9: V77.91, V81.2, ICD10: Z13.220, Z13.6 - check lipids. 14. Family history of coronary artery disease - ICD9: V17.3, ICD10: Z82.49 check - ECHO - EXERCISE STRESS ECG (WITHOUT IMAGING) Requested Prescriptions Signed Prescriptions Disp Refills EPINEPHrine (EPIPEN) 0.3 mg/0.3 mL auto-injector 2 Each 1 Sig: Take as directed on instructions with allergic reaction. F/u in a year or sooner if issues. I spent a total of 40 minutes on the date of the service which included preparing to see the patient, [id number] patient care, completing clinical documentation, performing a medically appropriate examination, counseling and educating the patient/family/caregiver and ordering medications, tests, or procedures. Charles Smith MD documented in this encounter [facility] 05-26-2024 History of Present illness Narrative (H25.813) Combined forms of age-related cataract of both eyes (primary encounter diagnosis) (H52.13) Myopia, bilateral (H52.223) Regular astigmatism of both eyes (H52.4) Presbyopia Finalized new spec rx with change right eye- also noted decreasing seg height Devika Fontanez, MARCOS May 26, 2024 9:04 AM documented in this encounter [facility] 05-08-2024 History of Present illness Narrative POPULATION HEALTH NAVIGATION OUTREACH Action/FYI Patient is on [facility] 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 Updated notes for AWV to please address due care gaps and HCC gap closure. No HCC Reason for Outreach Care Gap/HCC or Scheduling Wellness Visits Care Gaps due: Medicare Annual Wellness Visit Patient Contacted: Unable or unnecessary to reach patient: Patient already scheduled Updated appointment notes Navigation Signature: Paula Ames MA May 08, 2024 7:09 AM documented in this encounter [facility] 03-27-2024 Instructions Henry Jay, OD - 03/27/2024 9:39 AM EDT ASSESSMENT/PLAN: 1. Combined forms of age-related cataract of both eyes - ICD9: 366.19, ICD10: H25.813 (primary diagnosis) Moderate cataract in both eyes. Well tolerated at this time. Discussed possible future affect on daily activities to watch for. Monitor as instructed. 2. Myopia, bilateral - ICD9: 367.1, ICD10: H52.13 3. Regular astigmatism of both eyes - ICD9: 367.21, ICD10: H52.223 4. Presbyopia - ICD9: 367.4, ICD10: H52.4 Continue to wear her glasses with the optional update. The prescription was given today. Recommended yearly dilated exams. documented in this encounter [facility] 03-27-2024 History of Present illness Narrative ASSESSMENT/PLAN: 1. Combined forms of age-related cataract of both eyes - ICD9: 366.19, ICD10: H25.813 (primary diagnosis) Moderate cataract in both eyes. Well tolerated at this time. Discussed possible future affect on daily activities to watch for. Monitor as instructed. 2. Myopia, bilateral - ICD9: 367.1, ICD10: H52.13 3. Regular astigmatism of both eyes - ICD9: 367.21, ICD10: H52.223 4. Presbyopia - ICD9: 367.4, ICD10: H52.4 Continue to wear her glasses with the optional update. The prescription was given today. Recommended yearly dilated exams. Henry Jay, OD I have confirmed and edited as necessary the relevant ophthalmic history, ROS, and the neuro exam findings as obtained by others. documented in this encounter [facility] 02-05-2024 Instructions eHnry Jay, OD - 02/05/2024 1:36 PM EDT ASSESSMENT/PLAN: 1. 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 Well tolerated at this time. Discussed possible future affect on daily activities to watch for. Monitor as instructed. 2. Vitreous floaters of both eyes - ICD9: 379.24, ICD10: H43.393 Vitreal floaters stable both eyes. Retinas flat and intact with no apparent retinal tear or traction. Discussed symptoms of retinal tear/detachment and if seen patient will return to clinic without delay. Recommended yearly dilated exams documented in this encounter [facility] 02-05-2024 History of Present illness Narrative ASSESSMENT/PLAN: 1. 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 Well tolerated at this time. Discussed possible future affect on daily activities to watch for. Monitor as instructed. 2. Vitreous floaters of both eyes - ICD9: 379.24, ICD10: H43.393 Vitreal floaters stable both eyes. Retinas flat and intact with no apparent retinal tear or traction. Discussed symptoms of retinal tear/detachment and if seen patient will return to clinic without delay. Recommended yearly dilated exams Henry Jay OD documented in this encounter [facility] 11-12-2023 Miscellaneous Notes November 13, 2023 PID: [id number] Ashley Robbins [address] [facility] [address] [place] [address] Dear Ms. Robbins, We are pleased to inform you that the results of your recent breast imaging exam on 11/12/2023 are normal. Your mammogram demonstrates that you have dense breast tissue, which could hide abnormalities. Dense breast tissue, in and of itself, is a relatively common condition. Therefore, this information is not provided to cause undue concern; rather, it is to raise your awareness and promote discussion with your health care provider regarding the presence of dense breast tissue in addition to other risk factors. Early detection of cancer is very important. We also understand recommendations regarding breast cancer screening are controversial. Please discuss with your primary care provider which strategy is best for you and whether a mammogram is right for you. Your imaging studies and report will be kept on file at [facility] as part of your permanent medical record and are available for your continuing care. Thank you for allowing us to help in meeting your health care needs. Sincerely, Dr. Vaughan Interpreting Radiologist [facility] (Normal over 40) documented in this encounter [facility] 06-07-2023 Miscellaneous Notes Patient notified of results and provider's instructions. Patient verbalizes understanding. Aram Dewey LPN Let patient know bone density study shows slight decrease in bone strength but still only osteopenia. Would continue Tx with Vit D and getting 500-600 mg of calcium twice a day along with walking for strengthening her bones. documented in this encounter [facility] 05-30-2023 History of Present illness Narrative Anna is a 72 year old who presents for an annual gynecologic exam without complaints. Postmenopausal: yes HRT use: No. 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: Sexual Activity: Not Asked; No partner data on record Contraception: No contraception data on record PAST MEDICAL HISTORY Diagnosis Date Advance directive discussed with patient 04/24/2022 Discussed 04/2022 Chronic sinusitis 05/10/2023 Collagenous colitis 05/29/2022 Esophagitis 05/29/2022 Family history of colon cancer 10/12/2011 Fatty liver 05/29/2022 Fibroids 03/25/2022 Gallbladder polyp 03/31/2022 Lesion of right lobe of liver 04/25/2022 CT 04/2022: suspected hemangioma Liver hemangioma 05/18/2022 Right lob Mass of left axilla 05/27/2015 Eval 2015 was benign Medicare annual wellness visit, subsequent 01/07/2018 Medicare part B: 07/08/2013 last done: 01/17/2019 Nuclear sclerosis of both eyes 12/19/2019 Osteopenia, senile 01/14/2018 Dexa: improved lumbar and right hip slightly worse in left hip. Personal history of colonic polyps Tinnitus of both ears 05/10/2023 PAST SURGICAL HISTORY Procedure Laterality Date COLONOSCOPY 05/09/2022 COLONOSCOPY FLX DX W/COLLJ SPEC WHEN PFRMD 2012 History of polyps COLONOSCOPY FLX DX W/COLLJ SPEC WHEN PFRMD 08/10/2017 Colonoscopy EGD 05/09/2022 HYSTEROSCOPY 01/02/2017 H/s D&C for PMB OTHER 1999 Sinus surgery TONSILLECTOMY HX FAMILY HISTORY Problem Relation Age of Onset Heart Mother CHF Cancer Father Colon Heart Father Coronary Artery Disease Father 60's Diabetes Sister Asthma Sister Macular Degen Sister Osteoporosis Sister Cancer Brother 62 Colon Diabetes Brother Macular Degen Maternal Grandmother SOCIAL HISTORY Social History Tobacco Use Smoking status: Never Smokeless tobacco: Never Vaping Use Vaping Use: Never used Substance Use Topics Alcohol use: Yes Comment: One beer at night, helps clear sinuses Drug use: No REVIEW OF SYSTEMS Abdomen: No abdominal pain, nausea, vomiting, diarrhea, or constipation. No bloating, early satiety, indigestion, or increased flatulence. Bladder: No dysuria, gross hematuria, urinary frequency, urinary urgency, or incontinence Breast: No breast lumps, nipple d/c, overlying skin changes, redness or skin retraction Allergies and current medication updated:Yes EXAM: BP 132/86 Ht 5' 6 (1.68m) Wt 143 lb (64.9kg) BMI 23.09 kg/(m^2). GENERAL: pleasant, female in no apparent distress HEENT: Normocephalic, atraumatic, mucus membranes moist, and no lesions NECK: Supple, full range of motion, no adenopathy, and thyroid normal DERMATOLOGY: Normal, without lesions, non-icteric, and non-hirsute BREAST: soft, non-tender, symmetric, no dominant mass, normal nipple-areolar complex, no lymphadenopathy, and no nipple discharge CHEST: Normal inspiratory effort ABDOMEN: soft, non-tender, and no masses PELVIC: external genitalia normal, normal Bartholin's glands, urethra, Playas's glands, no vulvar lesions, no cervical lesions, good vaginal support, physiologic discharge present, normal appearing perineal body and perianal region BIMANUAL: uterus normal size, shape and consistency, no adnexal masses, and non-tender RECTOVAGINAL: deferred. NEURO: alert and oriented x3,exam grossly non-focal EXTREMITIES: normal ASSESSMENT/PLAN: 1) Health maintenance: Pap/HPV screening no longer needed Mammogram ordered Colon cancer screening: up to date with screening 2) Follow up one year or sooner as needed Kirsten Hector MD documented in this encounter [facility] 05-16-2023 Miscellaneous Notes Patient notified and voiced understanding. Patient indicated that its almost cured. 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 If not getting better the next step would be to see ortho. documented in this encounter [facility] 05-11-2023 Miscellaneous Notes Patient was notified Pat Murcia Ma Let patient know her lipid panel and electrolyte panel were all ok. documented in this encounter [facility] 05-10-2023 Miscellaneous Notes Order placed to see ENT [facility] documented in this encounter [facility] 05-10-2023 History of Present illness Narrative Radiology Service Progress Note PATIENT NAME: Ashley Robbins DATE OF SERVICE: May 10, 2023 TIME: 11:12 AM PATIENT IDENTITY VERIFICATION COMPLETED USING TWO (2) IDENTIFIERS: Name and Date of confirmed by patient verbally. FALL SCREENING: Has the patient had 2 falls in the last year or 1 fall with injury or currently using an Ambulatory Assistive Device (Walker, Cane, Wheelchair, Crutches, etc.)? No PATIENT GENDER DATA: Female. status: : No status: NO. PATIENT RELEVANT IMPLANT DATA REVIEWED: Not Applicable RADIOLOGY DEPARTMENT: General X-ray: Exam(s) Completed: Upper Extremity X-Ray(s): Fingers/Thumb, right PERIPHERAL IV DATA: Not applicable SIGNED BY: RT Roger(R) May 10, 2023 11:12 AM documented in this encounter [facility] 05-10-2023 Instructions Charles Smith MD - 05/10/2023 10:16 AM EDT Please bring in copies of your power of finance attorney for health care and living will. documented in this encounter [facility] 05-10-2023 History of Present illness Narrative Medicare Yearly Visit Medical B eligibilty date 07/08/2013 Date of last exam 04/24/2022 PAST MEDICAL HISTORY PAST MEDICAL HISTORY Diagnosis Date Family history of colon cancer 10/12/2011 Mass of left axilla 05/27/2015 Eval 2014 was benign Personal history of colonic polyps Snoring PAST SURGICAL HISTORY PAST SURGICAL HISTORY Procedure Laterality Date COLONOSCOP W/ OR W/O BRSH SPEC 2012 History of polyps COLONOSCOP W/ OR W/O BRSH SPEC 08/10/2017 Colonoscopy HYSTEROSCOPY 01/02/2017 H/s D&C for PMB OTHER 1998 Sinus surgery Sulfa (Sulfonamide Antibiotics) Medications reviewed: Yes FAMILY HISTORY FAMILY HISTORY Problem Relation Age of Onset Heart Mother CHF Coronary Artery Disease Mother Cancer Father Colon Heart Father Coronary Artery Disease Father Cancer Brother 62 Colon Diabetes Brother Diabetes Sister Asthma Sister SOCIAL HISTORY: SOCIAL HISTORY Social History Marital status: Spouse name: Years of education: Number of children: Occupational History Occupation Employer Comment [employer] Social History Main Topics Smoking status: Never Smoker Smokeless status: Never Used Alcohol use: Yes Comment: One beer at night, helps clear sinuses Drug use: Krupa Castillo works out regularly 3 times per week with exercise for 30 min. She watches her diet for sodium, low fat and low cholesterol most of the time, all of the time. 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 Depression screen Depression Screening 01/07/2018 01/17/2019 04/23/2022 05/10/2023 PHQ-2 Score 0 0 0 0 PHQ-9 Score - - 1 - TRAVIS-2 Total Score 0 - - - Depression screening tool completed and reviewed. Based on score and interview, patient is not at risk for depression. Screening tool discussed with patient, and I recommended no further intervention at this time. Functional Ability/Safety Screen 1. Was the patient's timed Up and Go test unsteady or longer than 30 seconds? No 2. Does the patient need help with the phone, transportation, shopping,preparing meals, housework, laundry, medications or managing money? No 3. Does your home have rugs in the hallway, lack of grab bars in the bathroom (Y), lack of handrails on the stairs or have poor lighting? No Hearing Evaluation: normal PHYSICAL EXAM BP 132/90 (BP Site: Right Arm, BP Position: Sitting, BP Cuff Size: Regular Adult) Pulse 76 Resp 16 Ht 167.6 cm (5' 6) Wt 63.5 kg (140 lb) BMI 22.60 kg/m Alert and oriented X 3: YES Body mass index is 22.60 See Below ASSESSMENT/PLAN: 72 year old female The following prevention plan was discussed during the office visit and provided to the patient: See below Charles Smith MD Chief Complaint Patient presents with: Physical HPI N Anna Robbins is a 72 year old female who presents here today for Physical. Office visit - physical Patient with a Hx of esophagitis, fatty liver, gal bladder polyps colon polyps and had colonoscopy 2016 and due for repeat in 5 years. Has osteopenia and walks regularly. Not taking calcium at this point since constipates her. Has been having some right hand pain on the palmar side. Has been getting numbness in her hand that goes up into the right shoulder. This started about 3 weeks ago after spray herbicide for a day. No weakness in her hand or dropping things. The discomfort has been gradually improving but the numbness is new. Office visit - Physical 04/24/2022 Patient with a Hx of colon polyps and had colonoscopy 2016 and due for repeat in 5 years. Has osteopenia and walks regularly. Not taking calcium at this point since constipates her. At last visit we discussed symptoms of nausea, lower abdominal pains. LFT's continued to be elevated along with Alk Phos. US Showed a gal bladder polyp. CT pending. Is to see general surgery tomorrow for intake to get colonoscopy. Past medical history, appointments, medications, allergies reviewed. Previous Medical History PAST MEDICAL HISTORY Diagnosis Date Advance directive discussed with patient 04/24/2022 Discussed 04/2022 Collagenous colitis 05/29/2022 Esophagitis 05/29/2022 Family history of colon cancer 10/12/2011 Fatty liver 05/29/2022 Fibroids 03/25/2022 Gallbladder polyp 03/31/2022 Lesion of right lobe of liver 04/25/2022 CT 04/2022: suspected hemangioma Liver hemangioma 05/18/2022 Right lob Mass of left axilla 05/27/2015 Eval 2015 was benign Medicare annual wellness visit, subsequent 01/07/2018 Medicare part B: 07/08/2013 last done: 01/17/2019 Nuclear sclerosis of both eyes 12/19/2019 Osteopenia, senile 01/14/2018 Dexa: improved lumbar and right hip slightly worse in left hip. Personal history of colonic polyps Previous Surgical History PAST SURGICAL HISTORY Procedure Laterality Date COLONOSCOPY 05/09/2022 COLONOSCOPY FLX DX W/COLLJ SPEC WHEN PFRMD 2012 History of polyps COLONOSCOPY FLX DX W/COLLJ SPEC WHEN PFRMD 08/10/2017 Colonoscopy EGD 05/09/2022 HYSTEROSCOPY 01/02/2017 H/s D&C for PMB OTHER 1998 Sinus surgery TONSILLECTOMY HX Family History FAMILY HISTORY Problem Relation Age of Onset Heart Mother CHF Cancer Father Colon Heart Father Coronary Artery Disease Father 60's Diabetes Sister Asthma Sister Macular Degen Sister Osteoporosis Sister Cancer Brother 62 Colon Diabetes Brother Macular Degen Maternal Grandmother Patient Allergies ALLERGIES Allergen Reactions Amoxicillin Other: See Comments Sulfa (Sulfonamide * Swelling Current Medications Current Outpatient Medications on File Prior to Visit Medication Sig omeprazole (PRILOSEC) 40 mg capsule Take 1 capsule by mouth once daily. (Patient not taking: Reported on 04/19/2023) cholecalciferol (VITAMIN D3) 5,000 unit tab Take 5,000 Units by mouth once daily. melatonin 10 mg cap (Patient not taking: Reported on 03/25/2022) Zinc 50 mg tab Take 50 mg by mouth every other day. (Patient not taking: Reported on 05/29/2022) glucosamine/chondr bradley A sod (OSTEO BI-FLEX ORAL) Take by mouth once daily. OTC NUTRITIONAL SUPPLEMENT Ambereen for menopause (Patient not taking: Reported on 04/19/2023) PSEUDOEPHEDRINE HCL (SUDAFED ORAL) Take by mouth once daily. No current facility-administered medications on file prior to visit. Social History Social History Tobacco Use Smoking status: Never Smokeless tobacco: Never Vaping Use Vaping Use: Never used Substance Use Topics Alcohol use: Yes Comment: One beer at night, helps clear sinuses Drug use: No Review of Symptoms REVIEW OF SYSTEMS GENERAL: No weight loss, malaise or fevers HEENT: Negative for frequent or significant headaches, No changes in hearing or vision, no nose bleeds or other nasal problems other then her chronic sinusitis. Developed tinnitus back in February and questions if it may be related to her sinuses. NECK: Negative for lumps, goiter, pain and significant neck swelling RESPIRATORY: Negative for cough, hemoptysis, wheezing, COPD, dyspnea or shortness of breath CARDIOVASCULAR: Negative for chest pain, leg swelling, hypertension, CHF or palpitations GI: No nausea, vomiting, or diarrhea, No heartburn or reflux symptoms, and no blood : No history of dysuria, frequency or blood MUSCULOSKELETAL: see HPI SKIN: saw Derm PSYCH: Negative for sleep disturbance, mood disorder and recent psychosocial stressors HEMATOLOGY/LYMPHOLOGY: Negative for prolonged bleeding, bruising easily or swollen nodes ENDOCRINE: Negative for cold or heat intolerance, polyuria, polydipsia and goiter NEURO: No history of headaches, syncope, paralysis, seizures or tremors EXAM: BP 132/90 (BP Site: Right Arm, BP Position: Sitting, BP Cuff Size: Regular Adult) Pulse 76 Resp 16 Ht 167.6 cm (5' 6) Wt 63.5 kg (140 lb) BMI 22.60 kg/m BP 112/72 Pulse 76 Resp 16 Ht 167.6 cm (5' 6) Wt 63.5 kg (140 lb) BMI 22.60 kg/m Last 5 Encounter Wt Readings: Date: Wt: 05/10/2023 63.5 kg (140 lb) 04/16/2023 64.9 kg (143 lb) 05/29/2022 64 kg (141 lb) 04/25/2022 62.6 kg (138 lb) 04/24/2022 62.6 kg (138 lb) General Appearance: Well appearing, alert, in no acute distress, well-hydrated, well nourished.. Skin: Skin color, texture, turgor normal, no suspicious rashes or lesions. Head: Normocephalic, no masses, lesions, tenderness or abnormalities. Eyes: Anicteric sclera. Pupils are equally round and reactive to light. Extraocular movements are intact. . Ears: External ears normal, canals clear. Nose/Sinuses: Nares normal, septum midline, mucosa normal, no drainage or sinus tenderness. Oropharynx: Lips, mucosa, and tongue normal, teeth and gums normal, oropharynx normal. Neck: Supple, no adenopathy; thyroid symmetric, normal size, no bruits. Lungs: Lungs clear to auscultation. No wheezing, rhonchi, rales.. Heart: RRR without murmur, gallop, or rubs. No ectopy. Abdomen: Normal abdominal exam, Abdomen soft, non-tender. Bowel sounds normal. No masses, organomegaly. Extremities: No deformities, edema, skin discoloration, clubbing or cyanosis. Good capillary refill. . Musculoskeletal: Spine range of motion normal. Muscular strength intact, No joint swelling, deformity. Has tenderness to palpation on the palmar side of the 1st MCP joint. Has pain with adduction. Injection Molder strength was ok. Phalanges was positive and Tinel's was neg. Peripheral Pulses: Normal. Neurologic: Gait normal. Reflexes normal and symmetric. Sensation to light touch intact.. Health Maintenance List COVID-19 VACCINE(3 - Pfizer series) due on 02/22/2021 ADVANCE DIRECTIVE DISCUSSION due on 10/08/2022 DEPRESSION ASSESSMENT Never done MAMMOGRAM due on 11/10/2023 DIABETES SCREEN due on 08/17/2025 LIPID SCREEN due on 04/24/2027 COLORECTAL CANCER SCREENING due on 05/09/2027 DTAP,TDAP,TD(4 - Td or Tdap) due on 05/28/2029 BONE DENSITY Completed SHINGRIX VACCINE Completed PNEUMOCOCCAL: 65+ Completed INFLUENZA Discontinued HEPATITIS C SCREENING Discontinued Data reviewed A/P ASSESSMENT/PLAN: 1. Medicare annual wellness visit, subsequent - ICD9: V70.0, ICD10: Z00.00 (primary diagnosis) - Counseled on healthy diet and regular exercise - Calcium intake with supplements or by diet of 1000 mg/day for under 50, 8958-1513 mg/day for 50+ F/u in a year. 2. Esophagitis - ICD9: 530.10, ICD10: K20.90 - seeing Gastro. 3. Osteopenia, senile - ICD9: 733.90, ICD10: M85.80 - Reviewed the need for Calcium and Vitamin D supplements and weight bearing exercise as tolerated Check - DXA-AXIAL SKELETON 4. Fatty liver - ICD9: 571.8, ICD10: K76.0 Check - LIPID PANEL, NONFASTING - COMP METABOLIC PANEL 5. Chronic sinusitis, unspecified location - ICD9: 473.9, ICD10: J32.9 Patient wants to see ENT in [place] and will let me know the providers name so a consult can be placed. 6. Tinnitus of both ears - ICD9: 388.30, ICD10: H93.13 - as per #5. Patient contacted office later in the day with providers name and consult placed. 7. Pain of right thumb - ICD9: 729.5, ICD10: M79.644 - suspect this may be over use related. Check - XR DIGIT GENERAL 3V FRONTAL/LAT/OBL RIGHT Tx with - METHYLPREDNISOLONE 4 MG TABLETS IN A DOSE PACK - f/u in early Jun and if not improved will get NCS/EMG 8. Numbness and tingling in right hand - ICD9: 782.0, ICD10: R20.0, R20.2 - as per #7 - METHYLPREDNISOLONE 4 MG TABLETS IN A DOSE PACK 9. Encounter for lipid screening for cardiovascular disease - ICD9: V77.91, V81.2, ICD10: Z13.220, Z13.6 Check - LIPID PANEL, NONFASTING 10. Advance directive discussed with patient - ICD9: V65.49, ICD10: Z71.89 - patient tobring in copies when completed. Requested Prescriptions Signed Prescriptions Disp Refills methylPREDNISolone (MEDROL, LUZ,) 4 mg Dose-Pack 21 tablet 0 Sig: Follow dosing instructions, take with food. F/u in early Jun to re-check right thumb pain and hand numbness. F/u in a year for extensive exam. I spent a total of 40 minutes on the date of the service which included preparing to see the patient, [id number] patient care, completing clinical documentation, performing a medically appropriate examination, counseling and educating the patient/family/caregiver and ordering medications, tests, or procedures. Charles Smith MD documented in this encounter [facility] 04-19-2023 Instructions Savannah Fenton Ma - 04/19/2023 1:18 PM EDT Images from the original note were not included. Department of Dermatology [address] [place] [address] [address] [place] [address] SKIN CARE AFTER CRYOSURGERY Post - Operative Instructions The skin's response to cryosurgery (freezing) can be mild to more severe, depending on the depth of the freeze and the location of the area treated. You may have only mild redness and swelling with a little discomfort of significant discoloration and blistering with considerable discomfort. A burning sensation in the skin may last from several minutes to several hours after the procedure. Follow these instructions when caring for an area treated by cryosurgery: MINOR RESPONSE: The area may sting or burn for a short time after treatment. The treated area will be red in color at first then turn brown and flaky as it heals and the upper layer of skin sloughs off. Gently cleanse the area with soap and water. Pat dry and apply a thin film of: vaseline. Do this at least once a day to prevent infection. MAJOR RESPONSE: Follow instructions as stated for minor response. The area may sting and burn for several hours after treatment. To relieve throbbing and pain, elevate the treatment area. Acetaminophen (Tylenol) may be taken every 3 to 4 hours for discomfort. A blister will form in the area of freezing. It may be filled with clear fluid or blood. This response is not unusual. Do not break the blister unless it becomes uncomfortable. You may prick the blister with a sterile needle or pin to remove the fluid. Leave the skin intact. Cleanse twice a day with soap and water and apply vaseline to prevent infection and a thick scab from forming. All treated areas usually heal within 3 to 4 weeks. Please call [phone] to speak to one of the dermatology nurses if you have any questions. documented in this encounter [facility] 04-19-2023 History of Present illness Narrative NEW PATIENT HARSH in Dermatology: Visit date not found CC: This patient is a 72 year old female. Patient presents with: Full Body Skin Check HPI: Presents today for FBSE -spot on the left back that can be irritating and itchy -also has spot in groin area that is raised, thinks it is a cyst but wants confirmation -Pt has no other concerns at this time. PERTINENT HISTORY: -Personal history of skin cancer or atypical nevi: No -History of blistering sunburns: Yes -Family history of skin cancer: Yes, mother unsure of type SOC: Social History Tobacco Use Smoking status: Never Smokeless tobacco: Never Vaping Use Vaping Use: Never used Substance Use Topics Alcohol use: Yes Comment: One beer at night, helps clear sinuses Drug use: No MEDS: Current outpatient prescriptions: Current Outpatient Medications on File Prior to Visit Medication Sig omeprazole (PRILOSEC) 40 mg capsule Take 1 capsule by mouth once daily. cholecalciferol (VITAMIN D3) 5,000 unit tab Take 5,000 Units by mouth once daily. melatonin 10 mg cap (Patient not taking: No sig reported) Zinc 50 mg tab Take 50 mg by mouth every other day. (Patient not taking: No sig reported) glucosamine/chondr bradley A sod (OSTEO BI-FLEX ORAL) Take by mouth once daily. OTC NUTRITIONAL SUPPLEMENT Ambereen for menopause PSEUDOEPHEDRINE HCL (SUDAFED ORAL) Take by mouth once daily. No current facility-administered medications on file prior to visit. ALLERGY: ALLERGIES Allergen Reactions Amoxicillin Other: See Comments Sulfa (Sulfonamide * Swelling REVIEW OF SYSTEMS: Patient feels well and denies any recent fevers, chills, or nightsweats.. Skin: see HPI PHYSICAL EXAM: The patient is a pleasant female in no distress. Patient appears healthy, well developed, well nourished and in otherwise good health. Alert and oriented x 3. A skin exam was done of the Scalp, face, ears, neck, chest, back, abdomen, bilateral upper extremities, bilateral lower extremities, buttocks, hands, feet, nails and hair. [place]ila Skin Type: II IMPRESSION: Mobile, round, well-demarcated subcutaneous nodule with overlying central punctum on left mons pubis Lopez stuck on papule with surrounding erythema on the left upper back x1 Regular and symmetric hyperpigmented macules throughout with regular network under dermoscopy Hanna red papules throughout Light lopez macules on all sun exposed areas Brown and lopez stuck on plaques throughout A/P: 1) EIC - Educated and reassured on benign nature Discussed definitive treatment being cyst excision- r/b/o of procedure reviewed Patient declines treatment at this time, would like to continue to observe 2) Inflamed seborrheic keratosis, Disturbance of skin sensation, pruritus - Cryosurgery of Non-Malignant Lesion(s) Risks, benefits and alternatives including the expected redness, as well as the risks of swelling, blistering, crusting, hypo/hyperpigmentation and scarring reviewed with patient. Patient verbalizes understanding and wishes to proceed. Derm Physician Children Counselor: Sally Dominguez PA-C Cryosurgery performed with Liquid Nitrogen via cryostat spray gun to Seborrheic Keratosis. 1 lesion(s) treated. left upper back x1 Patient tolerated well. Wound care instructions provided, pt verbalizes understanding. Patient informed to return for evaluation and biopsy of any persistent, unresolved lesion after treatment. 3) Clinically benign appearing nevi, seborrheic keratoses, angioma, solar lentigo - Discussed etiology, reassured, and educated. Recommend broad spectrum SPF 30 or higher daily on all sun exposed areas reapplying as directed on packaging. Pt verbalizes understanding. I counseled the patient after the exam about the ABCDEs of nevus evaluation, pre-cancer, and skin cancer surveillance with monthly self skin exams. Pt agrees to return before scheduled follow up if there are any changing, non-healing, or new lesions on the skin. Follow up in 1 year and PRN The documentation for this note was partially completed by Savannah Fenton Ma acting as scribe for Sally Dominguez PA-C. April 19, 2023 1:01 PM. I agree with the Chief Complaint, ROS, and Past Histories independently gathered by the clinical manufacturing support engineer and the remaining scribed note accurately describes my personal service to the patient. Sally Dominguez PA-C April 19, 2023 1:07 PM documented in this encounter [facility] 04-16-2023 History of Present illness Narrative Chief Complaint Patient presents with: Follow Up: Red spot on mid back HPI Ashley Robbins is a 72 year old female who presents here today for Above Complaints.. Patient presents with concerns for dry scaly patch on back. Patient reports it occasionally gets irritated by her clothes. Past medical history, appointments, medications, allergies reviewed. Previous Medical History PAST MEDICAL HISTORY Diagnosis Date Advance directive discussed with patient 04/24/2022 Discussed 04/2022 Collagenous colitis 05/29/2022 Esophagitis 05/29/2022 Family history of colon cancer 10/12/2011 Fatty liver 05/29/2022 Fibroids 03/25/2022 Gallbladder polyp 03/31/2022 Lesion of right lobe of liver 04/25/2022 CT 04/2022: suspected hemangioma Liver hemangioma 05/18/2022 Right lob Mass of left axilla 05/27/2015 Eval 2014 was benign Medicare annual wellness visit, subsequent 01/07/2018 Medicare part B: 07/08/2013 last done: 01/17/2019 Nuclear sclerosis of both eyes 12/19/2019 Osteopenia, senile 01/14/2018 Dexa: improved lumbar and right hip slightly worse in left hip. Personal history of colonic polyps Previous Surgical History PAST SURGICAL HISTORY Procedure Laterality Date COLONOSCOPY 05/09/2022 COLONOSCOPY FLX DX W/COLLJ SPEC WHEN PFRMD 2012 History of polyps COLONOSCOPY FLX DX W/COLLJ SPEC WHEN PFRMD 08/10/2017 Colonoscopy EGD 05/09/2022 HYSTEROSCOPY 01/02/2017 H/s D&C for PMB OTHER 1998 Sinus surgery TONSILLECTOMY HX Family History FAMILY HISTORY Problem Relation Age of Onset Heart Mother CHF Cancer Father Colon Heart Father Coronary Artery Disease Father 60's Diabetes Sister Asthma Sister Macular Degen Sister Osteoporosis Sister Cancer Brother 62 Colon Diabetes Brother Macular Degen Maternal Grandmother Patient Allergies ALLERGIES Allergen Reactions Amoxicillin Other: See Comments Sulfa (Sulfonamide * Swelling Current Medications Current Outpatient Medications on File Prior to Visit Medication Sig omeprazole (PRILOSEC) 40 mg capsule Take 1 capsule by mouth once daily. cholecalciferol (VITAMIN D3) 5,000 unit tab Take 5,000 Units by mouth once daily. melatonin 10 mg cap (Patient not taking: No sig reported) Zinc 50 mg tab Take 50 mg by mouth every other day. (Patient not taking: No sig reported) glucosamine/chondr bradley A sod (OSTEO BI-FLEX ORAL) Take by mouth once daily. OTC NUTRITIONAL SUPPLEMENT Ambereen for menopause PSEUDOEPHEDRINE HCL (SUDAFED ORAL) Take by mouth once daily. No current facility-administered medications on file prior to visit. Social History Social History Tobacco Use Smoking status: Never Smokeless tobacco: Never Vaping Use Vaping Use: Never used Substance Use Topics Alcohol use: Yes Comment: One beer at night, helps clear sinuses Drug use: No Review of Symptoms REVIEW OF SYSTEMS SEE HPI EXAM: BP 132/84 Pulse 78 Resp 14 Wt 64.9 kg (143 lb) BMI 23.80 kg/m General Appearance: Well appearing, alert, in no acute distress, well-hydrated, well nourished.. Skin: Positives: Multiple rough scaly areas to back. Raised and nontender. Health Maintenance List COVID-19 VACCINE(3 - Pfizer series) due on 02/22/2021 ADVANCE DIRECTIVE DISCUSSION due on 10/08/2022 DEPRESSION ASSESSMENT Never done MAMMOGRAM due on 11/10/2023 DIABETES SCREEN due on 08/17/2025 LIPID SCREEN due on 04/24/2027 COLORECTAL CANCER SCREENING due on 05/09/2027 DTAP,TDAP,TD(4 - Td or Tdap) due on 05/28/2029 BONE DENSITY Completed SHINGRIX VACCINE Completed PNEUMOCOCCAL: 65+ Completed INFLUENZA Discontinued HEPATITIS C SCREENING Discontinued ASSESSMENT/PLAN: 1. Skin abnormalities - ICD9: 757.9, ICD10: L98.9 - CONSULT TO DERMATOLOGY Paula Cowan APRN.VESSEL WELDER documented in this encounter [facility] 12-29-2022 History of Present illness Narrative (H25.13) Nuclear sclerosis of both eyes (primary encounter diagnosis) (H52.7) Refractive error Moderate cataract both eyes with modest myopic shift. At present recommend update glasses and monitor cataract. Glasses prescription given. Discussed findings, plan and answered questions. Follow-up in 1 year complete and as needed and sooner as needed for other problems or concerns. I have confirmed and edited as necessary the relevant ophthalmic history, ROS, and the neuro exam findings as obtained by others. I have seen and examined Ashley Anna Robbins I have discussed the case and the management of this patient's care with the Resident/Fellow, if applicable. I also have reviewed and agree with the assessment and plan as stated above and agree with all of its relevant components. Abby Medley MD documented in this encounter [facility] 11-12-2022 Miscellaneous Notes Let patient know mammogram was ok. documented in this encounter [facility] 11-12-2022 Miscellaneous Notes November 13, 2022 PID: [id number] Ashley Robbins [address] [place] [address] Dear Ms. Robbins, We are pleased to inform you that the results of your recent breast imaging exam on 11/10/2022 are normal. Your mammogram demonstrates that you have dense breast tissue, which could hide abnormalities. Dense breast tissue, in and of itself, is a relatively common condition. Therefore, this information is not provided to cause undue concern; rather, it is to raise your awareness and promote discussion with your health care provider regarding the presence of dense breast tissue in addition to other risk factors. Early detection of cancer is very important. We also understand recommendations regarding breast cancer screening are controversial. Please discuss with your primary care provider which strategy is best for you and whether a mammogram is right for you. Your imaging studies and report will be kept on file at [facility] as part of your permanent medical record and are available for your continuing care. Thank you for allowing us to help in meeting your health care needs. Sincerely, Dr. Morris Interpreting Radiologist [facility] (Normal over 40) documented in this encounter [facility] 11-10-2022 History of Present illness Narrative Radiology Service Progress Note PATIENT NAME: Ashley Robbins DATE OF SERVICE: November 10, 2022 TIME: 12:55 PM PATIENT IDENTITY VERIFICATION COMPLETED USING TWO (2) IDENTIFIERS: Name and Date of confirmed by patient verbally. FALL SCREENING: Has the patient had 2 falls in the last year or 1 fall with injury or currently using an Ambulatory Assistive Device (Walker, Cane, Wheelchair, Crutches, etc.)? No PATIENT GENDER DATA: Female. status: : No status: NO. PATIENT RELEVANT IMPLANT DATA REVIEWED: Not Applicable RADIOLOGY DEPARTMENT: Mammography PERIPHERAL IV DATA: Not applicable SIGNED BY: RT Felicia(R) November 10, 2022 12:55 PM documented in this encounter [facility] 08-04-2022 History of Present illness Narrative 1. Punctate keratitis of right eye 2. Dry eye syndrome of bilateral lacrimal glands Educated pt on condition Recommended gel drops 2-3 times daily in both eyes and to continue ointment at night Recommended humidifier at night as well 3. Vitreous floaters of both eyes No new pathology upon dilated exam Educated pt to return immediately with any increase in floaters or flashes of light 4. Regular astigmatism of both eyes 5. Presbyopia Continue with current glasses 6. Combined forms of age-related cataract of both eyes Continue to monitor Follow-up in 5 months for complete with Dr. Medley or sooner as needed Devika Fontanez, OD August 04, 2022 9:28 AM documented in this encounter [facility] 06-30-2022 Miscellaneous Notes Patient called in an stated she saw Dr. Smith and he gave her the results from her procedure. Nicolasa Morse Left message for patient to return call and schedule a follow up for her EGD. 05/09/2022. Biopsies were taken. Nicolasa Morse PSS Anna had an EGD and colonoscopy performed by Dr. Toth on 05/09/2022. Biopsies were taken. Anna will need a follow up visit with [facility]. This appointment can be either in-person or virtual. Jyotsna Mackey RN documented in this encounter [facility] 05-29-2022 History of Present illness Narrative Chief Complaint Patient presents with: Sundar ONEIL Ashley Robbins is a 71 year old female who presents here today for Chronic Medical Conditions/Follow up on EGD/Colonscopy Patient had a scope of the esophagus that showed sever esophagitis but her biopsies came back unremarkable. Her Liver US, CT and MRI showed fatty liver and a hemangioma. Her colonoscopy showed collagenous colitis on several biopsies and a tubular adenoma. Since her scope she has been on omeprazole 20 mg two a day. She has not noted any difference. Patient may have a glass and a 1/2 of wine a night. Her has a Hx of CAD so they eat a heart healthy diet. Past medical history, appointments, medications, allergies reviewed. Previous Medical History PAST MEDICAL HISTORY Diagnosis Date Advance directive discussed with patient 04/24/2022 Discussed 04/2022 Family history of colon cancer 10/12/2011 Gallbladder polyp 03/31/2022 Lesion of right lobe of liver 04/25/2022 CT 04/2022: suspected hemangioma Liver hemangioma 05/18/2022 Right lob Mass of left axilla 05/27/2015 Eval 2014 was benign Medicare annual wellness visit, subsequent 01/07/2018 Medicare part B: 07/08/2013 last done: 01/17/2019 Nuclear sclerosis of both eyes 12/19/2019 Osteopenia, senile 01/14/2018 Dexa: improved lumbar and right hip slightly worse in left hip. Personal history of colonic polyps Previous Surgical History PAST SURGICAL HISTORY Procedure Laterality Date COLONOSCOPY 05/09/2022 COLONOSCOPY FLX DX W/COLLJ SPEC WHEN PFRMD 2012 History of polyps COLONOSCOPY FLX DX W/COLLJ SPEC WHEN PFRMD 08/10/2017 Colonoscopy EGD 05/09/2022 HYSTEROSCOPY 01/02/2017 H/s D&C for PMB OTHER 1999 Sinus surgery TONSILLECTOMY HX Family History FAMILY HISTORY Problem Relation Age of Onset Heart Mother CHF Cancer Father Colon Heart Father Coronary Artery Disease Father 60's Diabetes Sister Asthma Sister Macular Degen Sister Osteoporosis Sister Cancer Brother 62 Colon Diabetes Brother Macular Degen Maternal Grandmother Patient Allergies ALLERGIES Allergen Reactions Amoxicillin Other: See Comments Sulfa (Sulfonamide * Swelling Current Medications Current Outpatient Medications on File Prior to Visit Medication Sig omeprazole (PRILOSEC) 20 mg capsule Take 2 capsules by mouth once daily. omeprazole (PRILOSEC) 20 mg capsule Take 2 capsules by mouth once daily. cholecalciferol (VITAMIN D-3) 5,000 unit tab Take 5,000 Units by mouth once daily. melatonin 10 mg cap (Patient not taking: Reported on 03/25/2022 ) Zinc 50 mg tab Take 50 mg by mouth every other day. glucosamine/chondr bradley A sod (OSTEO BI-FLEX ORAL) Take by mouth once daily. OTC NUTRITIONAL SUPPLEMENT Ambereen for menopause PSEUDOEPHEDRINE HCL (SUDAFED ORAL) Take by mouth once daily. No current facility-administered medications on file prior to visit. Social History Social History Tobacco Use Smoking status: Never Smokeless tobacco: Never Vaping Use Vaping Use: Never used Substance Use Topics Alcohol use: Yes Comment: One beer at night, helps clear sinuses Drug use: No Review of Symptoms REVIEW OF SYSTEMS GI: No nausea, vomiting, or diarrhea and No heartburn or reflux symptoms EXAM: BP 132/92 (BP Site: Left Arm, BP Position: Sitting, BP Cuff Size: Regular Adult) Pulse 80 Resp 14 Wt 64 kg (141 lb) BMI 23.46 kg/m BP 128/86 Pulse 80 Resp 14 Wt 64 kg (141 lb) BMI 23.46 kg/m Last 5 Encounter BP Readings: Date: BP: 05/29/2022 138/92 05/09/2022 135/70 04/25/2022 110/78 04/24/2022 130/80 03/25/2022 110/78 General Appearance: Well appearing, alert, in no acute distress, well-hydrated, well nourished.. Abdomen: Normal abdominal exam, Abdomen soft, non-tender. Bowel sounds normal. No masses, organomegaly. Health Maintenance List COVID-19 VACCINE(3 - Booster for [employer] series) due on 05/30/2021 MAMMOGRAM due on 11/02/2021 DEPRESSION SCREENING due on 04/23/2023 DIABETES SCREEN due on 04/24/2025 LIPID SCREEN due on 04/24/2027 COLORECTAL CANCER SCREENING due on 05/09/2027 DTAP,TDAP,TD(4 - Td or Tdap) due on 05/28/2029 BONE DENSITY Completed ADVANCE DIRECTIVE DISCUSSION Completed SHINGRIX VACCINE Completed PNEUMOCOCCAL: 65+ Completed INFLUENZA Discontinued HEPATITIS C SCREENING Discontinued Data reviewed A/P ASSESSMENT/PLAN: 1. Fatty liver - ICD9: 571.8, ICD10: K76.0 (primary diagnosis) ; discussed diet and suggested we could always add a low dose Statin if LFT's start to go up. Advised her to consider cutting her wine back to just one glass a day. - CONSULT TO GASTROENTEROLOGY: Dr. Uribe 2. Esophagitis - ICD9: 530.10, ICD10: K20.90 - cont omeprazole 40 mg a day - CONSULT TO GASTROENTEROLOGY 3. Collagenous colitis - ICD9: 558.9, ICD10: K52.831 - CONSULT TO GASTROENTEROLOGY Requested Prescriptions Signed Prescriptions Disp Refills omeprazole (PRILOSEC) 40 mg capsule 90 capsule 1 Sig: Take 1 capsule by mouth once daily. F/u 04/2023 for CHARLOTTE Smith MD documented in this encounter [facility] 05-22-2022 Miscellaneous Notes Patient notified & rescheduled EGD/colonoscopy f/u 05/29 @ 11:20 AM. Britt Powell MA I'm ok with her seeing me (probably best to see me). I wont be able to answer all her questions. Spoke with patient and gave results. Patient voiced understanding. Patient indicated that she had a colonoscopy and EGD last week. Patient was told she has Colitis and GERD. She said she has family history colitis so she is familiar with. They scheduled her with Diane Hoffmann and she has not been happy and doesn't feel the appointments have been professional. For the next follow up she asked to be seen with someone else and they indicated that they would but she is scheduled again with Diane. Patient is asking if she can see her PCP she also mainly has more concerns with her results of her fatty liver and how much alcohol she can consume. Please advise. Could this be scheduled with Roxie? Let patient know lesion in liver is a benign dilated vein like a varicose vein. No Tx needed. documented in this encounter [facility] 05-18-2022 History of Present illness Narrative Radiology Service Progress Note DATE OF SERVICE: May 18, 2022 TIME: 11:24 AM PATIENT IDENTITY VERIFICATION COMPLETED USING TWO (2) STANDARD IDENTIFIERS: Name and Date of confirmed by patient verbally. FALL SCREENING: Has the patient had 2 falls in the last year or 1 fall with injury or currently using an Ambulatory Assistive Device (Walker, Cane, Wheelchair, Crutches, etc.)? No PATIENT GENDER DATA: Female. status: : No status: NO. PATIENT RELEVANT IMPLANT DATA REVIEWED: Yes ALLERGIES: Reviewed and unchanged CONTRAST ALLERGY: NO. EXAM: MRI - CONTRAST TYPE: GROUP II PERIPHERAL IV DATA: Ambulatory: A peripheral IV was started in the Left antecubital site with a Angio cath: 22 gauge. RADIOLOGY DEPARTMENT: MR; Exam(s) Completed: Body: Liver (routine) SIGNATURE: RT Rolf(R) PATIENT NAME: Ashley Robbins DATE: May 18, 2022 TIME: 11:24 AM documented in this encounter [facility] 05-09-2022 Nurse Note Arrived in Phase II via cart, left lateral position, sedated but responds to verbal stimuli. Color normal, skin warm and dry, respirations WNL, and unlabored. Abdomen soft and non distended. Patient resting comfortably. documented in this encounter [facility] 05-09-2022 History and physical note Images from the original note were not included. HISTORY AND PHYSICAL N Anna Robbins 1950 REFERRING PHYSICIAN: Charles Smith MD CHIEF COMPLAINT: Consult (lower abdomen pain, diarrhea) HPI: The patient is a 71 year old female referred for endoscopy. N notes diarrhea x approximately 6 weeks. Has been taking rpobiotic with some improvement. Denies recent travel. Patient denies any weight changes, blood in stools, black tarry stools. NOTES generalized abdominal pain. She was hospitalized last month with elevated liver enzymes. Patient has been following with Dr. Smith in primary care, notes reviewed. She had right upper quadrant ultarsound 03/30/22 which showed a 5 mm gallbladder ppolyp, and had a CT scan 04/20/22 which showed 5 mm enhancing indeterminant right hepatic lesion. Has MRI ordered through PCP for further evaluation. NOTES family history of colon cancer-father The patient notes no upper GI complaints. N has undergone prior endoscopy. Most recent colonoscopy 08/10/[address] Toth with removal of adenomatous polyp at that time. Patient denies chest pain or shortness of breath. Denies problems with sedation in the past. PAST MEDICAL HISTORY PAST MEDICAL HISTORY Diagnosis Date Advance directive discussed with patient 04/24/2022 Discussed 04/2022 Family history of colon cancer 10/12/2011 Gallbladder polyp 03/31/2022 Mass of left axilla 05/27/2015 Eval 2015 was benign Medicare annual wellness visit, subsequent 01/07/2018 Medicare part B: 07/08/2013 last done: 01/17/2019 Nuclear sclerosis of both eyes 12/19/2019 Osteopenia, senile 01/14/2018 Dexa: improved lumbar and right hip slightly worse in left hip. Personal history of colonic polyps PAST SURGICAL HISTORY PAST SURGICAL HISTORY Procedure Laterality Date COLONOSCOPY FLX DX W/COLLJ SPEC WHEN PFRMD 2012 History of polyps COLONOSCOPY FLX DX W/COLLJ SPEC WHEN PFRMD 08/10/2017 Colonoscopy HYSTEROSCOPY 01/02/2017 H/s D&C for PMB OTHER 1998 Sinus surgery CURRENT MEDICATIONS Current Outpatient Medications Medication Sig cholecalciferol (VITAMIN D-3) 5,000 unit tab Take 5,000 Units by mouth once daily. Zinc 50 mg tab Take 50 mg by mouth every other day. glucosamine/chondr bradley A sod (OSTEO BI-FLEX ORAL) Take by mouth once daily. OTC NUTRITIONAL SUPPLEMENT Ambereen for menopause PSEUDOEPHEDRINE HCL (SUDAFED ORAL) Take by mouth once daily. melatonin 10 mg cap (Patient not taking: Reported on 03/25/2022 ) No current facility-administered medications for this visit. ALLERGIES: Amoxicillin and Sulfa (Sulfonamide Antibiotics) PERSONAL HISTORY: SOCIAL HISTORY Social History Tobacco Use Smoking status: Never Smoker Smokeless tobacco: Never Used Vaping Use Vaping Use: Never used Substance Use Topics Alcohol use: Yes Comment: One beer at night, helps clear sinuses Drug use: No FAMILY HISTORY: FAMILY HISTORY FAMILY HISTORY Problem Relation Age of Onset Heart Mother CHF Cancer Father Colon Heart Father Coronary Artery Disease Father 60's Diabetes Sister Asthma Sister Macular Degen Sister Osteoporosis Sister Cancer Brother 62 Colon Diabetes Brother Macular Degen Maternal Grandmother REVIEW OF SYMPTOMS: The review of systems data was entered by the nurse and reviewed by me Nursing Notes: Louisa Acosta LPN 04/25/2022 8:16 AM Signed REVIEW OF SYSTEMS: General: The patient notes fatigue, denies weight loss, denies weight gain, denies feeling hot, and denies feelings of cold. Eyes: The patient denies glaucoma, denies eye injury/surgery, does not wear glasses or contacts. Ear/Nose/Throat: The patient notes allergies, denies hayfever, denies ear infections, and denies bloody noses. Cardiovascular: The patient denies chest pain, denies heart disease, denies high blood pressure,denies cardiac stent, denies prior heart attack, denies irregular heart beat, denies high cholesterol, denies poor circulation, denies heart failure, other cardiac issues, denies claudication, denies cold feet, denies peripheral arterial stent. Respiratory: The patient denies tuberculosis, denies pneumonia, denies frequent cough, denies pulmonary embolism, denies shortness of breath, and denies coughing up blood. Gastrointestinal: The patient denies difficulty swallowing, denies acid reflux, denies ulcers, denies vomiting, denies jaundice/hepatitis, denies gallbladder problems, denies black or tarry stools, denies hemorrhoids, denies bleeding from rectum, denies diverticulitis, denies constipation, notes diarrhea, denies loss of stool control, and denies hernias. Kidney/Bladder: The patient denies kidney stones, denies urine infections, and denies bloody urine. Skin: The patient denies a history of skin cancer, denies bleeding/changing moles, and denies a history of skin rash. Neurologic: The patient denies a history of epilepsy/convulsions, denies headaches, denies head/spinal injuries, and denies stroke/TIA. Psychiatric: The patient denies psychiatric medications, denies depression, and denies voices, denies substance abuse. Endocrine: The patient denies thyroid disorders, denies diabetes, and denies hormonal problems. Hematologic: The patient denies a history of bruising, denies bleeding, and denies anemia, denies blood clots. Infections: The patient denies a history of measles and mumps, denies rheumatic fever, and denies sexually transmitted diseases. Musculoskeletal: The patient denies back pain/injury, denies back problems, denies sciatica, denies knee/foot trouble, denies arthritis, or denies gout. When was patient's last Mammogram screening? 10/2021 Last Colonoscopy: 2016 Louisa Acosta LPN I have confirmed and edited as necessary, the PFSH and ROS obtained by others. Diane Hoffmann PA-C PHYSICAL EXAMINATION: General: The patient is 71 year old female, well nourished, well hydrated in no acute distress. The patient is oriented to time, place, and person. VITALS: Blood pressure 110/78, pulse 112, temperature 36.4 C (97.5 F), height 165.1 cm (5' 5), weight 62.6 kg (138 lb), SpO2 98 %. Body mass index is 22.96 kg/m . HEENT: Normal cephalic, ataumatic, pupils are equally round, sclera are anicteric, mucous membranes are moist, oropharynx is clear. Neck has no masses, asymmetry or lymphadenopathy. Respiratory: Clear to auscultation and percussion. Normal respiratory excursion and pattern. Cardiac: Examination is regular rate and rhythm. Normal S1/S2 Abdominal exam: Soft, nontender, with no palpable masses. No hepatosplenomegaly. No palpable hernias. Extremities: no clubbing, cyanosis or edema. No adenopathy. LABORATORY VALUES: As Noted RADIOLOGIC STUDIES: As Noted Assessment IMPRESSION: lower abdominal pain, diarrhea, family history of colon cancer, history of colon polyps PLAN: I have reviewed my findings with the surgeon. Will plan for lower endoscopy with random biopsies. We discussed the risks and benefits of the planned endoscopy. I have informed the patient that complications can occur including failure to complete the endoscopy and perforation. The patient had the opportunity to ask questions concerning the planned endoscopy. My staff has also explained the procedure to the patient in understandable terms and has given the patient printed material concerning the procedure. The patient freely consents to surgery. The patient was offered a surgery/procedure at a [facility] facility. I have counseled the patient regarding the risk of exposure to and/or potential harm posed by the COVID-19 virus with having a surgery/procedure at this time versus the risk of delaying the surgery/procedure. It is not possible to know either the risk of delaying the surgery or procedure or chance of getting an infection with perfect accuracy, but a joint decision was made between the patient and myself to proceed at this time with endoscopy. I plan to use Golytely bowel preparation I have also recommended that patient follow up with PCP for repeat ultrasound of the gallbladder in 6 months to monitor size of gallbladder polyp Patient verbalized understanding of all above and agreed with the plan. Diagnoses: (R19.4) Change in bowel habits (primary encounter diagnosis) (R10.30) Lower abdominal pain (Z80.0) Family history of colon cancer (R74.8) Elevated liver enzymes Consultation requested by Dr. Smith for an opinion regarding lower abdominal pain and need for colonoscopy. My final recommendations will be communicated back to the requesting physician by way of shared Medical record or letter to requesting physician via US mail. Diane Hoffmann PA-C documented in this encounter [facility] 05-02-2022 Miscellaneous Notes Addended by: ABBY TOTH on: 05/02/2022 04:21 PM Modules accepted: Orders documented in this encounter [facility] 04-27-2022 Miscellaneous Notes Pt scheduled for her MRI 05/18/22 SAMEER Wallace April 27, 2022 6:38 PM Patient has recent US which did not show liver lesion and then seen on CT done after the US. Lesion in right lob could not be characterized by CT of being benign or not. Radiology advised MRI for further characterization. Order placed. Spoke to patient who would like to proceed with MRI please place order and will have schedulers contact to make appointment Pat Murcia Ma Let patient know lipid panel was ok. CMP was ok and liver functions are back to normal. CT of abdomen shows a lesion in the right lobe of the liver. suspicion is a benign hemangioma (basically a dilated vein in the liver like a varicose vein). I can order a MRI now to further eval or wait and get one in about 4 months? documented in this encounter [facility] 04-25-2022 History of Present illness Narrative HISTORY AND PHYSICAL N Anna Robbins 1950 REFERRING PHYSICIAN: Charles Smith MD CHIEF COMPLAINT: Consult (lower abdomen pain, diarrhea) HPI: The patient is a 71 year old female referred for endoscopy. N notes diarrhea x approximately 6 weeks. Has been taking rpobiotic with some improvement. Denies recent travel. Patient denies any weight changes, blood in stools, black tarry stools. NOTES generalized abdominal pain. She was hospitalized last month with elevated liver enzymes. Patient has been following with Dr. Smith in primary care, notes reviewed. She had right upper quadrant ultarsound 03/30/22 which showed a 5 mm gallbladder ppolyp, and had a CT scan 04/20/22 which showed 5 mm enhancing indeterminant right hepatic lesion. Has MRI ordered through PCP for further evaluation. NOTES family history of colon cancer-father The patient notes no upper GI complaints. N has undergone prior endoscopy. Most recent colonoscopy 08/10/[address] Toth with removal of adenomatous polyp at that time. Patient denies chest pain or shortness of breath. Denies problems with sedation in the past. PAST MEDICAL HISTORY Diagnosis Date Advance directive discussed with patient 04/24/2022 Discussed 04/2022 Family history of colon cancer 10/12/2011 Gallbladder polyp 03/31/2022 Mass of left axilla 05/27/2015 Eval 2014 was benign Medicare annual wellness visit, subsequent 01/07/2018 Medicare part B: 07/08/2013 last done: 01/17/2019 Nuclear sclerosis of both eyes 12/19/2019 Osteopenia, senile 01/14/2018 Dexa: improved lumbar and right hip slightly worse in left hip. Personal history of colonic polyps PAST SURGICAL HISTORY Procedure Laterality Date COLONOSCOPY FLX DX W/COLLJ SPEC WHEN PFRMD 2012 History of polyps COLONOSCOPY FLX DX W/COLLJ SPEC WHEN PFRMD 08/10/2017 Colonoscopy HYSTEROSCOPY 01/02/2017 H/s D&C for PMB OTHER 1999 Sinus surgery Current Outpatient Medications Medication Sig cholecalciferol (VITAMIN D-3) 5,000 unit tab Take 5,000 Units by mouth once daily. Zinc 50 mg tab Take 50 mg by mouth every other day. glucosamine/chondr bradley A sod (OSTEO BI-FLEX ORAL) Take by mouth once daily. OTC NUTRITIONAL SUPPLEMENT Ambereen for menopause PSEUDOEPHEDRINE HCL (SUDAFED ORAL) Take by mouth once daily. melatonin 10 mg cap (Patient not taking: Reported on 03/25/2022 ) No current facility-administered medications for this visit. ALLERGIES: Amoxicillin and Sulfa (Sulfonamide Antibiotics) PERSONAL HISTORY: Social History Tobacco Use Smoking status: Never Smoker Smokeless tobacco: Never Used Vaping Use Vaping Use: Never used Substance Use Topics Alcohol use: Yes Comment: One beer at night, helps clear sinuses Drug use: No FAMILY HISTORY: FAMILY HISTORY Problem Relation Age of Onset Heart Mother CHF Cancer Father Colon Heart Father Coronary Artery Disease Father 60's Diabetes Sister Asthma Sister Macular Degen Sister Osteoporosis Sister Cancer Brother 62 Colon Diabetes Brother Macular Degen Maternal Grandmother REVIEW OF SYMPTOMS: The review of systems data was entered by the nurse and reviewed by me Nursing Notes: Louisa AcostaSANCHEZ 04/25/2022 8:16 AM Signed REVIEW OF SYSTEMS: General: The patient notes fatigue, denies weight loss, denies weight gain, denies feeling hot, and denies feelings of cold. Eyes: The patient denies glaucoma, denies eye injury/surgery, does not wear glasses or contacts. Ear/Nose/Throat: The patient notes allergies, denies hayfever, denies ear infections, and denies bloody noses. Cardiovascular: The patient denies chest pain, denies heart disease, denies high blood pressure,denies cardiac stent, denies prior heart attack, denies irregular heart beat, denies high cholesterol, denies poor circulation, denies heart failure, other cardiac issues, denies claudication, denies cold feet, denies peripheral arterial stent. Respiratory: The patient denies tuberculosis, denies pneumonia, denies frequent cough, denies pulmonary embolism, denies shortness of breath, and denies coughing up blood. Gastrointestinal: The patient denies difficulty swallowing, denies acid reflux, denies ulcers, denies vomiting, denies jaundice/hepatitis, denies gallbladder problems, denies black or tarry stools, denies hemorrhoids, denies bleeding from rectum, denies diverticulitis, denies constipation, notes diarrhea, denies loss of stool control, and denies hernias. Kidney/Bladder: The patient denies kidney stones, denies urine infections, and denies bloody urine. Skin: The patient denies a history of skin cancer, denies bleeding/changing moles, and denies a history of skin rash. Neurologic: The patient denies a history of epilepsy/convulsions, denies headaches, denies head/spinal injuries, and denies stroke/TIA. Psychiatric: The patient denies psychiatric medications, denies depression, and denies voices, denies substance abuse. Endocrine: The patient denies thyroid disorders, denies diabetes, and denies hormonal problems. Hematologic: The patient denies a history of bruising, denies bleeding, and denies anemia, denies blood clots. Infections: The patient denies a history of measles and mumps, denies rheumatic fever, and denies sexually transmitted diseases. Musculoskeletal: The patient denies back pain/injury, denies back problems, denies sciatica, denies knee/foot trouble, denies arthritis, or denies gout. When was patient's last Mammogram screening? 10/2021 Last Colonoscopy: 2016 Louisa Acosta LPN I have confirmed and edited as necessary, the PFSH and ROS obtained by others. Diane Hoffmann PA-C PHYSICAL EXAMINATION: General: The patient is 71 year old female, well nourished, well hydrated in no acute distress. The patient is oriented to time, place, and person. VITALS: Blood pressure 110/78, pulse 112, temperature 36.4 C (97.5 F), height 165.1 cm (5' 5), weight 62.6 kg (138 lb), SpO2 98 %. Body mass index is 22.96 kg/m . HEENT: Normal cephalic, ataumatic, pupils are equally round, sclera are anicteric, mucous membranes are moist, oropharynx is clear. Neck has no masses, asymmetry or lymphadenopathy. Respiratory: Clear to auscultation and percussion. Normal respiratory excursion and pattern. Cardiac: Examination is regular rate and rhythm. Normal S1/S2 Abdominal exam: Soft, nontender, with no palpable masses. No hepatosplenomegaly. No palpable hernias. Extremities: no clubbing, cyanosis or edema. No adenopathy. LABORATORY VALUES: As Noted RADIOLOGIC STUDIES: As Noted Assessment IMPRESSION: lower abdominal pain, diarrhea, family history of colon cancer, history of colon polyps PLAN: I have reviewed my findings with the surgeon. Will plan for lower endoscopy with random biopsies. We discussed the risks and benefits of the planned endoscopy. I have informed the patient that complications can occur including failure to complete the endoscopy and perforation. The patient had the opportunity to ask questions concerning the planned endoscopy. My staff has also explained the procedure to the patient in understandable terms and has given the patient printed material concerning the procedure. The patient freely consents to surgery. The patient was offered a surgery/procedure at a [facility] facility. I have counseled the patient regarding the risk of exposure to and/or potential harm posed by the COVID-19 virus with having a surgery/procedure at this time versus the risk of delaying the surgery/procedure. It is not possible to know either the risk of delaying the surgery or procedure or chance of getting an infection with perfect accuracy, but a joint decision was made between the patient and myself to proceed at this time with endoscopy. I plan to use Golytely bowel preparation I have also recommended that patient follow up with PCP for repeat ultrasound of the gallbladder in 6 months to monitor size of gallbladder polyp Patient verbalized understanding of all above and agreed with the plan. Diagnoses: (R19.4) Change in bowel habits (primary encounter diagnosis) (R10.30) Lower abdominal pain (Z80.0) Family history of colon cancer (R74.8) Elevated liver enzymes Consultation requested by Dr. Smith for an opinion regarding lower abdominal pain and need for colonoscopy. My final recommendations will be communicated back to the requesting physician by way of shared Medical record or letter to requesting physician via US mail. Diane Hoffmann PA-C documented in this encounter [facility] 04-25-2022 Nurse Note REVIEW OF SYSTEMS: General: The patient notes fatigue, denies weight loss, denies weight gain, denies feeling hot, and denies feelings of cold. Eyes: The patient denies glaucoma, denies eye injury/surgery, does not wear glasses or contacts. Ear/Nose/Throat: The patient notes allergies, denies hayfever, denies ear infections, and denies bloody noses. Cardiovascular: The patient denies chest pain, denies heart disease, denies high blood pressure,denies cardiac stent, denies prior heart attack, denies irregular heart beat, denies high cholesterol, denies poor circulation, denies heart failure, other cardiac issues, denies claudication, denies cold feet, denies peripheral arterial stent. Respiratory: The patient denies tuberculosis, denies pneumonia, denies frequent cough, denies pulmonary embolism, denies shortness of breath, and denies coughing up blood. Gastrointestinal: The patient denies difficulty swallowing, denies acid reflux, denies ulcers, denies vomiting, denies jaundice/hepatitis, denies gallbladder problems, denies black or tarry stools, denies hemorrhoids, denies bleeding from rectum, denies diverticulitis, denies constipation, notes diarrhea, denies loss of stool control, and denies hernias. Kidney/Bladder: The patient denies kidney stones, denies urine infections, and denies bloody urine. Skin: The patient denies a history of skin cancer, denies bleeding/changing moles, and denies a history of skin rash. Neurologic: The patient denies a history of epilepsy/convulsions, denies headaches, denies head/spinal injuries, and denies stroke/TIA. Psychiatric: The patient denies psychiatric medications, denies depression, and denies voices, denies substance abuse. Endocrine: The patient denies thyroid disorders, denies diabetes, and denies hormonal problems. Hematologic: The patient denies a history of bruising, denies bleeding, and denies anemia, denies blood clots. Infections: The patient denies a history of measles and mumps, denies rheumatic fever, and denies sexually transmitted diseases. Musculoskeletal: The patient denies back pain/injury, denies back problems, denies sciatica, denies knee/foot trouble, denies arthritis, or denies gout. When was patient's last Mammogram screening? 10/2021 Last Colonoscopy: 2016 Louisa Acosta LPN documented in this encounter [facility] 04-24-2022 Instructions Charles Smith MD - 04/24/2022 10:52 AM EDT You need a PCV-20 (pneumona vaccine) documented in this encounter [facility] 04-24-2022 History of Present illness Narrative Medicare Yearly Visit Medical B eligibilty date 07/08/2013 Date of last exam 01/17/2019 PAST MEDICAL HISTORY PAST MEDICAL HISTORY Diagnosis Date Family history of colon cancer 10/12/2011 Mass of left axilla 05/27/2015 Eval 2015 was benign Personal history of colonic polyps Snoring PAST SURGICAL HISTORY PAST SURGICAL HISTORY Procedure Laterality Date COLONOSCOP W/ OR W/O [facility] SPEC 2012 History of polyps COLONOSCOP W/ OR W/O [facility] SPEC 08/10/2017 Colonoscopy HYSTEROSCOPY 01/02/2017 H/s D&C for PMB OTHER 1999 Sinus surgery Sulfa (Sulfonamide Antibiotics) Medications reviewed: Yes FAMILY HISTORY FAMILY HISTORY Problem Relation Age of Onset Heart Mother CHF Coronary Artery Disease Mother Cancer Father Colon Heart Father Coronary Artery Disease Father Cancer Brother 62 Colon Diabetes Brother Diabetes Sister Asthma Sister SOCIAL HISTORY: SOCIAL HISTORY Social History Marital status: Spouse name: Years of education: Number of children: Occupational History Occupation Employer Comment [employer] Social History Main Topics Smoking status: Never Smoker Smokeless status: Never Used Alcohol use: Yes Comment: One beer at night, helps clear sinuses Drug use: Krupa Castillo works out regularly 3 times per week with exercise for 30 min. She watches her diet for sodium, low fat and low cholesterol most of the time, all of the time. 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 Depression screen Not at risk Functional Ability/Safety Screen 1. Was the patient's timed Up and Go test unsteady or longer than 30 seconds? No 2. Does the patient need help with the phone, transportation, shopping,preparing meals, housework, laundry, medications or managing money? No 3. Does your home have rugs in the hallway, lack of grab bars in the bathroom (Y), lack of handrails on the stairs or have poor lighting? No Hearing Evaluation: normal PHYSICAL EXAM BP 130/80 (BP Site: Right Arm, BP Position: Sitting, BP Cuff Size: Regular Adult) Pulse 76 Resp 14 Ht 166.4 cm (5' 5.5) Wt 62.6 kg (138 lb) BMI 22.62 kg/m Alert and oriented X 3: YES Body mass index is 22.62 See Below ASSESSMENT/PLAN: 71 year old female The following prevention plan was discussed during the office visit and provided to the patient: See below Charles Smith MD Chief Complaint Patient presents with: Physical HPI Ashley Robbins is a 71 year old female who presents here today for extensive exam. Patient with a Hx of colon polyps and had colonoscopy 2016 and due for repeat in 5 years. Has osteopenia and walks regularly. Not taking calcium at this point since constipates her. At last visit we discussed symptoms of nausea, lower abdominal pains. LFT's continued to be elevated along with Alk Phos. US Showed a gal bladder polyp. CT pending. Is to see general surgery tomorrow for intake to get colonoscopy. Past medical history, appointments, medications, allergies reviewed. Previous Medical History PAST MEDICAL HISTORY Diagnosis Date Family history of colon cancer 10/12/2011 Mass of left axilla 05/27/2015 Eval 2014 was benign Medicare annual wellness visit, subsequent 01/07/2018 Medicare part B: 07/08/2013 last done: 01/17/2019 Nuclear sclerosis of both eyes 12/19/2019 Osteopenia, senile 01/14/2018 Dexa: improved lumbar and right hip slightly worse in left hip. Personal history of colonic polyps Snoring Previous Surgical History PAST SURGICAL HISTORY Procedure Laterality Date COLONOSCOPY FLX DX W/COLLJ SPEC WHEN PFRMD 2012 History of polyps COLONOSCOPY FLX DX W/COLLJ SPEC WHEN PFRMD 08/10/2017 Colonoscopy HYSTEROSCOPY 01/02/2017 H/s D&C for PMB OTHER 1999 Sinus surgery Family History FAMILY HISTORY Problem Relation Age of Onset Heart Mother CHF Cancer Father Colon Heart Father Coronary Artery Disease Father 60's Diabetes Sister Asthma Sister Macular Degen Sister Osteoporosis Sister Cancer Brother 62 Colon Diabetes Brother Macular Degen Maternal Grandmother Patient Allergies ALLERGIES Allergen Reactions Amoxicillin Other: See Comments Sulfa (Sulfonamide * Swelling Current Medications Current Outpatient Medications on File Prior to Visit Medication Sig melatonin 10 mg cap (Patient not taking: Reported on 03/25/2022 ) Zinc 50 mg tab glucosamine/chondr bradley A sod (OSTEO BI-FLEX ORAL) Take by mouth. OTC NUTRITIONAL SUPPLEMENT Ambereen for menopause PSEUDOEPHEDRINE HCL (SUDAFED ORAL) Take by mouth. No current facility-administered medications on file prior to visit. Social History Social History Tobacco Use Smoking status: Never Smoker Smokeless tobacco: Never Used Vaping Use Vaping Use: Never used Substance Use Topics Alcohol use: Yes Comment: One beer at night, helps clear sinuses Drug use: No Review of Symptoms REVIEW OF SYSTEMS GENERAL: No weight loss, malaise or fevers HEENT: Negative for frequent or significant headaches, No changes in hearing or vision, no nose bleeds or other nasal problems NECK: Negative for lumps, goiter, pain and significant neck swelling RESPIRATORY: Negative for cough, hemoptysis, wheezing, COPD, dyspnea or shortness of breath CARDIOVASCULAR: Negative for chest pain, leg swelling, hypertension, CHF or palpitations GI: No nausea, vomiting, No frequent heartburn or reflux symptoms. Has had some diarrhea in the morning for the last 1+ week. No blood. : No history of dysuria, blood MUSCULOSKELETAL: Negative for joint pain or swelling, back pain or muscle pain SKIN: Negative for lesions, rash, and itching PSYCH: Negative for sleep disturbance, mood disorder and recent psychosocial stressors HEMATOLOGY/LYMPHOLOGY: Negative for prolonged bleeding, bruising easily or swollen nodes ENDOCRINE: Negative for cold or heat intolerance, polyuria, polydipsia and goiter NEURO: No history of headaches, syncope, paralysis, seizures or tremors EXAM: BP 130/80 (BP Site: Right Arm, BP Position: Sitting, BP Cuff Size: Regular Adult) Pulse 76 Resp 14 Ht 166.4 cm (5' 5.5) Wt 62.6 kg (138 lb) BMI 22.62 kg/m Last 5 Encounter Wt Readings: Date: Wt: 04/24/2022 62.6 kg (138 lb) 03/25/2022 63.5 kg (140 lb) 03/18/2022 64.5 kg (142 lb 3.2 oz) 01/26/2022 64 kg (141 lb) 04/18/2021 63 kg (139 lb) General Appearance: Well appearing, alert, in no acute distress, well-hydrated, well nourished.. Skin: Skin color, texture, turgor normal, no suspicious rashes or lesions. Head: Normocephalic, no masses, lesions, tenderness or abnormalities. Eyes: Anicteric sclera. Pupils are equally round and reactive to light. Extraocular movements are intact. . Ears: External ears, TM's normal, canals clear. Neck: Supple, no adenopathy; thyroid symmetric, normal size, no bruits. Lungs: Lungs clear to auscultation. No wheezing, rhonchi, rales.. Heart: RRR without murmur, gallop, or rubs. No ectopy. Abdomen: Normal abdominal exam, Abdomen soft, non-tender. Bowel sounds normal. No masses, organomegaly. Extremities: No deformities, edema, skin discoloration, clubbing or cyanosis. Good capillary refill. . Musculoskeletal: Muscular strength intact, No joint swelling, deformity, or tenderness. Peripheral Pulses: Normal. Neurologic: Gait normal. Reflexes normal and symmetric. Sensation to light touch and crainal nerves 2-12 intact.. Health Maintenance List HEPATITIS C SCREENING Never done COVID-19 VACCINE(3 - Booster for Pfizer series) due on 05/30/2021 ADVANCE DIRECTIVE DISCUSSION Never done MAMMOGRAM due on 11/02/2021 COLORECTAL CANCER SCREENING due on 08/10/2022 DEPRESSION SCREENING due on 04/23/2023 DIABETES SCREEN due on 04/18/2024 LIPID SCREEN due on 02/02/2025 DTAP,TDAP,TD(4 - Td or Tdap) due on 05/28/2029 BONE DENSITY Completed SHINGRIX VACCINE Completed PNEUMOCOCCAL: 65+ Completed INFLUENZA Discontinued Data reviewed A/P ASSESSMENT/PLAN: 1. Medicare annual wellness visit, subsequent - ICD9: V70.0, ICD10: Z00.00 (primary diagnosis) - Counseled on healthy diet and regular exercise - Calcium intake with supplements or by diet of 1000 mg/day for under 50, 5138-0737 mg/day for 50+ - Follow up for annual exam in one year 2. Elevated LFTs - ICD9: 790.6, ICD10: R79.89 Check - COMP METABOLIC PANEL 3. Osteopenia, senile - ICD9: 733.90, ICD10: M85.80 - Reviewed the need for Calcium and Vitamin D supplements and weight bearing exercise as tolerated - Discussed DXA and will get in 2022 4. Advance directive discussed with patient - ICD9: V65.49, ICD10: Z71.89 - Patient did not want packets at this time. 5. Encounter for screening for diabetes mellitus - ICD9: V77.1, ICD10: Z13.1 Check - COMP METABOLIC PANEL 6. Encounter for lipid screening for cardiovascular disease - ICD9: V77.91, V81.2, ICD10: Z13.220, Z13.6 Check - LIPID PANEL, NONFASTING F/u in a year or sooner if issues. I spent a total of 40 minutes on the date of the service which included preparing to see the patient, [id number] patient care, completing clinical documentation, performing a medically appropriate examination, counseling and educating the patient/family/caregiver and ordering medications, tests, or procedures. Charles Smith MD documented in this encounter [facility] 04-20-2022 History of Present illness Narrative Radiology Service Progress Note DATE OF SERVICE: April 20, 2022 TIME: 2:45 PM PATIENT IDENTITY VERIFICATION COMPLETED USING TWO (2) STANDARD IDENTIFIERS: Name and Date of confirmed by patient verbally. FALL SCREENING: Has the patient had 2 falls in the last year or 1 fall with injury or currently using an Ambulatory Assistive Device (Walker, Cane, Wheelchair, Crutches, etc.)? No PATIENT GENDER DATA: Female. status: : No status: NO. PATIENT RELEVANT IMPLANT DATA REVIEWED: Yes ALLERGIES: Reviewed and unchanged CONTRAST ALLERGY: NO. EXAM: CT -CONTRAST INDUCED NEPHROPATHY RISK FACTORS: Patient age > 60 years CREATININE: Creatinine Date Value Ref Range Status 04/20/2022 0.82 0.58 - 0.96 mg/dL Final 04/18/2021 0.90 0.58 - 0.96 mg/dL Final 04/15/2021 0.78 0.58 - 0.96 mg/dL Final Estimated Glomerular Filtration Rate Date Value Ref Range Status 04/20/2022 76 >=60 mL/min/1.73m Final Comment: Estimated Glomerular Filtration Rate (eGFR) is calculated using the 2020 CKD-EPI creatinine equation. This equation utilizes serum creatinine, sex, and age as parameters. The creatinine assay has traceable calibration to isotope dilution-mass spectrometry. Refer to KDIGO guidelines for clinical interpretation. In patients with unstable renal function, e.g. those with acute kidney injury, the eGFR may not accurately reflect actual GFR. eGFR- Date Value Ref Range Status 04/18/2021 >60 Final P.O.C.T. RESULTS: POC done: Yes, See Lab Tab April 20, 2022 TREATMENT: N/A PERIPHERAL IV DATA: Ambulatory: A peripheral IV was started in the Left antecubital site with a Angio cath: 22 gauge. RADIOLOGY DEPARTMENT: CT; Exam(s) Completed: Abdomen/Pelvis SIGNATURE: RT Savi(R) PATIENT NAME: Ashley Robbins DATE: April 20, 2022 TIME: 2:45 PM documented in this encounter [facility] 04-05-2022 Miscellaneous Notes Spoke with pt and advised pss was going to call her back once orders were placed but chavez not appear pss responded to message. Advised pt orders have been placed and pt was transferred to schedule. Aram Dewey LPN documented in this encounter [facility] 04-03-[address] and Creatinine ordered Raquel Alston MD DR Alston are you able to order this? Thank you. Aram Dewey LPN CT of the abd/pelvis with contrast to eval the lower abdominal pains. Please place this order and I will call patient back. Patient notified and voiced understanding. Please schedule patient for CT per provider. Whit Tapia MA Let patient know US showed fatty infiltration of the liver, However this typically does not cause such as high of an elevation in liver functions. Typical it may cause liver functions to be 60-90 range not over 200.l There is a small polyp so not sure if this can be causing issues if it blocks the gal bladder duck sometimes. I have placed to order to get the CT of the abd/pelvis with contrast to eval the lower abdominal pains. documented in this encounter [facility] 03-30-2022 History of Present illness Narrative Radiology Service Progress Note PATIENT NAME: Ashley Robbins DATE OF SERVICE: March 30, 2022 TIME: 9:53 AM PATIENT IDENTITY VERIFICATION COMPLETED USING TWO (2) IDENTIFIERS: Name and Date of confirmed by patient verbally. FALL SCREENING: Has the patient had 2 falls in the last year or 1 fall with injury or currently using an Ambulatory Assistive Device (Walker, Cane, Wheelchair, Crutches, etc.)? No PATIENT GENDER DATA: Female. status: : No status: N/A PATIENT RELEVANT IMPLANT DATA REVIEWED: Not Applicable RADIOLOGY DEPARTMENT: Ultrasound PERIPHERAL IV DATA: Not applicable SIGNED BY: Ailyn Mark RDMS, RVT March 30, 2022 9:53 AM documented in this encounter [facility] 03-24-2022 Miscellaneous Notes Phone call placed follow up [facility] 03/18/2022, patient reported Emergency Room visit [facility], IV fluids overnight stay, possible viral infection, currently scheduled with Dr. Smith 03/25/2022. Ginger Tam LPN documented in this encounter [facility] 03-24-2022 Note [facility] HISTORY & PHYSICAL NAME ACCOUNT SEX AGE ADMIT DISCHARGE PT MED. RECORD# NUMBER DATE DATE TYPE ROLLY, [id number] F 71 03/19/22 03/20/22 2 JEFF CASTILLO [id number] ROOM: 301MO DATE OF : 46 DICTATING PHYSICIAN: Ailin Renteria HISTORY & PHYSICAL/DISCHARGE SUMMARY CHIEF COMPLAINT: Fever and body aches. HISTORY OF PRESENT ILLNESS: This is a 71-year-old female who has chronic sinus issues. She started to get sick on Sunday with flu-like symptoms, body aches, sore throat, headache and chills. She went to an urgent care. COVID and influenza were tested and negative. She received two antibiotics, including Zithromax and cefdinir. She was taking them and still did not feel well. On Sunday, she thought she may have had a reaction from the antibiotics, as she had some abdominal discomfort and headache. She has also had an increased cough. She came to the Emergency Room. Chest x-ray was completed with no pneumonia. She had a fever of 102. Oxygen saturation was 97% on room air, and otherwise vitals were within normal range. In the Emergency Room, white count was 6.8 with a slight left shift. Sodium was 133, BUN 22, and creatinine 1.75. I am unaware of what her baseline is. She does have elevated liver function tests and was admitted for further management. She was placed on IV fluids. Upon evaluation this morning, initially an EKG was done in the Emergency Room showing normal sinus rhythm. She started to have chest pain during her hospital stay as well as some jaw pain. She states her jaw pain is chronic and intermittent since she has been having sinus trouble for over 20 years. A nuclear stress test was completed and was negative for ischemia. She has no further chest pain. However, her states her chest was hurting when she had an increased cough. PAST MEDICAL HISTORY: (1) Chronic sinus issues. She states she had surgery for a deviated septum about 20 years ago. She had problems with it before that, and now she cleans her sinuses out with a Waterpik and has not had antibiotics for several years. (2) Chest pain in the past with negative stress test. (3) Intermittent chronic jaw pain. She relates this to her sinuses. (4) Multiple environmental allergies. PAST SURGICAL HISTORY: Deviated septum. MEDICATIONS: Current medications at home include a recently-started Z-Luz and cefdinir. FAMILY HISTORY: Brother had a history of colon cancer. Father had a history of coronary artery disease. Page 1 of 3 JEFF ROBBINS History & Physical JEFF MILLER :1950 SOCIAL HISTORY: She is . She lives at home with her spouse. She does not smoke nor drink alcohol. REVIEW OF SYSTEMS: She has had a headache, fever, chills, sore throat, body aches, chest pain as described above, and a cough. The chest pain is worse with the cough. She had some abdominal discomfort after she started taking the antibiotics but no nausea or vomiting and no abdominal pain today. PHYSICAL EXAMINATION GENERAL APPEARANCE: The patient was lying in bed in no acute distress. She is alert and cooperative. VITAL SIGNS: Blood pressure is 122/74, heart rate 70, respirations 16, and oxygen saturation 97% on room air. Temperature is 97.7. BMI is 21.62. HEENT: Normocephalic and atraumatic. PERRLA. Conjunctivae are not injected. External pinna with no lesions. Nares are patent. Mouth and throat with no erythema. No exudates. No swelling and no lymph nodes. NECK: Neck is supple. No lymphadenopathy. LUNGS: Normal respiratory effort, equal lung expansion, and clear to auscultation bilaterally. HEART: Regular rate and rhythm. ABDOMEN: Positive bowel sounds, soft and nontender. No hepatosplenomegaly. SKIN: Warm and dry. She is not jaundiced. EXTREMITIES: Free of edema. NEUROLOGIC: She is alert and able to answer questions appropriately. DIAGNOSTIC DATA: Laboratory data reviewed and on the chart. IMPRESSIONS/PLAN: 1. Acute viral syndrome, possible infectious mononucleosis. 2. Elevated liver function tests, may be secondary to virus or side effects from antibiotics. 3. Atypical chest pain with negative cardiac work-up. HOSPITAL COURSE: She was admitted to the hospital on observation status. She was placed on IV fluids and a proton pump inhibitor. She is stable and afebrile. White count is not elevated. No abdominal discomfort or outward physical examination findings. I Page 2 of 3 JEFF ROBBINS History & Physical JEFF MILLER :1950 explained to her and her regarding viruses and possible mononucleosis, and rarely she could have a hepatitis virus. However, she is not jaundiced and does not have any other signs or symptoms. She is negative for COVID-19 as well as influenza, and no pneumonia. Stress test was completed. She has no typical chest pain. DISCHARGE INSTRUCTIONS (more content not included)... [facility] 03-19-2022 Miscellaneous Notes Patient calling in concerned for medication reaction. Seen in express care yesterday, placed on 2 atb. Patient reports now having new abdominal pain and states her skin is turning yellow. I advised patient to go to ER skinny. documented in this encounter [facility] 03-19-2022 Miscellaneous Notes Reason for call: Patient was evaluated yesterday in express care and was prescribed azithromycin and omnicef. She states she is having side effects from the medication and appears yellow with some chest discomfort. Outcome: Call PCP now recommendation. Patient warm con[facility] Reason for Disposition [1] Recent medical visit within 24 hours AND [2] condition/symptoms WORSE Protocols used: RECENT MEDICAL VISIT FOR ILLNESS FOLLOW-UP [id number] documented in this encounter [facility] 01-30-2022 Miscellaneous Notes Patient call in for wasp sting 2 hours ago. Patient states that she now feels like her throat is tightening and that she is having a hard time swallowing. Patient states that her throat is sore. Nurse Triage assessment completed with protocol recommending for disposition of Go to ED now. Patient has been seen in ED for stings before due to allergy. Patient states that she does not have an epipen. Patient states that she does not want to go to ER for this. Encouraged patient that she needs to be seen somewhere since she feels like her throat is tightening. Patient states that she took a benedryl. Patient states that she thinks the tightness in throat is in her head. Encouraged patient to come into urgent care to be evaluated. Care advice reviewed with patient, patient stated understanding. Patient advised to contact office or seek evaluation in urgent care or ER if symptoms persist or gets worse. Reason for Disposition [1] Hives, itching, or swelling elsewhere on body (i.e., not a site of sting) AND [2] started within 2 hours of sting (Exception: only at site of sting) Answer Assessment - Initial Assessment Questions 1. TYPE: wasp 2. ONSET: 2 hours ago 3. LOCATION: Stung only once 4. SWELLING SIZE: Little sweling 5. REDNESS: yes 6. PAIN: mild 7. ITCHING: Denies 8. RESPIRATORY DISTRESS: States that her throat is tight. 9. PRIOR REACTIONS: Yes she thinks she had to go to ED since doctor office was closed. 10. OTHER SYMPTOMS: Denies; States that she feels like her throat is closing off, but thinks that It could be in head. Protocols used: BEE OR YELLOW JACKET [id number] documented in this encounter [facility] 01-26-2022 History of Present illness Narrative Ashley Robbins is a 71 year old female who presents for problem visit for nonspecific pelvic achiness/cramping. No feeling of anything protruding from vagina. Occas bloating. No early satiety. No diarrhea, constipation, change in appetite. No change in urination. Denies vaginal bleeding or abnormal discharge. up to date on colonoscopy, due 08/2022. No N/V. Discomfort does not keep her from sleeping or limit activities, it is just on her mind. Her grandmother had some type of scrubber system attendant cancer but she is uncertain what type. 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 Personal history of colonic polyps Snoring PAST SURGICAL HISTORY Procedure Laterality Date COLONOSCOPY FLX DX W/COLLJ SPEC WHEN PFRMD 2012 History of polyps COLONOSCOPY FLX DX W/COLLJ SPEC WHEN PFRMD 08/10/2017 Colonoscopy HYSTEROSCOPY 01/02/2017 H/s D&C for PMB OTHER 1999 Sinus surgery FAMILY HISTORY Problem Relation Age of Onset Heart Mother CHF Cancer Father Colon Heart Father Coronary Artery Disease Father 60's Diabetes Sister Asthma Sister Macular Degen Sister Osteoporosis Sister Cancer Brother 62 Colon Diabetes Brother Macular Degen Maternal Grandmother Social History Tobacco Use Smoking status: Never Smoker Smokeless tobacco: Never Used Vaping Use Vaping Use: Never used Substance Use Topics Alcohol use: Yes Comment: One beer at night, helps clear sinuses Drug use: No Current Outpatient Medications Medication Sig Zinc 50 mg tab glucosamine/chondr bradley A sod (OSTEO BI-FLEX ORAL) Take by mouth. OTC NUTRITIONAL SUPPLEMENT Ambereen for menopause PSEUDOEPHEDRINE HCL (SUDAFED ORAL) Take by mouth. melatonin 10 mg cap (Patient not taking: Reported on 01/26/2022 ) No current facility-administered medications for this visit. Allergies As of Date: 01/26/2022 Allergen Noted Reaction AMOXICILLIN 07/25/2005 Other: See Comments SULFA (SULFONAMIDE ANTIBIOTICS) 10/11/2011 Swelling Fully Assessed 01/26/2022 REVIEW OF SYSTEMS Abdomen: No bloating, early satiety, indigestion, or increased flatulence. No abdominal pain, nausea, vomiting, diarrhea, or constipation. Bladder: No dysuria, gross hematuria, urinary frequency, urinary urgency, or incontinence. Allergies and current medication updated:Yes EXAM: There were no vitals taken for this visit. GENERAL: pleasant, female in no apparent distress ABDOMEN: soft, non-tender, no hernia and no masses PELVIC: external genitalia normal, normal Bartholin's glands, urethra, Playas's glands, no vulvar lesions, no cervical lesions, good vaginal support, physiologic discharge present, normal appearing perineal body and perianal region, cervical prolapse 1st degree BIMANUAL: uterus normal size, shape and consistency, no adnexal masses and non-tender NEURO: alert and oriented x3,exam grossly non-focal EXTREMITIES: normal ASSESSMENT AND PLAN: nonspecific pelvic pain, d/w her recommend pelvic US. If normal then recommend f/u w/ PCP if worsens. Routine colonoscopy due later this year. No siginfic GI c/o today for me to recommend moving this up. She is comfortable w/ pelvic US and monitoring if that is normal. Call if bleedin gor other issues Medical Decision Making Kirsten Hector MD documented in this encounter [facility] 12-23-2021 History of Present illness Narrative (H25.13) Nuclear sclerosis of both eyes (primary encounter diagnosis) (H52.7) Refractive error Cataract- Not visually significant. Observe. Glasses prescription given. Discussed findings, plan and answered questions. Follow-up as needed and 1 year to check cataract. I have confirmed and edited as necessary the relevant ophthalmic history, ROS, and the neuro exam findings as obtained by others. I have seen and examined Ashley Robbins I have discussed the case and the management of this patient's care with the Resident/Fellow, if applicable. I also have reviewed and agree with the assessment and plan as stated above and agree with all of its relevant components. Abby Medley MD documented in this encounter [facility] Evaluation note Diagnosis Nuclear sclerosis of both eyes- Primary Refractive error Unspecified disorder of refraction and accommodation [facility] Diagnosis Pelvic pressure in female- Primary Other specified symptom associated with female genital organs [facility] Diagnosis Pelvic pain in female- Primary Unspecified symptom associated with female genital organs [facility] Diagnosis Elevated LFTs Other abnormal blood chemistry [facility] Diagnosis Elevated LFTs Other abnormal blood chemistry [facility] Diagnosis Abdominal pain, lower Abdominal pain, other specified site Elevated LFTs Other abnormal blood chemistry Elevated alkaline phosphatase level Other nonspecific abnormal serum enzyme levels Left lower quadrant abdominal pain [facility] Diagnosis Abdominal pain, lower- Primary Abdominal pain, other specified site Elevated LFTs Other abnormal blood chemistry Elevated alkaline phosphatase level Other nonspecific abnormal serum enzyme levels Left lower quadrant abdominal pain [facility] Diagnosis Medicare annual wellness visit, subsequent- Primary Routine general medical examination at a health care facility Elevated LFTs Other abnormal blood chemistry Osteopenia, senile Disorder of bone and cartilage, unspecified Advance directive discussed with patient Other specified counseling Encounter for screening for diabetes mellitus Screening for diabetes mellitus Encounter for lipid screening for cardiovascular disease Screening for lipoid disorders [facility] Lesion of right lobe of liver Other specified disorders of liver [facility] Diagnosis Change in bowel habits- Primary Other symptoms involving digestive system Lower abdominal pain Abdominal pain, other specified site Family history of colon cancer Family history of malignant neoplasm of gastrointestinal tract Elevated liver enzymes Other nonspecific abnormal serum enzyme levels [facility] Diagnosis Lower abdominal pain Abdominal pain, other specified site Change in bowel habits Other symptoms involving digestive system Family history of colon cancer Family history of malignant neoplasm of gastrointestinal tract Elevated liver enzymes Other nonspecific abnormal serum enzyme levels [facility] Diagnosis Lesion of right lobe of liver Other specified disorders of liver [facility] Diagnosis Liver hemangioma Hemangioma of intra-abdominal structures [facility] Diagnosis Fatty liver- Primary Other chronic nonalcoholic liver disease Esophagitis Esophagitis, unspecified Collagenous colitis Other and unspecified noninfectious gastroenteritis and colitis [facility] Diagnosis Punctate keratitis of right eye- Primary Punctate keratitis Dry eye syndrome of bilateral lacrimal glands Tear film insufficiency, unspecified Vitreous floaters of both eyes Regular astigmatism of both eyes Regular astigmatism Presbyopia Combined forms of age-related cataract of both eyes Other and combined forms of senile cataract [facility] Diagnosis Onset Date Resolution Status Personal history of colonic polyps acute Collagenous colitis chronic Fatty liver chronic [facility] [facility] Work Phone: Evaluation note* Diagnosis Nuclear sclerosis of both eyes- Primary Refractive error Unspecified disorder of refraction and accommodation [facility] Skin abnormalities- Primary Unspecified congenital anomaly of the integument [facility] Diagnosis Multiple benign melanocytic nevi- Primary Lentigines Other dyschromia Angioma of skin Hemangioma of skin and subcutaneous tissue Seborrheic keratoses Other seborrheic keratosis Skin exam, screening for cancer Screening for malignant neoplasm of the skin Inflamed seborrheic keratosis Disturbance of skin sensation Pruritus Unspecified pruritic disorder EIC (epidermal inclusion cyst) Sebaceous cyst [facility] Tinnitus of both ears- Primary Unspecified tinnitus Chronic sinusitis, unspecified location [facility] Diagnosis Other specified hearing loss, unspecified ear- Primary [facility] Diagnosis Medicare annual wellness visit, subsequent- Primary Routine general medical examination at a [facility] care facility Esophagitis Esophagitis, unspecified Osteopenia, senile Disorder of bone and cartilage, unspecified Fatty liver Other chronic nonalcoholic liver disease Chronic sinusitis, unspecified location Tinnitus of both ears Unspecified tinnitus Pain of right thumb Pain in limb Numbness and tingling in right hand Disturbance of skin sensation Encounter for lipid screening for cardiovascular disease Screening for lipoid disorders Advance directive discussed with patient Other specified counseling [facility] Diagnosis Encounter for gynecological examination (general) (routine) without abnormal findings- Primary Encounter for screening mammogram for breast cancer [facility] Encounter for screening mammogram for breast cancer [facility] Diagnosis Combined forms of age-related cataract of both eyes- Primary Other and combined forms of senile cataract Vitreous floaters of both eyes [facility] Diagnosis Combined forms of age-related cataract of both eyes- Primary Other and combined forms of senile cataract Myopia, bilateral Myopia Regular astigmatism of both eyes Regular astigmatism Presbyopia [facility] Diagnosis Medicare annual wellness visit, subsequent- Primary Routine general medical examination at a [facility] care facility Esophagitis Esophagitis, unspecified Liver hemangioma Hemangioma of intra-abdominal structures Fatty liver Other chronic nonalcoholic liver disease Osteopenia, senile Disorder of bone and cartilage, unspecified Advance directive discussed with patient Other specified counseling Screening for depression Encounter for screening examination for other mental health and behavioral disorders CHAVEZ (dyspnea on exertion) Other dyspnea and respiratory abnormality SOB (shortness of breath) Shortness of breath Fatigue, unspecified type Encounter for screening for diabetes mellitus Screening for diabetes mellitus Encounter for lipid screening for cardiovascular disease Screening for lipoid disorders Family history of coronary artery disease Family history of ischemic heart disease [facility] Diagnosis Encounter for screening mammogram for malignant neoplasm of breast- Primary Other screening mammogram Dense breast tissue [facility] Diagnosis CHAVEZ (dyspnea on exertion) Other dyspnea and respiratory abnormality SOB (shortness of breath) Shortness of breath Family history of coronary artery disease Family history of ischemic heart disease [facility] Diagnosis Localized swelling on right hand- Primary Bee sting, undetermined intent, initial encounter [facility] Diagnosis Pain of right thumb Pain in limb [facility] Diagnosis Encounter for screening mammogram for malignant neoplasm of breast Other screening mammogram Dense breast tissue [facility] Diagnosis Acute pain of right knee- Primary [facility] Diagnosis Acute pain of right knee [facility] Diagnosis Acute pain of right knee- Primary [facility] Diagnosis Acute pain of right knee- Primary [facility] Diagnosis Recurrent acute serous otitis media of left ear- Primary Acute serous otitis media Impacted cerumen of left ear Impacted cerumen [facility] Diagnosis Acute pain of right knee- Primary [facility] Diagnosis Acute pain of right knee- Primary [facility] Diagnosis Combined forms of age-related cataract of both eyes- Primary Other and combined forms of senile cataract Myopia, bilateral Myopia Regular astigmatism of both eyes Regular astigmatism Presbyopia Vitreous floaters of both eyes [facility] Diagnosis Acute pain of right knee- Primary Numbness and tingling of both upper extremities Numbness and tingling of right lower extremity Fatty liver Other chronic nonalcoholic liver disease Encounter for screening for diabetes mellitus Screening for diabetes mellitus Encounter for lipid screening for cardiovascular disease Screening for lipoid disorders [facility] Diagnosis Acute pain of right knee [facility] Diagnosis Medicare annual wellness visit, subsequent- Primary Routine general medical examination at a health care facility Esophagitis Esophagitis, unspecified Fatty liver Other chronic nonalcoholic liver disease Gallbladder polyp Cholesterolosis of gallbladder Osteopenia, senile Disorder of bone and cartilage, unspecified Encounter for screening examination for other mental health and behavioral disorders Screening for depression History of colonic polyps Personal history of colonic polyps Family history of colon cancer Family history of malignant neoplasm of gastrointestinal tract Collagenous colitis Other and unspecified noninfectious gastroenteritis and colitis Encounter for screening for diabetes mellitus Screening for diabetes mellitus Encounter for lipid screening for cardiovascular disease Screening for lipoid disorders [facility] Diagnosis Primary osteoarthritis of right knee- Primary Primary localized osteoarthrosis, lower leg documented in this encounter [facility] for referral (narrative)* Diagnostic Procedure Only (Routine) - Closed Specialty Diagnoses / Procedures Referred By Contac t Referred To Contact [facility] Diagnoses Pelvic pressure in female Procedures PELVIC US WHI US PELVIC NONOBSTETRIC REAL-TIME IMAGE COMPLETE Kirsten Hector MD [address] [place] [address] [facility] [address] [place] [address] Referral ID Status Reason Start Date Expiration Date V isits Requested Visits Authorized [id number] Closed Auto-Generate d Referral 01/26/2022 01/26/2023 1 1 [facility] for referral (narrative)* Diagnostic Procedure Only (Routine) - Authorized Specialty Diagnoses / Procedures Referred By Contac t Referred To Contact US IMAG[facility] Diagnoses Elevated LFTs Procedures US ABD RT UPPER QUADRANT US ABDOMINAL REAL TIME W/IMAGE LIMITED Charles Smith MD [address] [place] [address] [facility] Referral ID Status Reason Start Date Expiration Date Visits Requested Visits Authorized [id number] Authorized Auto-Generat ed Referral 03/25/2022 04/24/2023 1 1 [facility] for referral (narrative)* Diagnostic Procedure Only (Routine) - Closed Specialty Diagnoses / Procedures Referred By Contac t Referred To Contact [facility] IM[facility] Diagnoses Elevated LFTs Procedures US ABD RT UPPER QUADRANT US ABDOMINAL REAL TIME W/IMAGE LIMITED Charles Smith MD [address] [place] [address] Us Imaging Referral ID Status Reason Start Date Expiration Date V isits Requested Visits Authorized [id number] Closed Auto-Generate d Referral 03/27/2022 04/26/2023 1 1 [facility] for referral (narrative)* Outpatient Procedure (Routine) - Pending Review Specialty Diagnoses / Procedures Referred By Harini townsend Referred To Contact [facility] Diagnoses Lower abdominal pain Family history of colon cancer Change in bowel habits Elevated liver enzymes Procedures EGD DIAGNOSTIC ESOPHAGOGASTRODUODENOSC OPY TRANSORAL DIAGNOSTIC Abby Toth MD [address] [place] [address] [address] Referral ID Status Reason Start Date Expiration Date Visits Requested Visits Authorized [id number] Pending Review Auto-Generat ed Referral 05/02/2022 05/02/2023 1 1 [facility] for referral (narrative)* Outpatient Procedure (Routine) - Closed Specialty Diagnoses / Procedures Referred By Harini townsend Referred To Contact [facility] Diagnoses Lower abdominal pain Family history of colon cancer Change in bowel habits Elevated liver enzymes Procedures EGD DIAGNOSTIC ESOPHAGOGASTRODUODENOSC OPY TRANSORAL DIAGNOSTIC Abby Toth MD [address] [place] [address] [address] Referral ID Status Reason Start Date Expiration Date V isits Requested Visits Authorized [id number] Closed Auto-Generate d Referral 05/02/2022 05/02/2023 1 1 * Outpatient Procedure (Routine) - Closed Specialty Diagnoses / Procedures Referred By Harini townsend Referred To Contact [facility] Diagnoses Lower abdominal pain Change in bowel habits Procedures COLONOSCOPY DIAGNOSTIC COLONOSCOPY FLX DX W/COLLJ SPEC WHEN PFRMD Diane Hoffmann PA-C [address] [place] [address] [facility] [employer] [address] [place] [id number] Referral ID Status Reason Start Date Expiration Date V isits Requested Visits Authorized [id number] Closed Auto-Generate d Referral 04/25/2022 04/25/2023 1 1 [facility] for referral (narrative)* Diagnostic Procedure Only (Routine) - Closed Specialty Diagnoses / Procedures Referred By Contac t Referred To Contact X[facility]AG[facility] Diagnoses Pain of right thumb Procedures XR DIGIT GENERAL 3V FRONTAL/LAT/OBL RIGHT RADEX FINGR MINIMUM 2 [place] [address] [place] [address] X[facility] Imaging Referral ID Status Reason Start Date Expiration Date V isits Requested Visits Authorized [id number] Closed Auto-Generate d Referral 05/10/2023 06/08/2024 1 1 [facility] for referral (narrative)* Diagnostic Procedure Only (Routine) - Pending Review Specialty Diagnoses / Procedures Referred By Contac t Referred To Contact [facility] Diagnoses Encounter for gynecological examination (general) (routine) without abnormal findings Encounter for screening mammogram for breast cancer Procedures ALVAREZ SCREENING W DON SCREENING DIGITAL BREAST TOMOSYNTHESIS BI SCREENING MAMMOGRAPHY BI 2-VIEW BREAST INC CAD Kirsten Hector MD [facility] [place] [address] [facility] [address] [place] [address] Referral ID Status Reason Start Date Expiration Date Visits Requested Visits Authorized [id number] Pending Review Auto-Generat ed Referral 05/30/2023 06/28/2024 1 1 [facility] for referral (narrative)* Diagnostic Procedure Only (Routine) - Closed Specialty Diagnoses / Procedures Referred By Contac t Referred To Contact [facility] Diagnoses Encounter for screening mammogram for breast cancer Procedures ALVAREZ SCREENING W DON SCREENING DIGITAL BREAST TOMOSYNTHESIS BI SCREENING MAMMOGRAPHY BI 2-VIEW BREAST INC CAD Charles Smith MD [address] [place] [address] [facility] [address] [place] [address] Referral ID Status Reason Start Date Expiration Date V isits Requested Visits Authorized [id number] Closed Auto-Generate d Referral 12/14/2021 01/13/2023 1 1 [facility] for referral (narrative)* Outpatient Procedure (Routine) - Authorized Specialty Diagnoses / Procedures Referred By Harini t Referred To Contact [facility] [place] Diagnoses CHAVEZ (dyspnea on exertion) SOB (shortness of breath) Family history of coronary artery disease Procedures EXERCISE STRESS ECG (WITHOUT IMAGING) Charles Smith MD [address] [place] [address] [facility] [address] [address] Referral ID Status Reason Start Date Expiration Date Visits Requested Visits Authorized [id number] Authorized Auto-Generat ed Referral 05/26/2024 05/26/2025 1 1 * Outpatient Procedure (Routine) - Authorized Specialty Diagnoses / Procedures Referred By Harini townsend Referred To Contact [facility] Diagnoses CHAVEZ (dyspnea on exertion) SOB (shortness of breath) Family history of coronary artery disease Procedures ECHO ECHO TTHRC R-T 2D W/WOM-MODE COMPL SPEC&COLR D Charles Smith MD [address] [place] [address] [id number] [place] [address] Referral ID Status Reason Start Date Expiration Date Visits Requested Visits Authorized [id number] Authorized Auto-Generat ed Referral 05/26/2024 05/26/2025 1 1 [facility] for referral (narrative)* Diagnostic Procedure Only (Routine) - Authorized Specialty Diagnoses / Procedures Referred By Harini t Referred To Contact [facility] Diagnoses Encounter for screening mammogram for malignant neoplasm of breast Dense breast tissue Procedures ALVAREZ SCREENING W DON SCREENING DIGITAL BREAST TOMOSYNTHESIS BI SCREENING MAMMOGRAPHY BI 2-VIEW BREAST INC CAD Kirsten Hector MD [address] [place] [address] [facility] [address] [place] [address] Referral ID Status Reason Start Date Expiration Date Visits Requested Visits Authorized [id number] Authorized Auto-Generat ed Referral 06/02/2024 07/02/2025 1 1 [facility] for referral (narrative)* Outpatient Procedure (Routine) - Closed Specialty Diagnoses / Procedures Referred By Harini townsend Referred To Contact [facility] Diagnoses CHAVEZ (dyspnea on exertion) SOB (shortness of breath) Family history of coronary artery disease Procedures EXERCISE STRESS ECG (WITHOUT IMAGING) Charles Smith MD [address] [place] [address] [facility] [employer] [address] [place] [address] Referral ID Status Reason Start Date Expiration Date V isits Requested Visits Authorized [id number] Closed Auto-Generate d Referral 05/26/2024 05/26/2025 1 1 T [facility] for referral (narrative)* Diagnostic Procedure Only (Routine) - Closed Specialty Diagnoses / Procedures Referred By Harini townsend Referred To Contact XR IMAGING Diagnoses Pain of right thumb Procedures XR DIGIT GENERAL 3V FRONTAL/LAT/OBL RIGHT RADEX FINGR MINIMUM 2 VIEWS Charles Smith MD [address] [place] [address] [place] [address] Referral ID Status Reason Start Date Expiration Date V isits Requested Visits Authorized [id number] Closed Auto-Generate d Referral 05/10/2023 06/08/2024 1 1 T [facility] for visit Narrative* Diagnostic Procedure Only (Routine) - Closed Specialty Diagnoses / Procedures Referred By Harini townsend Referred To Contact [facility] Diagnoses Elevated LFTs Procedures US ABD RT UPPER QUADRANT US ABDOMINAL REAL TIME W/IMAGE LIMITED Charles Smith MD [address] [place] [address] Us Imaging Referral ID Status Reason Start Date Expiration Date V isits Requested Visits Authorized [id number] Closed Auto-Generate d Referral 03/27/2022 04/26/2023 1 1 [facility] for visit Narrative* Outpatient Procedure (Routine) - Closed Specialty Diagnoses / Procedures Referred By Harini townsend Referred To Contact [facility] Diagnoses Lower abdominal pain Family history of colon cancer Change in bowel habits Elevated liver enzymes Procedures EGD DIAGNOSTIC ESOPHAGOGASTRODUODENOSC OPY TRANSORAL DIAGNOSTIC Abby Toth MD [address] [place] [address] [facility] [employer] [address] [place] [address] Referral ID Status Reason Start Date Expiration Date V isits Requested Visits Authorized [id number] Closed Auto-Generate d Referral 05/02/2022 05/02/2023 1 1 [facility] for visit Narrative* Diagnostic Procedure Only (Routine) - Closed Specialty Diagnoses / Procedures Referred By Harini townsend Referred To Contact [facility] Diagnoses Encounter for screening mammogram for breast cancer Procedures ALVAREZ SCREENING W DON SCREENING DIGITAL BREAST TOMOSYNTHESIS BI SCREENING MAMMOGRAPHY BI 2-VIEW BREAST INC CAD Charles Smith MD [address] [place] [address] [facility] [address] [place] [phone] Referral ID Status Reason Start Date Expiration Date V isits Requested Visits Authorized [id number] Closed Auto-Generate d Referral 12/14/2021 01/13/2023 1 1 [facility] for visit Narrative* Outpatient Procedure (Routine) - Closed Specialty Diagnoses / Procedures Referred By Harini townsend Ref[facility] Diagnoses CHAVEZ (dyspnea on exertion) SOB (shortness of breath) Family history of coronary artery disease Procedures EXERCISE STRESS ECG (WITHOUT IMAGING) Charles Smith MD [address] [place] [address] [facility] [employer] [address] [place] [address] Referral ID Status Reason Start Date Expiration Date V isits Requested Visits Authorized [id number] Closed Auto-Generate d Referral 05/26/2024 05/26/2025 1 1 [facility] for visit Narrative* Diagnostic Procedure Only (Routine) - Closed Specialty Diagnoses / Procedures Referred By Contac t Referred To Contact XR IMAGING Diagnoses Pain of right thumb Procedures XR DIGIT GENERAL 3V FRONTAL/LAT/OBL RIGHT RADEX FINGR MINIMUM 2 VIEWS Charles Smith MD [address] [place] [address] [place] [address] Referral ID Status Reason Start Date Expiration Date V isits Requested Visits Authorized [id number] Closed Auto-Generate d Referral 05/10/2023 06/08/2024 1 1 [facility] for visit Narrative* Diagnostic Procedure Only (Routine) - Closed Specialty Diagnoses / Procedures Referred By Contac t Referred To Contact [facility] Diagnoses Encounter for screening mammogram for malignant neoplasm of breast Dense breast tissue Procedures ALVAREZ SCREENING W DON SCREENING DIGITAL BREAST TOMOSYNTHESIS BI SCREENING MAMMOGRAPHY BI 2-VIEW BREAST INC CAD Kirsten Hector MD [address] [place] [address] [facility] [address] [place] [address] Referral ID Status Reason Start Date Expiration Date V isits Requested Visits Authorized [id number] Closed Auto-Generate d Referral 06/02/2024 07/02/2025 1 1 [facility] for visit Narrative* Diagnostic Procedure Only (Routine) - Closed Specialty Diagnoses / Procedures Referred By Contac t Referred To Contact XR IMAGING Diagnoses Acute pain of right knee Procedures XR KNEE GENERAL 4V AP BOTH/PA BOTH/LAT/MERC BILATERAL RADIOLOGIC EXAM KNEE COMPLETE 4/MORE VIEWS Charles Smith MD [address] [place] [address] Phone: tel: fax: [place] [address] Referral ID Status Reason Start Date Expiration Date V isits Requested Visits Authorized [id number] Closed Auto-Generate d Referral 12/19/2024 01/18/2026 1 1 [facility] MRI/CT (Routine) - Closed Specialty Diagnoses / Procedures Referred By Harini townsend Referred To Contact [facility] Diagnoses Acute pain of right knee Procedures MRI KNEE WO IVCON RIGHT MRI ANY JT LOWER EXTREM W/O CONTRAST Charles Jay MD [address] [place] [address] Phone: tel: fax: [place] [address] Referral ID Status Reason Start Date Expiration Date V isits Requested Visits Authorized [id number] Closed Auto-Generate d Referral 04/14/2025 05/14/2026 1 1 [facility] Summary Purpose Family History No Family History Records FoundNo Family History Records FoundNo Family History Records FoundNo Family History Records FoundNo Family History Records FoundNo Family History Records Found Advance Directives Documents on File Type Date Recorded Patient Group Insurance Special Agent Expl anation Advance Directive(s) 08/10/2017 7:27 AM Advance Directive(s) 01/02/2017 1:14 PM Documents on File Type Date Recorded Patient Group Insurance Special Agent Expl anation Advance Directive(s) 08/10/2017 7:27 AM Advance Directive(s) 01/02/2017 1:14 PM Documents on File Type Date Recorded Patient Group Insurance Special Agent Expl anation Advance Directive(s) 05/09/2022 2:34 PM Advance Directive(s) 08/10/2017 7:27 AM Advance Directive(s) 01/02/2017 1:14 PM Medications Administered Section Inactive Administered Medications - up to 3 most recent administrations Medication Order MAR Action Action Date Dose Rate Site fluorescein-benoxinate 0.25-0.4 % 1 Drop (FLURESS) 1 Drop, BOTH EYES, DIRECTED, Starting on 12/23/21 at 1600, Until 12/24/21 at 0359, Administer for applanation tonometry. In the event of a Fluress shortage, administer 1 drop of [place]-Fluor into both eyes as directed for applanation tonometry., [facility] MED ORDERS Given 12/23/2021 3:46 PM EDT 1 Drop PHENYLephrine 2.5 % 1 Drop (AK-DILATE, VINNIE-SYNEPHRINE) 1 Drop, BOTH EYES, DIRECTED, Starting on Sun12/23/21 at 1600, Until 12/24/21 at 0359, Administer for dilation PROTECT FROM LIGHT, [facility] MED ORDERS Given 12/23/2021 3:46 PM EDT 1 Drop tropicamide 1 % 1 Drop (MYDRIACYL) 1 Drop, BOTH EYES, DIRECTED, Starting on Sun12/23/21 at 1600, Until 12/24/21 at 0359, Administer for dilation, [facility] MED ORDERS Given 12/23/2021 3:46 PM EDT 1 Drop Inactive Administered Medications - up to 3 most recent administrations Medication Order MAR Action Action Date Dose Rate Site benzocaine 20% 1 [place] (TOPEX) 1 [place], TOPICAL, DIRECTED, Starting on Sun05/09/22 at 1700, Until Sun05/09/22 at 2058, DOSING DIRECTED BY PHYSICIAN FOR PROCEDURAL SEDATION ONLY - Pharmaceutical Waste: Aerosol -, Intraprocedure Given 05/09/2022 4:54 PM EDT 5 Sprays diphenhydrAMINE 12.5-50 mg injection (BENADRYL) 12.5-50 mg, INTRAVENOUS, DIRECTED, Starting on Sun05/09/22 at 1700, Until Sun05/09/22 at 2058, DOSING DIRECTED BY PHYSICIAN FOR PROCEDURAL SEDATION ONLY, Intraprocedure Given 05/09/2022 5:08 PM EDT 50 mg fentaNYL 50 mcg/mL 25-100 mcg injection (SUBLIMAZE) 25-100 mcg, INTRAVENOUS, DIRECTED, Starting on Sun05/09/22 at 1700, Until Sun05/09/22 at 2058, DOSING DIRECTED BY PHYSICIAN FOR PROCEDURAL SEDATION ONLY, Intraprocedure Given 05/09/2022 4:59 PM EDT 50 mcg Given 05/09/2022 4:55 PM EDT 50 mcg lactated ringers iv infusion 30 mL/hr, INTRAVENOUS, CONTINUOUS, Starting on Sun05/09/22 at 1530, Until Sun05/09/22 at 1740, Preprocedure New Bag/Syringe/Bottle 05/09/2022 3:45 PM EDT 30 mL/hr 30 mL/hr midazolam (PF) 1-5 mg injection (VERSED) 1-5 mg, INTRAVENOUS, DIRECTED, Starting on Sun05/09/22 at 1700, Until Sun05/09/22 at 2058, DOSING DIRECTED BY PHYSICIAN FOR PROCEDURAL SEDATION ONLY, Intraprocedure Given 05/09/2022 5:19 PM EDT 1 mg Given 05/09/2022 4:59 PM EDT 2 mg Given 05/09/2022 4:55 PM EDT 3 mg Active Administered Medications - up to 3 most recent administrations Medication Order MAR Action Action Date Dose Rate Site fluorescein-benoxinate 0.25-0.4 % 1 Drop (FLURESS) 1 Drop, BOTH EYES, DIRECTED, Starting on Sun12/29/22 at 1330, Until 12/30/22 at 0129, Administer for applanation tonometry. In the event of a Fluress shortage, administer 1 drop of [place]-Fluor into both eyes as directed for applanation tonometry., [facility] MED ORDERS Given 12/29/2022 1:30 PM EDT 1 Drop PHENYLephrine 2.5 % 1 Drop (AK-DILATE, VINNIE-SYNEPHRINE) 1 Drop, BOTH EYES, DIRECTED, Starting on Sun12/29/22 at 1330, Until 12/30/22 at 0129, Administer for dilation PROTECT FROM LIGHT, [facility] MED ORDERS Given 12/29/2022 1:30 PM EDT 1 Drop tropicamide 1 % 1 Drop (MYDRIACYL) 1 Drop, BOTH EYES, DIRECTED, Starting on Sun12/29/22 at 1330, Until 12/30/22 at 0129, Administer for dilation, [facility] MED ORDERS Given 12/29/2022 1:30 PM EDT 1 Drop Reason for Referral Specialty Diagnoses / Procedures Referred By Harini townsend Referred To Contact CT IMAGING Diagnoses Abdominal pain, lower Elevated LFTs Elevated alkaline phosphatase level Left lower quadrant abdominal pain Procedures CT ABD/PEL W IVCON CT ABD & PELVIS W/CONTRAST Raqeul Alston MD [address] [place] [address] Ct Imaging Referral ID Status Reason Start Date Expiration Date V isits Requested Visits Authorized [id number] Closed Auto-Generate d Referral 04/03/2022 05/03/2023 1 1 Specialty Diagnoses / Procedures Referred By Harini townsend Referred To Contact MR IMAGING Diagnoses Lesion of right lobe of liver Procedures MRI LIVER WO/W IVCON MRI ABDOMEN W/O & W/CONTRAST MATERIAL Charles Smith MD [address] [place] [address] Mr Imaging Referral ID Status Reason Start Date Expiration Date Visits Requested Visits Authorized [id number] Authorized Auto-Generat ed Referral 04/25/2022 05/25/2023 1 1 Referral ID Status Reason Start Date Expiration Date V isits Requested Visits Authorized [id number] Closed Auto-Generate d Referral 04/25/2022 05/25/2023 1 1 Specialty Diagnoses / Procedures Referred By Contac t Referred To Contact Gastroenterology Diagnoses Fatty liver Esophagitis Collagenous colitis Procedures CONSULT TO GASTROENTEROLOGY OFFICE/OUTPATIENT [facility] 60-74 MINUTES Charles Smith MD [address] [place] [id number] Referral ID Status Reason Start Date Expiration Date Visits Requested Visits Authorized [id number] Pending Review PCP Requested Referral 05/29/2022 05/29/2023 1 1 Specialty Diagnoses / Procedures Referred By Contac t Referred To Contact Dermatology Diagnoses Skin abnormalities Procedures CONSULT TO DERMATOLOGY Paula Cowan APRN.VESSEL WELDER [address] [place] [address] Referral ID Status Reason Start Date Expiration Date Visits Requested Visits Authorized [id number] Ref Not Required PCP Requested Referral 04/16/2023 04/15/2024 1 1 Specialty Diagnoses / Procedures Referred By Contac t Referred To Contact Ent - Otolaryngology Diagnoses Tinnitus of both ears Chronic sinusitis, unspecified location Procedures CONSULT TO ENT OFFICE/OUTPATIENT [facility] 60-74 MINUTES Charles Smith MD [address] [place] [address] Referral ID Status Reason Start Date Expiration Date Visits Requested Visits Authorized [id number] Pending Review PCP Requested Referral 05/10/2023 05/09/2024 1 1 Specialty Diagnoses / Procedures Referred By Contac t Referred To Contact Diagnoses Other specified hearing loss, unspecified ear Procedures HEARING TEST/AUDIOGRAM COMPRE AUDIOMETRY THRESHOLD EVAL Raphael Du MD [address] [place] [address] [facility] [address] [place] [address] Referral ID Status Reason Start Date Expiration Date Visits Requested Visits Authorized [id number] Authorized Auto-Generat ed Referral 05/10/2023 05/10/2024 1 1 Chief Complaint and Reason for Visit Chief Complaint FATTU LIVER EORDERS Reason for Visit Personal history of colonic polyps Collagenous colitis Fatty liver Chief Complaint FATTU LIVER EORDERS FATTY LIVER Reason for Visit Personal history of colonic polyps Collagenous colitis Fatty liver Additional Source Comments INFORMATION SOURCE (unrecogn ized section and content) DATE CREATED AUTHOR 04/02/2018 [facility] DATE CREATED AUTHOR AUTHOR'S ORGANIZ ATION 2020 [facility] DATE CREATED AUTHOR AUTHOR'S ORGANIZ ATION 03/25/2022 [facility] DATE CREATED AUTHOR AUTHOR'S ORGANIZ ATION 09/12/2023 [facility] DATE CREATED AUTHOR AUTHOR'S ORGANIZ ATION 06/05/2024 [facility] DATE CREATED AUTHOR AUTHOR'S ORGANIZ ATION 05/29/2025 [facility] Source Comments (unrecognize d section and content) In the event this informatio n is protected by the Federal Confidentiality of Alcohol and Drug Abuse Patient Records regulations: The Federal rules restrict any use of the information to criminally investigate or prosecute any alcohol or drug abuse patient.[facility] the event this information is protected by the Federal Confidentiality of Alcohol and Drug Abuse Patient Records regulations: The Federal rules restrict any use of the information to criminally investigate or prosecute any alcohol or drug abuse patient.[facility] CenterIn the event this information is protected by the Federal Confidentiality of Alcohol and Drug Abuse Patient Records regulations: The Federal rules restrict any use of the information to criminally investigate or prosecute any alcohol or drug abuse patient.[facility] CenterIn the event this information is protected by the Federal Confidentiality of Alcohol and Drug Abuse Patient Records regulations: The Federal rules restrict any use of the information to criminally investigate or prosecute any alcohol or drug abuse patient.[facility] CenterIn the event this information is protected by the Federal Confidentiality of Alcohol and Drug Abuse Patient Records regulations: The Federal rules restrict any use of the information to criminally investigate or prosecute any alcohol or drug abuse patient.[facility] CenterIn the event this information is protected by the Federal Confidentiality of Alcohol and Drug Abuse Patient Records regulations: The Federal rules restrict any use of the information to criminally investigate or prosecute any alcohol or drug abuse patient.[facility] CenterIn the event this information is protected by the Federal Confidentiality of Alcohol and Drug Abuse Patient Records regulations: The Federal rules restrict any use of the information to criminally investigate or prosecute any alcohol or drug abuse patient.[facility] CenterIn the event this information is protected by the Federal Confidentiality of Alcohol and Drug Abuse Patient Records regulations: The Federal rules restrict any use of the information to criminally investigate or prosecute any alcohol or drug abuse patient.[facility] CenterIn the event this information is protected by the Federal Confidentiality of Alcohol and Drug Abuse Patient Records regulations: The Federal rules restrict any use of the information to criminally investigate or prosecute any alcohol or drug abuse patient.[facility] CenterIn the event this information is protected by the Federal Confidentiality of Alcohol and Drug Abuse Patient Records regulations: The Federal rules restrict any use of the information to criminally investigate or prosecute any alcohol or drug abuse patient.[facility] CenterIn the event this information is protected by the Federal Confidentiality of Alcohol and Drug Abuse Patient Records regulations: The Federal rules restrict any use of the information to criminally investigate or prosecute any alcohol or drug abuse patient.[facility] CenterIn the event this information is protected by the Federal Confidentiality of Alcohol and Drug Abuse Patient Records regulations: The Federal rules restrict any use of the information to criminally investigate or prosecute any alcohol or drug abuse patient.[facility] CenterIn the event this information is protected by the Federal Confidentiality of Alcohol and Drug Abuse Patient Records regulations: The Federal rules restrict any use of the information to criminally investigate or prosecute any alcohol or drug abuse patient.[facility] CenterIn the event this information is protected by the Federal Confidentiality of Alcohol and Drug Abuse Patient Records regulations: The Federal rules restrict any use of the information to criminally investigate or prosecute any alcohol or drug abuse patient.[facility] CenterIn the event this information is protected by the Federal Confidentiality of Alcohol and Drug Abuse Patient Records regulations: The Federal rules restrict any use of the information to criminally investigate or prosecute any alcohol or drug abuse patient.[facility] CenterIn the event this information is protected by the Federal Confidentiality of Alcohol and Drug Abuse Patient Records regulations: The Federal rules restrict any use of the information to criminally investigate or prosecute any alcohol or drug abuse patient.[facility] CenterIn the event this information is protected by the Federal Confidentiality of Alcohol and Drug Abuse Patient Records regulations: The Federal rules restrict any use of the information to criminally investigate or prosecute any alcohol or drug abuse patient.[facility] CenterIn the event this information is protected by the Federal Confidentiality of Alcohol and Drug Abuse Patient Records regulations: The Federal rules restrict any use of the information to criminally investigate or prosecute any alcohol or drug abuse patient.[facility] CenterIn the event this information is protected by the Federal Confidentiality of Alcohol and Drug Abuse Patient Records regulations: The Federal rules restrict any use of the information to criminally investigate or prosecute any alcohol or drug abuse patient.[facility] CenterIn the event this information is protected by the Federal Confidentiality of Alcohol and Drug Abuse Patient Records regulations: The Federal rules restrict any use of the information to criminally investigate or prosecute any alcohol or drug abuse patient.[facility] CenterIn the event this information is protected by the Federal Confidentiality of Alcohol and Drug Abuse Patient Records regulations: The Federal rules restrict any use of the information to criminally investigate or prosecute any alcohol or drug abuse patient.[facility] CenterIn the event this information is protected by the Federal Confidentiality of Alcohol and Drug Abuse Patient Records regulations: The Federal rules restrict any use of the information to criminally investigate or prosecute any alcohol or drug abuse patient.[facility] CenterIn the event this information is protected by the Federal Confidentiality of Alcohol and Drug Abuse Patient Records regulations: The Federal rules restrict any use of the information to criminally investigate or prosecute any alcohol or drug abuse patient.[facility] CenterIn the event this information is protected by the Federal Confidentiality of Alcohol and Drug Abuse Patient Records regulations: The Federal rules restrict any use of the information to criminally investigate or prosecute any alcohol or drug abuse patient.[facility] CenterIn the event this information is protected by the Federal Confidentiality of Alcohol and Drug Abuse Patient Records regulations: The Federal rules restrict any use of the information to criminally investigate or prosecute any alcohol or drug abuse patient.[facility] CenterIn the event this information is protected by the Federal Confidentiality of Alcohol and Drug Abuse Patient Records regulations: The Federal rules restrict any use of the information to criminally investigate or prosecute any alcohol or drug abuse patient.[facility] CenterIn the event this information is protected by the Federal Confidentiality of Alcohol and Drug Abuse Patient Records regulations: The Federal rules restrict any use of the information to criminally investigate or prosecute any alcohol or drug abuse patient.[facility] CenterIn the event this information is protected by the Federal Confidentiality of Alcohol and Drug Abuse Patient Records regulations: The Federal rules restrict any use of the information to criminally investigate or prosecute any alcohol or drug abuse patient.[facility] CenterIn the event this information is protected by the Federal Confidentiality of Alcohol and Drug Abuse Patient Records regulations: The Federal rules restrict any use of the information to criminally investigate or prosecute any alcohol or drug abuse patient.[facility] CenterIn the event this information is protected by the Federal Confidentiality of Alcohol and Drug Abuse Patient Records regulations: The Federal rules restrict any use of the information to criminally investigate or prosecute any alcohol or drug abuse patient.[facility] CenterIn the event this information is protected by the Federal Confidentiality of Alcohol and Drug Abuse Patient Records regulations: The Federal rules restrict any use of the information to criminally investigate or prosecute any alcohol or drug abuse patient.[facility] CenterIn the event this information is protected by the Federal Confidentiality of Alcohol and Drug Abuse Patient Records regulations: The Federal rules restrict any use of the information to criminally investigate or prosecute any alcohol or drug abuse patient.[facility] CenterIn the event this information is protected by the Federal Confidentiality of Alcohol and Drug Abuse Patient Records regulations: The Federal rules restrict any use of the information to criminally investigate or prosecute any alcohol or drug abuse patient.[facility] CenterIn the event this information is protected by the Federal Confidentiality of Alcohol and Drug Abuse Patient Records regulations: The Federal rules restrict any use of the information to criminally investigate or prosecute any alcohol or drug abuse patient.[facility] CenterIn the event this information is protected by the Federal Confidentiality of Alcohol and Drug Abuse Patient Records regulations: The Federal rules restrict any use of the information to criminally investigate or prosecute any alcohol or drug abuse patient.[facility] CenterIn the event this information is protected by the Federal Confidentiality of Alcohol and Drug Abuse Patient Records regulations: The Federal rules restrict any use of the information to criminally investigate or prosecute any alcohol or drug abuse patient.[facility] CenterIn the event this information is protected by the Federal Confidentiality of Alcohol and Drug Abuse Patient Records regulations: The Federal rules restrict any use of the information to criminally investigate or prosecute any alcohol or drug abuse patient.[facility] CenterIn the event this information is protected by the Federal Confidentiality of Alcohol and Drug Abuse Patient Records regulations: The Federal rules restrict any use of the information to criminally investigate or prosecute any alcohol or drug abuse patient.[facility] CenterIn the event this information is protected by the Federal Confidentiality of Alcohol and Drug Abuse Patient Records regulations: The Federal rules restrict any use of the information to criminally investigate or prosecute any alcohol or drug abuse patient.[facility] CenterIn the event this information is protected by the Federal Confidentiality of Alcohol and Drug Abuse Patient Records regulations: The Federal rules restrict any use of the information to criminally investigate or prosecute any alcohol or drug abuse patient.[facility] CenterIn the event this information is protected by the Federal Confidentiality of Alcohol and Drug Abuse Patient Records regulations: The Federal rules restrict any use of the information to criminally investigate or prosecute any alcohol or drug abuse patient.[facility] CenterIn the event this information is protected by the Federal Confidentiality of Alcohol and Drug Abuse Patient Records regulations: The Federal rules restrict any use of the information to criminally investigate or prosecute any alcohol or drug abuse patient.[facility] CenterIn the event this information is protected by the Federal Confidentiality of Alcohol and Drug Abuse Patient Records regulations: The Federal rules restrict any use of the information to criminally investigate or prosecute any alcohol or drug abuse patient.[facility] CenterIn the event this information is protected by the Federal Confidentiality of Alcohol and Drug Abuse Patient Records regulations: The Federal rules restrict any use of the information to criminally investigate or prosecute any alcohol or drug abuse patient.[facility] CenterIn the event this information is protected by the Federal Confidentiality of Alcohol and Drug Abuse Patient Records regulations: The Federal rules restrict any use of the information to criminally investigate or prosecute any alcohol or drug abuse patient.[facility] CenterIn the event this information is protected by the Federal Confidentiality of Alcohol and Drug Abuse Patient Records regulations: The Federal rules restrict any use of the information to criminally investigate or prosecute any alcohol or drug abuse patient.[facility] CenterIn the event this information is protected by the Federal Confidentiality of Alcohol and Drug Abuse Patient Records regulations: The Federal rules restrict any use of the information to criminally investigate or prosecute any alcohol or drug abuse patient.[facility] CenterIn the event this information is protected by the Federal Confidentiality of Alcohol and Drug Abuse Patient Records regulations: The Federal rules restrict any use of the information to criminally investigate or prosecute any alcohol or drug abuse patient.[facility] CenterIn the event this information is protected by the Federal Confidentiality of Alcohol and Drug Abuse Patient Records regulations: The Federal rules restrict any use of the information to criminally investigate or prosecute any alcohol or drug abuse patient.[facility] CenterIn the event this information is protected by the Federal Confidentiality of Alcohol and Drug Abuse Patient Records regulations: The Federal rules restrict any use of the information to criminally investigate or prosecute any alcohol or drug abuse patient.[facility] CenterIn the event this information is protected by the Federal Confidentiality of Alcohol and Drug Abuse Patient Records regulations: The Federal rules restrict any use of the information to criminally investigate or prosecute any alcohol or drug abuse patient.[facility] CenterIn the event this information is protected by the Federal Confidentiality of Alcohol and Drug Abuse Patient Records regulations: The Federal rules restrict any use of the information to criminally investigate or prosecute any alcohol or drug abuse patient.[facility] CenterIn the event this information is protected by the Federal Confidentiality of Alcohol and Drug Abuse Patient Records regulations: The Federal rules restrict any use of the information to criminally investigate or prosecute any alcohol or drug abuse patient.[facility] CenterIn the event this information is protected by the Federal Confidentiality of Alcohol and Drug Abuse Patient Records regulations: The Federal rules restrict any use of the information to criminally investigate or prosecute any alcohol or drug abuse patient.[facility] CenterIn the event this information is protected by the Federal Confidentiality of Alcohol and Drug Abuse Patient Records regulations: The Federal rules restrict any use of the information to criminally investigate or prosecute any alcohol or drug abuse patient.[facility] CenterIn the event this information is protected by the Federal Confidentiality of Alcohol and Drug Abuse Patient Records regulations: The Federal rules restrict any use of the information to criminally investigate or prosecute any alcohol or drug abuse patient.[facility] CenterIn the event this information is protected by the Federal Confidentiality of Alcohol and Drug Abuse Patient Records regulations: The Federal rules restrict any use of the information to criminally investigate or prosecute any alcohol or drug abuse patient.[facility] CenterIn the event this information is protected by the Federal Confidentiality of Alcohol and Drug Abuse Patient Records regulations: The Federal rules restrict any use of the information to criminally investigate or prosecute any alcohol or drug abuse patient.[facility] CenterIn the event this information is protected by the Federal Confidentiality of Alcohol and Drug Abuse Patient Records regulations: The Federal rules restrict any use of the information to criminally investigate or prosecute any alcohol or drug abuse patient.[facility] CenterIn the event this information is protected by the Federal Confidentiality of Alcohol and Drug Abuse Patient Records regulations: The Federal rules restrict any use of the information to criminally investigate or prosecute any alcohol or drug abuse patient.[facility] CenterIn the event this information is protected by the Federal Confidentiality of Alcohol and Drug Abuse Patient Records regulations: The Federal rules restrict any use of the information to criminally investigate or prosecute any alcohol or drug abuse patient.[facility] CenterIn the event this information is protected by the Federal Confidentiality of Alcohol and Drug Abuse Patient Records regulations: The Federal rules restrict any use of the information to criminally investigate or prosecute any alcohol or drug abuse patient.[facility] CenterIn the event this information is protected by the Federal Confidentiality of Alcohol and Drug Abuse Patient Records regulations: The Federal rules restrict any use of the information to criminally investigate or prosecute any alcohol or drug abuse patient.[facility] CenterIn the event this information is protected by the Federal Confidentiality of Alcohol and Drug Abuse Patient Records regulations: The Federal rules restrict any use of the information to criminally investigate or prosecute any alcohol or drug abuse patient.[facility] CenterIn the event this information is protected by the Federal Confidentiality of Alcohol and Drug Abuse Patient Records regulations: The Federal rules restrict any use of the information to criminally investigate or prosecute any alcohol or drug abuse patient.[facility] Medical CenterIn the event this information is protected by the Federal Confidentiality of Alcohol and Drug Abuse Patient Records regulations: The Federal rules restrict any use of the information to criminally investigate or prosecute any alcohol or drug abuse patient.[facility] the event this information is protected by the Federal Confidentiality of Alcohol and Drug Abuse Patient Records regulations: The Federal rules restrict any use of the information to criminally investigate or prosecute any alcohol or drug abuse patient.[facility] Reason for Visit (unrecogniz ed section and content) Reason Comments Physical Therapy Specialty Diagnoses / Procedures Referred By Contac t Referred To Contact [facility] Diagnoses Acute pain of right knee Procedures CONSULT TO PHYSICAL THERAPY PHYSICAL THERAPY EVALUATION HIGH COMPLEX 45 MINS Charles Smith MD [address] [place] [address] Phone: tel: fax: [facility] [address] [place] [address] Referral ID Status Reason Start Date Expiration Date Visits Requested Visits Authorized [id number] Authorized Auto-Generat ed Referral 10/08/2024 10/07/2025 [address] Specialty Diagnoses / Procedures Referred By Contac t Referred To Contact CT IMAGING Diagnoses Abdominal pain, lower Elevated LFTs Elevated alkaline phosphatase level Left lower quadrant abdominal pain Procedures CT ABD/PEL W IVCON CT ABD & PEL[place] [address] [place] [id number] [address] Referral ID Status Reason Start Date Expiration Date V isits Requested Visits Authorized [id number] Closed Auto-Generate d Referral 04/03/2022 05/03/2023 1 1 Reason Comments Floaters Both Eyes Reason Comments Vaginal Problem 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 Ultrasound Reason Comments wasp sting Reason Comments Medication Problem Reason Comments Patient Question Reason Comments Patient Update Reason Comments Results Reason Comments Physical Reason Comments Results Scheduling Reason Comments Consult lower abdomen pain, diarrhea Specialty Diagnoses / Procedures Referred By Contac t Referred To Contact General Surgery Diagnoses Lower abdominal pain Family history of colon cancer Procedures CONSULT TO GENERAL SURGERY OFFICE/OUTPATIENT [facility] MDM 60-74 MINUTES Charles Smith MD [address] [place] [address] Referral ID Status Reason Start Date Expiration Date Visits Requested Visits Authorized [id number] Pending Review PCP Requested Referral 03/25/2022 03/25/2023 1 1 Specialty Diagnoses / Procedures Referred By Contac t Referred To Contact MR IMAGING Diagnoses Lesion of right lobe of liver Procedures MRI LIVER WO/W IVCON MRI ABDOMEN W/O & W/CONTRAST MATERIAL Charles Smith MD [address] [place] [address] Mr Imaging Referral ID Status Reason Start Date Expiration Date V isits Requested Visits Authorized [id number] Closed Auto-Generate d Referral 04/25/2022 05/25/2023 1 1 Reason Comments Results Reason Comments Recheck Reason Comments Procedure Follow Up EGD and colonoscopy follow up Reason Comments discomfort in both eyes OD>OS-dull disco mfort Floaters Both Eyes Reason Comments Cataract Follow Up Nuclear sclerosis of both eyes Reason Comments Follow Up Red spot on mid back Reason Comments Full Body Skin Check Reason Comments Physical Reason Comments Yearly Exam Reason Comments Cataract Evaluation Reason Comments Refraction Reason Onset Date Comments Population Health Navigation Outreach 05/08/[address] [facility] Reason Comments Medicare Wellness Exam Reason Comments Breast Problem Reason Comments Reminder Call Reason Comments Insect Bite Wasp sting R forearm x1 day, red and swollen Reason Comments Pain Right knee pain Reason Comments PT Eval Reason Comments Ear Problem Bilat ear pain x 3 w eeks, L ear worse Reason Comments PT Progress Note PT Discharge Specialty Diagnoses / Procedures Referred By Harini t Referred To Contact [facility] Diagnoses Acute pain of right knee Procedures CONSULT TO PHYSICAL THERAPY PHYSICAL THERAPY EVALUATION HIGH COMPLEX 45 MINS Charles Smith MD [address] [place] [address] Phone: tel: fax: [facility] [address] [place] [address] Referral ID Status Reason Start Date Expiration Date Visits Requested Visits Authorized [id number] Authorized Auto-Generat ed Referral 10/08/2024 10/07/2025 20 20 Reason Comments Yearly Exam Reason Comments Follow Up Reason Onset Date Comments Results 04/15/2025 Reason Comments Orders refax the order for a nerve test to [facility] Reason Comments New Knee Pain Swelling Specialty Diagnoses / Procedures Referred By Harini t Referred To Contact Orthopedics Diagnoses Tear of medial meniscus of right knee, current, unspecified tear type, initial encounter Procedures OFFICE/OUTPATIENT NEW HIGH MDM 60 MINUTES Charles Smith MD [address] [place] [address] Phone: tel: fax: Referral ID Status Reason Start Date Expiration Date V isits Requested Visits Authorized [id number] Closed PCP Requested Referral 05/20/2025 05/20/2026 1 1 Care Teams (unrecognized sec tion and content) Programmer Operator Numerical Control Relationship Specialty Start Date End Date Charles Smith MD [address] [place] [address] PCP - General Family Practice 01/07/18 Programmer Operator Numerical Control Relationship Specialty Start Date End Date Charles Smith MD [facility] [place] [address] PCP - General Family Practice 01/07/18 Programmer Operator Numerical Control Relationship Specialty Start Date End Date Charles Smith MD [address] [place] [address], [place] [address] PCP - General Family Practice 01/07/18 Programmer Operator Numerical Control Relationship Specialty Start Date End Date Charles Smith MD [address] [place] [address], [place] [address] PCP - General Family Practice 01/07/18 Programmer Operator Numerical Control Relationship Specialty Start Date End Date Charles Smith MD [facility] [place] [address] PCP - General Family Practice 01/07/18 Programmer Operator Numerical Control Relationship Specialty Start Date End Date Charles Smith MD [facility] [place] [address] PCP - General Family Practice 01/07/18 Programmer Operator Numerical Control Relationship Specialty Start Date End Date Charles Smith MD [address] [place] [address], [place] [address] PCP - General Family Practice 01/07/18 Programmer Operator Numerical Control Relationship Specialty Start Date End Date Charles Smith MD [address] [place] [address], [place] [address] PCP - General Family Practice 01/07/18 Programmer Operator Numerical Control Relationship Specialty Start Date End Date Charles Smith MD [address] [place] [address], [place] [address] PCP - General Family Practice 01/07/18 Programmer Operator Numerical Control Relationship Specialty Start Date End Date Charles Smith MD [address] [place] [address] PCP - General Family Practice 01/07/18 Programmer Operator Numerical Control Relationship Specialty Start Date End Date Charles Smith MD [address] [place] [address] PCP - General Family Practice 01/07/18 Programmer Operator Numerical Control Relationship Specialty Start Date End Date Charles Smith MD [address] [place] [address], [place] [address] PCP - General Family Practice 01/07/18 Programmer Operator Numerical Control Relationship Specialty Start Date End Date Charles Smith MD [address] [place] [address] [place] [address] PCP - General Family Practice 01/07/18 Programmer Operator Numerical Control Relationship Specialty Start Date End Date Charles Smith MD [facility] [place] [address] PCP - General Family Practice 01/07/18 Programmer Operator Numerical Control Relationship Specialty Start Date End Date Charles Smith MD [address] [place] [address] [place] [address] PCP - General Family Practice 01/07/18 Programmer Operator Numerical Control Relationship Specialty Start Date End Date Charles Smith MD [address] [place] [address], [place] [address] PCP - General Family Practice 01/07/18 Programmer Operator Numerical Control Relationship Specialty Start Date End Date Charles Smith MD [address] [place] [address] [place] [address] PCP - General Family Practice 01/07/18 Programmer Operator Numerical Control Relationship Specialty Start Date End Date Charles Smith MD [address] [place] [address] PCP - General Family Medicine 01/07/18 Programmer Operator Numerical Control Relationship Specialty Start Date End Date Charles Smith MD [address] [place] [address] PCP - General Family Medicine 01/07/18 Programmer Operator Numerical Control Relationship Specialty Start Date End Date Charles Smith MD [address] [place] [address] PCP - General Family Medicine 01/07/18 Programmer Operator Numerical Control Relationship Specialty Start Date End Date Charles Smith MD [address] [place] [address] PCP - General Family Medicine 01/07/18 Programmer Operator Numerical Control Relationship Specialty Start Date End Date Charles Smith MD [address] [place] [address] PCP - General Family Medicine 01/07/18 Programmer Operator Numerical Control Relationship Specialty Start Date End Date Charles Smith MD [address] [place] [address] PCP - General Family Medicine 01/07/18 Programmer Operator Numerical Control Relationship Specialty Start Date End Date Charles Smith MD [address] [place] [address] PCP - General Family Medicine 01/07/18 Programmer Operator Numerical Control Relationship Specialty Start Date End Date Charles Smith MD [address] [place] [address] PCP - General Family Medicine 01/07/18 Programmer Operator Numerical Control Relationship Specialty Start Date End Date Charles Smith MD [address] [place] [address], [place] [address] PCP - General Family Medicine 01/07/18 Programmer Operator Numerical Control Relationship Specialty Start Date End Date Charles Smith MD [address] [place] [address] PCP - General Family Medicine 01/07/18 Programmer Operator Numerical Control Relationship Specialty Start Date End Date Charles Smith MD [address] [place] [address] PCP - General Family Medicine 01/07/18 Programmer Operator Numerical Control Relationship Specialty Start Date End Date Charles Smith MD [address] [place] [address] PCP - General Family Medicine 01/07/18 Programmer Operator Numerical Control Relationship Specialty Start Date End Date Charles Smith MD [address] [place] [address] PCP - General Family Medicine 01/07/18 Programmer Operator Numerical Control Relationship Specialty Start Date End Date Charles Smith MD [address] [place] [address] PCP - General Family Medicine 01/07/18 Programmer Operator Numerical Control Relationship Specialty Start Date End Date Charles Smith MD [address] [place] [address] PCP - General Family Medicine 01/07/18 Programmer Operator Numerical Control Relationship Specialty Start Date End Date Charles Smith MD [address] [place] [address] PCP - General Family Medicine 01/07/18 Programmer Operator Numerical Control Relationship Specialty Start Date End Date Charles Smith MD [address] [place] [address] PCP - General Family Medicine 01/07/18 Programmer Operator Numerical Control Relationship Specialty Start Date End Date Charles Smith MD [address] [place] [address] PCP - General Family Medicine 01/07/18 Programmer Operator Numerical Control Relationship Specialty Start Date End Date Charles mSith MD [address] [place] [address] PCP - General Family Medicine 01/07/18 Programmer Operator Numerical Control Relationship Specialty Start Date End Date Charles Smith MD [address] [place] [address] PCP - General Family Medicine 01/07/18 Programmer Operator Numerical Control Relationship Specialty Start Date End Date Charles Smith MD [address] [place] [address] PCP - General Family Medicine 01/07/18 Programmer Operator Numerical Control Relationship Specialty Start Date End Date Charles Smith MD [address] [place] [address] PCP - General Family Medicine 01/07/18 Paula Cowan APRN.CNP [address] [place] [address] Multi Slide Machine Tender Family Medicine 09/13/24 Roxie Galloway PA-C [address] [place] [address] Multi Slide Machine Tender Family Medicine 09/13/24 Programmer Operator Numerical Control Relationship Specialty Start Date End Date Charles Smith MD [address] [place] [address] PCP - General Family Medicine 01/07/18 Paula Cowan APRN.VESSEL WELDER [address] [place] [address] Multi Slide Machine Tender Family Medicine 09/13/24 Roxie Galloway PA-C [address] [place] [address] Multi Slide Machine Tender Family Medicine 09/13/24 Programmer Operator Numerical Control Relationship Specialty Start Date End Date Charles Smith MD [address] [place] [address] PCP - General Family Medicine 01/07/18 Paula Cowan, OCCUPATIONAL THER.VESSEL WELDER [address] [place] [address] Multi Slide Machine Tender Family Medicine 09/13/24 Roxie Galloway PA-C [address] [place] [address] Multi Slide Machine Tender Family Medicine 09/13/24 Programmer Operator Numerical Control Relationship Specialty Start Date End Date Charles Smith MD [address] [place] [address] PCP - General Family Medicine 01/07/18 Paula Cowan, OCCUPATIONAL THER.VESSEL WELDER [address] [place] [address] Multi Slide Machine Tender Family Medicine 09/13/24 Roxie Galloway PA-C [address] [place] [address] Multi Slide Machine Tender Family Medicine 09/13/24 Programmer Operator Numerical Control Relationship Specialty Start Date End Date Charles Smith MD [address] [place] [address] PCP - General Family Medicine 01/07/18 Paula Cowan APRN.VESSEL WELDER [address] [place] [address] Multi Slide Machine Tender Family Medicine 09/13/24 Roxie Galloway PA-C [address] [place] [address] [facility] 09/13/24 Programmer Operator Numerical Control Relationship Specialty Start Date End Date Charles Smith MD [address] [place] [address] PCP - General Family Medicine 01/12/25 Paula Cowan APRN.VESSEL WELDER [address] [place] [address] Multi Slide Machine Tender Family Medicine 09/13/24 Roxie Galloway PA-C [address] [place] [address] Multi Slide Machine Tender Family Medicine 09/13/24 Programmer Operator Numerical Control Relationship Specialty Start Date End Date Charles Smith MD [address] [place] [address] PCP - General Family Medicine 01/12/25 Paula Cowan APRN.VESSEL WELDER [facility] [place] [address] Multi Slide Machine Tender Family Medicine 09/13/24 Roxie Galloway PA-C [address] [place] [address] Multi Slide Machine Tender Family Medicine 09/13/24 Programmer Operator Numerical Control Relationship Specialty Start Date End Date Charles Smith MD [address] [place] [address] PCP - General Family Medicine 01/07/18 01/11/25 Charles Smith MD [address] [place] [address] PCP - General Family Medicine 01/12/25 Paula Cowan APRN.VESSEL WELDER [address] [place] [address] Multi Slide Machine Tender Family Medicine 09/13/24 Roxie Galloway PA-C [address] [place] [address] Multi Slide Machine Tender Family Medicine 09/13/24 Programmer Operator Numerical Control Relationship Specialty Start Date End Date Charles Smith MD [address] [place] [address] PCP - General Family Medicine 01/12/25 Paula Cowan APRN.VESSEL WELDER [facility] [place] [address] Multi Slide Machine Tender Family Medicine 09/13/24 Roxie Galloway PA-C [address] [place] [address] Multi Slide Machine Tender Family Medicine 09/13/24 Programmer Operator Numerical Control Relationship Specialty Start Date End Date Charles Smith MD [address] [place] [address] PCP - General Family Medicine 01/12/25 Paula Cowan, OCCUPATIONAL THER.VESSEL WELDER [address] [place] [address] Multi Slide Machine Tender Family Medicine 09/13/24 Roxie Galloway PA-C [address] [place] [address] Multi Slide Machine Tender Family Medicine 09/13/24 Programmer Operator Numerical Control Relationship Specialty Start Date End Date Charles Smith MD [address] [place] [address] PCP - General Family Medicine 01/12/25 Paula Cowan, OCCUPATIONAL THER.VESSEL WELDER [address] [place] [address] Multi Slide Machine Tender Family Medicine 03/09/25 Roxie Galloway PA-C [address] [place] [address] [facility] 03/09/25 Programmer Operator Numerical Control Relationship Specialty Start Date End Date Charles Smith MD [address] [place] [address] PCP - General Family Medicine 01/12/25 Paula Cowan, OCCUPATIONAL THER.VESSEL WELDER [address] [place] [address] Multi Slide Machine Tender Family Medicine 03/09/25 Roxie Galloway PA-C [address] [place] [address] Multi Slide Machine Tender Family Medicine 03/09/25 Programmer Operator Numerical Control Relationship Specialty Start Date End Date Charles Smith MD [address] [place] [address] PCP - General Family Medicine 01/12/25 Paula Cowan APRN.VESSEL WELDER [address] [place] [address] Multi Slide Machine Tender Family Medicine 03/09/25 Roxie Galloway PA-C [address] [place] [address] Multi Slide Machine Tender Family Medicine 03/09/25 Programmer Operator Numerical Control Relationship Specialty Start Date End Date Charles Smith MD [address] [place] [address] PCP - General Family Medicine 01/12/25 Paula Cowan APRN.VESSEL WELDER [address] [place] [address] Multi Slide Machine Tender Family Medicine 03/09/25 Roxie Galloway PA-C [address] [place] [address] Multi Slide Machine Tender Family Medicine 03/09/25 Programmer Operator Numerical Control Relationship Specialty Start Date End Date Charles Smith MD [address] [place] [address] PCP - General Family Medicine 01/12/25 Paula Cowan APRN.VESSEL WELDER [facility] [place] [address] Multi Slide Machine Tender Family Medicine 03/09/25 Roxie Galloway PA-C [address] [place] [address] [facility] 03/09/25 Programmer Operator Numerical Control Relationship Specialty Start Date End Date Charles Smith MD [address] [place] [address] PCP - General Family Medicine 01/12/25 Paula Cowan APRN.CNP [address] [place] [address] [facility] 03/09/25 Roxie Galloway PA-C [address] [place] [address] [facility] 03/09/25 Goals (unrecognized section and content) Goals may be documented in a n alternate sectionGoals may be documented in an alternate section FOR RECORDS PERTAINING TO PATIENTS WHO ARE OR HAVE BEEN ENROLLED IN A CHEMICAL DEPENDENCY/SUBSTANCEABUSE PROGRAM, SOME INFORMATION MAY BE OMITTED. This clinical summary was aggregated from multiple sources. Caution should be exercised in using it in the provision of clinical care. This summary normalizes information from multiple sources, and as a consequence, information in this document may materially change the coding, format and clinical context of patient data. In addition, data may be omitted in some cases. CLINICAL DECISIONS SHOULD BE BASED ON THE PRIMARY CLINICAL RECORDS. [facility] [employer] [facility]. provides no warranty or guarantee of the accuracy or completeness of information in this document.
--- NOTE | 2025-06-02 09:00 | NEURO ---
NCS and/or EMG Patient Report Ordering Doctor: Charles Alvarez DATE OF SERVICE: 06/02/25 Clinical Summary: 74 year old female patient with symptoms of pain/discomfort and numbness in both hands. Nerve Conduction Studies Summary: Nerve conduction studies were performed in the bilateral upper extremities. The median-D2 SNAP distal latency was prolonged. The median-jesus response was absent bilaterally. The right ulnar-jesus response amplitude was reduced. There was a drop in the right ulnar motor amplitude across the elbow, which is indicative of partial motor conduction block. There was right ulnar motor conduction velocity slowing across the elbow. The eft median motor conduction velocity was reduced in the forearm segment. Needle Examination Summary: Needle examination of select muscles was performed in the bilateral upper extremities. There was a higher proportion of motor unit action potentials with reduced recruitment, increased amplitude, increased duration, and polyphasia in the bilateral triceps, bilateral flexor carpi radialis, and right first dorsal interosseous muscles. Impression: This is an abnormal study. 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
== END | disposition home or self-care (01) ==
PROVIDERS: PCP Family Medicine; Referring Provider Family Medicine; Visit Provider Family Medicine
DX: R20.0 Anesthesia of skin (principal); R20.2 Paresthesia of skin
CPT/HCPCS: 95886; 95913

== ENCOUNTER → 2025-06-10 | Outpatient (CLI) | payer MEDICARE, SELFPAY ==
--- NOTE | 2025-06-10 15:16 | NEURO ---
NCS and/or EMG Patient Report Ordering Doctor: Charles Alvarez DATE OF SERVICE: 06/10/25 Khadijah presents with pain in the right lower leg. She reports symptoms are intermittent. She denies numbness or tingling. Electrodiagnostic findings: Right peroneal motor nerve demonstrates normal distal latency, amplitude and conduction velocity. Normal right tibial motor response. Normal right tibial and peroneal F?wave. Sensory responses within normal limits. Needle EMG testing was performed in the right lower limb. All muscles tested showed no evidence of denervation with normal motor unit action potentials. Electrodiagnostic impression: This is a normal electrodiagnostic study of the right lower limb. There is no electrodiagnostic evidence for lumbosacral radiculopathy or peripheral neuropathy in the right leg Multi Select Codes Neurology Neurology Interp Codes: 61253-85 Musc test done w/n test comp (interp) and 18101-17 Nrv cndj tst 5-6 studies (interp)
== END | disposition home or self-care (01) ==
LOC: PSN 12:16
PROVIDERS: PCP Family Medicine; Referring Provider Family Medicine; Visit Provider Family Medicine
DX: R20.0 Anesthesia of skin (principal); R20.2 Paresthesia of skin
CPT/HCPCS: 95886; 95909